=== PATIENT | male | born 1960 | race Caucasian/White ===

== ENCOUNTER 2023-09-19 15:34 | Outpatient (CLI) | payer MEDICARE, SELFPAY ==
--- NOTE | ~2023-09-19 | XR_ITS ---
EXAMINATION: XR abdomen/kub 1V DATE: 09/19/2023 15:56 INDICATION: Right kidney stone. Hematuria. TECHNIQUE: A supine view of the abdomen on 2 radiographs was obtained. COMPARISON: None. FINDINGS: There are no dilated loops of bowel. The kidneys are obscured by bowel. There are 17 mm and 7 mm stones in right kidney. IMPRESSION: 1. Right kidney stones. Reviewed, dictated and finalized at location E. DETAILER IMPRESSION: 1. Right kidney stones.
== END 2023-09-19 15:35 | disposition home or self-care (01) ==
PROVIDERS: PCP Emergency Medicine; Visit Provider Physician Assistant
DX: N20.0 Calculus of kidney (principal)
CPT/HCPCS: 74018

== ENCOUNTER 2023-10-08 13:21 | Outpatient (CLI) | payer MEDICARE, SELFPAY ==
--- NOTE | 2023-10-08 13:54 | ECG_ITS ---
Measurements Intervals [place] Rate: 72 P: 78 KS: 152 QRS: 54 QRSD: 97 T: 39 QT: 378 QTc: 416 Interpretive Statements SINUS RHYTHM NO PREVIOUS ECG AVAILABLE FOR COMPARISON Electronically Signed On 10-08-2023 14:41:52 [place] MILLER by Casey Christie M.D.
[2023-10-08 15:47] LABS: Partial Thromboplastin Time 29.1 SECONDS (22.3-36.8)
== END 2023-10-08 13:22 | disposition home or self-care (01) ==
PROVIDERS: PCP Emergency Medicine; Visit Provider Urology
DX: N20.0 Calculus of kidney (principal); I10 Essential (primary) hypertension; Z01.818 Encounter for other preprocedural examination
CPT/HCPCS: 36415; 85610; 85730; 87086; 93005

== ENCOUNTER 2023-10-17 02:52 | Day surgery (SDC) | payer MEDICARE, SELFPAY ==
[2023-10-07 14:40] VITALS: BMI 25.8
--- NOTE | 2023-10-07 14:46 | PC.NURSE ---
Report to the Outpatient Waiting Room, entrance under the green pavilion located off [facility], at time 11:00 on date 10/17/23. Planned Procedure Time: 1:00. Time changes happen often and if your time is changed the preop area will call you the afternoon before. - You and your visitor will be asked to self-screen and do not enter if you have any COVID symptoms. - A mask is optional within the hospital at this time. Patients may have clear liquids (water, carbonated beverages, clear teas, apple juice) until 3 hours prior to surgery (10:00) with a maximum of 20 ounces. - No food from midnight until time of surgery Take the following medications with a SIP of water the morning of surgery: AMLODIPINE, CARVEDILOL DO NOT STOP ANY OF YOUR OTHER PRESCRIPTION MEDICATIONS PRIOR TO SURGERY ?EXCEPT THE FOLLOWING Medications to discontinue per physician: VITAMINS/SUPPLEMENTS Date to take last dose: 10/13/23 LAST DOSE OF ASPIRIN AND PLAVIX (CLOPIDOGREL): 10/09/[address] PHAN (PER PT) Please no make-up, nail spanish, hairspray, perfume, deodorant, or body powder the day of surgery. No jewelry (including any body piercings) or valuables the day of surgery, leave them at home. Please take a shower or bath the night before, or the morning of, surgery with an antibacterial soap. Wear comfortable, loose fitting clothing. - Jewelry must be removed prior to entering the operating room. Rings and piercings that are not removed may be cut off. - The hospital will not accept responsibility for valuables. - Please leave all valuables, including medications, at home the day of surgery. If you are going home after surgery, a licensed reach lift truck driver must drive you home. - NO public transportation without another adult if you receive anesthesia. - We recommend that an adult stay with you for 24 hours following discharge. - We also recommend that you do not drive, make important decision, drink alcoholic beverages, or take any drugs that were not prescribed by your health care provider for at least 24 hours after your discharge time. Follow any additional instructions given to you from your surgeon. If you or anyone in your household have experienced Covid symptoms in the past week, please notify your surgeon or the nurse liaison at the phone number below for possible testing. Telephone instructions given to PT - DNE ANDERSON and asked if any additional questions and then verbalized understanding. Patient advised to call surgeon office or pre surgery nurse liaison [phone] if any additional questions.
[2023-10-17] VITALS (8 sets, daily range): BP systolic 97–153; BP diastolic 62–96; PULSE 70–92; RESP 12–20; TEMP 36.1–36.2; O2SAT 92–98
--- NOTE | ~2023-10-17 | XR_ITS ---
EXAMINATION: XR abdomen/kub 1V INDICATION: Right nephrolithiasis TECHNIQUE: Supine views of the abdomen were obtained on 2 radiographs. COMPARISON: 09/19/2023 FINDINGS: A 1.7 cm stone projects in the right mid kidney. There is a 6 mm stone of the right kidney lower pole. No additional urolithiasis is identified. There are phleboliths of the pelvis. 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 Mild to moderate lower lumbar spondylosis is noted. The visualize d lung bases are clear. IMPRESSION: 1. Right nephrolithiasis. Reviewed, dictated and finalized at location B. L SASH ERECTOR IMPRESSION: 1. Right nephrolithiasis.
--- NOTE | 2023-10-17 06:11 | WPDHPUPDATE1 ---
History and Physical Update Update Date/Time: 10/17/23 06:11 History and Physical has been reviewed, including an updated exam of the patient. There are NO changes in the patient's condition. Risks, benefits, and alternatives have been discussed and questions answered. Patient agrees to proceed with procedure.
[2023-10-17] MEDS: LACTATED RINGERS 1,000 ML 30 ML IV CONT (12:05)
--- NOTE | 2023-10-17 12:13 | P.PNAN_ITS ---
Anes - Initial Pre Proc Eval Procedure: Operation Date: 10/17/23 13:00 Proposed Procedures p Right Extracorporeal Shock Wave Lithotripsy - Sunny Baig MD s Cystoscopy with Right Stent Placement - Sunny Baig MD Date/Time: 10/17/23 12:13 Surgeon: Sunny Baig MD Pre Op Diagnosis: Rt Renal Stone Patient Data Age: 63 Gender: M Height: 1.78 m Weight: 81.25 kg Last Vital Signs Temp 36.1 C L 10/17/23 11:33 Pulse 70 10/17/23 11:33 Resp 20 10/17/23 11:33 BP 97/62 L 10/17/23 11:33 Pulse Ox 98 10/17/23 11:33 O2 Del Method Room Air 10/17/23 11:33 Allergies Allergy/AdvReac Type Severity Reaction Status Date / Time codeine AdvReac Unknown Gastrointestinal Verified 10/17/23 11:36 Upset Home Medications Medication Instructions Recorded Confirmed Type amlodipine 10 mg tablet 10 mg PO DAILY 05/21/23 10/17/23 History carvedilol 25 mg tablet 25 mg PO DAILY 05/21/23 10/17/23 History clonazepam 0.5 mg tablet 0.5 mg PO HS 05/21/23 10/17/23 History aspirin 81 mg chewable tablet 81 mg PO DAILY@0800 30 days #30 06/02/23 10/17/23 Rx (Children's Aspirin) tabs atorvastatin 80 mg tablet 80 mg PO HS 30 days #30 tabs 06/02/23 10/17/23 Rx clopidogrel 75 mg tablet 75 mg PO QHS 30 days #30 tabs 06/02/23 10/17/23 Rx sennosides 8.6 mg-docusate sodium 1 tab PO HS #30 caplets 06/02/23 10/17/23 Rx 50 mg tablet (Senokot-S) multivitamin 1 tablet PO DAILY 10/07/23 10/17/23 History oxycodone-acetaminophen 5 mg-325 1 tablet PO Q6H PRN Pain 10/07/23 10/17/23 History mg tablet tamsulosin 0.4 mg capsule 0.4 mg PO DAILY 10/07/23 10/17/23 History Patient hx anesthesia problems: none Family hx anesthesia problems: none Results Review: All pre-operative results and documents have been reviewed as part of the pre- operative evaluation. [facility] Social History Social History Smoking packs per day: 1 Smoking cigarettes per day: 20.0 Years smoked: 45 Smoking pack-years: 45.00 Smoking status: Current every day smoker Tobacco type: cigarettes Additional smoking assessment comments: requesting nicotine patch Alcohol intake: current Alcohol use details: RARE Substance use: never Substance use type: does not use Living arrangements: with family Additional living arrangements comments: SON Spiritual care concerns: No Anes - Eval Final PreProcedure Day of Procedure 10/17/23 12:13 Patient weight: overweight Heart: regular rate and rhythm Lungs: decreased breath sounds Airway: Mallampati scale class II Neurological: alert and oriented Last oral intake: >/= 8 hours ASA classification: IV Emergent: no Anesthetic plan: proceed Anesthesia type and monitoring: general LMA and standard monitoring Results Review: All pre-operative results and documents have been reviewed as part of the pre- operative evaluation. Informed Consent: The patient's anesthetic plan and its attendant risks and benefits were discussed with the patient/family/POA. Questions were solicited and answers provided to the satisfaction of the patient/family/POA.
[2023-10-17] MEDS: ceFAZolin 2 GM/D5W 50 ML 2 GM/50 ML BAG IVPB (13:03)
--- NOTE | 2023-10-17 13:33 | W.PM.PROC2 ---
Procedure Note - Detailed Date of Procedure 10/17/23 Pre-op Diagnosis Rt Renal Stones Post-op Diagnosis Same Procedure Performed Cystoscopy, right ureteral stent placement, right ESWL Surgeon Sunny Baig MD Anesthesia General Description of Procedure The patient was brought to the operative suite where he was placed in the supine position on the Dornier lithotripter table. Flexible cystoscopy was undertaken with a 16F flexible cystoscopy. There were no urethral strictures. The prostatic urethra estimated length was []cm. There was mild obstruction of the prostatic urethra with no median lobe enlargement. The bladder mucosa was normal and there was a single, orthotopic ureteral orifice bilaterally. A 0.035 glidewire was advanced into the right renal pelvis under fluoroscopy. A 4.8F J-J ureteral stent was positioned with the proximal coil in the renal pelvis and the distal coil in the bladder. The patient was then repositioned in the supine position with the focal point of the lithotriptor on a 14mm right renal pelvic calculus. A total of 2500 shocks were delivered at a power setting of 4. There appeared to be good fragmentation of the stone. The patient tolerated the procedure well and was taken to the recovery room in good condition. Drains No Packing No Pathology None sent Complications No immediate complications Condition Stable
[2023-10-17] MEDS: fentaNYL CITRATE INJ (*CRX) 100 MCG/2 ML VIAL 25 MCG IV PUSH ×8 (13:57→14:21)
[2023-10-17] MEDS: oxyCODONE HCL (*CRX) 5 MG TAB IR PO ×2 (14:38→15:36)
[2023-10-17] MEDS: HYDROmorphone HCL INJ (*CRX) 1 MG/ML SYR IV PUSH (15:35)
== END 2023-10-17 16:19 | disposition home or self-care (01) ==
PROVIDERS: PCP Emergency Medicine; Visit Provider Urology
PROC: (CPT 50590; principal; 2023-10-17 13:00)
PROC: (CPT 52352; 2023-10-17 13:00)
DX: N20.0 Calculus of kidney (principal); I10 Essential (primary) hypertension; Z79.82 Long term (current) use of aspirin; Z79.02 Long term (current) use of antithrombotics/antiplatelets; F17.210 Nicotine dependence, cigarettes, uncomplicated
CPT/HCPCS: 52332; 50590; 36415; 74018; 85610; 85730; 87086; 93005; A9270; C1769; C2617; J0461; J0690; J1100; J1170; J1596; J2371; J2405; J2704; J3010; J7120

== ENCOUNTER 2023-10-30 16:50 | Outpatient (CLI) | payer MEDICARE, SELFPAY ==
--- NOTE | ~2023-10-30 | XR_ITS ---
EXAMINATION: XR abdomen/kub 1V DATE: 10/30/2023 17:19 INDICATION: Right kidney stone. TECHNIQUE: A supine view of the abdomen on 2 radiographs was obtained. COMPARISON: Abdomen radiographs 10/17/2023 FINDINGS: There are no dilated loops of bowel. There is a large volume of stool in the colon. There i s a right internal ureteral stent in expected position. There are multiple stones in right ureter prem suring up to 13 x 7 mm. There is a 10 mm stone in right kidney. IMPRESSION: 1. Stones in the right ureter with right internal ureteral stent in expected position. 2. Right kidney stone. Reviewed, dictated and finalized at location E. WAREHOUSE WORKER IMPRESSION: 1. Stones in the right ureter with right internal ureteral stent in expected po sition. 2. Right kidney stone.
== END 2023-10-30 16:51 | disposition home or self-care (01) ==
PROVIDERS: PCP Emergency Medicine; Visit Provider Physician Assistant
DX: N20.0 Calculus of kidney (principal); N20.1 Calculus of ureter
CPT/HCPCS: 74018

== ENCOUNTER 2023-11-20 01:31 | Day surgery (SDC) | payer MEDICARE, SELFPAY ==
[2023-11-12 09:18] VITALS: BMI 25.7
--- NOTE | 2023-11-12 09:25 | PC.NURSE ---
Report to the Outpatient Waiting Room, entrance under the green pavilion located off [facility], at time 10:00 on date 11/20/23. Planned Procedure Time: 12:00. Time changes happen often and if your time is changed the preop area will call you the afternoon before. - You and your visitor will be asked to self-screen and do not enter if you have any COVID symptoms. - A mask is optional within the hospital at this time. Patients may have clear liquids (water, carbonated beverages, clear teas, apple juice) until 3 hours prior to surgery (9:00) with a maximum of 20 ounces. - No food from midnight until time of surgery Take the following medications with a SIP of water the morning of surgery: AMLODIPINE, CARVEDILOL, HYDROMORPHONE DO NOT STOP ANY OF YOUR OTHER PRESCRIPTION MEDICATIONS PRIOR TO SURGERY ?EXCEPT THE FOLLOWING Medications to discontinue per physician: ASPIRIN, CLOPIDOGREL Date to take last dose: 11/12/23 Please no make-up, nail bahraini, hairspray, perfume, deodorant, or body powder the day of surgery. No jewelry (including any body piercings) or valuables the day of surgery, leave them at home. Please take a shower or bath the night before, or the morning of, surgery with an antibacterial soap. Wear comfortable, loose fitting clothing. - Jewelry must be removed prior to entering the operating room. Rings and piercings that are not removed may be cut off. - The hospital will not accept responsibility for valuables. - Please leave all valuables, including medications, at home the day of surgery. If you are going home after surgery, a licensed assembly line driver must drive you home. - NO public transportation without another adult if you receive anesthesia. - We recommend that an adult stay with you for 24 hours following discharge. - We also recommend that you do not drive, make important decision, drink alcoholic beverages, or take any drugs that were not prescribed by your health care provider for at least 24 hours after your discharge time. Follow any additional instructions given to you from your surgeon. If you or anyone in your household have experienced Covid symptoms in the past week, please notify your surgeon or the nurse liaison at the phone number below for possible testing. Telephone instructions given to PT - DON and asked if any additional questions and then verbalized understanding. Patient advised to call surgeon office or pre surgery nurse liaison [phone] if any additional questions.
--- NOTE | ~2023-11-20 | XR_ITS ---
EXAMINATION: XR abdomen/kub 1V INDICATION: Urolithiasis TECHNIQUE: Supine views of the abdomen were obtained on 2 radiographs. COMPARISON: 10/30/2023 FINDINGS: A right internal ureteral stent is in expected position. A 9 mm stone previously seen adjac ent to the proximal stent now projects in the right kidney. There are stones measuring 7 mm and 5 mm in the right kidney lower pole. Multiple stones are seen in the right mid ureter adjacent to the sten t which are unchanged. The bowel gas pattern is normal. The visualized lung bases are clear. There is moderate osteoarthritis of the hips. IMPRESSION: 1. Right internal ureteral stent in expected position with unchanged stones adjacent to the proximal stent. 2. Right nephrolithiasis. Reviewed, dictated and finalized at location F. IMPRESSION: 1. Right internal ureteral stent in expected position with unchanged stones adj acent to the proximal stent. 2. Right nephrolithiasis.
--- NOTE | 2023-11-20 06:01 | WPDHPUPDATE1 ---
History and Physical Update Update Date/Time: 11/20/23 06:01 History and Physical has been reviewed, including an updated exam of the patient. There are NO changes in the patient's condition. Risks, benefits, and alternatives have been discussed and questions answered. Patient agrees to proceed with procedure.
[2023-11-20 10:25] LABS: Bacteria Urine None Seen /hpf; Calcium Oxalate Crystals Urine Present /hpf; RBC Urine >100 /hpf (0-2); Squamous Epithelial Cell Urine Few /hpf (Few); WBC Urine 51-100 /hpf (0-3)
[2023-11-20 10:31] LABS: Appearance Urine Cloudy (Clear); Color Urine Amber (Yellow)
[2023-11-20 10:32] LABS: Bilirubin Urine 1+ (Negative); Blood Urine 3+ (Negative); Glucose Urine UA Negative (Negative); Ketones Urine Trace mg/dL (Negative); Leukocyte Esterase Ur 2+ LEU/UL (Negative); Nitrate Urine Negative (Negative); Protein Urine 3+ mg/dL (Negative); Specific Grav Ur >= 1.030 (1.001-1.035); Urobilinogen Urine 0.2 mg/dL (<2.0); pH Urine 6.5 (5.0-9.0)
[2023-11-20 10:33] LABS: Add Urine Microscopic? YES
[2023-11-20 10:36] VITALS: BP 127/92; PULSE 80; RESP 18; TEMP 36.2; O2SAT 100
[2023-11-20 10:56] LABS: INR 0.9; Prothrombin Time 12.9 Seconds (11.1-14.7)
[2023-11-20 10:57] LABS: Partial Thromboplastin Time 28.1 Seconds (22.3-36.8)
--- NOTE | 2023-11-20 11:36 | SUR.PREOP ---
1115 MD IN TO SEE PATIENT, SURGERY CANCELLED FOR TODAY 1130 ANTIBIOTICS GIVEN TO PT BY .
--- NOTE | 2023-11-20 11:45 | SUR.PREOP ---
[address] PHAN INSTRUCTIONS, PT INFORMED TO REMAIN OFF OF HIS BLOOD THINNERS
== END 2023-11-20 11:30 | disposition home or self-care (01) ==
PROVIDERS: PCP Emergency Medicine; Visit Provider Urology
PROC: (CPT 50590; principal; 2023-11-20 12:00)
PROC: (CPT 52352; 2023-11-20 12:00)
DX: N20.0 Calculus of kidney (principal); Z79.01 Long term (current) use of anticoagulants; Z53.09 Procedure and treatment not carried out because of other contraindication
CPT/HCPCS: 36415; 74018; 81001; 85610; 85730; 87086; 99212; G0463

== ENCOUNTER 2023-11-28 01:11 | Day surgery (SDC) | payer MEDICARE, SELFPAY ==
[2023-11-24 14:17] VITALS: BMI 25.2
--- NOTE | 2023-11-24 14:22 | PC.NURSE ---
Report to the Outpatient Waiting Room, entrance under the green pavilion located off [facility], at time 1030 on date 11/28/23 _. Planned Procedure Time: _1230_. Time changes happen often and if your time is changed the preop area will call you the afternoon before. - You and your visitor will be asked to self-screen and do not enter if you have any COVID symptoms. - A mask is optional within the hospital at this time. Patients may have clear liquids (water, carbonated beverages, clear teas, apple juice) until 3 hours prior to surgery with a maximum of 20 ounces. - No food from midnight until time of surgery - Infants may have breast milk until 4 hours before surgery, formula 6 hours prior to surgery. - Children will be allowed to drink immediately following surgery. If applicable, please bring a bottle or sippy cup to assist with drinking. Juice, water, soda, and popsicles are readily available. For infants on formula, please bring formula the day of surgery. Pacifiers are allowed. Take the following medications with a SIP of water the morning of surgery: AMLODIPINE, LABETELOL, PAIN PILL IF NEEDED DO NOT STOP ANY OF YOUR OTHER PRESCRIPTION MEDICATIONS PRIOR TO SURGERY ?EXCEPT THE FOLLOWING Medications to discontinue per physician ASA, CLOPEDIGRIL Date to take last dose__PT HAS STOPPED FOR 2 WEEKS____ Please no make-up, nail yemeni, hairspray, perfume, deodorant, or body powder the day of surgery. No jewelry (including any body piercings) or valuables the day of surgery, leave them at home. Please take a shower or bath the night before, or the morning of, surgery with an antibacterial soap. Wear comfortable, loose fitting clothing. Children are encouraged to wear pajamas. - Jewelry must be removed prior to entering the operating room. Rings and piercings that are not removed may be cut off. - The hospital will not accept responsibility for valuables. - Please leave all valuables, including medications, at home the day of surgery. If you are going home after surgery, a licensed cat driver must drive you home. - NO public transportation without another adult if you receive anesthesia. - We recommend that an adult stay with you for 24 hours following discharge. - We also recommend that you do not drive, make important decision, drink alcoholic beverages, or take any drugs that were not prescribed by your health care provider for at least 24 hours after your discharge time. For Pediatric surgeries, we recommend two adults accompany the child home. Follow any additional instructions given to you from your surgeon. If you or anyone in your household have experienced Covid symptoms in the past week, please notify your surgeon or the nurse liaison at the phone number below for possible testing. Telephone instructions given to PATIENT_and asked if any additional questions and then verbalized understanding. Patient advised to call surgeon office or pre surgery nurse liaison [phone] if any additional questions.
[2023-11-28] VITALS (7 sets, daily range): BP systolic 104–135; BP diastolic 56–91; PULSE 54–73; RESP 13–18; TEMP 36.2–36.3; O2SAT 95–100
--- NOTE | ~2023-11-28 | XR_ITS ---
EXAMINATION: XR abdomen/kub 1V DATE: 11/28/2023 10:42 INDICATION: Nephrolithiasis for prelithotripsy evaluation TECHNIQUE: A supine view of the abdomen on 2 radiographs was obtained. COMPARISON: 11/20/2023 FINDINGS: Right internal ureteral stent remains in expected position with loops formed over the bladder and mid right kidney. There are 2 clusters of stones at the lower pole of the right kidney. There also appea rs to be an additional cluster of stones position along side the midportion of the ureteral stent at the level of the L5 transverse process. Tiny phlebolith in the left hemipelvis. Small amount of gas s cattered throughout nondilated large and small bowel. Couple sclerotic bone islands at the right femo ral neck. IMPRESSION: 1. Right nephrolithiasis including a cluster of stones along side the midportion of a right internal ureteral stent. Reviewed, dictated and finalized at location A. IMPRESSION: 1. Right nephrolithiasis including a cluster of stones along side the midportio n of a right internal ureteral stent.
--- NOTE | 2023-11-28 06:10 | WPDHPUPDATE1 ---
History and Physical Update Update Date/Time: 11/28/23 06:10 History and Physical has been reviewed, including an updated exam of the patient. There are NO changes in the patient's condition. Risks, benefits, and alternatives have been discussed and questions answered. Patient agrees to proceed with procedure.
[2023-11-28] MEDS: LACTATED RINGERS 1,000 ML 30 ML IV CONT ×2 (11:10→13:11)
--- NOTE | 2023-11-28 11:12 | WPDANESEPPF ---
Anes - Initial Pre Proc Eval Procedure: Operation Date: 11/28/23 12:30 Proposed Procedures p Right Renal Extracorporeal Shock Wave Lithotripsy - Sunny Baig MD s Cystoscopy, Right Stent Removal - Sunny Baig MD Date/Time: 11/28/23 11:12 Surgeon: Sunny Baig MD Pre Op Diagnosis: right renal stones Patient Data Age: 63 Gender: M Height: 1.78 m Weight: 80.1 kg Allergies Allergy/AdvReac Type Severity Reaction Status Date / Time codeine AdvReac Unknown Gastrointestinal Verified 11/28/23 11:06 Upset Home Medications Medication Instructions Recorded Confirmed Type amlodipine 10 mg tablet 10 mg PO DAILY 05/21/23 11/28/23 History carvedilol 25 mg tablet 25 mg PO DAILY 05/21/23 11/28/23 History clonazepam 0.5 mg tablet 0.5 mg PO HS 05/21/23 11/28/23 History aspirin 81 mg chewable tablet 81 mg PO DAILY@0800 30 days #30 06/02/23 11/28/23 Rx (Children's Aspirin) tabs atorvastatin 80 mg tablet 80 mg PO HS 30 days #30 tabs 06/02/23 11/28/23 Rx clopidogrel 75 mg tablet 75 mg PO QHS 30 days #30 tabs 06/02/23 11/28/23 Rx sennosides 8.6 mg-docusate sodium 1 tab PO HS #30 caplets 06/02/23 11/28/23 Rx 50 mg tablet (Senokot-S) tamsulosin 0.4 mg capsule 0.4 mg PO DAILY 10/07/23 11/28/23 History hydromorphone 4 mg tablet 4 mg PO BID 11/12/23 11/28/23 History Patient hx anesthesia problems: none Family hx anesthesia problems: none Results Review: All pre-operative results and documents have been reviewed as part of the pre-operative evaluation. [facility] Social History Social History Smoking packs per day: 1 Smoking cigarettes per day: 20.0 Years smoked: 40 Smoking pack-years: 40.00 Smoking status: Current every day smoker Tobacco type: cigarettes Additional smoking assessment comments: requesting nicotine patch Alcohol intake: current Drinks per week: 1 Alcohol use details: RARE Substance use: never Substance use type: does not use Living arrangements: with family Additional living arrangements comments: SON Spiritual care concerns: No Anes - Eval Final PreProcedure Day of Procedure 11/28/23 11:12 Patient weight: normal and thin Heart: regular rate and rhythm Lungs: clear to auscultation and decreased breath sounds Airway: Mallampati scale class II Neurological: alert and oriented Last oral intake: >/= 8 hours ASA classification: IV Emergent: no Anesthetic plan: proceed Anesthesia type and monitoring: general and standard monitoring Results Review: All pre-operative results and documents have been reviewed as part of the pre-operative evaluation. Informed Consent: The patient's anesthetic plan and its attendant risks and benefits were discussed with the patient/family/POA. Questions were solicited and answers provided to the satisfaction of the patient/family/POA.
[2023-11-28] MEDS: ceFAZolin 2 GM/D5W 50 ML 2 GM/50 ML BAG IVPB (11:57)
[2023-11-28] MEDS: LIDOCAINE HCL 2% GEL UROJET 10 ML PKG MUCOUS MEM (12:14)
--- NOTE | 2023-11-28 12:17 | W.PM.PROC2 ---
Procedure Note - Detailed Date of Procedure 11/28/23 Pre-op Diagnosis Right renal and ureteral stones Post-op Diagnosis Same Procedure Performed Cystoscopy, right ureteral stent, right ESWL Surgeon Sunny Baig MD Anesthesia General Description of Procedure The patient was brought to the operative suite where he was placed in the supine position on the Dornier lithotripter table. Flexible cystoscopy was undertaken with a 16F flexible cystoscopy. There were no urethral strictures. The prostatic urethra estimated length was 1.5cm. There was mild obstruction of the prostatic urethra with no median lobe enlargement. The bladder mucosa was normal and there was a single, orthotopic ureteral orifice bilaterally. The tip of the indwelling stent was grasped and the stent was removed with ease The patient was then repositioned in the supine position with the focal point of the lithotriptor on a mid ureteral Steinstrasse. A total of 2500 shocks were delivered at a power setting of 4. given the patient's insistence that we remove his stent I did during an additional treatment stone fragments in his right kidney. There appeared to be good fragmentation of the stone. The patient tolerated the procedure well and was taken to the recovery room in good condition. Drains No Packing No Pathology None sent Complications No immediate complications
[2023-11-28] MEDS: KETOROLAC 30 MG/ML VIAL (*BKC) IV PUSH (12:55)
[2023-11-28] MEDS: fentaNYL CITRATE INJ (*CRX) 100 MCG/2 ML VIAL 25 MCG IV PUSH ×2 (13:15→13:18)
[2023-11-28] MEDS: oxyCODONE HCL (*CRX) 5 MG TAB IR PO (13:41)
== END 2023-11-28 14:22 | disposition home or self-care (01) ==
PROVIDERS: PCP Emergency Medicine; Visit Provider Urology
PROC: (CPT 50590; principal; 2023-11-28 12:30)
PROC: (CPT 52310; 2023-11-28 12:30)
DX: N20.2 Calculus of kidney with calculus of ureter (principal); Z79.02 Long term (current) use of antithrombotics/antiplatelets; Z79.82 Long term (current) use of aspirin; F17.210 Nicotine dependence, cigarettes, uncomplicated
CPT/HCPCS: 50590; 52310; 74018; A9270; J0690; J1885; J2405; J2598; J2704; J3010; J7120

== ENCOUNTER 2024-12-30 12:24 | Observation (INO) | payer MEDICARE, SELFPAY ==
--- NOTE | ~2024-12-30 | XR_ITS ---
EXAMINATION: XR retrograde pyelo w/stent RT DATE: 12/31/2024 14:11 INDICATION: Right internal ureteral stent placement TECHNIQUE: Fluoroscopic images from a right internal ureteral stent placement are submitted for lokesh espinal. 15 seconds of fluoroscopy time. FINDINGS: There is a right double-J internal ureteral stent projecting in expected position, with proximal Barry loop at the level of the renal pelvis and distal loop in the pelvis within the bladder lumen. IMPRESSION: 1. Right internal ureteral stent placement. Please refer to real-time procedural findings for detai ls. Reviewed, dictated and finalized at location A. IMPRESSION: 1. Right internal ureteral stent placement. Please refer to real-time procedu ral findings for details.
--- NOTE | ~2024-12-30 | XR_ITS ---
Supine and upright views of the abdomen Clinical history: Right ureteral stone COMPARISON: 11/28/2023 Findings: Bowel gas pattern is nonspecific. No evidence for obstruction or free air. Right renal ston es are present, measuring up to 1 cm in diameter. No definite left-sided stones seen.. Osseous struct ures are intact. Impression: Right nephrolithiasis, as above. Reviewed, dictated and finalized at location . Impression: Right nephrolithiasis, as above.
--- OUTSIDE RECORDS SUMMARY | 2024-12-30 12:26 | XMS_ITS | Encounter Summary ---
Author Organization [facility] Address [address] [place] [id number] Care Team Providers Care Getter Filler Name Role Phone Ciro Rondon MD Primary Care Provider [phone] Encounter Details Date Type Department Care Team (Latest Contact Info) Description 12/29/2024 Travel Social History Tobacco Use Types Packs/Day Years Used Date Smoking Tobacco: Every Day Cigarettes 1 40 Smokeless Tobacco: Never Alcohol Use Standard Drinks/Week Comments Yes 10 (1 standard drink = 0.6 oz pu re alcohol) some weeks more than others Humiliation, Afraid, Rape, and Kick questionnair e Answer Date Recorded Within the last year, have y ou been afraid of your partner or ex-partner? Patient declined 12/29/2020 Within the last year, have y ou been humiliated or emotionally abused in other ways by your partner or ex-partner? Patient declined 12/29/2020 Within the last year, have y ou been kicked, hit, slapped, or otherwise physically hurt by your partner or ex-partner? Patient declined 12/29/2020 Within the last year, have y ou been raped or forced to have any kind of sexual activity by your partner or ex-partner? Patient declined 12/29/2020 Social Connection and Isolation Panel [NHANES] A nswer Date Recorded In a typical week, how many times do you talk on the phone with family, friends, or neighbors? Patient declined 12/29/2020 How often do you get togethe r with friends or relatives? Patient declined 12/29/2020 How often do you attend denominational or jewish serv ices? Patient declined 12/29/2020 Do you belong to any clubs o r organizations such as denominational groups, unions, fraternal or athletic groups, or school groups? Patient declined 12/29/2020 How often do you attend meet ings of the clubs or organizations you belong to? Patient declined 12/29/2020 Are you , , di vorced, , never , or living with a partner? Patient declined 12/29/2020 Overall Financial Resource Strain (CARDIA) Answe r Date Recorded How hard is it for you to pa y for the very basics like food, housing, medical care, and heating? Not hard at all 12/29/2020 PHQ-2 Answer Date Recorded Patient Health Questionnaire-2 Score 0 07/14/2023 [facility] - Occupational Stress Questionnaire Answer Date Recorded Do you feel stress - tense, restless, nervous, or anxious, or unable to sleep at night because your mind is troubled all the time - these days? Not at all 12/29/2020 Exercise Vital Sign Answer Date Recorde d On average, how many days pe r week do you engage in moderate to strenuous exercise (like a brisk walk)? 1 day 12/29/2020 On average, how many minutes do you engage in exercise at this level? 30 min 12/29/2020 Hunger Vital Sign Answer Date Recorded Within the past 12 months, y ou worried that your food would run out before you got the money to buy more. Never true 12/30/19 21 Within the past 12 months, t he food you bought just didn't last and you didn't have money to get more. Never true 12/29/2020 PRAPARE - Transportation Answer Date Re corded In the past 12 months, has l ack of transportation kept you from medical appointments or from getting medications? No 02/2021 In the past 12 months, has l ack of transportation kept you from meetings, work, or from getting things needed for daily living? No 12/29/2020 Sex and Gender Information Value Date Recorded Sex Assigned at Male 10/20/2024 10:19 AM [employer] Legal Sex Male 8:10 PM CDT Gender Identity Not on file Sexual Orientation Not on file documented as of this encounter Functional Status * Are you deaf or do you have serious difficulty hearing Answer Date of Assessment Author Status No 05/18/2023 2:54 AM Geraldine Cho RN Active * Are you blind or do you have serious difficulty seeing, even when wearing glasses? Answer Date of Assessment Author Status No 05/18/2023 2:54 AM Geraldine Cho RN Active * Do you have serious difficulty walking or climbing stairs? Answer Date of Assessment Author Status No 05/18/2023 2:54 AM Geraldine Cho RN Active * Do you have difficulty dressing or bathing? Answer Date of Assessment Author Status No 05/18/2023 2:54 AM Geraldine Cho RN Active * Because of a physical, mental, or emotional condition, do you have difficulty doing errands alone such as visiting a doctor's office or shopping? Answer Date of Assessment Author Status No 05/18/2023 2:54 AM Geraldine Cho RN Active * Calculated C-SSRS Risk Score (Lifetime/Recent) Answer Date of Assessment Author Status No Risk Indicated 12/29/2024 9:31 AM Carson Ch RN Active * [place] Suicide Severity Rating Scale (Screener/Recent Self-Report) Question Answer Date of Assessment Author Status 1. Wish to be (Past 1 Month) No 12/29/2024 9:31 AM Nadia Ch RN A ctive 2. Non-Specific Active Suicidal Thoughts (Past 1 Month) No 12/29/2024 9:31 AM Nadia Ch RN A ctive 6. Suicidal Behavior (Lifetime) No 12/29/2024 9:31 AM Nadia Ch RN A ctive documented as of this encounter Mental Status * Because of a physical, mental, or emotional condition, do you have serious difficulty concentrating, remembering, or making decisions? Answer Entry Date Author Status No 05/18/2023 2:54 AM Geraldine Cho RN Active documented in this encounter Plan of Treatment Not on file documented as of this encounter Visit Diagnoses Not on filedocumented in this encounter Care Teams Getter Filler Relationship Specialty Start Date End Date Ciro Rondon MD [address] [place] [address], [place] [address] PCP - General FAMILY PRACTICE 12/27/20 documented as of this encounter
--- OUTSIDE RECORDS SUMMARY | 2024-12-30 12:26 | XMS_ITS | Encounter Summary ---
Author Organization [facility] Address [facility] [place] [address] Care Team Providers Care Plug Sorter Name Role Phone Ciro Rondon MD Primary Care Provider Reason for Referral * Consultation (Routine) - New Request Specialty Diagnoses / Procedures Referred By Contac t Referred To Contact UROLOGY Diagnoses Kidney stones Hydronephrosis with ureteropelvic junction (UPJ) obstruction Procedures OFFICE/OUTPATIENT NEW LOW MDM 30-44 MINUTES OFFICE/OUTPT VISIT,NEW,LEVL IV OFFICE/OUTPT VISIT,NEW,LEVL V OFFICE/OUTPT VISIT,EST,LEVL III OFFICE/OUTPT VISIT,EST,LEVL IV OFFICE/OUTPT VISIT,EST,LEVL V Cory Mares MD [address] [place] [phone] Phone: tel: fax: Referral ID Status Reason Start Date Expiration Date Visits Requested Visits Authorized [id number] New Request Specialty Services 12/29/2024 12/29/2025 1 1 * Imaging (Emergency) - New Request Specialty Diagnoses / Procedures Referred By Contac t Referred To Contact RADIOLOGY Procedures CT ABD+PEL W IV CON ONLY Cory Mares MD [address] [place] [id number] Phone: tel: fax: Referral ID Status Reason Start Date Expiration Date V isits Requested Visits Authorized [id number] New Request 12/29/2024 12/29/2025 1 1 Reason for Visit * Reason Comments Abdominal Pain Encounter Details Date Type Department Care Team (Late st Contact Info) Description 12/29/2024 9:30 AM CDT - 12/29/2024 12:55 PM CDT Emergency [facility] Emergency Services [facility] [place] [address] Cory Mares MD [address] [place] [address] [phone] Abdominal Pain Discharge Disposition: Home or Self Care (Routine Discharge) Social History Tobacco Use Types Packs/Day Years [...] declined 12/29/2020 How often do you attend anglican or christianity serv ices? 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 Legal Sex Male 8:10 PM CDT Gender Identity Not on file Sexual Orientation Not on file documented as of this encounter Last Filed Vital Signs Vital Sign Reading Time Taken Comments Blood Pressure 124/74 12/29/2024 12:00 PM CDT Pulse 78 12/29/2024 9:44 AM CDT Temperature 36.3 C (97.3 F) 12/29/2024 9:44 AM CDT Respiratory Rate 20 12/29/2024 9:44 AM CDT Oxygen Saturation 98% 12/29/2024 12:00 PM CDT Inhaled Oxygen Concentration - - Weight 83.9 kg (185 lb) 12/29/2024 9:44 AM CDT Height 177.8 cm (5' 10 ) 12/29/2024 9:44 AM CDT Body Mass Index 26.54 12/29/2024 9:44 AM CDT documented in this encounter Functional Status * Are you deaf or do you have serious difficulty hearing Answer Date of Assessment Author Status No 05/18/2023 2:54 AM CDT Geraldine Lan RN Active * Are you blind or do you have serious difficulty seeing, even when wearing glasses? Answer Date of Assessment Author Status No 05/18/2023 2:54 AM KAIT Geraldine Lan RN Active * Do you have serious difficulty walking or climbing stairs? Answer Date of Assessment Author Status No 05/18/2023 2:54 AM KAIT Gearldine Lan RN Active * Do you have difficulty dressing or bathing? Answer Date of Assessment Author Status No 05/18/2023 2:54 AM KAIT Geraldine Lan RN Active * Because of a physical, mental, or emotional condition, do you have difficulty doing errands alone such as visiting a doctor's office or shopping? Answer Date of Assessment Author Status No 05/18/2023 2:54 AM KAIT Geraldine Lan RN Active * Calculated C-SSRS Risk Score (Lifetime/Recent) Answer Date of Assessment Author Status No Risk Indicated 12/29/2024 9:31 AM Carson Ch RN Active * [place] Suicide Severity Rating Scale (Screener/Recent Self-Report) Question Answer Date of Assessment Author Status 1. Wish to be (Past 1 Month) No 12/29/2024 9:31 AM Nadia Ch RN A ctive 2. Non-Specific Active Suicidal Thoughts (Past 1 Month) No 12/29/2024 9:31 AM Nadia Ch RN A ctive 6. Suicidal Behavior (Lifetime) No 12/29/2024 9:31 AM CDT [place], Nadia A, RN A ctive documented as of this encounter Mental Status * Because of a physical, mental, or emotional condition, do you have serious difficulty concentrating, remembering, or making decisions? Answer Entry Date Author Status No 05/18/2023 2:54 AM CDT Geraldine Lan RN Active documented in this encounter Discharge Instructions * Discharge Instructions* Cory Mares MD - 12/29/2024 11:27 AM CDT Start taking antibiotics as prescribed for your infection and start taking probiotics to prevent complications of antibiotic use such as diarrhea or fungal infections. Stay well-hydrated and get plenty of rest. Follow-up with your primary care doctor and return for new or worsening symptoms or concerns. Take Tylenol and naproxen as prescribed for pain. Take Zofran as needed for nausea and vomiting. Take Flomax to help flush out the kidney stone. Stay well- hydrated also to help flush out the kidney stone. Follow-up with your primary care doctor. Follow-up with urology if the kidney stone does not pass on its own or you have any other concerns of a urologic nature. Please return for any new or worsening symptoms or concerns promptly. * Attachments The following attachments cannot be sent through Care Everywhere. * Flank Pain (Tongan) * Kidney stones in adults (Tongan) documented in this encounter Medications at Time of Discharge acetaminophen (TYLENOL) 500 MG tablet Take 1-2 tablets (500-1,000 mg total) by mouth every 8 (eight) hours as needed for Pain. 30 tablet 12/29/2024 5 cephALEXin (KEFLEX) 500 MG capsule Take 1 capsule (500 mg total) by mouth 3 (three) times daily for 10 days. 30 capsule 12/29/2024 5 lactobacillus (CULTURELLE) Cap capsule Take 1 capsule by mouth 2 (two) times daily for 30 days. OK to change to any OTC probiotic if not covered by insurance or not available 60 capsule 12/29/2024 5 naproxen (NAPROSYN) 500 MG tablet Take 1 tablet (500 mg total) by mouth 2 (two) times daily with meals. 60 tablet 12/29/2024 ondansetron (ZOFRAN-ODT) 4 MG disintegrating tablet Take 1 tablet (4 mg total) by mouth every 8 (eight) hours as needed. 20 tablet 12/29/2024 tamsulosin (FLOMAX) 0.4 MG Cap Take 1 capsule (0.4 mg total) by mouth daily. 30 capsule 12/29/2024 albuterol sulfate HFA 108 (90 Base) MCG/ACT inhalerIndications: Viral upper respiratory illness,Wheezing,Cu rrent every day smoker Inhale 2 puffs into the lungs every 4 (four) hours as needed for Wheezing or Shortness of breath. 8 g 07/14/2023 amLODIPine (NORVASC) 10 MG tablet Take 1 tablet (10 mg total) by mouth daily. 30 tablet 05/22/2023 aspirin EC (ECOTRIN) 81 MG tablet Take 1 tablet (81 mg total) by mouth daily. 30 tablet 05/22/2023 atorvastatin (LIPITOR) 80 MG tablet Take 1 tablet (80 mg total) by mouth nightly at bedtime. 30 tablet 05/21/2023 azithromycin (ZITHROMAX) 250 MG tabletIndications:V iral upper respiratory illness,Wheezing,Cu rrent every day smoker 500 mg on day 1 then 250 mg daily 6 tablet 07/14/2023 carvedilol 25 MG tablet Take 1 tablet (25 mg total) by mouth 2 (two) times daily. Bottle says take twice daily, I just take once every morning 08/02/2020 clonazePAM (KLONOPIN) 0.5 MG tablet Take 1 tablet (0.5 mg total) by mouth nightly. clopidogrel (PLAVIX) 75 MG tablet Take 1 tablet (75 mg total) by mouth nightly at bedtime. 30 tablet 05/21/2023 HYDROmorphone 2 MG tablet Take 1 tablet (2 mg total) by mouth every 6 (six) hours as needed for Pain. Neuropathy in legs and low back 12/12/2020 OLANZapine (ZYPREXA) 10 MG tablet Take 1 tablet (10 mg total) by mouth nightly at bedtime. promethazine (PHENERGAN) 25 MG tablet Take 1 tablet (25 mg total) by mouth every 6 (six) hours as needed for Nausea. 24 tablet 09/13/2023 traZODone (DESYREL) 50 MG tablet Take 1 tablet (50 mg total) by mouth nightly at bedtime. documented as of this encounter ED Notes * Cory Mares MD - 12/29/2024 12:55 PM CDT Images from the original note were not included. [facility] EMERGENCY SERVICES EMERGENCY DEPARTMENT ENCOUNTER CHIEF COMPLAINT Chief Complaint Patient presents with Abdominal Pain HISTORY OF PRESENT ILLNESS This is a pleasant 64-year-old presenting with right-sided abdominal pain and nausea. He has also had trouble urinating. He also states that he has been urinating very frequently despite the trouble urinating and that it started 2 days ago and got worse throughout the night. He has had a history ofkidney stones and thinks it may be a kidney stone again. He also reports a history of stroke. He also states he is out of pain medication. According to the triage nurse the patient was ambulatory with a steady gait from the waiting room to the [facility]. PAST MEDICAL HISTORY Past Medical History[1] SURGICAL HISTORY Past Surgical History[2] CURRENT MEDICATIONS Discharge Medication List as of 12/29/2024 12:34 PM CONTINUE these medications which have NOT CHANGED Details albuterol sulfate HFA 108 (90 Base) MCG/ACT inhaler Inhale 2 puffs into the lungs every 4 (four) hours as needed for Wheezing or Shortness of breath., Starting 07/14/2023, Eprescribe amLODIPine (NORVASC) 10 MG tablet Take 1 tablet (10 mg total) by mouth daily., Starting Fri05/22/2023, Eprescribe aspirin EC (ECOTRIN) 81 MG tablet Take 1 tablet (81 mg total) by mouth daily., Starting Fri05/22/2023, Eprescribe atorvastatin (LIPITOR) 80 MG tablet Take 1 tablet (80 mg total) by mouth nightly at bedtime., Starting Fri05/21/2023, No Print azithromycin (ZITHROMAX) 250 MG tablet 500 mg on day 1 then 250 mg daily, Eprescribe carvedilol 25 MG tablet Take 1 tablet (25 mg total) by mouth 2 (two) times daily. Bottle says take twice daily, I just take once every morning, Starting Fri08/02/2020, Historical Med clonazePAM (KLONOPIN) 0.5 MG tablet Take 1 tablet (0.5 mg total) by mouth nightly., Historical Med clopidogrel (PLAVIX) 75 MG tablet Take 1 tablet (75 mg total) by mouth nightly at bedtime., Starting Fri05/21/2023, Eprescribe HYDROmorphone 2 MG tablet Take 1 tablet (2 mg total) by mouth every 6 (six) hours as needed for Pain. Neuropathy in legs and low back, Starting Fri12/12/2020, Historical Med OLANZapine (ZYPREXA) 10 MG tablet Take 1 tablet (10 mg total) by mouth nightly at bedtime., Historical Med promethazine (PHENERGAN) 25 MG tablet Take 1 tablet (25 mg total) by mouth every 6 (six) hours as needed for Nausea., Starting Fri09/13/2023, Eprescribe traZODone (DESYREL) 50 MG tablet Take 1 tablet (50 mg total) by mouth nightly at bedtime., Historical Med ALLERGIES Review of patient's allergies indicates: Codeine FAMILY HISTORY Family History[3] SOCIAL HISTORY Social History Socioeconomic History Marital status: Spouse name: Kyra Xiong Number of children: Not on file Years of education: Not on file Highest education level: Not on file Occupational History Not on file Tobacco Use Smoking status: Every Day Current packs/day: 1.00 Average packs/day: 1 pack/day for 40.0 years (40.0 ttl pk-yrs) Types: Cigarettes Smokeless tobacco: Never Substance and Sexual Activity Alcohol use: Yes Alcohol/week: 10.0 standard drinks of alcohol Types: 6 Cans of beer per week Comment: some weeks more than others Drug use: Not Currently Sexual activity: Yes Partners: Female Other Topics Concern Not on file Social History Narrative Not on file Social Drivers of Health Financial Resource Strain: Low Risk (06/27/2024) Received from [facility] No Chains Overall Financial Resource Strain (CARDIA) Difficulty of Paying Living Expenses: Not very hard Food Insecurity: No Food Insecurity (06/27/2024) Received from [facility] No Chains Hunger Vital Sign Worried About Running Out of Food in the Last Year: Never true Ran Out of Food in the Last Year: Never true Transportation Needs: Unmet Transportation Needs (06/27/2024) Received from [facility] - Transportation Lack of Transportation (Medical): Yes Lack of Transportation (Non-Medical): Yes Physical Activity: Insufficiently Active (12/29/2020) Exercise Vital Sign Days of Exercise per Week: 1 day Minutes of Exercise per Session: 30 min Stress: Stress Concern Present (06/27/2024) Received from [facility] - Occupational Stress Questionnaire Feeling of Stress : To some extent Social Connections: Unknown (12/29/2020) Social Connection and Isolation Panel [NHANES] Frequency of Communication with Friends and Family: Patient declined Frequency of Social Gatherings with Friends and Family: Patient declined Attends Congregation Services: Patient declined Active Member of Clubs or Organizations: Patient declined Attends Club or Organization Meetings: Patient declined Marital Status: Patient declined Intimate Partner Violence: Unknown (12/29/2020) Humiliation, Afraid, Rape, and Kick questionnaire Fear of Current or Ex-Partner: Patient declined Emotionally Abused: Patient declined Physically Abused: Patient declined Sexually Abused: Patient declined Housing Stability: Low Risk (06/27/2024) Received from [facility] Housing Stability Vital Sign Unable to Pay for Housing in the Last Year: No Number of Times Moved in the Last Year: 0 Homeless in the Last Year: No Filed Vitals: 12/29/24 1030 12/29/24 1100 12/29/24 1130 12/29/24 1200 BP: 127/87 115/69 132/83 124/74 Pulse: Resp: Temp: TempSrc: SpO2: 98% 99% 99% 98% Weight: Height: Pulse Oximetry 98% interpretation normal in my independent interpretation Supplemental Oxygen: Room Air PHYSICAL EXAM Physical Exam Vitals and nursing note reviewed. Constitutional: General: He is in acute distress. Appearance: He is not ill-appearing, toxic-appearing or diaphoretic. HENT: Head: Normocephalic and atraumatic. Right Ear: External ear normal. Left Ear: External ear normal. Nose: Nose normal. No rhinorrhea. Mouth/Throat: Mouth: Mucous membranes are moist. Eyes: General: No scleral icterus. Right eye: No discharge. Left eye: No discharge. Extraocular Movements: Extraocular movements intact. Conjunctiva/sclera: Conjunctivae normal. Cardiovascular: Rate and Rhythm: Normal rate and regular rhythm. Comments: Well-perfused Pulmonary: Effort: Pulmonary effort is normal. No respiratory distress. Breath sounds: No stridor. No wheezing, rhonchi or rales. Abdominal: General: Abdomen is flat. There is no distension. Tenderness: There is abdominal tenderness (Right lower quadrant and right mid abdomen). Musculoskeletal: General: No swelling, deformity or signs of injury. Normal range of motion. Cervical back: Normal range of motion and neck supple. No rigidity. Skin: General: Skin is dry. Capillary Refill: Capillary refill takes less than 2 seconds. Coloration: Skin is not jaundiced or pale. Findings: No bruising, erythema or rash. Neurological: General: No focal deficit present. Mental Status: He is alert and oriented to person, place, and time. Mental status is at baseline. Cranial Nerves: No cranial nerve deficit. Coordination: Coordination normal. Gait: Gait normal. Psychiatric: Mood and Affect: Mood normal. Behavior: Behavior normal. Thought Content: Thought content normal. Judgment: Judgment normal. DIAGNOSTIC RESULTS Based on the patient's history and physical exam the following labs and radiology studies were ordered in order to evaluate, work-up and determine best course of treatment for the patient. The studies are independently interpreted by me as follow here or in the MDM section or ED course section: Results for orders placed or performed during the hospital encounter of 12/29/24 CBC W/DIFF AUTOMATED Result Value Ref Range WBC 12.08 (H) 4.50 - 11.00 x10'3/uL RBC 4.91 4.50 - 5.90 x10'6/uL HGB 15.2 14.0 - 18.0 G/DL HCT 45.0 43.0 - 54.0 % MCV 91.6 80.0 - 100.0 FL MCH 31.0 26.0 - 34.0 PG MCHC 33.8 31.0 - 37.0 G/DL RDW 13.2 11.6 - 14.8 % PLT 212 130 - 400 x10'3/uL MPV 11.1 7.0 - 12.0 FL CBC COMMENT AUTOMATED RBC MORPHOLOGY AND PLATELET EVALUATION NORMAL NEUTROPHILS % 76.5 (H) 40.0 - 74.0 % LYMPHOCYTES % 15.2 14.0 - 46.0 % MONOCYTES % 7.2 4.0 - 13.0 % EOSINOPHILS 0.5 0.0 - 7.0 % BASOPHILS 0.4 0.0 - 3.0 % IMMATURE GRANS % 0.2 0.0 - 0.43 % NRBC % 0.0 % ABS. NEUTROPHILS TOTAL 9.23 (H) 1.69 - 7.81 x10'3/uL ABS. LYMPHOCYTES 1.84 0.21 - 5.42 x10'3/uL ABS. MONOCYTES 0.87 0.04 - 1.37 x10'3/uL ABS. EOSINOPHILS 0.06 0.00 - 0.68 x10'3/uL ABS. BASOPHILS 0.05 0.00 - 0.08 x10'3/uL ABS. IMMATURE GRANULOCYTES 0.03 0.00 - 0.06 x10'3/uL ABS. NUCLEATED RBC'S 0.00 0.00 - 0.01 x10'3/uL COMPREHENSIVE METABOLIC PANEL Result Value Ref Range GLUCOSE 106 (H) 70 - 99 MG/DL BUN 16 7 - 18 MG/DL CREATININE S/P/B 1.12 0.50 - 1.20 MG/DL SODIUM S/P/B 142 136 - 145 MMOL/L POTASSIUM S/P/B 4.0 3.5 - 5.1 MMOL/L CHLORIDE S/P/B 103 100 - 108 MMOL/L CO2 29.0 21.0 - 32.0 MMOL/L CALCIUM S/P/B 9.1 8.5 - 10.1 MG/DL BILIRUBIN TOTAL S/P/B 0.8 0.2 - 1.2 MG/DL TOTAL PROTEIN S/P/B 7.2 6.4 - 8.2 G/DL ALBUMIN S/P/B 3.5 3.4 - 5.0 G/DL AST 28 15 - 37 U/L ALT 29 16 - 60 U/L ALKALINE PHOSPHATASE S/P/B 85 50 - 136 U/L ANION GAP 10.0 5.0 - 15.0 MMOL/L BUN CREATININE RATIO 14.3 6 - 26 A/G RATIO 0.9 (L) 1.0 - 2.5 RATIO GFR ESTIMATE 74 (L) >90 ML/MIN/1.73 M2 LIPASE Result Value Ref Range LIPASE 249 (H) 16 - 77 UNITS/L URINALYSIS AUTO DIP Result Value Ref Range COLOR (U) YELLOW YELLOW TRANSPARENCY CLEAR CLEAR SPECIFIC GRAVITY (U) 1.010 1.010 - 1.025 U PH 6.5 5.0 - 8.5 LEUKOCYTES (U) NEGATIVE NEGATIVE NITRITES NEGATIVE NEGATIVE PROTEIN RANDOM (U) 1+ (A) NEGATIVE GLUCOSE (U) NEGATIVE NEGATIVE KETONES MG/DL (U) NEGATIVE NEGATIVE UROBILINOGEN 0.2 0.2 - 1.0 EU/DL BILIRUBIN (U) NEGATIVE NEGATIVE BLOOD (U) 3+ (A) NEGATIVE DRUG SCREEN RAPID Result Value Ref Range AMPHETAMINE SCREEN (U) NEGATIVE NEGATIVE BARBITURATES SCREEN (U) NEGATIVE NEGATIVE BENZODIAZEPINES SCREEN (U) NEGATIVE NEGATIVE BUPRENORPHINE SCREEN (U) POSITIVE (A) NEGATIVE COCAINE METABOLITES (U) NEGATIVE NEGATIVE METHAMPHETAMINE (U) NEGATIVE NEGATIVE METHADONE (U) NEGATIVE NEGATIVE OPIATE SCREEN (U) NEGATIVE NEGATIVE OXYCODONE SCREEN (U) NEGATIVE NEGATIVE PHENCYCLIDINE PCP (U) NEGATIVE NEGATIVE CANNABINOIDS SCREEN (U) NEGATIVE NEGATIVE TRICYCLIC ANTIDEPRESSANT SCREEN (U) NEGATIVE NEGATIVE U PH 6.5 SPECIFIC GRAVITY (U) 1.010 CT ABD+PEL W IV CON ONLY Final Result by User, [id number] (12/29 105) [address] [place] [address] CT ABDOMEN AND PELVIS WITH CONTRAST Exam date:12/29/2024 10:17 AM Clinical history: Abdomen pain. Technique: Dynamic helical images of the abdomen and pelvis were obtained. The patient received approximately 100 mL of Isovue 370 nonionic intravenous contrast through an IV in the right antecubital fossa. A dose lowering technique was used for this procedure, which may include, but is not limited to, dose reduction technique, automated exposure control, the use of iterative reconstruction, and ALARA (As Low As Reasonably Achievable) / Image Gently techniques. Comparison: September 13, 2023. FINDINGS: Images of the lower thorax demonstrate the visualized portion of the heart to appear normal. The lung bases are clear. Images of the abdomen demonstrate the overall size and morphology of the liver to be within normal limits. No hepatic lesions are observed. No ascites is seen. The gallbladder is present and normally distended. No stones are observed within its lumen and there is no evidence of cholecystitis or biliary obstruction. The pancreas, spleen, and adrenal glands appear grossly normal. The kidneys demonstrate severe right-sided hydronephrosis which is due to a 8 x 14 mm stone obstructing the proximal right ureter. In addition, a second 8 mm stone is noted within the lower pole of the right kidney. No left-sided stones are present. Images of the pelvis demonstrate the urinary bladder to exhibit circumferential wall thickening. This is nonspecific but can be indicative of chronic cystitis. The prostate is normal in size. The stomach and small bowel have a normal overall appearance. The appendix appears normal. Diverticulosis is seen throughout the distal descending and sigmoid portions of the colon. IMPRESSION: 1. Severe right-sided hydronephrosis due to a large stone obstructing the right UPJ. A second large stone is noted within the lower pole of the right kidney 2. Circumferential thickening of the urinary bladder suggests chronic cystitis Ordered By: CORY MARES Interpreted By: Noé Iraheta MD, 12/29/2024 10:54 AM I personally reviewed the patient's images and agree with radiologist interpretation No results found for this visit on 12/29/24. If an EKG was performed and is documented above I independently interpreted/read the EKG as noted above at the time of service EMERGENCY DEPARTMENT COURSE and DIFFERENTIAL DIAGNOSIS/MDM: ED Course as of 12/29/24 1454 FriDecember 29, 2024 1039 CBC W/DIFF AUTOMATED(!) Leukocytosis noted, left shift present, normal H&H and platelets [MN] 1110 LIPASE(!): 249 Moderate elevation [MN] 1110 COMPREHENSIVE METABOLIC PANEL(!) Normal electrolytes, kidney functions and liver functions [MN] 1125 URINALYSIS AUTO DIP(!) Blood present, no evidence of infection [MN] 1138 DRUG SCREEN RAPID(!) Positive for buprenorphine [MN] ED Course User Index [MN] Cory Mares MD Medical Decision Making Flank pain differential I considered kidney stone, pyelonephritis, congenital ureteral obstructions, renal cell carcinoma, other urinary tract pathology and potentially malignancy, musculoskeletal back pain, herpes zoster, constipation, and simple urinary tract infection among other causes. Abdominal pain differential I considered the possibility of GERD, gastritis, pancreatitis, hepatitis, cholecystitis, peptic ulcer disease, hiatal hernia, esophagitis, esophageal spasm, bowel obstruction, colitis, proctitis, diverticulitis, appendicitis, mesenteric adenitis, terminal ileitis, mesenteric ischemia, intra-abdominal infarctions, choledocholithiasis, ascending cholangitis, primary biliary sclerosis, retained stone and other common bile duct obstructions, Aryan-Jr Sae, UTI, kidney stone, pyelonephritis, bowel obstruction, intra-abdominal abscess, aortic aneurysm, aortic dissection, mesenteric ischemia, fatty liver, liver abscess, splenic infarct, renal infarct, as well as potential pelvic pathologies, abdominal wall injuries, perforated viscus, malignancies, diverticulitis, constipation, obstipation, early gastroenteritis, infectious diarrhea, C diff colitis, urinary tract infection, kidney stone, pyelonephritis, electrolyte abnormalities, dehydration, COVID, other viral illnesses, less likely pleurisy, pericarditis, myocarditis, mesenteric ischemia, acute NC, acute coronary syndrome, CHF, pneumonia, empyema and other causes Problems Addressed: Abdominal pain: complicated acute illness or injury with systemic symptoms Hydronephrosis with ureteropelvic junction (UPJ) obstruction: complicated acute illness or injury Kidney stones: complicated acute illness or injury Amount and/or Complexity of Data Reviewed External Data Reviewed: notes. Labs: ordered. Decision-making details documented in ED Course. Radiology: ordered and independent interpretation performed. Risk OTC drugs. Prescription drug management. Decision regarding hospitalization. Emergency major surgery. Risk Details: I considered the need for emergent urologic intervention including possible nephrostomy tube placement for infected completely obstructed stone or medical admission for severe pyelonephritis with sepsis Prior medical records reviewed including: Prior visits for suicidal ideation, leg pain, ankle pain, flank pain, abdominal pain, cough, URI, trouble walking and others History providers: patient Risk factors to consider in determining the patient's fitness for procedures and or prognosis related to current illness include: none Patient Presents With a New Acute Problem with: Uncertain prognosis, systemic symptoms, and threat to life or bodily/organ function Patient presents with a chronic problem with: N/A Care discussed with: Nursing staff here Social determinants of health that significantly limited prognosis, diagnosis and/or treatment: Tobacco use Based on the above history and exam as well as the results as listed the following medications and/or treatments were ordered in order to treat and stabilize the patient's condition: Medications sodium chloride 0.9% bolus infusion 1,000 mL (0 mLs Intravenous Infusion Stop Time 12/29/24 1131) ketorolac (TORADOL) injection 15 mg (15 mg Intravenous Given 12/29/24 1002) acetaminophen (TYLENOL) tablet 1,000 mg (1,000 mg Oral Given 12/29/24 1003) sodium chloride 0.9% bolus infusion 1,000 mL (0 mLs Intravenous Infusion Stop Time 12/29/24 1234) iopamidol (ISOVUE-370) 76 % injection 100 mL (100 mLs Intravenous Given 12/29/24 1038) cefTRIAXone (ROCEPHIN) 2 g in sterile water 20 mL IV (2 g Intravenous Given 12/29/24 1134) tamsulosin (FLOMAX) capsule 0.4 mg (0.4 mg Oral Given 12/29/24 1132) REASSESSMENT Stable/improved CONSULTS: None The patient ultiumately did not warrant hospitalization nor any acute surgical interventions beyondany procedures performed here and documented above. That said, I considered the need for both admission and additional surgical procedures. Also considered the need to obtain additional imaging and/or labs beyond what may have been ordered but no additional testing was indicated based on the patient's condition and results of any other testing that may have been performed. Any medications given here and/or prescribed for discharge are documented within the other portionsof the note. After any medications or treatments that may have been provided here the patient was improved and symptoms had resolved or become tolerable or no medications or treatments were indicated based on thepatient's condition. The patient was deemed stable safe and appropriate for discharge to home and is instructed to follow-up with his primary care doctor and return for any new or worsening symptoms. DISPOSITION/PLAN Discharge 12/29/2024 11:26:29 AM The following medications were prescribed in order to continue the patient's treatment as an outpatient: Medication List START taking these medications Morning Around Noon Evening Bedtime As Needed acetaminophen 500 MG tablet Commonly known as: TYLENOL Take 1-2 tablets (500-1,000 mg total) by mouth every 8 (eight) hours as needed for Pain. Last time this was given: 1,000 mg on December 29, 2024 10:03 AM Signed by: Dr. Cory Mares Last time this was given: December 29, 2024 10:03 AM 1-2 tablets cephALEXin 500 MG capsule Commonly known as: KEFLEX Take 1 capsule (500 mg total) by mouth 3 (three) times daily for 10 days. Signed by: Dr. Cory Mares 1 capsule 1 capsule 1 capsule lactobacillus Caps capsule Take 1 capsule by mouth 2 (two) times daily for 30 days. OK to change to any OTC probiotic if not covered by insurance or not available Signed by: Dr. Cory Mares 1 capsule 1 capsule naproxen 500 MG tablet Commonly known as: NAPROSYN Take 1 tablet (500 mg total) by mouth 2 (two) times daily with meals. Signed by: Dr. Cory Mares 1 tablet 1 tablet ondansetron 4 MG disintegrating tablet Commonly known as: ZOFRAN-ODT Take 1 tablet (4 mg total) by mouth every 8 (eight) hours as needed. Signed by: Dr. Cory Mares 1 tablet tamsulosin 0.4 MG Caps Commonly known as: FLOMAX Take 1 capsule (0.4 mg total) by mouth daily. Last time this was given: 0.4 mg on December 29, 2024 11:32 AM Signed by: Dr. Cory Mares Last time this was given: December 29, 2024 11:32 AM 1 capsule ASK your doctor about these medications Morning Around Noon Evening Bedtime As Needed albuterol sulfate HFA 108 (90 Base) MCG/ACT inhaler Inhale 2 puffs into the lungs every 4 (four) hours as needed for Wheezing or Shortness of breath. Signed by: Noemi Wilder 2 puffs amLODIPine 10 MG tablet Commonly known as: NORVASC Take 1 tablet (10 mg total) by mouth daily. Signed by: Dr. Jones Finnegan 1 tablet aspirin EC 81 MG tablet Commonly known as: ECOTRIN Take 1 tablet (81 mg total) by mouth daily. Signed by: Dr. Jones Finnegan 1 tablet atorvastatin 80 MG tablet Commonly known as: LIPITOR Take 1 tablet (80 mg total) by mouth nightly at bedtime. Signed by: Dr. Jones Finnegan 1 tablet azithromycin 250 MG tablet Commonly known as: Zithromax 500 mg on day 1 then 250 mg daily Signed by: Noemi Ruizt 500 mg on day 1 then 250 mg daily carvedilol 25 MG tablet Commonly known as: COREG Take 1 tablet (25 mg total) by mouth 2 (two) times daily. Bottle says take twice daily, I just takeonce every morning 1 tablet 1 tablet clonazePAM 0.5 MG tablet Commonly known as: klonoPIN Take 1 tablet (0.5 mg total) by mouth nightly. 1 tablet clopidogrel 75 MG tablet Commonly known as: PLAVIX Take 1 tablet (75 mg total) by mouth nightly at bedtime. Signed by: Dr. Jones Finnegan 1 tablet HYDROmorphone 2 MG tablet Commonly known as: DILAUDID Take 1 tablet (2 mg total) by mouth every 6 (six) hours as needed for Pain. Neuropathy in legs and low back 1 tablet OLANZapine 10 MG tablet Commonly known as: ZyPREXA Take 1 tablet (10 mg total) by mouth nightly at bedtime. 1 tablet promethazine 25 MG tablet Commonly known as: PHENERGAN Take 1 tablet (25 mg total) by mouth every 6 (six) hours as needed for Nausea. Signed by: Dr. Leonidas Velez 1 tablet traZODone 50 MG tablet Commonly known as: DESYREL Take 1 tablet (50 mg total) by mouth nightly at bedtime. 1 tablet FINAL IMPRESSION DIAGNOSES: SNOMED CT(R) 1. Abdominal pain ABDOMINAL PAIN 2. Kidney stones KIDNEY STONE 3. Hydronephrosis with ureteropelvic junction (UPJ) obstruction OBSTRUCTIVE HYDRONEPHROSIS The patient was discharged, all questions were answered and we engaged in shared decision-making with the plan, I stressed the importance of prompt follow-up was stressed to the patient and they wereadvised to follow-up and/or referrals placed as below: Ciro Rondon MD [address] [place], [place] [id number] (Please note that portions of this note were completed with a voice recognition program. Quite often unanticipated grammatical, syntax, homophones, and other interpretive errors are inadvertently transcribed by the computer software. Please disregard these errors and excuse any errors that have escaped final proofreading.) Note to patient: It was a pleasure taking care of you today. The Century Cures Act makes medical notes like this one available to patients in the interest of transparency. However, be advised that this is a medical document. It is intended as physician to physician communication. It is writtenin medical language and may contain abbreviations or verbiage that are unfamiliar. It may appear blunt or direct or even insulting if taken out of the clinical communication context. Medical documents are nor meant to communicate to patients, they are intended to carry relevant information, facts as evident, and the clinical opinion of the practitioner. CORY MARES MD (electronically signed) 2:57 PM [1] Past Medical History: Diagnosis Date Hypertension Neuropathy Stroke (cerebrum) ([facility]/HCC HHS/HCC) 05/17/2023 [2] Past Surgical History: Procedure Laterality Date COLONOSCOPY N/A 12/29/2020 COLONOSCOPY with biopsy performed by Ok Rosario MD at [facility] OR EGD FOREARM/WRIST SURGERY UNLISTED Right SPINAL FUSION C4-7 [3] Family History Problem Relation Name Age of Onset No Known Problems Mother No Known Problems Father Cory Mares MD 12/29/24 3317 * Bhavna Dale RN - 12/29/2024 12:49 PM CDT Pt states is feeling better, just wants to go home. Ivf complete * Nadia Bowen RN - 12/29/2024 12:20 PM CDT Resting in room offers no c/o. IV infusing without difficulty. * Nadia Bowen RN - 12/29/2024 10:45 AM CDT Returned from x-ray tolerated well. * Nadia Bowen RN - 12/29/2024 10:35 AM CDT To x-ray per wheelchair. * Nadia Bowen RN - 12/29/2024 9:30 AM CDT C/O right lower abdominal pain for two days worse during the night. Concerned it may be a kidney stone. H/O kidney stone in the past. H/O stroke in April of 2024. Ambulatory to room without difficulty. Color pink respirations even and unlabored. Has not taken pain medication for pain. States Nghia out of pain medication that I usually take and can't get it refilled until Friday or Friday. States unable to void at this time. States I go all the time . documented in this encounter Plan of Treatment Pending Results Name Type Priority Associated Diagnoses Date /Time CULTURE URINE Microbiology STAT 11:09 AM CDT Scheduled Referrals Name Type Priority Associated Diagnoses Orde r Schedule Ambulatory referral to Urology Referral Routine Kidney stones Hydronephrosis with ureteropelvic junction (UPJ) obstruction Ordered: 12/29/2024 documented as of this encounter Procedures Procedure Name Priority Date/Time Associated Diagnosis Comments DRUG SCREEN RAPID STAT 12/29/2024 11: 09 AM CDT URINE BACTERIA CULTURE STAT 11:09 AM CDT URINALYSIS AUTO DIP STAT 12/29/2024 1 1:[address] ABD+PEL W CON STAT 12/29/2024 10:3 9 AM CDT COMPREHENSIVE METABOLIC PANEL STAT 12/29/2024 9:50 AM CDT CBC W/DIFF AUTOMATED STAT 12/29/2024 9:50 AM CDT LIPASE STAT 12/29/2024 9:50 AM CDT documented in this encounter Results * (ABNORMAL) DRUG SCREEN RAPID (12/29/2024 11:09 AM CDT) [facility] AMPHETAMINE SCREEN (U) NEGATIVE NEGATIVE 12/29/2024 11:31 AM CDT [facility] BARBITURATES SCREEN (U) NEGATIVE NEGATIVE 12/29/2024 11:31 AM CDT [facility] BENZODIAZEPINES SCREEN (U) NEGATIVE NEGATIVE 12/29/2024 11:31 AM CDT [facility] BUPRENORPHINE SCREEN (U) POSITIVE(A) NEGATIVE 12/29/2024 11:31 AM CDT [facility] COCAINE METABOLITES (U) NEGATIVE NEGATIVE 12/29/2024 11:31 AM CDT [facility] METHAMPHETAMINE (U) NEGATIVE NEGATIVE 12/29/2024 11:31 AM CDT [facility] METHADONE (U) NEGATIVE NEGATIVE 12/29/2024 11:31 AM CDT [facility] OPIATE SCREEN (U) NEGATIVE NEGATIVE 025 11:31 AM CDT [facility] OXYCODONE SCREEN (U) NEGATIVE NEGATIVE 12/29/2024 11:31 AM CDT [facility] PHENCYCLIDINE PCP (U) NEGATIVE NEGATIVE 12/29/2024 11:31 AM CDT [facility] CANNABINOIDS SCREEN (U) NEGATIVE NEGATIVE 12/29/2024 11:31 AM T [facility] TRICYCLIC ANTIDEPRESSANT SCREEN (U) NEGATIVE NEGATIVE 12/29/2024 11:31 AM T [facility] Comment: NOTE: RESULTS OF THIS DRUG SCREEN SHOULD BE USED FOR MEDICAL PURPOSES ONLY AND NOT FOR LEGAL AND EMPLOYMENT PURPOSES. CALL THE LAB IF POSITIVE RESULTS NEED CONFIRMATORY TESTING. EPHEDRINE MAY CAUSE FALSE POSITIVE AMPHETAMINE Cut-off Concentration for a positive result AMPHETAMINE- 500 NG/ML BARBITURATE- 200 NG/ML BENZODIAZEPINE- 150 NG/ML BUPRENORPHINE- 10 NG/ML COCAINE- 150 NG/ML METHAMPHETAMINES- 500 NG/ML METHADONE- 200 NG/ML OPIATE- 100 NG/ML OXYCODONE- 100 NG/ML PCP- 25 NG/ML THC- 50 NG/ML TCA- 300 NG/ML U PH 6.5 12/29/2024 11:31 AM CDT [facility] SPECIFIC GRAVITY (U) 1.010 12/29/2024 11:31 AM T [facility] URINE SPECIMEN / Unknown 12/29/2024 11:09 AM CDT us Cory Mares MD URINE ORDERABLES Final Result [facility] [address] [place] [address], [place] * (ABNORMAL) URINALYSIS AUTO DIP (12/29/2024 11:09 AM CDT) COLOR (U) YELLOW YELLOW 12/29/2024 11:24 AM CDT [facility] TRANSPARENCY CLEAR CLEAR 12/29/2024 11:24 AM CDT [facility] SPECIFIC GRAVITY (U) 1.010 1.010 - 1.025 12/29/2024 11:24 AM CDT [facility] U PH 6.5 5.0 - 8.5 12/29/2024 11:24 AM CDT [facility] LEUKOCYTES (U) NEGATIVE NEGATIVE 12/29/2024 11:24 AM CDT [facility] NITRITES NEGATIVE NEGATIVE 12/29/2024 11:24 AM CDT [facility] PROTEIN RANDOM (U) 1+(A) NEGATIVE 12/29/2024 11:24 AM CDT [facility] GLUCOSE (U) NEGATIVE NEGATIVE 12/29/2024 11:24 AM CDT [facility] KETONES MG/DL (U) NEGATIVE NEGATIVE 12/29/2024 11:24 AM CDT [facility] UROBILINOGEN 0.2 0.2 - 1.0 EU/DL 12/29/2024 11:24 AM CDT [facility] BILIRUBIN (U) NEGATIVE NEGATIVE 12/29/2024 11:24 AM CDT [facility] BLOOD (U) 3+(A) NEGATIVE 12/29/2024 11:24 AM CDT [facility] URINE SPECIMEN OBTAINED BY CLEAN CATCH PROCEDURE / Unknown 12/29/2024 11:09 AM CDT us Cory Mares MD URINE ORDERABLES Final Result [facility] [address] [place] [address], [place] * CT ABD+PEL W IV CON ONLY (12/29/2024 10:39 AM CDT) Anatomical Region Laterality Modality Abdomen Computed Tomogra phy 12/29/2024 10:5 4 AM CDT Impressions 12/29/2024 10:56 AM CDT IMPRESSION: 1. Severe right-sided hydronephrosis due to a large stone obstructing the right UPJ. A second large stone is noted within the lower pole of the right kidney 2. Circumferential thickening of the urinary bladder suggests chronic cystitis Ordered By: CORY MARES Interpreted By: Noé Iraheta MD, 12/29/2024 10:54 AM Narrative 12/29/2024 10:56 AM CDT [address] [place] [address] CT ABDOMEN AND PELVIS WITH CONTRAST Exam date:12/29/2024 10:17 AM Clinical history: Abdomen pain. Technique: Dynamic helical images of the abdomen and pelvis were obtained. The patient received approximately 100 mL of Isovue 370 nonionic intravenous contrast through an IV in the right antecubital fossa. A dose lowering technique was used for this procedure, which may include, but is not limited to, dose reduction technique, automated exposure control, the use of iterative reconstruction, and ALARA (As Low As Reasonably Achievable) / Image Gently techniques. Comparison: September 13, 2023. FINDINGS: Images of the lower thorax demonstrate the visualized portion of the heart to appear normal. The lung bases are clear. Images of the abdomen demonstrate the overall size and morphology of the liver to be within normal limits. No hepatic lesions are observed. No ascites is seen. The gallbladder is present and normally distended. No stones are observed within its lumen and there is no evidence of cholecystitis or biliary obstruction. The pancreas, spleen, and adrenal glands appear grossly normal. The kidneys demonstrate severe right-sided hydronephrosis which is due to a 8 x 14 mm stone obstructing the proximal right ureter. In addition, a second 8 mm stone is noted within the lower pole of the right kidney. No left-sided stones are present. Images of the pelvis demonstrate the urinary bladder to exhibit circumferential wall thickening. This is nonspecific but can be indicative of chronic cystitis. The prostate is normal in size. The stomach and small bowel have a normal overall appearance. The appendix appears normal. Diverticulosis is seen throughout the distal descending and sigmoid portions of the colon. Procedure Note Noé Iraheta MD - 12/29/[address] [place] [address] CT ABDOMEN AND PELVIS WITH CONTRAST Exam date:12/29/2024 10:17 AM Clinical history: Abdomen pain. Technique: Dynamic helical images of the abdomen and pelvis were obtained.The patient received approximately 100 mL of Isovue 370 nonionicintravenous contrast through an IV in the right antecubital fossa. A doselowering technique was used for this procedure, which may include, but isnot limited to, dose reduction technique, automated exposure control, theuse of iterative reconstruction, and ALARA (As Low As ReasonablyAchievable) / Image Gently techniques. Comparison: September 13, 2023. FINDINGS: Images of the lower thorax demonstrate the visualized portion of the heartto appear normal. The lung bases are clear. Images of the abdomen demonstrate the overall size and morphology of theliver to be within normal limits. No hepatic lesions are observed. Noascites is seen. The gallbladder is present and normally distended. Nostones are observed within its lumen and there is no evidence ofcholecystitis or biliary obstruction. The pancreas, spleen, and adrenalglands appear grossly normal. The kidneys demonstrate severe right-sidedhydronephrosis which is due to a 8 x 14 mm stone obstructing the proximalright ureter. In addition, a second 8 mm stone is noted within the lowerpole of the right kidney. No left-sided stones are present. Images of the pelvis demonstrate the urinary bladder to exhibitcircumferential wall thickening. This is nonspecific but can be indicativeof chronic cystitis. The prostate is normal in size. The stomach and small bowel have a normal overall appearance. The appendixappears normal. Diverticulosis is seen throughout the distal descendingand sigmoid portions of the colon. IMPRESSION: 1. Severe right-sided hydronephrosis due to a large stone obstructing theright UPJ. A second large stone is noted within the lower pole of theright kidney 2. Circumferential thickening of the urinary bladder suggests chroniccystitis Ordered By: CORY MARES Interpreted By: Noé Iraheta MD, 12/29/2024 10:54 AM us Cory Mares MD CT Final Result * (ABNORMAL) LIPASE (12/29/2024 9:50 AM CDT) LIPASE 249(H) 16 - 77 UNITS/L 12/29/2024 11:00 AM CDT [facility] 12/29/2024 9:50 AM CDT us Cory Mares MD LABORATORY Final Result [address] [place] [address], [place] * (ABNORMAL) COMPREHENSIVE METABOLIC PANEL (12/29/2024 9:50 AM CDT) Pathologist [facility] GLUCOSE 106(H) 70 - 99 MG/DL 12/29/2024 11:00 AM CDT [facility] BUN 16 7 - 18 MG/DL 12/29/2024 11:00 AM CDT [facility] CREATININE S/P/B 1.12 0.50 - 1.20 MG/DL 12/29/2024 11:00 AM CDT [facility] SODIUM S/P/B 142 136 - 145 MMOL/L 12/29/2024 11:00 AM CDT [facility] POTASSIUM S/P/B 4.0 3.5 - 5.1 MMOL/L 12/29/2024 11:00 AM CDT [facility] CHLORIDE S/P/B 103 100 - 108 MMOL/L 12/29/2024 11:00 AM CDT [facility] CO2 29.0 21.0 - 32.0 MMOL/L 12/29/2024 11:00 AM CDT [facility] CALCIUM S/P/B 9.1 8.5 - 10.1 MG/DL 12/29/2024 11:00 AM T [facility] BILIRUBIN TOTAL S/P/B 0.8 0.2 - 1.2 MG/DL 12/29/2024 11:00 AM T [facility] Comment: THIS ASSAY IS NOT RECOMMENDED FOR PATIENTS UNDERGOING TREATMENT WITH ELTROMBOPAG DUE TO THE POTENTIAL FOR FALSELY ELEVATED RESULTS. TOTAL PROTEIN S/P/B 7.2 6.4 - 8.2 G/DL 12/29/2024 11:00 AM T [facility] ALBUMIN S/P/B 3.5 3.4 - 5.0 G/DL 12/29/2024 11:00 AM T [facility] AST 28 15 - 37 U/L 12/29/2024 11:00 AM T [facility] ALT 29 16 - 60 U/L 12/29/2024 11:00 AM T [facility] ALKALINE PHOSPHATASE S/P/B 85 50 - 136 U/L 12/29/2024 11:00 AM T [facility] ANION GAP 10.0 5.0 - 15.0 MMOL/L 12/29/2024 11:00 AM T [facility] BUN CREATININE RATIO 14.3 6 - 26 12/29/2024 11:00 AM [facility] A/G RATIO 0.9(L) 1.0 - 2.5 RATIO 12/29/2024 11:00 AM T [facility] GFR ESTIMATE 74(L) >90 ML/MIN/1.7 3 M2 12/29/2024 11:00 AM T [facility] Comment: NOTE: eGFR is not calculated for patients <18 years of age. This is an estimated GFR calculation using the new CKD EPI creatinine equation without race and so does not require a correction factor for race. This estimated GFR should not be used for calculating drug doses. 12/29/2024 9:50 AM CDT us Cory Mares MD LABORATORY Final Result [facility] [address] [place] [address], * (ABNORMAL) CBC W/DIFF AUTOMATED (12/29/2024 9:50 AM CDT) WBC 12.08(H) 4.50 - 11.00 x10'3/uL 12/29/2024 10:28 AM CDT [facility] RBC 4.91 4.50 - 5.90 x10'6/uL 12/29/2024 10:28 AM CDT [facility] HGB 15.2 14.0 - 18.0 G/DL 12/29/2024 10:28 AM CDT [facility] HCT 45.0 43.0 - 54.0 % 12/29/2024 10:28 AM CDT [facility] MCV 91.6 80.0 - 100.0 FL 12/29/2024 10:28 AM CDT [facility] MCH 31.0 26.0 - 34.0 PG 12/29/2024 10:28 AM CDT [facility] MCHC 33.8 31.0 - 37.0 G/DL 12/29/2024 10:28 AM CDT [facility] RDW 13.2 11.6 - 14.8 % 12/29/2024 10:28 AM CDT [facility] PLT 212 130 - 400 x10'3/uL 12/29/2024 10:28 AM CDT [facility] MPV 11.1 7.0 - 12.0 FL 12/29/2024 10:28 AM CDT [facility] CBC COMMENT AUTOMATED RBC MORPHOLOGY AND PLATELET EVALUATION NORMAL 12/29/2024 10:28 AM CDT [facility] NEUTROPHILS % 76.5(H) 40.0 - 74.0 % 12/29/2024 10:28 AM CDT [facility] LYMPHOCYTES % 15.2 14.0 - 46.0 % 12/29/2024 10:28 AM CDT [facility] MONOCYTES % 7.2 4.0 - 13.0 % 12/29/2024 10:28 AM CDT [facility] EOSINOPHILS 0.5 0.0 - 7.0 % 12/29/2024 10:28 AM CDT [facility] BASOPHILS 0.4 0.0 - 3.0 % 12/29/2024 10:28 AM CDT [facility] IMMATURE GRANS % 0.2 0.0 - 0.43 % 12/29/2024 10:28 AM CDT [facility] NRBC % 0.0 % 12/29/2024 10:28 AM CDT [facility] ABS. NEUTROPHILS TOTAL 9.23(H) 1.69 - 7.81 x10'3/uL 12/29/2024 10:[address] [facility] ABS. LYMPHOCYTES 1.84 0.21 - 5.42 x10'3/uL 12/29/2024 10:[address] [facility] ABS. MONOCYTES 0.87 0.04 - 1.37 x10'3/uL 12/29/2024 10:28 AM CDT [facility] ABS. EOSINOPHILS 0.06 0.00 - 0.68 x10'3/uL 12/29/2024 10:28 AM CDT [facility] ABS. BASOPHILS 0.05 0.00 - 0.08 x10'3/uL 12/29/2024 10:[address] [facility] ABS. IMMATURE GRANULOCYTES 0.03 0.00 - 0.06 x10'3/uL 12/29/2024 10:28 AM T [facility] ABS. NUCLEATED RBC'S 0.00 0.00 - 0.01 x10'3/uL 12/29/2024 10:[address] [facility] 12/29/2024 9:50 AM CDT us Cory Mares MD LABORATORY Final Result [facility] [place] [facility] [address] [place] [address], [place] documented in this encounter Visit Diagnoses Diagnosis Abdominal pain- Primary Abdominal pain, unspecified site Kidney stones Calculus of kidney Hydronephrosis with ureteropelvic junction (UPJ) obstruction documented in this encounter Administered Medications Inactive Administered Medications - up to 3 most recent administrations Medication Order MAR Action Action Date Dose Rate Site acetaminophen (TYLENOL) tablet 1,000 mg 1,000 mg, Oral, Once, 1 dose, On Fri12/29/24 at 0945, Maximum dose of acetaminophen is 4000 mg from all sources in 24 hours. Given 12/29/2024 10:03 AM CDT 1,000 mg cefTRIAXone (ROCEPHIN) 2 g in sterile water 20 mL IV 2 g, Intravenous, at 240 mL/hr, Once, 1 dose, On Fri12/29/24 at 1145, Administer over at least 5 minutes. Given 12/29/2024 11:34 AM CDT 2 g 240 mL/hr iopamidol (ISOVUE-370) 76 % injection 100 mL 100 mL, Intravenous, IMG once as needed, Contrast, 1 dose, Starting on Fri12/29/24 at 1036, Until Fri12/29/24 at 1038 Given 12/29/2024 10:38 AM CDT 100 mLs ketorolac (TORADOL) injection 15 mg 15 mg, Intravenous, Once, 1 dose, On Fri12/29/24 at 0945, For IV administration, give over 15 seconds. Given 12/29/2024 10:02 AM CDT 15 mg sodium chloride 0.9% bolus infusion 1,000 mL 1,000 mL, Intravenous, Administer over 60 Minutes, Once, 1 dose, On Fri12/29/24 at 0945 New Bag 12/29/2024 10:02 AM CDT 1,000 mLs 1000 mL/hr sodium chloride 0.9% bolus infusion 1,000 mL 1,000 mL, Intravenous, Administer over 60 Minutes, Once, 1 dose, On Fri12/29/24 at 1030 New Bag 12/29/2024 11:32 AM CDT 1,000 mLs 1000 mL/hr tamsulosin (FLOMAX) capsule 0.4 mg 0.4 mg, Oral, Once, 1 dose, On Fri12/29/24 at 1130 Given 12/29/2024 11:32 AM CDT 0.4 mg documented in this encounter Active and Recently Administered Medications Times are shown in CDT. Scheduled Medication Order 12/27/2024 12/28/2024 12/29/2024 acetaminophen (TYLENOL) tablet 1,000 mg (COMPLETED) 1,000 mg, Oral, Once, 1 dose, On Fri12/29/24 at 0945, Maximum dose of acetaminophen is 4000 mg from all sources in 24 hours. 1003 (Given - Provid er: Nadia Bowen RN) cefTRIAXone (ROCEPHIN) 2 g in sterile water 20 mL IV (COMPLETED) 2 g, Intravenous, at 240 mL/hr, Once, 1 dose, On Fri12/29/24 at 1145, Administer over at least 5 minutes. 1134 (Given - Provid er: Nadia Bowen RN) ketorolac (TORADOL) injection 15 mg (COMPLETED) 15 mg, Intravenous, Once, 1 dose, On Fri12/29/24 at 0945, For IV administration, give over 15 seconds. 1002 (Given - Provid er: Nadia Bowen RN) sodium chloride 0.9% bolus infusion 1,000 mL (COMPLETED) 1,000 mL, Intravenous, Administer over 60 Minutes, Once, 1 dose, On Fri12/29/24 at 0945 1002 (New Bag - Prov ider: Nadia Bowen RN)1131 (Infusion Stop Time - Provider: Nadia Bowen RN) sodium chloride 0.9% bolus infusion 1,000 mL (COMPLETED) 1,000 mL, Intravenous, Administer over 60 Minutes, Once, 1 dose, On Fri12/29/24 at 1030 1132 (New Bag - Prov ider: Nadia Bowen RN)1234 (Infusion Stop Time - Provider: Bhavna Dale RN) tamsulosin (FLOMAX) capsule 0.4 mg (COMPLETED) 0.4 mg, Oral, Once, 1 dose, On Fri12/29/24 at 1130 1132 (Given - Provid er: Nadia Bowen RN) PRN Medication Order 12/27/2024 12/28/2024 12/29/2024 iopamidol (ISOVUE-370) 76 % injection 100 mL (COMPLETED) 100 mL, Intravenous, IMG once as needed, Contrast, 1 dose, Starting on Fri12/29/24 at 1036, Until Fri12/29/24 at 1038 1038 (Given - Provid er: Cherie De - Comment: 20G RAC) documented in this encounter Care Teams Plug Sorter Relationship Specialty Start Date End Date Ciro Rondon MD [address] [place] [id number] PCP - General FAMILY PRACTICE 12/27/20 documented as of this encounter
--- OUTSIDE RECORDS SUMMARY | 2024-12-30 12:26 | XMS_ITS | Clinical Summary ---
Author Organization [facility] Address [address] [place] [address] Care Team Providers Care Beater And Pulper Feeder Name Role Phone Unavailable Primary Care Provider Unavailabl e Source Comments [facility],non-owned Affiliates and Associated Physician Practices is amultiple site organization consisting of ambulatory clinics and hospital sitesin [place] and [place]. This disclosure is being madepursuant to the Care Everywhere program and may not contain all information available regarding this patient. Last updated 18.[facility] Allergies No known active allergies Medications * This document contains information received from the source organization and may not represent a complete record from that organization. * Be aware that medications may not be up to date on this document. Alwaysverify current medications with the patient. amLODIPine (Norvasc) 10 MG tabletIndicatio ns:Hypertension Take 1 (one) tablet by mouth once daily Reasons: High Blood Pressure Active clopidogrel (plaVIX) 75 MG tabletIndicatio ns:Cerebrovascu lar Accident Take 1 (one) tablet by mouth once daily Reasons: Cerebrovascular Accident or Stroke Active HYDROmorphone (Dilaudid) 4 MG tabletIndicatio ns:Pain,chronic back pain Take 0.5 (one-half) tablet by mouth every 6 hours as needed for Pain Reasons: Pain, chronic back pain Active tamsulosin (Flomax) 0.4 MG capsuleIndicati ons:Benign Prostatic Hypertrophy Take 1 (one) capsule by mouth once daily At the same time every day after a meal. Reasons: Benign Enlargement of Prostate Active carvedilol (Coreg) 25 MG tabletIndicatio ns:Hypertension Take 1 (one) tablet by mouth 2 times daily with morning and evening meal Reasons: High Blood Pressure Active mirtazapine (Remeron) 15 MG tabletIndicatio ns:Major Depressive Disorder Take 1 (one) tablet by mouth at bedtime Reasons: Major Depressive Disorder 30 tablet 07/02/20 24 Active nicotine (Nicoderm CQ) 14 MG/24HR patchIndication s:Nicotine Dependence Apply 1 (one) patch to skin once daily Reasons: Nicotine Addiction 7 patch 07/02/20 24 Active Active Problems Problem Noted Date Diagnosed Date Hammer toe of left foot 06/27/2024 Ischemic stroke 05/18/2023 Weakness of left side of body 05/18/2023 Severe episode of recurrent major depressive disorder, without psychotic features 06/14/2016 Lumbosacral radiculopathy at L5 12/26/2015 Paresthesia of both feet 12/26/2015 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/2015 KATIE (obstructive sleep apnea) 09/28/2015 Nasal obstruction 09/28/2015 SNHL (sensorineural hearing loss) 09/28/2015 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 Tinnitus, bilateral 08/10/2015 Hereditary and idiopathic peripheral neuropathy 01/13/2015 Tobacco use disorder 01/05/2015 Resolved Problems Problem Noted Date Diagnosed Date Resolved Date Right kidney stone 01/31/2022 Social History Tobacco Use Types Packs/Day Years Used Date Smoking Tobacco: Every Day Cigarettes 0.5 15 Smokeless Tobacco: Never Tobacco Cessation:Ready to Q uit: No; Counseling Given: Not Answered Alcohol Use Standard Drinks/Week Comments Not Currently 0 (1 standard drink = 0.6 oz pur e alcohol) no alcohol x 2 months AUDIT-C Answer Date Recorded Q1: How often do you have a drink containing alc ohol? Monthly or less 06/27/2024 Q2: How many drinks containi ng alcohol do you have on a typical day when you are drinking? 3 or 4 06/27/2024 Q3: How often do you have si x or more drinks on one occasion? Less than monthly 06/27/2024 Overall Financial Resource Strain (CARDIA) Answe r Date Recorded How hard is it for you to pa y for the very basics like food, housing, medical care, and heating? Not very hard 06/27/2024 [facility] [place] [facility] - Occupational Stress Questionnaire Answer Date Recorded Do you feel stress - tense, restless, nervous, or anxious, or unable to sleep at night because your mind is troubled all the time - these days? To some extent 06/27/2024 Hunger Vital Sign Answer Date Recorded Within the past 12 months, y ou worried that your food would run out before you got the money to buy more. Never true 06/27/20 24 Within the past 12 months, t he food you bought just didn't last and you didn't have money to get more. Never true 06/27/2024 PRAPARE - Transportation Answer Date Re corded In the past 12 months, has l ack of transportation kept you from medical appointments or from getting medications? Yes 10/2023 In the past 12 months, has l ack of transportation kept you from meetings, work, or from getting things needed for daily living? Yes 06/27/2024 Housing Stability Vital Sign Answer Juan Francisco e Recorded In the last 12 months, was t here a time when you were not able to pay the mortgage or rent on time? No 06/27/2024 In the past 12 months, how m any times have you moved where you were living? 0 06/27/2024 At any time in the past 12 m [facility], were you homeless or living in a residential (including now)? 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 Inhaled Oxygen Concentration - - Weight 90.7 kg (200 lb) 06/17/2024 11:00 AM CDT from 2019 Height 177.8 cm (5' 10 ) 06/17/2024 11:00 AM CDT Body Mass Index 28.7 06/17/2024 11:00 AM CDT Plan of Treatment Health Maintenance Due Date Last Done Comments COLOGUARD (AGES 45-75) - COL ON CA SCREENING [address] COLONOGRAPHY - COLON CA SCREENING 1962 FIT - COLON CA SCREENING 1962 FLEX SIG - COLON CA SCREENING 1962 HIV SCREENING 1977 DTAP/TDAP/TD VACCINES (1 - Tdap) 1981 PNEUMOCOCCAL VACCINE 50+ (1 of 2 - PCV) 1981 ZOSTER VACCINE (1 of 2) 2012 Respiratory Syncytial Virus (RSV) Vaccine Pt: or over 60 yrs (1 - Risk 60-74 years 1-dose series) 2022 COVID-19 VACCINE (1 - 2023-2 5 season) 2024 DEPRESSION SCREENING 08/25/2024 INFLUENZA VACCINE (Season Ended) 2025 05/24/2020 LIPID TESTING 06/19/2029 06/19/2024, 03/16/2024, 05/18/2023 COLONOSCOPY - COLON CA SCREENING 12/29/2030 12/29/2020 Colorectal Cancer Screening 12/29/2030 HEPATITIS C SCREENING Completed 01/05/2015 HEPATITIS B VACCINE Aged Out No longe r eligible based on patient's age to complete this topic HIB VACCINE Aged Out No longer eligi ble based on patient's age to complete this topic HPV VACCINE Aged Out No longer eligi ble based on patient's age to complete this topic MENINGOCOCCAL (Group B) VACCINE SHARED DECISION-MAKING Aged Out No longer eligible based on patient's age to complete this topic MENINGOCOCCAL GROUPS A/C/Y/W VACCINE Aged Out No longer eligible b ased on patient's age to complete this topic Procedures Procedure Name Priority Date/Time Associated Diagnosis Comments LIPID PROFILE Routine 06/19/2024 6:12 AM CDT HEPATITIS C ANTIBODY Routine 01/05/2015 1:55 PM CDT from Last 3 Months or Most Recently Relevant to Health Maintenance Results * (ABNORMAL) LIPID PROFILE (06/19/2024 6:12 AM CDT) [facility] Cholesterol 111 <200 mg/dL 06/19/2024 6:59 AM CDT [facility] Triglycerides 45 <150 mg/dL 06/19/2024 6:59 AM CDT [facility] HDL Cholesterol 40(L) >40 mg/dL 6:59 AM CDT [facility] Chol HDL Ratio 2.8 1.0 - 6.0 06/19/2024 6:59 AM CDT [facility] LDL Calculated 62(L) 65 - 130 mg/dL 06/19/2024 6:59 AM T [facility] VLDL Calculated 9 <=30 mg/dL 6:59 AM T [facility] Blood BLOOD SPECIMEN / Unknown Lab Venipuncture / Unknown 06/19/2024 6:12 AM CDT 06/19/2024 6:28 AM CDT Narrative [facility] - 06/19/2024 6:59 AM CDT Lipid Profile Comment: CHOLESTEROL LEVEL..................CLINICAL INTERPRETATION LESS THAN 200 MG/DL..............................DESIRABLE 200-239 MG/DL..............................BORDERLINE HIGH GREATER THAN 240 MG/DL................................HIGH LDL-CHOLESTEROL LEVEL..............CLINICAL INTERPRETATION LESS THAN 100 MG/DL................................OPTIMAL 100-129 MG/DL.................................NEAR OPTIMAL GREATER THAN 160 MG/DL...........................HIGH RISK HDL RISK LEVEL GREATER THEN 60 MG/DL............................DECREASED 40-60 MG/DL........................................AVERAGE LESS THAN 40 MG/DL...............................INCREASED TRIGLYCERIDE LEVEL..................CLINICAL INTERPRETATION LESS THAN 150 MG/DL...............................DESIRABLE 150-199 MG/DL...............................BORDERLINE HIGH 200-499 MG/DL..........................................HIGH GREATER THAN 500..................................VERY HIGH THE NATIONAL CHOLESTEROL EDUCATION PROGRAM HAS SET THE ABOVE GUIDELINES (REFERANCE VALUES) FOR CHOLESTEROL AND HDL. RISK ASSOCIATED WITH CHOLESTEROL/HDL RATIOS RISK....................MALE RATIO.............FEMALE RATIO 1/2 AVERAGE.................<3.4.......................<3.3 LOW RISK.................... 4.0 ...................... 3.8 AVERAGE..................... 5.0 ...................... 4.5 2X AVERAGE.................. 9.5 ...................... 7.0 3X AVERAGE...................>23........................>11 Niurka Dorsey MD LAB - CHEMISTRY ORDERABLES Luz l Result [facility] [address] * HEPATITIS C ANTIBODY (01/05/2015 1:55 PM CDT) [facility] Hepatitis C Antibody Non-react [facility] Comment: Hepatitis C Antibody screen indicates no serologic evidence of past or current infection with Hepatitis C Virus. Patients with unexplained liver disease who are immunocompromised or suspected of having acute Hepatitis C infection may benefit from Nucleic Acid Test (SHAKA) for Hepatitis C Viral RNA to confirm Hepatitis C status. Blood specimen (specimen) BLOOD SPECIMEN / Unknown 01/05/2015 1:55 PM CDT 01/05/2015 3:17 PM CDT Patrick Provider LAB - CHEMISTRY ORDERABLE S Final Result [address] [phone] from Last 3 Months or Most Recently Relevant to Health Maintenance Insurance AETNA AETNA MEDICARE ADV Advance Directives * Full Code (Latest Code Status on File) Date Activated Date Inactivated Comments 06/27/2024 5:58 PM 07/02/2024 12:49 PM * Full Code Date Activated Date Inactivated Comments 06/16/2024 11:14 AM 06/20/2024 7:50 PM
--- OUTSIDE RECORDS SUMMARY | 2024-12-30 12:26 | XMS_ITS | Patient Health Record ---
Author Organization [facility] Address [address] [place] [address] Care Team Providers Care Data Processing Consultant Name Role Phone Isiah Rondon MD Primary Care Provider Unavailab Bhavna Singh Unavailable [phone] ALLERGIES Allergen (clinical drug ingredient) Drug/Non Drug Allergy documented on EMR Reaction Allergy Type Onset Date Status codeine Codeine Unknown Drug Allergy Active REASON FOR REFERRAL No Information MEDICATIONS Medication SIG (Take, Route, Frequency, Duration) Notes Start Date End Date Status Carvedilol 25 MG Oral for 90 Days Active HYDROcodone-Acetaminophen 5-325 MG Oral for 3 Days Active Venlafaxine HCl ER 37.5 MG Oral for 30 Days Active QUEtiapine Fumarate 25 MG Oral for 30 Days Active Atorvastatin Calcium 80 MG Oral for 90 Days Active Tamsulosin HCl 0.4 MG TAKE 1 CAPSULE BY MOUTH EVERY DAY Oral for 90 Days Active HYDROmorphone HCl 4 MG Oral for 30 Days Active clonazePAM 0.5 MG TAKE 1 TABLET BY RENEA TH EVERYDAY AT BEDTIME Oral for 30 Days Active amLODIPine Besylate 10 MG Oral for 90 Days Active Clopidogrel Bisulfate 75 MG TAKE 1 TABLE T BY MOUTH EVERY DAY Oral for 90 Days Active SOCIAL HISTORY Tobacco Use: Social History Observation Description Date Details (start date - stop date) Current Smoker NA - NA Sex Assigned At : Social History Observation Description Sex Assigned At Unknown Tobacco Use/Smoking Question Answer Notes Tobacco use: current smoker PROBLEMS Problem Type ICD Code Onset Dates Problem Status W/U Status Risk SNOMED Code Notes Problem Hammer toe of left foot (M20.42) Active confirmed [id number] VITAL SIGNS Weight-kg 78.02 kg 01/05/2024 Height 70 in 01/05/2024 Weight 172 lbs 01/05/2024 BMI 24.68 kg/m2 01/05/2024 Encounters Encounter Location Date Provider Diagnosis Jesús Cabrales [facility] [address] [id number] 01/05/2024 Bhavna Santa Left foot drop M21.372 and Hammer toe of left foot M20.42 ASSESSMENTS Encounter Date Diagnosis Assessment Notes Treatment Notes Treatment Clinical Notes Section Notes 01/05/2024 Hammer toe of left foot (ICD-10 - M20.42) 01/05/2024 Left foot drop (ICD-10 - M21.372) 01/05/2024 Other Advised AFO. Order given. He will make appointment at [facility] to get fitted. Advised continue home exercises per PT. Discussed hammer toe correction. Advised he start using the AFO and see how he feels after getting used to it. He may no longer be bothered by the hammer toes at that time. Re-evaluated after using the brace for a month or so. PLAN OF TREATMENT No Information Insurance Providers Payer Name Payer Address Payer Phone Subscriber Number Group Number Insured Name Patient Relationship to Insured Coverage Start Date Coverage End Date [employer] [address] [place], [place] [id number] Chung Xiong Self - patient is the insured MEDICAL (GENERAL) HISTORY Medical History History ICD Code low back pain depression anxiety disorder COPD hyperlipidemia hypertension actinic keratosis calculus of kidney ADHD opioid dependence Surgical History Surgery Date(Month/Year) spinal fusion
--- OUTSIDE RECORDS SUMMARY | 2024-12-30 12:26 | XMS_ITS | Clinical Summary ---
Author Organization [facility] Address [facility] [place] [address] Care Team Providers Care Histologist Name Role Phone Noemí Hoff MD Primary Care Provider [phone] Allergies Active Allergy Reactions Criticality Noted Date Comments Codeine GI Upset 12/25/2020 Medications carvedilol 25 MG tablet Take 1 tablet (25 mg total) by mouth 2 (two) times daily. Bottle says take twice daily, I just take once every morning 0 Active HYDROmorphone 2 MG tablet Take 1 tablet (2 mg total) by mouth every 6 (six) hours as needed for Pain. 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 Active amLODIPine (NORVASC) 10 MG tablet Take 1 tablet (10 mg total) by mouth daily. 30 tablet 3 Active aspirin EC (ECOTRIN) 81 MG tablet Take 1 tablet (81 mg total) by mouth daily. 30 tablet 3 Active clopidogrel (PLAVIX) 75 MG tablet Take 1 tablet (75 mg total) by mouth nightly at bedtime. 30 tablet 3 Active atorvastatin (LIPITOR) 80 MG tablet Take 1 tablet (80 mg total) by mouth nightly at bedtime. 30 tablet 3 Active albuterol sulfate HFA 108 (90 Base) MCG/ACT inhalerIndications :Viral upper respiratory illness,Wheezing,C urrent every day smoker Inhale 2 puffs into the lungs every 4 (four) hours as needed for Wheezing or Shortness of breath. 8 g 3 Active azithromycin (ZITHROMAX) 250 MG tabletIndications: Viral upper respiratory illness,Wheezing,C urrent every day smoker 500 mg on day 1 then 250 mg daily 6 tablet 3 Active promethazine (PHENERGAN) 25 MG tablet Take 1 tablet (25 mg total) by mouth every 6 (six) hours as needed for Nausea. 24 tablet 4 Active traZODone (DESYREL) 50 MG tablet Take 1 tablet (50 mg total) by mouth nightly at bedtime. Active OLANZapine (ZYPREXA) 10 MG tablet Take 1 tablet (10 mg total) by mouth nightly at bedtime. Active ondansetron (ZOFRAN-ODT) 4 MG disintegrating tablet Take 1 tablet (4 mg total) by mouth every 8 (eight) hours as needed. 20 tablet 5 Active acetaminophen (TYLENOL) 500 MG tablet Take 1-2 tablets (500-1,000 mg total) by mouth every 8 (eight) hours as needed for Pain. 30 tablet 5 025 Active naproxen (NAPROSYN) 500 MG tablet Take 1 tablet (500 mg total) by mouth 2 (two) times daily with meals. 60 tablet 5 Active tamsulosin (FLOMAX) 0.4 MG Cap Take 1 capsule (0.4 mg total) by mouth daily. 30 capsule 5 Active cephALEXin (KEFLEX) 500 MG capsule Take 1 capsule (500 mg total) by mouth 3 (three) times daily for 10 days. 30 capsule 5 025 Active lactobacillus (CULTURELLE) Cap capsule Take 1 capsule by mouth 2 (two) times daily for 30 days. OK to change to any OTC probiotic if not covered by insurance or not available 60 capsule 5 025 Active Active Problems Problem Noted Date Diagnosed Date Left-sided weakness 05/18/2023 Ischemic stroke ([facility]) 05/18/2023 Right kidney stone 01/31/2022 Encounters Date Type Department Care Team Description 12/29/2024 9:30 AM CDT - 12/29/2024 12:55 PM CDT Emergency [facility] [address] [address] Cory Mares MD Abdominal Pain Discharge Disposition: Home or Self Care (Routine Discharge) 12/29/2024 Travel 10/26/2024 11:53 AM MILK TESTER - 10/26/2024 11:59 PM MILK TESTER Hospital Encounter [facility] Ultrasound [address] [place] [address] David Mae NP Discharge Disposition: Home or Self Care (Routine Discharge) 10/26/2024 Travel from Last 3 Months Immunizations Immunization Administration Dates Next Due Influenza (Generic) 05/24/2020 Pneumococcal (Prevnar 13) 11/12/2019 Tdap (Boostrix) 05/17/2023(Deferred: Patient/family declined - PT STATES I DON'T NEED NO MORE NEEDLES ) Family History Medical History Relation Comments No Known Problems Father No Known Problems Mother Relation Status Comments Father Mother Alive Social History Tobacco Use Types Packs/Day Years Used Date Smoking Tobacco: Every Day Cigarettes 1 40 Smokeless Tobacco: Never Tobacco Cessation:Ready to Q uit: Not Asked; Counseling Given: Not Answered Alcohol Use Standard Drinks/Week Comments Yes 10 [...] declined 12/29/2020 How often do you attend sabianism or spiritism serv ices? Patient declined 12/29/2020 Do you belong to any clubs o r organizations such as sabianism groups, unions, fraternal or athletic groups, or [...] Recorded Patient Health Questionnaire-2 Score 0 07/14/2023 [facility] - Occupational Stress Questionnaire Answer Date Recorded [...] Sex Assigned at Male 10/20/2024 10:19 AM MILK TESTER Legal Sex Male 8:10 PM CDT Gender [...] Mass Index 26.54 12/29/2024 9:44 AM CDT Plan of Treatment Health Maintenance Due Date Last Done Comments Annual Physical 1965 DTaP, Tdap and Td Vaccines ( 1 - Tdap) 1981 Zoster Vaccines (1 of 2) 2012 Pneumococcal Vaccine: 50+ Years (2 of 2 - PPSV23) 01/07/2020 11/12/2019 RSV Immunization or 60+ Years (1 - Risk 60-74 years 1-dose series) 2022 Lung Cancer Screening 07/09/2023 07/09/2022 COVID-19 Vaccine (2 - 2023-2 5 season) 2024 01/27/2021 PHQ-2 (Physician [place]) 08/25/2024 07/14/2023 Colorectal Cancer Screening Colonoscopy (10 Years) 12/29/2030 12/29/2020, 12/29/2020 Hepatitis C Completed 01/05/2015 Meningococcal B Vaccine Aged Out No l onger eligible based on patient's age to complete this topic Meningococcal Vaccine Aged Out No neftaly prema eligible based on patient's age to complete this topic RSV Immunizations Under 20 Months Aged Out No longer eligible b ased on patient's age to complete this topic Medical Devices Implanted Type Area Mathematics Professor Device Identifier Shelf Expiration Date Model / Serial / Lot Pin Pin Spine Cervical Stent Ureteral Sykeston Sci Contour 6fr X 26cm - [id number] Implanted:Qty : 1 on 11/29/2021 by Catrachito Navarro MD at [facility] Stent Right: Ureter [employer] [id number] 09/07/2024 [id number] 30 / / [id number] Description:NO STRING Stent Uret 6fr 26cm Pigtl Crv Taper Tip Bldr Mrk - [id number] Implanted:Qty : 1 on 01/31/2022 by Catrachito Navarro MD at [facility] Stent Right: Ureter [employer] [id number] 01/24/2023 [id number] 30 / / [id number] Procedures Procedure Name Priority Date/Time Associated Diagnosis Comments URINE BACTERIA CULTURE STAT 11:09 AM CDT DRUG SCREEN RAPID STAT 12/29/2024 11: 09 AM CDT URINALYSIS AUTO DIP STAT 12/29/2024 1 1:[address] ABD+PEL W CON STAT 12/29/2024 10:3 9 AM CDT LIPASE STAT 12/29/2024 9:50 AM CDT COMPREHENSIVE METABOLIC PANEL STAT 12/29/2024 9:50 AM CDT CBC W/DIFF AUTOMATED STAT 12/29/2024 9:50 AM CDT USV CAROTID DUPLEX MARCELINA Routine 12:52 PM MILK TESTER Cerebral infarction, unspecified (CMS/HCC HHS/HCC) CT LUNG SCREENING Routine 07/09/2022 10: 30 AM MILK TESTER Encounter for special screening examination for neoplasm of respiratory organ Nicotine dependence, cigarettes, with unspecified nicotine-induced disorders COLONOSCOPY Routine 12/29/2020 1:35 PM CDT from Last 3 Months or Most Recently Relevant to Health Maintenance Results * (ABNORMAL) DRUG SCREEN RAPID (12/29/2024 11:09 AM CDT) AMPHETAMINE SCREEN (U) NEGATIVE NEGATIVE 12/29/2024 11:31 AM CDT [facility] BARBITURATES SCREEN (U) NEGATIVE NEGATIVE 12/29/2024 11:31 AM CDT [facility] BENZODIAZEPINES SCREEN (U) NEGATIVE NEGATIVE 12/29/2024 11:31 AM CDT [facility] BUPRENORPHINE SCREEN (U) POSITIVE(A) NEGATIVE 12/29/2024 11:31 AM CDT [facility] COCAINE METABOLITES (U) NEGATIVE NEGATIVE 12/29/2024 11:31 AM CDT [facility] METHAMPHETAMINE (U) NEGATIVE NEGATIVE 12/29/2024 11:31 AM CDT [facility] METHADONE (U) NEGATIVE NEGATIVE 12/29/2024 11:31 AM T [facility] OPIATE SCREEN (U) NEGATIVE NEGATIVE 025 11:31 AM T [facility] OXYCODONE SCREEN (U) NEGATIVE NEGATIVE 12/29/2024 11:31 AM T [facility] PHENCYCLIDINE PCP (U) NEGATIVE NEGATIVE 12/29/2024 11:31 AM T [facility] CANNABINOIDS SCREEN (U) NEGATIVE NEGATIVE 12/29/2024 11:31 AM T [facility] TRICYCLIC ANTIDEPRESSANT SCREEN (U) NEGATIVE NEGATIVE 12/29/2024 11:31 AM T [facility] Comment: NOTE: RESULTS OF THIS DRUG [...] NG/ML U PH 6.5 12/29/2024 11:31 AM T [facility] SPECIFIC GRAVITY (U) 1.010 12/29/2024 11:31 AM [facility] URINE SPECIMEN / Unknown 12/29/2024 11:09 AM CDT us Cory Mares MD URINE ORDERABLES Final Result [facility] [address] [place] [address], [place] * (ABNORMAL) URINALYSIS AUTO DIP (12/29/2024 11:09 AM CDT) COLOR (U) YELLOW YELLOW 12/29/2024 11:24 AM CDT [facility] TRANSPARENCY CLEAR CLEAR 12/29/2024 11:24 AM CDT [facility] SPECIFIC GRAVITY (U) 1.010 1.010 - 1.025 12/29/2024 11:24 AM CDT [facility] U PH 6.5 5.0 - 8.5 12/29/2024 11:24 AM CDT [facility] LEUKOCYTES (U) NEGATIVE NEGATIVE 12/29/2024 11:24 AM CDT [facility] NITRITES NEGATIVE NEGATIVE 12/29/2024 11:24 AM CDT [facility] PROTEIN RANDOM (U) 1+(A) NEGATIVE 12/29/2024 11:24 AM CDT [facility] GLUCOSE (U) NEGATIVE NEGATIVE 12/29/2024 11:24 AM CDT [facility] KETONES MG/DL (U) NEGATIVE NEGATIVE 12/29/2024 11:24 AM CDT [facility] UROBILINOGEN 0.2 0.2 - 1.0 EU/DL 12/29/2024 11:24 AM CDT [facility] BILIRUBIN (U) NEGATIVE NEGATIVE 12/29/2024 11:24 AM CDT [facility] BLOOD (U) 3+(A) NEGATIVE 12/29/2024 11:24 AM CDT [facility] URINE SPECIMEN OBTAINED BY CLEAN CATCH PROCEDURE / Unknown 12/29/2024 11:09 AM CDT us Cory Mares MD URINE ORDERABLES Final Result [address] [place] [address], [place] * CT ABD+PEL W IV CON [...] 10:54 AM Narrative 12/29/2024 10:56 AM CDT [address] [place] [address] CT ABDOMEN AND PELVIS WITH CONTRAST Exam [...] Procedure Note Noé Iraheta MD - 12/29/[address] [place] [address] CT ABDOMEN AND PELVIS WITH CONTRAST Exam [...] By: Noé Iraheta MD, 12/29/2024 10:54 AM Cory Mares MD CT Final Result * (ABNORMAL) COMPREHENSIVE METABOLIC PANEL (12/29/2024 9:50 AM CDT) GLUCOSE 106(H) 70 - 99 MG/DL 12/29/2024 11:00 AM CDT [facility] BUN 16 7 - 18 MG/DL 12/29/2024 11:00 AM CDT [facility] CREATININE S/P/B 1.12 0.50 - 1.20 MG/DL 12/29/2024 11:00 AM CDT [facility] SODIUM S/P/B 142 136 - 145 MMOL/L 12/29/2024 11:00 AM CDT [facility] POTASSIUM S/P/B 4.0 3.5 - 5.1 MMOL/L 12/29/2024 11:00 AM CDT [facility] CHLORIDE S/P/B 103 100 - 108 MMOL/L 12/29/2024 11:00 AM CDT [facility] CO2 29.0 21.0 - 32.0 MMOL/L 12/29/2024 11:00 AM CDT [facility] CALCIUM S/P/B 9.1 8.5 - 10.1 MG/DL 12/29/2024 11:00 AM CDT [facility] BILIRUBIN TOTAL S/P/B 0.8 0.2 - 1.2 MG/DL 12/29/2024 11:00 AM CDT [facility] Comment: THIS ASSAY IS NOT RECOMMENDED FOR PATIENTS UNDERGOING TREATMENT WITH ELTROMBOPAG DUE TO THE POTENTIAL FOR FALSELY ELEVATED RESULTS. TOTAL PROTEIN S/P/B 7.2 6.4 - 8.2 G/DL 12/29/2024 11:00 AM CDT [facility] ALBUMIN S/P/B 3.5 3.4 - 5.0 G/DL 12/29/2024 11:00 AM CDT [facility] AST 28 15 - 37 U/L 12/29/2024 11:00 AM CDT [facility] ALT 29 16 - 60 U/L 12/29/2024 11:00 AM T [facility] ALKALINE PHOSPHATASE S/P/B 85 50 - 136 U/L 12/29/2024 11:00 AM T [facility] ANION GAP 10.0 5.0 - 15.0 MMOL/L 12/29/2024 11:00 AM T [facility] BUN CREATININE RATIO 14.3 6 - 26 12/29/2024 11:00 AM T [facility] A/G RATIO 0.9(L) 1.0 - 2.5 RATIO 12/29/2024 11:00 AM T [facility] GFR ESTIMATE 74(L) >90 ML/MIN/1.7 3 M2 12/29/2024 11:00 AM T [facility] Comment: NOTE: eGFR is not calculated for patients <18 years of age. This is an estimated GFR calculation using the new CKD EPI creatinine equation without race and so does not require a correction factor for race. This estimated GFR should not be used for calculating drug doses. 12/29/2024 9:50 AM CDT us Cory Mares MD LABORATORY Final Result [facility] [address] [place] [address], [place] * (ABNORMAL) CBC W/DIFF AUTOMATED (12/29/2024 9:50 AM CDT) WBC 12.08(H) 4.50 - 11.00 x10'3/uL 12/29/2024 10:28 AM CDT [facility] RBC 4.91 4.50 - 5.90 x10'6/uL 12/29/2024 10:28 AM CDT [facility] HGB 15.2 14.0 - 18.0 G/DL 12/29/2024 10:28 AM CDT [facility] HCT 45.0 43.0 - 54.0 % 12/29/2024 10:28 AM CDT [facility] MCV 91.6 80.0 - 100.0 FL 12/29/2024 10:28 AM CDT [facility] MCH 31.0 26.0 - 34.0 PG 12/29/2024 10:28 AM CDT [facility] MCHC 33.8 31.0 - 37.0 G/DL 12/29/2024 10:28 AM CDT [facility] RDW 13.2 11.6 - 14.8 % 12/29/2024 10:28 AM CDT [facility] PLT 212 130 - 400 x10'3/uL 12/29/2024 10:28 AM CDT [facility] MPV 11.1 7.0 - 12.0 FL 12/29/2024 10:28 AM CDT [facility] CBC COMMENT AUTOMATED RBC MORPHOLOGY AND PLATELET EVALUATION NORMAL 12/29/2024 10:28 AM CDT [facility] NEUTROPHILS % 76.5(H) 40.0 - 74.0 % 12/29/2024 10:28 AM CDT [facility] LYMPHOCYTES % 15.2 14.0 - 46.0 % 12/29/2024 10:28 AM CDT [facility] MONOCYTES % 7.2 4.0 - 13.0 % 12/29/2024 10:28 AM CDT [facility] EOSINOPHILS 0.5 0.0 - 7.0 % 12/29/2024 10:28 AM CDT [facility] BASOPHILS 0.4 0.0 - 3.0 % 12/29/2024 10:28 AM CDT [facility] IMMATURE GRANS % 0.2 0.0 - 0.43 % 12/29/2024 10:28 AM CDT [facility] NRBC % 0.0 % 12/29/2024 10:28 AM CDT [facility] ABS. NEUTROPHILS TOTAL 9.23(H) 1.69 - 7.81 x10'3/uL 12/29/2024 10:28 AM CDT [facility] ABS. LYMPHOCYTES 1.84 0.21 - 5.42 x10'3/uL 12/29/2024 10:28 AM CDT [facility] ABS. MONOCYTES 0.87 0.04 - 1.37 x10'3/uL 12/29/2024 10:28 AM CDT [facility] ABS. EOSINOPHILS 0.06 0.00 - 0.68 x10'3/uL 12/29/2024 10:28 AM CDT [facility] ABS. BASOPHILS 0.05 0.00 - 0.08 x10'3/uL 12/29/2024 10:28 AM CDT [facility] ABS. IMMATURE GRANULOCYTES 0.03 0.00 - 0.06 x10'3/uL 12/29/2024 10:28 AM CDT [facility] ABS. NUCLEATED RBC'S 0.00 0.00 - 0.01 x10'3/uL 12/29/2024 10:28 AM CDT [facility] 12/29/2024 9:50 AM CDT us Cory Mares MD LABORATORY Final Result [facility] [address] [place] [address], [place] * (ABNORMAL) LIPASE (12/29/2024 9:50 AM CDT) LIPASE 249(H) 16 - 77 UNITS/L 12/29/2024 11:00 AM CDT [facility] 12/29/2024 9:50 AM CDT us Cory Mares MD LABORATORY Final Result [facility] [address] [place] [address], [place] * USV CAROTID DUPLEX MARCELINA (10/26/2024 12:52 PM MILK TESTER) Anatomical Region Laterality Modality Neck Ultrasound 10/30/2024 10:3 0 AM MILK TESTER Impressions 10/30/2024 10:33 AM MILK TESTER IMPRESSION: 1. 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 2. Less than 50% stenosis of the left ICA with no combined grayscale and peak systolic SRU velocity criteria evidence of hemodynamically significant stenosis in the left circulation. Referred By: DAVID MAE Interpreted By: Juvencio Wolf MD, 10/30/2024 10:30 AM Narrative 10/30/2024 10:33 AM MILK TESTER [facility] [address] [place] [address] EXAMINATION: ULTRASOUND CAROTID DOPPLER, BILATERAL INDICATION(S): Cerebrovascular accident. Right ICA occlusion.. COMPARISON(S): 10/13/2023 carotid ultrasound TECHNIQUE: Grayscale and color-flow and Doppler wave form ultrasound examination of the common, internal and external carotid arteries, as well as bilateral vertebral arteries was performed. FINDINGS: Right: Right internal carotid artery is occluded with no identifiable blood flow. Mild peripheral atherosclerotic disease and ECA origin with no severe stenosis. Right ICA proximal peak systolic velocity: 0 CM/S. Right ICA mid peak systolic velocity: 0 CM/S. Right ICA distal peak systolic velocity: 0 CM/S. Right ECA peak systolic velocity: 164.9 CM/S. Right CCA peak systolic velocity: 54.1 CM/S. Right ICA/CCA PSV Ratio: 0. Left: Heterogeneous plaque at the distal CCA extending into the proximal ICA. Less than 50% stenosis by grayscale appearance of the proximal ICA Left ICA proximal peak systolic velocity: 83.6 CM/S. Left ICA mid peak systolic velocity: 102.2 CM/S. Left ICA distal peak systolic velocity: 109.9 CM/S. Left ECA peak systolic velocity: 118.7 CM/S. Left CCA peak systolic velocity: 91.9 CM/S. Left ICA/CCA PSV Ratio: 1.2. Anterograde flow is observed within the right vertebral artery. Anterograde flow is observed within the left vertebral artery. Procedure Note Juvencio Wolf MD - 10/30/2024 [facility] [address] [place] [address] EXAMINATION: ULTRASOUND CAROTID DOPPLER, BILATERAL INDICATION(S): Cerebrovascular accident. Right ICA occlusion.. COMPARISON(S): 10/13/2023 carotid ultrasound TECHNIQUE: Grayscale and color-flow and Doppler wave form ultrasound examination ofthe common, internal and external carotid arteries, as well as bilateralvertebral arteries was performed. FINDINGS: Right: Right internal carotid artery is occluded with no identifiable blood flow.Mild peripheral atherosclerotic disease and ECA origin with no severestenosis. Right ICA proximal peak systolic velocity: 0 CM/S. Right ICA mid peak systolic velocity: 0 CM/S. Right ICA distal peak systolic velocity: 0 CM/S. Right ECA peak systolic velocity: 164.9 CM/S. Right CCA peak systolic velocity: 54.1 CM/S. Right ICA/CCA PSV Ratio: 0. Left: Heterogeneous plaque at the distal CCA extending into the proximal ICA.Less than 50% stenosis by grayscale appearance of the proximal ICA Left ICA proximal peak systolic velocity: 83.6 CM/S. Left ICA mid peak systolic velocity: 102.2 CM/S. Left ICA distal peak systolic velocity: 109.9 CM/S. Left ECA peak systolic velocity: 118.7 CM/S. Left CCA peak systolic velocity: 91.9 CM/S. Left ICA/CCA PSV Ratio: 1.2. Anterograde flow is observed within the right vertebral artery. Anterograde flow is observed within the left vertebral artery. IMPRESSION: 1. 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 2. Less than 50% stenosis of the left ICA with no combined grayscale andpeak systolic SRU velocity criteria evidence of hemodynamicallysignificant stenosis in the left circulation. Referred By: DAVID MAE Interpreted By: Juvencio Wolf MD, 10/30/2024 10:30 AM us David Mae PARTY COORDINATOR [facility] Final Result * CT LUNG SCREENING (07/09/2022 10:30 AM MILK TESTER) Anatomical Region Laterality Modality Chest Computed Tomogra phy 07/15/2022 2:29 PM MILK TESTER Impressions 07/15/2022 2:36 PM MILK TESTER IMPRESSION: 1. LUNG-RADS category 2: Negative. Lung nodule(s) with benign appearance or behavior. 2. LUNG-RADS category S: Negative, no new/unknown potentially significant incidental findings requiring urgent additional evaluation. 3. Other incidental findings as above. RECOMMENDATIONS: Continued routine annual LDCT lung screening. Suggest next exam on or around June 2023. Ordered By: NOEMÍ HOFF Interpreted By: Song Chanel MD, 07/15/2022 2:29 PM Narrative 07/15/2022 2:36 PM MILK TESTER EXAM: LUNG SCREENING LOW-DOSE CT THORAX WITHOUT CONTRAST DATE: 07/09/2022 HISTORY: Asymptomatic patient with history of smoking meeting CMS high-risk criteria for lung screening. * 62 years old * 45 pack years * Current smoker COMPARISON: CT chest on 07/11/2020 TECHNIQUE: Noncontrast, helical, low-dose CT (LDCT) chest per standard departmental protocol. A dose lowering technique was used for this procedure, which may include, but is not limited to, dose reduction technique, automated exposure control, the use of iterative reconstruction, and ALARA (As Low As Reasonably Achievable) / Image Gently techniques. FINDINGS: Lung Screening Specific (LUNG-RADS): Nodule 1: Sub-6 mm lung nodule in the left lower lobe on image 64, series 8. Unchanged. Nodule 2: Sub-6 mm lung nodule in the right upper lobe on image 36, series 8. Unchanged Calcified granulomas. Potentially Significant Incidentals (LUNG-RADS category S): None. Pulmonary Incidentals: None. Other Incidentals: Calcified mediastinal hilar lymph nodes. Probable renal cysts (no further follow-up recommended according consensus guidelines). Cervical spinal fusion. Procedure Note Song Chanel MD - 07/15/2022 EXAM: LUNG SCREENING LOW-DOSE CT THORAX WITHOUT CONTRAST DATE: 07/09/2022 HISTORY: Asymptomatic patient with history of smoking meeting CMShigh-risk criteria for lung screening. * 62 years old * 45 pack years * Current smoker COMPARISON: CT chest on 07/11/2020 TECHNIQUE: Noncontrast, helical, low-dose CT (LDCT) chest per standarddepartmental protocol. A dose lowering technique was used for thisprocedure, which may include, but is not limited to, dose reductiontechnique, automated exposure control, the use of iterativereconstruction, and ALARA (As Low As Reasonably Achievable) / Image Gentlytechniques. FINDINGS: Lung Screening Specific (LUNG-RADS): Nodule 1: Sub-6 mm lung nodule in the left lower lobe on image 64, series8. Unchanged. Nodule 2: Sub-6 mm lung nodule in the right upper lobe on image 36, series8. Unchanged Calcified granulomas. Potentially Significant Incidentals (LUNG-RADS category S): None. Pulmonary Incidentals: None. Other Incidentals: Calcified mediastinal hilar lymph nodes. Probable renalcysts (no further follow-up recommended according consensus guidelines).Cervical spinal fusion. IMPRESSION: 1. LUNG-RADS category 2: Negative. Lung nodule(s) with benign appearanceor behavior. 2. LUNG-RADS category S: Negative, no new/unknown potentially significantincidental findings requiring urgent additional evaluation. 3. Other incidental findings as above. RECOMMENDATIONS: Continued routine annual LDCT lung screening. Suggestnext exam on or around June 2023. 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
--- OUTSIDE RECORDS SUMMARY | 2024-12-30 12:26 | XMS_ITS | Encounter Summary ---
Author Organization [facility] Address [address] [place] [address] Care Team Providers Care Discharge Rn Name Role Phone Ciro Rondon MD Primary Care Provider [phone] Encounter Details Date Type Department Care Team (Late st Contact Info) Description 12/25/2020 Prep for Procedure [facility] [address] [place] [id number] Ok Rosario MD [address] [facility] [address] [place] [id number] Social History Tobacco Use Types Packs/Day Years Used Date Smoking Tobacco: Every Day Cigarettes 1 40 Smokeless Tobacco: Never Alcohol Use Standard Drinks/Week Comments Yes 0 (1 standard drink = 0.6 oz pur e alcohol) Humiliation, Afraid, Rape, and Kick questionnair e [...] declined 12/29/2020 How often do you attend judaism or mandaeism serv ices? Patient declined 12/29/2020 Do you belong to any clubs o r organizations such as judaism groups, unions, fraternal or athletic groups, or [...] and heating? Not hard at all 12/29/2020 [facility] - Occupational [...] Sex Assigned at Male 10/20/2024 10:19 AM FUSION ANALYST Legal Sex Male 8:10 PM CDT Gender Identity Not on file Sexual Orientation Not on file COVID-19 Exposure Response Date Recorded In the last month, have you been in contact with someone who was confirmed or suspected to have Coronavirus / COVID-19? No / Unsure 12/25/2020 3:29 PM CDT documented as of this encounter Plan of Treatment Not on file documented as of this encounter Visit Diagnoses Diagnosis Pre-op testing- Primary Preoperative examination, unspecified documented in this encounter Additional Health Concerns Infection Onset Date Last Indicated Resolved Time COVID-19 Rule Out 12/26/2020 12/26/2020 07/16/2021 6:28 PM FUSION ANALYST COVID-19 Rule Out 05/17/2023 05/17/2023 05/17/2023 6:09 PM CDT COVID-19 Rule Out 06/15/2024 06/15/2024 06/15/2024 8:15 PM CDT COVID-19 Rule Out 06/27/2024 06/27/2024 06/27/2024 5:35 AM FUSION ANALYST documented as of this encounter Care Teams Discharge Rn Relationship Specialty Start Date End Date Ciro Rondon MD [address] [place] [id number] PCP - General FAMILY PRACTICE 12/27/20 documented as of this encounter
--- OUTSIDE RECORDS SUMMARY | 2024-12-30 12:26 | XMS_ITS | Encounter Summary ---
Author Organization [facility] Address [address] [place] [address] Care Team Providers Care Automatic Operator Name Role Phone Ciro Rondon MD Primary Care Provider [phone] Reason for Referral * Imaging (Routine) - Closed Specialty Diagnoses / Procedures Referred By Contac t Referred To Contact RADIOLOGY Diagnoses Ischemic stroke (CMS/HCC HHS/HCC) Procedures USV CAROTID DUPLEX MARCELINA Kartik Sharma MD [address] [address] Phone: tel: fax: Referral ID Status Reason Start Date Expiration Date Visits Re quested Visits Authorized [id number] Closed 06/27/2023 06/27/2024 1 1 Encounter Details Date Type Department Care Team (Late st Contact Info) Description 06/27/2023 Community Orders [facility] EPICCARE LINK Kartik Sharma MD [address] [phone] Social History Tobacco Use Types Packs/Day Years [...] declined 12/29/2020 How often do you attend restorationist or worship serv ices? Patient declined 12/29/2020 Do you belong to any clubs o r organizations such as restorationist groups, unions, fraternal or athletic groups, or [...] and heating? Not hard at all 12/29/2020 [facility] - Occupational Stress Questionnaire Answer Date Recorded [...] Sex Assigned at Male 10/20/2024 10:19 AM PANEL FLOW MACHINE OPERATOR Legal Sex Male 8:10 PM CDT Gender Identity Not on file Sexual Orientation Not on file documented as of this encounter Functional Status * Are you deaf or do you have serious difficulty hearing Answer Date of Assessment Author Status No 05/18/2023 2:54 AM KAIT Geraldine Lan RN Active * Are you [...] 2:54 AM KAIT Geraldine Lan RN Active documented as of this encounter Mental Status * Because of a physical, mental, or emotional condition, do you have serious difficulty concentrating, remembering, or making decisions? Answer Entry Date Author Status No 05/18/2023 2:54 AM Geraldine Cho RN Active documented in this encounter Plan of Treatment Not on file documented as of this encounter Results * USV CAROTID DUPLEX MARCELINA (10/13/2023 2:32 PM PANEL FLOW MACHINE OPERATOR) Anatomical Region Laterality Modality Neck Ultrasound 10/20/2023 8:14 AM PANEL FLOW MACHINE OPERATOR Impressions 10/20/2023 8:26 AM PANEL FLOW MACHINE OPERATOR Impression: 1. 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 2. Left internal carotid artery: Moderate atherosclerotic plaque with less than 50% stenosis by NASCET criteria. 3. Vertebral arteries: Antegrade flow with normal waveforms bilaterally. Referred By: KARTIK SHARMA Interpreted By: Reji Patrick MD, 10/20/2023 8:14 AM Narrative 10/20/2023 8:26 AM PANEL FLOW MACHINE OPERATOR Examination: USV CAROTID DUPLEX MARCELINA Clinical Information: HX OF CVA Comparison: CTA head and neck 05/17/2023. Technique: Grayscale and color Doppler ultrasound examination of the carotid and vertebral artery systems bilaterally. Maximum peak systolic velocity (PSV) / end diastolic velocity (EDV) were measured. Detailed velocity measurements in the proximal, mid, and distal CCAs and ICAs are recorded in the imaging archive and are summarized below. Findings: RIGHT CAROTID SYSTEM Common carotid artery (RCCA): Moderate plaque. Proximal: 70/10 cm/sec. Mid: 42/8 cm/sec. Distal: 43/11 cm/sec. Internal carotid artery (VIRGILIO): Marked plaque within the bulb and throughout the ICA. 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 Proximal: 43/11 cm/sec. Mid: 21/5 cm/sec. Distal: 70/4 cm/sec. External carotid artery (RECA): 202/28 cm/sec. Moderate plaque. Vertebral artery (RVA): 48/15 cm/sec. Antegrade flow with normal waveform. ICA/CCA: 1.62 LEFT CAROTID SYSTEM Common carotid artery (LCCA): Mild plaque. Proximal: 78/17 cm/sec. Mid: 74/17 cm/sec. Internal carotid artery (LICA): Moderate plaque within the bulb. Proximal: 66/30 cm/sec. Mid: 96/22 cm/sec. Distal: 69/23 cm/sec. External carotid artery (LECA): 108/20 cm/sec. Mild plaque. Vertebral artery (LVA): 70/22 cm/sec. Antegrade flow with normal waveform. ICA/CCA: 1.24 Society of Radiologists in Ultrasound (SRU) consensus statement (Radiology 2003; 229:340-346. DOI 10.1148/radiol.9039717038) was used to estimate internal carotid artery stenosis. This conforms NASCET criteria. Procedure Note Reji Patrick MD - 10/20/2023 Examination: USV CAROTID DUPLEX MARCELINA Clinical Information: HX OF CVA Comparison: CTA head and neck 05/17/2023. Technique: Grayscale and color Doppler ultrasound examination of thecarotid and vertebral artery systems bilaterally. Maximum peak systolicvelocity (PSV) / end diastolic velocity (EDV) were measured. Detailedvelocity measurements in the proximal, mid, and distal CCAs and ICAs arerecorded in the imaging archive and are summarized below. Findings: RIGHT CAROTID SYSTEM Common carotid artery (RCCA): Moderate plaque. Proximal: 70/10 cm/sec. Mid: 42/8 cm/sec. Distal: 43/11 cm/sec. Internal carotid artery (VIRGILIO): Marked plaque within the bulb andthroughout the ICA. Near total occlusion of the right internal carotidartery. Proximal: 43/11 cm/sec. Mid: 21/5 cm/sec. Distal: 70/4 cm/sec. External carotid artery (RECA): 202/28 cm/sec. Moderate plaque. Vertebral artery (RVA): 48/15 cm/sec. Antegrade flow with normalwaveform. ICA/CCA: 1.62 LEFT CAROTID SYSTEM Common carotid artery (LCCA): Mild plaque. Proximal: 78/17 cm/sec. Mid: 74/17 cm/sec. Internal carotid artery (LICA): Moderate plaque within the bulb. Proximal: 66/30 cm/sec. Mid: 96/22 cm/sec. Distal: 69/23 cm/sec. External carotid artery (LECA): 108/20 cm/sec. Mild plaque. Vertebral artery (LVA): 70/22 cm/sec. Antegrade flow with normalwaveform. ICA/CCA: 1.24 Society of Radiologists in Ultrasound (SRU) consensus statement (Nxckrfbgc7274; 229:340-346. DOI 10.1148/radiol.9811182135) was used to estimateinternal carotid artery stenosis. This conforms NASCET criteria. Impression: 1. Right internal carotid artery: Near total occlusion of the rightinternal carotid artery. 2. Left internal carotid artery: Moderate atherosclerotic plaque withless than 50% stenosis by NASCET criteria. 3. Vertebral arteries: Antegrade flow with normal waveformsbilaterally. Referred By: KARTIK SHARMA Interpreted By: Reji Patrick MD, 10/20/2023 8:14 AM Kartik Sharma MD [facility] Final Result documented in this encounter Visit Diagnoses Diagnosis Ischemic stroke (CMS/HCC HHS/HCC)- Primary Ischemic stroke (CMS/[facility] HHS/HCC) documented in this encounter Additional Health Concerns Infection Onset Date Last Indicated Resolved Time COVID-19 Rule Out 06/15/2024 06/15/2024 06/15/2024 8:15 PM CDT COVID-19 Rule Out 06/27/2024 06/27/2024 06/27/2024 5:35 AM PANEL FLOW MACHINE OPERATOR documented as of this encounter Care Teams Automatic Operator Relationship Specialty Start Date End Date Ciro Rondon MD [address] [place] [address] PCP - General FAMILY PRACTICE 12/27/20 documented as of this encounter
--- OUTSIDE RECORDS SUMMARY | 2024-12-30 12:27 | XMS_ITS ---
Author Organization [facility] Address [address] [place] [address] Care Team Providers Care Sinter Press Operator Name Role Phone Isiah Rondon MD Primary Care Provider Unavailab Bhavna Singh Unavailable [phone] ALLERGIES Allergen (clinical drug ingredient) Drug/Non Drug Allergy documented on EMR Reaction Allergy Type Onset Date Status codeine Codeine Unknown Drug Allergy Active REASON FOR VISIT foot drop MEDICATIONS Medication SIG (Take, Route, Frequency, Duration) Notes Start Date End Date Status Carvedilol 25 MG Oral for 90 Days Active HYDROcodone-Acetaminophen 5-325 MG Oral for 3 Days Active Venlafaxine HCl ER 37.5 MG Oral for 30 Days Active Tamsulosin HCl 0.4 MG TAKE 1 CAPSULE BY MOUTH EVERY DAY Oral for 90 Days Active clonazePAM 0.5 MG TAKE 1 TABLET BY RENEA TH EVERYDAY AT BEDTIME Oral for 30 Days Active QUEtiapine Fumarate 25 MG Oral for 30 Days Active Atorvastatin Calcium 80 MG Oral for 90 Days Active HYDROmorphone HCl 4 MG Oral for 30 Days Active amLODIPine Besylate [...] toe of left foot (M20.42) Active confirmed [id number] VITAL SIGNS Height 70 in 01/05/2024 Weight 172 lbs 01/05/2024 BMI 24.68 kg/m2 01/05/2024 Weight-kg 78.02 kg 01/05/2024 Encounters Encounter Location Date Provider Diagnosis Jesús Cabrales Marquez [facility] [address] [phone] 01/05/2024 Bhavna Santa Left foot drop M21.372 and Hammer toe of left foot M20.42 ASSESSMENTS Encounter Date Diagnosis Assessment Notes Treatment Notes Treatment Clinical Notes Section Notes 01/05/2024 Left foot drop (ICD-10 - M21.372) 01/05/2024 Hammer toe of left foot (ICD-10 - M20.42) 01/05/2024 Other Advised AFO. Order given. He will make appointment at [facility] to get fitted. Advised continue home exercises per PT. Discussed hammer toe correction. Advised he start using the AFO and see how he feels after getting used to it. He may no longer be bothered by the hammer toes at that time. Re-evaluated after using the brace for a month or so. PLAN OF TREATMENT Treatment Notes Assessment Notes Other Advised AFO. Order given. He will make appointment at [facility] to get fitted. Advised continue home exercises per PT. Discussed hammer toe correction. Advised he start using the AFO and see how he feels after getting used to it. He may no longer be bothered by the hammer toes at that time. Re-evaluated after using the brace for a month or so. Next Appt Details Follow Up: 6 Weeks, Reason: Progress Notes * Chung [birth year]ERS[birth year]OB:[birth year] (63 yo M)Acc No.[id number]:01/05/2024 Progress Notes Patient: Chung ANDERSON Provider: Bhavna Santa DPM, DABPM :1960 Age:63 Y Sex:Male Date:01/05/2024 Address:[address] [place], [place] [id number] Pcp:Isiah Rondon MD Subjective: * Chief Complaints: * 1. Foot drop. * HPI: General Podiatry: Chung presents to office c/o left foot drop. He had a stroke about 6 months ago. He has developed foot drop. He has done extensive therapy. He has not regained full usage of the foot. Wonders what else could be done. * ROS: General / Constitutional: Patient denies change in appetite , chills , fatigue , fever. Patient complains of nausea, excessive thirst, unusual fatigue, back/joint pain, muscle stiffness. * Medical History: Low back pain, Depression, Anxiety disorder, COPD, Hyperlipidemia, Hypertension, Actinic keratosis, Calculus of kidney, ADHD, Opioid dependence. * Surgical History: spinal fusion . * Family History: Non-Contributory. * Social History: Tobacco Use: Tobacco Use/Smoking Tobacco use: current smoker. Drugs/Alcohol: Do you drink alcohol?: No. * Medications: Taking QUEtiapine Fumarate 25 MG Tablet Oral , Taking Atorvastatin Calcium 80 MG Tablet Oral , Taking amLODIPine Besylate 10 MG Tablet Oral , Taking Clopidogrel Bisulfate 75 MG Tablet TAKE 1 TABLET BY MOUTH EVERY DAY Oral , Taking HYDROmorphone HCl 4 MG Tablet Oral , Taking clonazePAM 0.5 MG Tablet TAKE 1 TABLET BY MOUTH EVERYDAY AT BEDTIME Oral , Taking HYDROcodone-Acetaminophen 5-325 MG Tablet Oral , Taking Venlafaxine HCl ER 37.5 MG Capsule Extended Release 24 Hour Oral , Taking Carvedilol 25 MG Tablet Oral , Taking Tamsulosin HCl 0.4 MG Capsule TAKE 1 CAPSULE BY MOUTH EVERY DAY Oral * Allergies: Codeine. Objective: * Vitals: Shoe Size: 9.5, Wt:172lbs, Wt-k.02, Ht: 70 in, BMI:24.68Index, Body Surface Area: 1.96. * Examination: General Examination: General appearance: alert, pleasant, well-nourished and in no acute distress. Vascular: Pedal pulses palpable b/l. Cap refill less than 3 seconds to digits b/l toes. Neurologic: Alert, oriented. Coordination asymmetric with foot drop left. Dermatologic: No open sores. No rashes. Musculoskeletal: Gait unsteady. Toes 2-5 left are contracted. Dorsiflexion is absent to left foot against light pressure and minimal against gravity. Assessment: * Assessment: 1. Left foot drop - M21.372 (Primary) 2. Hammer toe of left foot - M20.42 Plan: * Treatment: * Follow Up: 6 Weeks * Billing Information: * Visit Code: 89460 Office Visit, New Pt., Level 3. * Procedure Codes: * Sign off status: Completed true * Provider: Bhavna Santa DPM, MIKAEL Date: 01/05/2024 History and Physical Notes * HPI (History of Present Illness) Category Sub-Category Detail Notes Category Not es General Podiatry Chung ents to office c/o left foot drop. He had a stroke about 6 months ago. He has developed foot drop. He has done extensive therapy. He has not regained full usage of the foot. Wonders what else could be done. Examination Category Sub-Category Detail Notes Category Not es General Examination General appearance: alert, pleasant, well-nouris hed and in no acute distress Vascular: Pedal pulses palpable b/l. Cap refill less than 3 seconds to digits b/l toes. Neurologic: Alert, oriented. Coordination asymmetric with foot drop left. Dermatologic: No open sores. No rashes. Musculoskeletal: Gait unsteady. Toes 2-5 left are contracted. Dorsiflexion is absent to left foot against light pressure and minimal against gravity.
--- OUTSIDE RECORDS SUMMARY | 2024-12-30 12:27 | XMS_ITS | Patient Health Record ---
Author Organization [facility] Address [address] [facility] [address] [place] [address] Care Team Providers Care Bus Analyst Name Role Phone Alcon MALDONADO, Ciro Primary Care Provider Alex GRIMALDO PA-C, SWATI Unavailable ALLERGIES Allergen (clinical drug ingredient) Drug/Non Drug Allergy documented on EMR Reaction Allergy Type Onset Date Status codeine Codeine Sulfate vomiting Drug Allergy A ctive REASON FOR REFERRAL No Information MEDICATIONS Medication SIG (Take, Route, Frequency, Duration) Notes Start Date End Date Status amLODIPine Besylate 5 MG 1 tablet Orally Once a day Active HYDROmorphone HCl 2 MG 1 tablet as neede d Orally every 6 hrs Active Tamsulosin HCl 0.4 MG 1 capsule Orally Once a day Active Carvedilol 25 MG 1 tablet with food O rally Twice a day Active PARoxetine HCl 30 MG 1 tablet in the mor smita Orally Once a day Active Divalproex Sodium 250 MG 1 tablet Orally Twice a day Active Dicyclomine HCl 20 MG 1 tablet Orally 3 times a day for 30 day(s) 12/08/2020 Active SOCIAL HISTORY Tobacco Use: Social History Observation Description Date Details (start date - stop date) Current Smoker NA - NA Sex Assigned At : Social History Observation Description Sex Assigned At Unknown Tobacco Use/Smoking Question Answer Notes Are you a current smoker How often do you smoke cigarettes? every day How many cigarettes a day do you smoke? 11-20 PLAN OF TREATMENT No Information Insurance Providers Payer Name Payer Address Payer Phone Subscriber Number Group Number Insured Name Patient Relationship to Insured Coverage Start Date Coverage End Date [employer] [address] [place], [place] [id number] Chung Xiong Self - patient is the insured MEDICAL (GENERAL) HISTORY Medical History History ICD Code Arthritis Anxiety Depression Hypertension Neuropathy/RLS Low back/leg pain Past heavy alcohol use chronic tobacco use Surgical History Surgery Date(Month/Year) spine surgery 2012
[2024-12-30 12:59] VITALS: BP 160/96; PULSE 70; RESP 12; TEMP 36.6; O2SAT 100
[2024-12-30 13:00] LABS: Basophils Absolute Auto 0.1 K/mm3 (0.0-0.1); Basophils Percent Auto 0.5 % (0.2-1.2); Eosinophils Absolute Auto 0.1 K/mm3 (0-0.3); Eosinophils Percent Auto 0.8 % (0-4.4); Hematocrit 41.8 % (42.0-52.0); Hemoglobin 13.7 g/dL (14.0-18.0); Immature Granulocyte Absolute 0.04 K/mm3 (0.00-0.031); Immature Granulocyte Percent A 0.4 % (0-0.5); Lymphocytes Absolute Auto 2.13 K/mm3 (0.9-3.2); Mean Corpuscular HGB Conc 32.8 g/dl (32-36); Mean Corpuscular Hemoglobin 30.7 pg (26-34); Mean Corpuscular Volume 93.7 fl (80-100); Mean Platelet Volume 10.4 fl (7.4-10.4); Monocytes Absolute Auto 0.8 K/mm3 (0.1-0.6); Neutrophils Absolute Auto 8.1 K/mm3 (1.3-6.7); Neutrophils Percent Auto 72.3 % (45.5-73.1); Platelet Count Result 179 k/mm3 (150-375); Red Blood Count 4.46 M/mm3 (4.6-6.20); Red Cell Distribution Width 13.4 % (11.5-14.5); White Blood Count 11.2 K/mm3 (4.5-10.0)
[2024-12-30] MEDS: SODIUM CHLORIDE 0.9% IV 1,000 ML 999 ML IV CONT (13:04)
[2024-12-30] MEDS: MORPHINE SULFATE (*CRX) 4 MG/ML INJ IV PUSH (13:04)
[2024-12-30] MEDS: ONDANSETRON INJ 4 MG/2 ML VIAL IV PUSH (13:05)
--- NOTE | 2024-12-30 13:05 | PC.NURSE ---
pt attempted to give urine sample and was unable to
--- NOTE | 2024-12-30 13:05 | PC.NURSE ---
Patient unable to urinate at this time
[2024-12-30 13:10] LABS: Alanine Aminotransferase 29 U/L (6-50); Alkaline Phosphatase 78 U/L (38-126); Anion Gap 4 mmol/L (4-12); Aspartate Amino Transferase 36 U/L (17-59); Bilirubin,Total 0.6 mg/dL (0.2-1.3); Blood Urea Nitrogen 14 mg/dL (9-20); Calcium 8.8 mg/dL (8.4-10.2); Carbon Dioxide 30 mmol/L (22-30); Chloride 105 mmol/L (98-107); Estimated CRCL calculation 92 ml/min; Estimated Glomerular Filt Rate > 60; Glucose 92 mg/dL (65-110); Potassium 3.8 mmol/L (3.4-5.0); Sodium 139 mmol/L (137-145)
--- NOTE | 2024-12-30 13:24 | ED.GENADULT ---
HPI - General Adult General Chief complaint: Urogenital-Male Stated complaint: sent by urologist Time Seen by Provider: 12/30/24 12:35 History of Present Illness HPI narrative: Patient is 62-year-old gentleman presents emergency department with chief complaint of right flank pain. Patient reports that he was diagnosed with a 14 mm stone on the right side was seen by Urology and told to come to the emergency department. Related Data Home Medications ?Medication ?Instructions ?Recorded ?Confirmed ?Last Taken ?Type amlodipine 10 mg tablet 10 mg PO DAILY 05/21/23 11/28/23 10/17/23 08:00 History carvedilol 25 mg tablet 25 mg PO DAILY 05/21/23 11/28/23 10/17/23 08:00 History clonazepam 0.5 mg tablet 0.5 mg PO HS 05/21/23 11/28/23 10/10/23 History tamsulosin 0.4 mg capsule 0.4 mg PO DAILY 10/07/23 11/28/23 10/10/23 History hydromorphone 4 mg tablet 4 mg PO BID 11/12/23 11/28/23 Unknown History Allergies Allergy/AdvReac Type Severity Reaction Status Date / Time codeine AdvReac Unknown Gastrointestinal Verified 11/28/23 11:06 Upset Review of Systems Review of Systems: A 10 system review of systems was completed on the patient and is negative except for what is stated in the HPI. Nursing and ancillary documentation was reviewed. [facility] Social History Social History Smoking packs per day: 1 Smoking cigarettes per day: 20.0 Years smoked: 40 Smoking pack-years: 40.00 Smoking status: Current every day smoker Tobacco type: cigarettes Additional smoking assessment comments: requesting nicotine patch Alcohol intake: current Drinks per week: 1 Alcohol use details: RARE Substance use: never Substance use type: does not use Living arrangements: with family Additional living arrangements comments: SON Spiritual care concerns: No Exam Narrative: GENERAL: Well-appearing, well-nourished, and in no acute distress. HEAD: Normocephalic, atraumatic. EYES: PERRLA and EOMI. ENT: Nares clear, no rhinorrhea or epistaxis. Mucous membranes moist. NECK: Supple. CHEST: Clear to auscultation. No respiratory distress. HEART: Regular rate and rhythm. No murmur heard. Normal peripheral pulses. ABDOMEN: Soft, nontender, nondistended, normal active bowel sounds. EXTREMITIES: Normal range of motion. No edema. SKIN: Warm, dry, no rash. NEURO: No focal deficits. Alert and oriented x3. PSYCH: Normal mood and affect. Course Vital Signs Vital signs: Vital Signs Temperature 36.6 C 12/30/24 12:59 Pulse Rate 70 12/30/24 12:59 Respiratory Rate 12 12/30/24 12:59 Blood Pressure 160/96 H 12/30/24 12:59 Pulse Oximetry 100 12/30/24 12:59 Oxygen Delivery Room Air 12/30/24 12:59 Temperature 36.6 C 12/30/24 12:59 Pulse Rate 70 12/30/24 12:59 Respiratory Rate 12 12/30/24 12:59 Blood Pressure 160/96 H 12/30/24 12:59 Pulse Oximetry 100 12/30/24 12:59 Oxygen Delivery Room Air 12/30/24 12:59 Medical Decision Making [facility] Narrative Medical decision making narrative: The patient was sent from the urology office imaging was not repeated at this time the case was discussed with Urology who will follow the patient and planned for procedure most likely tomorrow and requested the patient be admitted to the hospitalist service Vital Signs Vital Signs: Vital Signs Temperature 36.6 C 12/30/24 12:59 Pulse Rate 70 12/30/24 12:59 Respiratory Rate 12 12/30/24 12:59 Blood Pressure 160/96 H 12/30/24 12:59 Pulse Oximetry 100 12/30/24 12:59 Oxygen Delivery Room Air 12/30/24 12:59 Temperature 36.6 C 12/30/24 12:59 Pulse Rate 70 12/30/24 12:59 Respiratory Rate 12 12/30/24 12:59 Blood Pressure 160/96 H 12/30/24 12:59 Pulse Oximetry 100 12/30/24 12:59 Oxygen Delivery Room Air 12/30/24 12:59 Lab Data 12/30/24 12:54 12/30/24 12:54 Labs: Lab Results 12/30/24 12/30/24 Range/Units 12:54 13:38 WBC 11.2 H (4.5-10.0) K/mm3 RBC 4.46 L (4.6-6.20) M/mm3 Hgb 13.7 L (14.0-18.0) g/dL Hct 41.8 L (42.0-52.0) % MCV 93.7 (80-100) fl MCH 30.7 (26-34) pg MCHC 32.8 (32-36) g/dl RDW 13.4 (11.5-14.5) % Plt Count 179 (150-375) k/mm3 MPV 10.4 (7.4-10.4) fl Immature Gran % (Auto) 0.4 (0-0.5) % Neut % (Auto) 72.3 (45.5-73.1) % Lymph % (Auto) 19.0 (18.3-44.2) % [place] % (Auto) 7.0 (2.6-8.5) % Eos % (Auto) 0.8 (0-4.4) % Baso % (Auto) 0.5 (0.2-1.2) % Lymph # (Auto) 2.13 (0.9-3.2) K/mm3 [place] # (Auto) 0.8 H (0.1-0.6) K/mm3 Eos # (Auto) 0.1 (0-0.3) K/mm3 Baso # (Auto) 0.1 (0.0-0.1) K/mm3 Abs Immat Gran (auto) 0.04 H (0.00-0.031) K/mm3 Absolute Neuts (auto) 8.1 H (1.3-6.7) K/mm3 Absolute Nucleated RBC 0.000 (0.0-0.012) K/mm3 Nucleated RBC % 0.0 (0.0-0.2) % Sodium 139 (137-145) mmol/L Potassium 3.8 (3.4-5.0) mmol/L Chloride 105 (98-107) mmol/L Carbon Dioxide 30 (22-30) mmol/L Anion Gap 4 (4-12) mmol/L BUN 14 D (9-20) mg/dL Creatinine 0.74 (0.7-1.3) mg/dL Estim Creat Clear Calc 92 ml/min Estimated GFR > 60 (59 - ) Glucose 92 (65-110) mg/dL Calcium 8.8 (8.4-10.2) mg/dL Total Bilirubin 0.6 (0.2-1.3) mg/dL AST 36 (17-59) U/L ALT 29 (6-50) U/L Alkaline Phosphatase 78 (38-126) U/L Total Protein 7.0 (6.3-8.2) g/dL Albumin 4.0 (3.5-5.1) g/dL Urine Color Yellow (Yellow) Urine Appearance Clear (Clear) Urine pH 6.5 (5.0-9.0) Ur Specific [place] 1.017 (1.001-1.035) Urine Protein 1+ H (Negative) mg/dL Urine Glucose (UA) Negative (Negative) mg/dL Urine Ketones Negative (Negative) mg/dL Ur Blood (Man) 2+ H (Negative) Urine Nitrate Negative (Negative) Urine Bilirubin Negative (Negative) Urine Urobilinogen 1.0 (<2.0) mg/dL Leukocyte Esterase Rfl 1+ H (Negative) MICK/UL Urine RBC >100 H (0-2) /hpf Urine WBC 11-20 H (0-3) /hpf Ur Squamous Epith Cells None seen (Few) /hpf Urine Bacteria None seen /hpf Urine Casts 0-2 Discharge Plan Discharge Clinical Impression: Ureterolithiasis, Acute flank pain Patient Disposition: Still a Patient Condition: Stable Patient Language: Syriac Prescriptions: No Action hydrocodone-acetaminophen 5-325 mg tablet 1 - 2 tablet PO Q6H PRN (Reason: pain) Qty: 20 0RF tamsulosin 0.4 mg capsule 0.4 mg PO DAILY hydromorphone 4 mg tablet 4 mg PO BID carvedilol 25 mg Tablet 25 mg PO DAILY Rx Instructions: must administer with a meal/food clonazepam 0.5 mg Tablet 0.5 mg PO HS Rx Instructions: administer 30 minutes before bedtime amlodipine 10 mg Tablet 10 mg PO DAILY aspirin [Children's Aspirin] 81 mg Tablet,Chewable 81 mg PO DAILY@0800 30 Days Qty: 30 0RF atorvastatin 80 mg Tablet 80 mg PO HS 30 Days Qty: 30 0RF Patient Comments: PT TAKES IN AM sennosides-docusate sodium [Senokot-S] 8.6-50 mg Tablet 1 tab PO HS Qty: 30 0RF clopidogrel 75 mg Tablet 75 mg PO QHS 30 Days Qty: 30 0RF Patient Comments: TAKES IN AM Follow-up/Referrals: Alcon,Ciro Hopper MD [Primary Care Provider] - Time of Disposition: 14:27
--- OUTSIDE RECORDS SUMMARY | 2024-12-30 13:34 | XMS_ITS | Encounter Summary ---
Author Organization [facility] Address [address] [place] [address] Care Team Providers Care [employer] Developer Name Role Phone Ciro Rondon MD Primary Care Provider [phone] Reason for Referral * Imaging (Routine) - Closed Specialty Diagnoses / Procedures Referred By Contac t Referred To Contact RADIOLOGY Diagnoses Ischemic stroke (CMS/HCC HHS/HCC) Procedures USV CAROTID DUPLEX MARCELINA Kartik Sharma MD [address] [address] Phone: tel: fax: Referral ID Status Reason Start Date Expiration Date Visits Re quested Visits Authorized [id number] Closed 06/27/2023 06/27/2024 1 1 Encounter Details Date Type Department Care Team (Late st Contact Info) Description 06/27/2023 Community Orders [facility] Kartik Sharma MD [address] [phone] Social History Tobacco Use Types Packs/Day Years [...] declined 12/29/2020 How often do you attend catholic or orthodoxy serv ices? Patient declined 12/29/2020 Do you belong to any clubs o r organizations such as catholic groups, unions, fraternal or athletic groups, or [...] and heating? Not hard at all 12/29/2020 [facility] - Occupational Stress Questionnaire Answer Date [...] Sex Assigned at Male 10/20/2024 10:19 AM AEROPHYSICIST Legal Sex Male 8:10 PM CDT Gender [...] USV CAROTID DUPLEX MARCELINA (10/13/2023 2:32 PM AEROPHYSICIST) Anatomical Region Laterality Modality Neck Ultrasound 10/20/2023 8:14 AM AEROPHYSICIST Impressions 10/20/2023 8:26 AM AEROPHYSICIST Impression: 1. 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 2. Left internal carotid artery: Moderate atherosclerotic plaque with less than 50% stenosis by NASCET criteria. 3. Vertebral arteries: Antegrade flow with normal waveforms bilaterally. Referred By: KARTIK SHARMA Interpreted By: Reji Patrick MD, 10/20/2023 8:14 AM Narrative 10/20/2023 8:26 AM AEROPHYSICIST Examination: USV CAROTID DUPLEX MARCELINA Clinical Information: [...] (SRU) consensus statement (Radiology 2003; 229:340-346. DOI 10.1148/radiol.1375198439) was used to estimate internal carotid artery [...] of Radiologists in Ultrasound (SRU) consensus statement ([id number]; 229:340-346. DOI 10.1148/radiol.5780104604) was used to estimateinternal carotid artery stenosis. This conforms NASCET criteria. Impression: 1. Right internal carotid artery: Near total occlusion of the rightinternal carotid artery. 2. Left internal carotid artery: Moderate atherosclerotic plaque withless than 50% stenosis by NASCET criteria. 3. Vertebral arteries: Antegrade flow with normal waveformsbilaterally. Referred By: KARTIK SHARMA Interpreted By: Reji Patrick MD, 10/20/2023 8:14 AM Kartik Sharma MD [facility] Final Result documented in this encounter Visit Diagnoses Diagnosis Ischemic stroke (CMS/HCC HHS/HCC)- Primary Ischemic stroke (CMS/[facility] HHS/HCC) documented in this encounter Additional Health Concerns Infection Onset Date Last Indicated Resolved Time COVID-19 Rule Out 06/15/2024 06/15/2024 06/15/2024 8:15 PM CDT COVID-19 Rule Out 06/27/2024 06/27/2024 06/27/2024 5:35 AM AEROPHYSICIST documented as of this encounter Care Teams [employer] Developer Relationship Specialty Start Date End Date Ciro Rondon MD [address] [place] [address] PCP - General FAMILY PRACTICE 12/27/20 documented as of this encounter
--- OUTSIDE RECORDS SUMMARY | 2024-12-30 13:34 | XMS_ITS | Encounter Summary ---
Author Organization [facility] Address [address] [place] [address] Care Team Providers Care Field Representative Name Role Phone Ciro Rondon MD Primary Care Provider [phone] Encounter Details Date Type Department Care Team (Late st Contact Info) Description 12/25/2020 Prep for Procedure [facility] [address] [place] [id number] Ok Rosario MD [address] [facility] [address] [place] [phone] Social History Tobacco Use Types Packs/Day Years [...] declined 12/29/2020 How often do you attend latter day or anabaptism serv ices? Patient declined 12/29/2020 Do you belong to any clubs o r organizations such as latter day groups, unions, fraternal or athletic groups, or [...] and heating? Not hard at all 12/29/2020 [facility] - Occupational Stress [...] Sex Assigned at Male 10/20/2024 10:19 AM [employer] Legal Sex Male 8:10 PM CDT Gender [...] Rule Out 12/26/2020 12/26/2020 07/16/2021 6:28 PM [employer] COVID-19 Rule Out 05/17/2023 05/17/2023 05/17/2023 6:09 PM CDT COVID-19 Rule Out 06/15/2024 06/15/2024 06/15/2024 8:15 PM CDT COVID-19 Rule Out 06/27/2024 06/27/2024 06/27/2024 5:35 AM [employer] documented as of this encounter Care Teams Field Representative Relationship Specialty Start Date End Date Ciro Rondon MD [address] [place] [id number] PCP - General FAMILY PRACTICE 12/27/20 documented as of this encounter
--- OUTSIDE RECORDS SUMMARY | 2024-12-30 13:34 | XMS_ITS | Encounter Summary ---
Author Organization [facility] Address Formerly [facility], [facility] [place] [address] Care Team Providers Care Casing Builder Name Role Phone Ciro Rondon MD Primary [...] IV OFFICE/OUTPT VISIT,EST,LEVL V Cory Mares MD [address] [place] [id number] Phone: tel: fax: Referral ID Status Reason Start Date Expiration Date Visits Requested Visits Authorized [id number] New Request Specialty Services 12/29/2024 12/29/2025 1 1 * Imaging (Emergency) - New Request Specialty Diagnoses / Procedures Referred By Contac t Referred To Contact RADIOLOGY Procedures CT ABD+PEL W IV CON ONLY Cory Mares MD [address] [place] [id number] Phone: tel: fax: Referral ID Status Reason Start Date Expiration Date V isits Requested Visits Authorized [id number] New Request 12/29/2024 12/29/2025 1 1 Reason for Visit * Reason Comments Abdominal Pain Encounter Details Date Type Department Care Team (Late st Contact Info) Description 12/29/2024 9:30 AM CDT - 12/29/2024 12:55 PM CDT Emergency [facility] Emergency Services [facility] [place] [address] Cory Mares MD [address] [place] [id number] Abdominal Pain Discharge Disposition: Home or Self [...] declined 12/29/2020 How often do you attend roman catholic or caodaism serv ices? Patient declined 12/29/2020 Do you belong to any clubs o r organizations such as roman catholic groups, unions, fraternal or athletic groups, [...] Recorded Patient Health Questionnaire-2 Score 0 07/14/2023 [facility] - Occupational Stress Questionnaire Answer [...] Sex Assigned at Male 10/20/2024 10:19 AM TOOLROOM KEEPER Legal Sex Male 8:10 PM CDT Gender [...] Author Status No 05/18/2023 2:54 AM KAIT Geralidne Lan RN Active * Because of a [...] 9:31 AM Carson Ch RN Active * [place] Suicide Severity Rating Scale (Screener/Recent Self-Report) Question Answer Date of Assessment Author Status 1. Wish to be (Past 1 Month) No 12/29/2024 9:31 AM Nadia Ch RN A ctive 2. Non-Specific Active Suicidal Thoughts (Past 1 Month) No 12/29/2024 9:31 AM Nadia Ch RN A ctive 6. Suicidal Behavior (Lifetime) No 12/29/2024 9:31 AM CDT [place], Nadia A, RN A ctive documented as [...] sent through Care Everywhere. * Flank Pain (Bruneian) * Kidney stones in adults (Bruneian) documented in this encounter Medications at Time [...] from the original note were not included. [facility] EM[facility] EMERGENCY DEPARTMENT ENCOUNTER CHIEF [...] from the waiting room to the [facility]. PAST MEDICAL HISTORY Past Medical History[1] [...] Resource Strain: Low Risk (06/27/2024) Received from [facility] Overall Financial Resource Strain (CARDIA) Difficulty of Paying Living Expenses: Not very hard Food Insecurity: No Food Insecurity (06/27/2024) Received from [facility] Hunger Vital Sign Worried About Running Out of Food in the Last Year: Never true Ran Out of Food in the Last Year: Never true Transportation Needs: Unmet Transportation Needs (06/27/2024) Received from [facility] PRAPARE - Transportation Lack of Transportation (Medical): Yes Lack of Transportation (Non-Medical): Yes Physical Activity: Insufficiently Active (12/29/2020) Exercise Vital Sign Days of Exercise per Week: 1 day Minutes of Exercise per Session: 30 min Stress: Stress Concern Present (06/27/2024) Received from [facility] [place] of Occupational Health - Occupational Stress Questionnaire Feeling of Stress : To some extent Social Connections: Unknown (12/29/2020) Social Connection and Isolation Panel [NHANES] Frequency of Communication with Friends and Family: Patient declined Frequency of Social Gatherings with Friends and Family: Patient declined Attends Yarsanism Services: Patient declined Active Member of Clubs or Organizations: Patient declined Attends Club or Organization Meetings: Patient declined Marital Status: Patient declined Intimate Partner Violence: Unknown (12/29/2020) Humiliation, Afraid, Rape, and Kick questionnaire Fear of Current or Ex-Partner: Patient declined Emotionally Abused: Patient declined Physically Abused: Patient declined Sexually Abused: Patient declined Housing Stability: Low Risk (06/27/2024) Received from [facility] Housing Stability Vital Sign Unable to Pay [...] IV CON ONLY Final Result by User, [email or web address] (12/29 105) [address] [place] [address] CT ABDOMEN AND PELVIS WITH CONTRAST Exam [...] referrals placed as below: Ciro Rondon MD [address] [place], [place] [id number] (Please note that portions of this note [...] History: Diagnosis Date Hypertension Neuropathy Stroke (cerebrum) ([facility]/HCC HHS/HCC) 05/17/2023 [2] Past Surgical History: Procedure Laterality Date COLONOSCOPY N/A 12/29/2020 COLONOSCOPY with biopsy performed by Ok Rosario MD at [facility] OR EGD FOREARM/WRIST SURGERY UNLISTED Right SPINAL FUSION C4-7 [3] Family History Problem Relation Name Age of Onset No Known Problems Mother No Known Problems Father Cory Mares MD 12/29/24 [id number] * Bhavna Dale RN - 12/29/2024 12:49 [...] SCREEN RAPID (12/29/2024 11:09 AM CDT) [facility] AMPHETAMINE SCREEN (U) NEGATIVE NEGATIVE 12/29/2024 11:31 AM CDT [facility] BARBITURATES SCREEN (U) NEGATIVE NEGATIVE 12/29/2024 11:31 AM CDT [facility] BENZODIAZEPINES SCREEN (U) NEGATIVE NEGATIVE 12/29/2024 11:31 AM CDT [facility] BUPRENORPHINE SCREEN (U) POSITIVE(A) NEGATIVE 12/29/2024 11:31 AM CDT [facility] COCAINE METABOLITES (U) NEGATIVE NEGATIVE 12/29/2024 11:31 AM CDT [facility] METHAMPHETAMINE (U) NEGATIVE NEGATIVE 12/29/2024 11:31 AM CDT [facility] METHADONE (U) NEGATIVE NEGATIVE 12/29/2024 11:31 AM CDT [facility] OPIATE SCREEN (U) NEGATIVE NEGATIVE 025 11:31 AM CDT [facility] OXYCODONE SCREEN (U) NEGATIVE NEGATIVE 12/29/2024 11:31 AM CDT [facility] PHENCYCLIDINE PCP (U) NEGATIVE NEGATIVE 12/29/2024 11:31 AM CDT [facility] CANNABINOIDS SCREEN (U) NEGATIVE NEGATIVE 12/29/2024 11:31 AM T [facility] TRICYCLIC ANTIDEPRESSANT SCREEN (U) NEGATIVE NEGATIVE 12/29/2024 11:31 AM T [facility] Comment: NOTE: RESULTS OF THIS DRUG [...] U PH 6.5 12/29/2024 11:31 AM CDT [facility] SPECIFIC GRAVITY (U) 1.010 12/29/2024 11:31 AM T [facility] URINE SPECIMEN / Unknown 12/29/2024 11:09 AM CDT us Cory Mares MD URINE ORDERABLES Final Result [facility] [address] [place] [address], [place] * (ABNORMAL) URINALYSIS AUTO DIP (12/29/2024 11:09 AM CDT) COLOR (U) YELLOW YELLOW 12/29/2024 11:24 AM CDT [facility] TRANSPARENCY CLEAR CLEAR 12/29/2024 11:24 AM CDT [facility] SPECIFIC GRAVITY (U) 1.010 1.010 - 1.025 12/29/2024 11:24 AM CDT [facility] U PH 6.5 5.0 - 8.5 12/29/2024 11:24 AM CDT [facility] LEUKOCYTES (U) NEGATIVE NEGATIVE 12/29/2024 11:24 AM CDT [facility] NITRITES NEGATIVE NEGATIVE 12/29/2024 11:24 AM CDT [facility] PROTEIN RANDOM (U) 1+(A) NEGATIVE 12/29/2024 11:24 AM CDT [facility] GLUCOSE (U) NEGATIVE NEGATIVE 12/29/2024 11:24 AM CDT [facility] KETONES MG/DL (U) NEGATIVE NEGATIVE 12/29/2024 11:24 AM CDT [facility] UROBILINOGEN 0.2 0.2 - 1.0 EU/DL 12/29/2024 11:24 AM CDT [facility] BILIRUBIN (U) NEGATIVE NEGATIVE 12/29/2024 11:24 AM CDT [facility] BLOOD (U) 3+(A) NEGATIVE 12/29/2024 11:24 AM CDT [facility] URINE SPECIMEN OBTAINED BY CLEAN CATCH PROCEDURE / Unknown 12/29/2024 11:09 AM CDT us Cory Mares MD URINE ORDERABLES Final Result [facility] [address] [place] [address], [place] * CT ABD+PEL W IV CON [...] 10:54 AM Narrative 12/29/2024 10:56 AM CDT [address] [place] [address] CT ABDOMEN AND PELVIS WITH CONTRAST Exam [...] Procedure Note Noé Iraheta MD - 12/29/[address] [place] [address] CT ABDOMEN AND PELVIS WITH CONTRAST Exam [...] - 77 UNITS/L 12/29/2024 11:00 AM CDT [facility] 12/29/2024 9:50 AM CDT us Cory Mares MD LABORATORY Final Result [address] [place] [address], [place] * (ABNORMAL) COMPREHENSIVE METABOLIC PANEL (12/29/2024 9:50 AM CDT) Pathologist [facility] GLUCOSE 106(H) 70 - 99 MG/DL 12/29/2024 11:00 AM CDT [facility] BUN 16 7 - 18 MG/DL 12/29/2024 11:00 AM CDT [facility] CREATININE S/P/B 1.12 0.50 - 1.20 MG/DL 12/29/2024 11:00 AM CDT [facility] SODIUM S/P/B 142 136 - 145 MMOL/L 12/29/2024 11:00 AM CDT [facility] POTASSIUM S/P/B 4.0 3.5 - 5.1 MMOL/L 12/29/2024 11:00 AM CDT [facility] CHLORIDE S/P/B 103 100 - 108 MMOL/L 12/29/2024 11:00 AM CDT [facility] CO2 29.0 21.0 - 32.0 MMOL/L 12/29/2024 11:00 AM CDT [facility] CALCIUM S/P/B 9.1 8.5 - 10.1 MG/DL 12/29/2024 11:00 AM T [facility] BILIRUBIN TOTAL S/P/B 0.8 0.2 - 1.2 MG/DL 12/29/2024 11:00 AM T [facility] Comment: THIS ASSAY IS NOT RECOMMENDED FOR PATIENTS UNDERGOING TREATMENT WITH ELTROMBOPAG DUE TO THE POTENTIAL FOR FALSELY ELEVATED RESULTS. TOTAL PROTEIN S/P/B 7.2 6.4 - 8.2 G/DL 12/29/2024 11:00 AM T [facility] ALBUMIN S/P/B 3.5 3.4 - 5.0 G/DL 12/29/2024 11:00 AM T [facility] AST 28 15 - 37 U/L 12/29/2024 11:00 AM T [facility] ALT 29 16 - 60 U/L 12/29/2024 11:00 AM T [facility] ALKALINE PHOSPHATASE S/P/B 85 50 - 136 U/L 12/29/2024 11:00 AM T [facility] ANION GAP 10.0 5.0 - 15.0 MMOL/L 12/29/2024 11:00 AM T [facility] BUN CREATININE RATIO 14.3 6 - 26 12/29/2024 11:00 AM [facility] A/G RATIO 0.9(L) 1.0 - 2.5 RATIO 12/29/2024 11:00 AM T [facility] GFR ESTIMATE 74(L) >90 ML/MIN/1.7 3 M2 12/29/2024 11:00 AM T [facility] Comment: NOTE: eGFR is not calculated for patients <18 years of age. This is an estimated GFR calculation using the new CKD EPI creatinine equation without race and so does not require a correction factor for race. This estimated GFR should not be used for calculating drug doses. 12/29/2024 9:50 AM CDT us Cory Mares MD LABORATORY Final Result [facility] [address] [place] [address], * (ABNORMAL) CBC W/DIFF AUTOMATED (12/29/2024 9:50 AM CDT) WBC 12.08(H) 4.50 - 11.00 x10'3/uL 12/29/2024 10:28 AM CDT [facility] RBC 4.91 4.50 - 5.90 x10'6/uL 12/29/2024 10:28 AM CDT [facility] HGB 15.2 14.0 - 18.0 G/DL 12/29/2024 10:28 AM CDT [facility] HCT 45.0 43.0 - 54.0 % 12/29/2024 10:28 AM CDT [facility] MCV 91.6 80.0 - 100.0 FL 12/29/2024 10:28 AM CDT [facility] MCH 31.0 26.0 - 34.0 PG 12/29/2024 10:28 AM CDT [facility] MCHC 33.8 31.0 - 37.0 G/DL 12/29/2024 10:28 AM CDT [facility] RDW 13.2 11.6 - 14.8 % 12/29/2024 10:28 AM CDT [facility] PLT 212 130 - 400 x10'3/uL 12/29/2024 10:28 AM CDT [facility] MPV 11.1 7.0 - 12.0 FL 12/29/2024 10:28 AM CDT [facility] CBC COMMENT AUTOMATED RBC MORPHOLOGY AND PLATELET EVALUATION NORMAL 12/29/2024 10:28 AM CDT [facility] NEUTROPHILS % 76.5(H) 40.0 - 74.0 % 12/29/2024 10:28 AM CDT [facility] LYMPHOCYTES % 15.2 14.0 - 46.0 % 12/29/2024 10:28 AM CDT [facility] MONOCYTES % 7.2 4.0 - 13.0 % 12/29/2024 10:28 AM CDT [facility] EOSINOPHILS 0.5 0.0 - 7.0 % 12/29/2024 10:28 AM CDT [facility] BASOPHILS 0.4 0.0 - 3.0 % 12/29/2024 10:28 AM CDT [facility] IMMATURE GRANS % 0.2 0.0 - 0.43 % 12/29/2024 10:28 AM CDT [facility] NRBC % 0.0 % 12/29/2024 10:28 AM CDT [facility] ABS. NEUTROPHILS TOTAL 9.23(H) 1.69 - 7.81 x10'3/uL 12/29/2024 10:28 AM CDT [facility] ABS. LYMPHOCYTES 1.84 0.21 - 5.42 x10'3/uL 12/29/2024 10:28 AM CDT [facility] ABS. MONOCYTES 0.87 0.04 - 1.37 x10'3/uL 12/29/2024 10:28 AM CDT [facility] ABS. EOSINOPHILS 0.06 0.00 - 0.68 x10'3/uL 12/29/2024 10:28 AM CDT [facility] ABS. BASOPHILS 0.05 0.00 - 0.08 x10'3/uL 12/29/2024 10:28 AM CDT [facility] ABS. IMMATURE GRANULOCYTES 0.03 0.00 - 0.06 x10'3/uL 12/29/2024 10:28 AM T [facility] ABS. NUCLEATED RBC'S 0.00 0.00 - 0.01 x10'3/uL 12/29/2024 10:28 AM T [facility] 12/29/2024 9:50 AM CDT us Cory Mares MD LABORATORY Final Result [facility] [place] [facility] [address] [place] [address], [place] documented in this encounter Visit Diagnoses [...] RAC) documented in this encounter Care Teams Casing Builder Relationship Specialty Start Date End Date Ciro Rondon MD [address] [place] [id number] PCP - General FAMILY PRACTICE 12/27/20 documented as of this encounter
--- OUTSIDE RECORDS SUMMARY | 2024-12-30 13:34 | XMS_ITS | Clinical Summary ---
Author Organization [email or web address] Address [address] [place] [address] Care Team Providers Care Acute Care Clinical Nurse Specialist Name Role Phone Unavailable Primary Care Provider Unavailabl e Source Comments [email or web address],non-owned Affiliates and Associated Physician Practices is amultiple site organization consisting of ambulatory clinics and hospital sitesin [place], [place], [place] and [place]. This disclosure is being madepursuant to the Care Everywhere program and may not contain all information available regarding this patient. Last updated [email or web address] Allergies No known active allergies Medications * [...] care, and heating? Not very hard 06/27/2024 [facility] [place] of Occupat ional Health - Occupational Stress [...] any time in the past 12 m [facility], were you homeless or living in a longterm (including now)? No 06/27/2024 Sex and Gender Information Value Date Recorded Sex Assigned at Not on file Legal Sex Male 1:20 AM GENERAL MANAGER [employer]AND [employer]PARTMENT Gender Identity Not on file Sexual Orientation Not on file Last Filed Vital Signs Vital Sign Reading Time Taken Comments Blood Pressure 146/89 07/02/2024 8:01 AM GENERAL MANAGER [employer] Pulse 68 07/02/2024 8:01 AM GENERAL MANAGER [employer] Temperature 36.6 C (97.9 F) 07/02/2024 8:01 AM GENERAL MANAGER [employer]MENT Respiratory Rate 18 07/02/2024 8:01 AM GENERAL MANAGER [employer] Oxygen Saturation 100% 07/02/2024 8:01 AM GENERAL MANAGER [employer]PART[employer] Inhaled Oxygen Concentration - - Weight 90.7 [...] (ABNORMAL) LIPID PROFILE (06/19/2024 6:12 AM CDT) [facility] Cholesterol 111 <200 mg/dL 06/19/2024 6:[address] [facility] Triglycerides 45 <150 mg/dL 06/19/2024 6:[address] [facility] HDL Cholesterol 40(L) >40 mg/dL 6:[address] [facility] Chol HDL Ratio 2.8 1.0 - 6.0 06/19/2024 6:[address] [facility] LDL Calculated 62(L) 65 - 130 mg/dL 06/19/2024 6:[address] [facility] VLDL Calculated 9 <=30 mg/dL 6:[address] [facility] Blood BLOOD SPECIMEN / Unknown Lab Venipuncture / Unknown 06/19/2024 6:12 AM CDT 06/19/2024 6:[address] [facility] - 06/19/2024 6:59 AM CDT Lipid [...] LAB - CHEMISTRY ORDERABLES Luz l Result [facility] [address] * HEPATITIS C ANTIBODY (01/05/2015 1:55 PM CDT) [facility] Hepatitis C Antibody Non-react [facility] Comment: Hepatitis C Antibody screen indicates no [...] LAB - CHEMISTRY ORDERABLE S Final Result [address] [phone] from Last 3 Months or Most Recently Relevant to Health Maintenance Insurance AETNA AETNA MEDICARE ADV Advance Directives * Full Code (Latest Code Status on File) Date Activated Date Inactivated Comments 06/27/2024 5:58 PM 07/02/2024 12:49 PM * Full Code Date Activated Date Inactivated Comments 06/16/2024 11:14 AM 06/20/2024 7:50 PM
--- OUTSIDE RECORDS SUMMARY | 2024-12-30 13:34 | XMS_ITS | Clinical Summary ---
Author Organization [facility] Address [facility] [place] [address] Care Team Providers Care Manager Category Name Role Phone Noemí Hoff MD Primary Care Provider [phone] Allergies Active Allergy Reactions Criticality Noted Date [...] Diagnosed Date Left-sided weakness 05/18/2023 Ischemic stroke ([facility]/HCC [facility]) 05/18/2023 Right kidney stone 01/31/2022 Encounters Date Type Department Care Team Description 12/29/2024 9:30 AM CDT - 12/29/2024 12:55 PM CDT Emergency [facility] Emergency Services [address] [place] [address] Cory Mares MD Abdominal Pain Discharge Disposition: Home or Self Care (Routine Discharge) 12/29/2024 Travel 10/26/2024 11:53 AM CEMENT PAVER - 10/26/2024 11:59 PM CEMENT PAVER Hospital Encounter [facility] Ultrasound [address] [place] [address] David Mae NP Discharge Disposition: Home or [...] often do you attend latter day or hoahaoism serv ices? Patient declined 12/29/2020 Do you [...] Recorded Patient Health Questionnaire-2 Score 0 07/14/2023 [facility] - Occupational Stress Questionnaire Answer Date Recorded [...] Sex Assigned at Male 10/20/2024 10:19 AM CEMENT PAVER Legal Sex Male 8:10 PM CDT Gender [...] 2023-2 5 season) 2024 01/27/2021 PHQ-2 (Physician [place]) 08/25/2024 07/14/2023 Colorectal Cancer Screening Colonoscopy (10 [...] this topic Medical Devices Implanted Type Area Hazardous Substances Engineer Device Identifier Shelf Expiration Date Model / Serial / Lot Pin Pin Spine Cervical Stent Ureteral [employer] [employer] Contour 6fr X 26cm - [id number] Implanted:Qty : 1 on 11/29/2021 by Catrachito Navarro MD at [facility] Stent Right: Ureter [employer] [id number] 09/07/2024 [id number] 30 / / [id number] Description:NO STRING Stent Uret 6fr 26cm Pigtl Crv Taper Tip Bldr Mrk - [id number] Implanted:Qty : 1 on 01/31/2022 by Catrachito Navarro MD at [facility] Stent Right: Ureter [employer] [id number] 01/24/2023 [id number] 30 / / [id number] Procedures Procedure Name Priority Date/Time Associated Diagnosis [...] USV CAROTID DUPLEX MARCELINA Routine 12:52 PM CEMENT PAVER Cerebral infarction, unspecified (CMS/HCC HHS/HCC) CT LUNG SCREENING Routine 07/09/2022 10: 30 AM CEMENT PAVER Encounter for special screening examination for neoplasm of respiratory organ Nicotine dependence, cigarettes, with unspecified nicotine-induced disorders COLONOSCOPY Routine 12/29/2020 1:35 PM CDT from Last 3 Months or Most Recently Relevant to Health Maintenance Results * (ABNORMAL) DRUG SCREEN RAPID (12/29/2024 11:09 AM CDT) AMPHETAMINE SCREEN (U) NEGATIVE NEGATIVE 12/29/2024 11:31 AM CDT [facility] BARBITURATES SCREEN (U) NEGATIVE NEGATIVE 12/29/2024 11:31 AM CDT [facility] BENZODIAZEPINES SCREEN (U) NEGATIVE NEGATIVE 12/29/2024 11:31 AM CDT [facility] BUPRENORPHINE SCREEN (U) POSITIVE(A) NEGATIVE 12/29/2024 11:31 AM CDT [facility] COCAINE METABOLITES (U) NEGATIVE NEGATIVE 12/29/2024 11:31 AM CDT [facility] METHAMPHETAMINE (U) NEGATIVE NEGATIVE 12/29/2024 11:31 AM CDT [facility] METHADONE (U) NEGATIVE NEGATIVE 12/29/2024 11:31 AM T [facility] OPIATE SCREEN (U) NEGATIVE NEGATIVE 025 11:31 AM T [facility] OXYCODONE SCREEN (U) NEGATIVE NEGATIVE 12/29/2024 11:31 AM T [facility] PHENCYCLIDINE PCP (U) NEGATIVE NEGATIVE 12/29/2024 11:31 AM T [facility] CANNABINOIDS SCREEN (U) NEGATIVE NEGATIVE 12/29/2024 11:31 AM T [facility] TRICYCLIC ANTIDEPRESSANT SCREEN (U) NEGATIVE NEGATIVE 12/29/2024 11:31 AM T [facility] Comment: NOTE: RESULTS OF THIS DRUG [...] U PH 6.5 12/29/2024 11:31 AM T [facility] SPECIFIC GRAVITY (U) 1.010 12/29/2024 11:31 AM [facility] URINE SPECIMEN / Unknown 12/29/2024 11:09 AM CDT us Cory Mares MD URINE ORDERABLES Final Result [facility] [address] [place] [address], [place] * (ABNORMAL) URINALYSIS AUTO DIP (12/29/2024 11:09 AM CDT) COLOR (U) YELLOW YELLOW 12/29/2024 11:24 AM CDT [facility] TRANSPARENCY CLEAR CLEAR 12/29/2024 11:24 AM CDT [facility] SPECIFIC GRAVITY (U) 1.010 1.010 - 1.025 12/29/2024 11:24 AM CDT [facility] U PH 6.5 5.0 - 8.5 12/29/2024 11:24 AM CDT [facility] LEUKOCYTES (U) NEGATIVE NEGATIVE 12/29/2024 11:24 AM CDT [facility] NITRITES NEGATIVE NEGATIVE 12/29/2024 11:24 AM CDT [facility] PROTEIN RANDOM (U) 1+(A) NEGATIVE 12/29/2024 11:24 AM CDT [facility] GLUCOSE (U) NEGATIVE NEGATIVE 12/29/2024 11:24 AM CDT [facility] KETONES MG/DL (U) NEGATIVE NEGATIVE 12/29/2024 11:24 AM CDT [facility] UROBILINOGEN 0.2 0.2 - 1.0 EU/DL 12/29/2024 11:24 AM CDT [facility] BILIRUBIN (U) NEGATIVE NEGATIVE 12/29/2024 11:24 AM CDT [facility] BLOOD (U) 3+(A) NEGATIVE 12/29/2024 11:24 AM CDT [facility] URINE SPECIMEN OBTAINED BY CLEAN CATCH PROCEDURE / Unknown 12/29/2024 11:09 AM CDT us Cory Mares MD URINE ORDERABLES Final Result [address] [place] [address], [place] * CT ABD+PEL W IV CON [...] 10:54 AM Narrative 12/29/2024 10:56 AM CDT [address] [place] [address] CT ABDOMEN AND PELVIS WITH CONTRAST Exam [...] Procedure Note Noé Iraheta MD - 12/29/[address] [place] [address] CT ABDOMEN AND PELVIS WITH CONTRAST Exam [...] - 99 MG/DL 12/29/2024 11:00 AM CDT [facility] BUN 16 7 - 18 MG/DL 12/29/2024 11:00 AM CDT [facility] CREATININE S/P/B 1.12 0.50 - 1.20 MG/DL 12/29/2024 11:00 AM CDT [facility] SODIUM S/P/B 142 136 - 145 MMOL/L 12/29/2024 11:00 AM CDT [facility] POTASSIUM S/P/B 4.0 3.5 - 5.1 MMOL/L 12/29/2024 11:00 AM CDT [facility] CHLORIDE S/P/B 103 100 - 108 MMOL/L 12/29/2024 11:00 AM CDT [facility] CO2 29.0 21.0 - 32.0 MMOL/L 12/29/2024 11:00 AM CDT [facility] CALCIUM S/P/B 9.1 8.5 - 10.1 MG/DL 12/29/2024 11:00 AM CDT [facility] BILIRUBIN TOTAL S/P/B 0.8 0.2 - 1.2 MG/DL 12/29/2024 11:00 AM CDT [facility] Comment: THIS ASSAY IS NOT RECOMMENDED FOR PATIENTS UNDERGOING TREATMENT WITH ELTROMBOPAG DUE TO THE POTENTIAL FOR FALSELY ELEVATED RESULTS. TOTAL PROTEIN S/P/B 7.2 6.4 - 8.2 G/DL 12/29/2024 11:00 AM CDT [facility] ALBUMIN S/P/B 3.5 3.4 - 5.0 G/DL 12/29/2024 11:00 AM CDT [facility] AST 28 15 - 37 U/L 12/29/2024 11:00 AM CDT [facility] ALT 29 16 - 60 U/L 12/29/2024 11:00 AM T [facility] ALKALINE PHOSPHATASE S/P/B 85 50 - 136 U/L 12/29/2024 11:00 AM T [facility] ANION GAP 10.0 5.0 - 15.0 MMOL/L 12/29/2024 11:00 AM T [facility] BUN CREATININE RATIO 14.3 6 - 26 12/29/2024 11:00 AM T [facility] A/G RATIO 0.9(L) 1.0 - 2.5 RATIO 12/29/2024 11:00 AM T [facility] GFR ESTIMATE 74(L) >90 ML/MIN/1.7 3 M2 12/29/2024 11:00 AM T [facility] Comment: NOTE: eGFR is not calculated for patients <18 years of age. This is an estimated GFR calculation using the new CKD EPI creatinine equation without race and so does not require a correction factor for race. This estimated GFR should not be used for calculating drug doses. 12/29/2024 9:50 AM CDT us Cory Mares MD LABORATORY Final Result [facility] [address] [place] [address], [place] * (ABNORMAL) CBC W/DIFF AUTOMATED (12/29/2024 9:50 AM CDT) WBC 12.08(H) 4.50 - 11.00 x10'3/uL 12/29/2024 10:28 AM CDT [facility] RBC 4.91 4.50 - 5.90 x10'6/uL 12/29/2024 10:28 AM CDT [facility] HGB 15.2 14.0 - 18.0 G/DL 12/29/2024 10:28 AM CDT [facility] HCT 45.0 43.0 - 54.0 % 12/29/2024 10:28 AM CDT [facility] MCV 91.6 80.0 - 100.0 FL 12/29/2024 10:28 AM CDT [facility] MCH 31.0 26.0 - 34.0 PG 12/29/2024 10:28 AM CDT [facility] MCHC 33.8 31.0 - 37.0 G/DL 12/29/2024 10:28 AM CDT [facility] RDW 13.2 11.6 - 14.8 % 12/29/2024 10:28 AM CDT [facility] PLT 212 130 - 400 x10'3/uL 12/29/2024 10:28 AM CDT [facility] MPV 11.1 7.0 - 12.0 FL 12/29/2024 10:28 AM CDT [facility] CBC COMMENT AUTOMATED RBC MORPHOLOGY AND PLATELET EVALUATION NORMAL 12/29/2024 10:28 AM CDT [facility] NEUTROPHILS % 76.5(H) 40.0 - 74.0 % 12/29/2024 10:28 AM CDT [facility] LYMPHOCYTES % 15.2 14.0 - 46.0 % 12/29/2024 10:28 AM CDT [facility] MONOCYTES % 7.2 4.0 - 13.0 % 12/29/2024 10:28 AM CDT [facility] EOSINOPHILS 0.5 0.0 - 7.0 % 12/29/2024 10:28 AM CDT [facility] BASOPHILS 0.4 0.0 - 3.0 % 12/29/2024 10:28 AM CDT [facility] IMMATURE GRANS % 0.2 0.0 - 0.43 % 12/29/2024 10:28 AM CDT [facility] NRBC % 0.0 % 12/29/2024 10:28 AM CDT [facility] ABS. NEUTROPHILS TOTAL 9.23(H) 1.69 - 7.81 x10'3/uL 12/29/2024 10:28 AM CDT [facility] ABS. LYMPHOCYTES 1.84 0.21 - 5.42 x10'3/uL 12/29/2024 10:28 AM CDT [facility] ABS. MONOCYTES 0.87 0.04 - 1.37 x10'3/uL 12/29/2024 10:28 AM CDT [facility] ABS. EOSINOPHILS 0.06 0.00 - 0.68 x10'3/uL 12/29/2024 10:28 AM CDT [facility] ABS. BASOPHILS 0.05 0.00 - 0.08 x10'3/uL 12/29/2024 10:28 AM CDT [facility] ABS. IMMATURE GRANULOCYTES 0.03 0.00 - 0.06 x10'3/uL 12/29/2024 10:28 AM CDT [facility] ABS. NUCLEATED RBC'S 0.00 0.00 - 0.01 x10'3/uL 12/29/2024 10:28 AM CDT [facility] 12/29/2024 9:50 AM CDT us Cory Mares MD LABORATORY Final Result [facility] [address] [place] [address], [place] * (ABNORMAL) LIPASE (12/29/2024 9:50 AM CDT) LIPASE 249(H) 16 - 77 UNITS/L 12/29/2024 11:00 AM CDT [facility] 12/29/2024 9:50 AM CDT us Cory Mares MD LABORATORY Final Result [facility] [address] [place] [address], [place] * USV CAROTID DUPLEX MARCELINA (10/26/2024 12:52 PM CEMENT PAVER) Anatomical Region Laterality Modality Neck Ultrasound 10/30/2024 10:3 0 AM CEMENT PAVER Impressions 10/30/2024 10:33 AM CEMENT PAVER IMPRESSION: 1. 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 2. Less than 50% stenosis of the left ICA with no combined grayscale and peak systolic SRU velocity criteria evidence of hemodynamically significant stenosis in the left circulation. Referred By: DAVID MAE Interpreted By: Juvencio Wolf MD, 10/30/2024 10:30 AM Narrative 10/30/2024 10:33 AM CEMENT PAVER [facility] [address] [facility] [address] [place] [address] EXAMINATION: ULTRASOUND CAROTID DOPPLER, BILATERAL INDICATION(S): Cerebrovascular [...] Procedure Note Juvencio Wolf MD - 10/30/2024 [facility] [address] [place] [address] EXAMINATION: ULTRASOUND CAROTID DOPPLER, BILATERAL INDICATION(S): Cerebrovascular [...] MD, 10/30/2024 10:30 AM us David Mae INSTRUMENT SHOP SUPERVISOR [facility] Final Result * CT LUNG SCREENING (07/09/2022 10:30 AM CEMENT PAVER) Anatomical Region Laterality Modality Chest Computed Tomogra phy 07/15/2022 2:29 PM CEMENT PAVER Impressions 07/15/2022 2:36 PM CEMENT PAVER IMPRESSION: 1. LUNG-RADS category 2: Negative. Lung [...] 07/15/2022 2:29 PM Narrative 07/15/2022 2:36 PM CEMENT PAVER EXAM: LUNG SCREENING LOW-DOSE CT THORAX WITHOUT [...] Most Recently Relevant to Health Maintenance Insurance [facility] Advance Directives Documents on File Type Date Recorded Patient Sizer Hand Expl anation Advance Directives and Living Will 08/21/2019 12:00 AM ADVANCED DIRECTIVES * Full Code (Latest Code Status on File) Date Activated Date Inactivated Comments 05/18/2023 2:23 AM 05/21/2023 5:33 PM Care Teams Manager Category Relationship Specialty Start Date End Date Noemí Hoff MD [address] [place] [address] PCP - General FAMILY PRACTICE 12/27/20
--- OUTSIDE RECORDS SUMMARY | 2024-12-30 13:34 | XMS_ITS | Encounter Summary ---
Author Organization [facility] Address [address] [place] [id number] Care Team Providers Care Manager Gaming Name Role Phone Ciro Rondon MD Primary Care Provider [phone] Encounter Details Date Type Department Care Team [...] declined 12/29/2020 How often do you attend amish or protestant serv ices? Patient declined 12/29/2020 Do you belong to any clubs o r organizations such as amish groups, unions, fraternal or athletic groups, or [...] Recorded Patient Health Questionnaire-2 Score 0 07/14/2023 [facility] - Occupational Stress [...] Sex Assigned at Male 10/20/2024 10:19 AM EMERGENCY ROOM TECHNICIAN Legal Sex Male 8:10 PM CDT Gender [...] 9:31 AM Carson Ch RN Active * [place] Suicide Severity Rating Scale (Screener/Recent Self-Report) Question [...] on filedocumented in this encounter Care Teams Manager Gaming Relationship Specialty Start Date End Date Ciro Rondon MD [address] [place] [address], [place] [address] PCP - General FAMILY PRACTICE 12/27/20 documented as of this encounter
[2024-12-30 13:50] LABS: Add Urine Microscopic? YES; Appearance Urine Clear (Clear); Bacteria Urine None Seen /hpf; Bilirubin Urine Negative (Negative); Blood Urine 2+ (Negative); Color Urine Yellow (Yellow); Glucose Urine UA Negative (Negative); Ketones Urine Negative (Negative); Leukocyte Esterase Ur 1+ LEU/UL (Negative); Nitrate Urine Negative (Negative); Non Pathogenic Casts 0-2; Protein Urine 1+ mg/dL (Negative); RBC Urine >100 /hpf (0-2); Specific Grav Ur 1.017 (1.001-1.035); Squamous Epithelial Cell Urine None Seen /hpf (Few); pH Urine 6.5 (5.0-9.0)
[2024-12-30] MEDS: SODIUM CHLORIDE 0.9% IV 1,000 ML 125 ML IV CONT ×2 (15:35→23:42)
[2024-12-30 15:36] VITALS: BP 143/93; PULSE 78; RESP 13; O2SAT 100
[2024-12-30] MEDS: HYDROmorphone HCL INJ (*CRX) 2 MG/ML VIAL 0.5 MG IV PUSH ×4 (15:36→23:40)
[2024-12-30 16:06] VITALS: BMI 25.6
--- NOTE | 2024-12-30 16:15 | ADMGEN ---
This patient, Chung Xiong, was admitted to [facility] Surg Room 315-01. Patient/family oriented to hospital policies and general routines including ID bracelet, bed and alarms, visiting hours, pain management, procedures, bathroom and other care routines, personal items, smoking policy, room service/diet, and visiting hours. Information on how to activate the Rapid Response Team has been discussed. Patient/Family are encouraged to report perceived risks to care and to ask questions if they do not understand what they are told or what they should do.
[2024-12-30 16:26] VITALS: BP 159/95; PULSE 79; RESP 14; TEMP 36.3; O2SAT 98
--- NOTE | 2024-12-30 16:47 | PM.IMHP ---
H&P: HPI History of Present Illness Date/Time: 12/30/24 16:47 Chief Complaint: right flank pain Narrative: This is a pleasant 64-year-old male presenting with right-sided abdominal pain and flank pain as well as nausea. Patient reports he has had some trouble urinating. Patient states this started a few days ago and has gotten worse. Patient does have a history of kidney stones. He was seen at our office and had imaging ordered. Recent CT abdomen and pelvis with contrast completed on 12/29/2024 showed a severe right-sided hydronephrosis due to a large stone obstructing the right UPJ. The size of the stone is noted to be 8 x 14 mm. There is a 2nd 8 mm stone noted in the lower pole of the right kidney. No left-sided stones are noted. He was then directed to go to the ER. Patient denies any fevers or chills. Review of Systems Review of Systems: All systems reviewed & are unremarkable except as noted in HPI and below PMFSH Social History Social History Smoking packs per day: 1 Smoking cigarettes per day: 20.0 Years smoked: 40 Smoking pack-years: 40.00 Smoking status: Current every day smoker Additional smoking assessment comments: requesting nicotine patch Alcohol intake: current Drinks per week: 1 Alcohol use details: RARE Substance use: never Substance use type: does not use Do You Feel Safe in your Home?: Yes Lack of Transportation: No Lack of Food: Never True Current Housing: I Have Housing Concerned About Future Housing: No Difficulty Paying Gas/Electric Bills: No Difficulty Paying for Meds: No Currently Unemployed: No Education: Decline to Answer Difficulty w/ Childcare or Family Care: No Living arrangements: with family Additional living arrangements comments: SON Spiritual care concerns: No Meds Home Medications and Allergies Home Medications ?Medication ?Instructions ?Recorded ?Confirmed ?Type amlodipine 10 mg tablet 10 mg PO DAILY 05/21/23 12/30/24 History carvedilol 25 mg tablet 25 mg PO DAILY 05/21/23 12/30/24 History clonazepam 0.5 mg tablet 0.5 mg PO HS 05/21/23 12/30/24 History aspirin 81 mg chewable tablet 81 mg PO DAILY@0800 30 days #30 06/02/23 12/30/24 Rx ([facility] Aspirin) tabs sennosides 8.6 mg-docusate sodium 1 tab PO HS #30 caplets 06/02/23 12/30/24 Rx 50 mg tablet (Senokot-S) tamsulosin 0.4 mg capsule 0.4 mg PO DAILY 10/07/23 12/30/24 History atorvastatin 80 mg tablet 80 mg PO DAILY 12/30/24 12/30/24 History clopidogrel 75 mg tablet 75 mg PO DAILY 12/30/24 12/30/24 History hydromorphone 2 mg tablet 2 mg PO Q6H 12/30/24 12/30/24 History Allergies Allergy/AdvReac Type Severity Reaction Status Date / Time codeine AdvReac Unknown Gastrointestinal Verified 11/28/23 11:06 Upset Vital Signs Vital Signs - 24 hr 12/30/24 12:59 12/30/24 15:36 12/30/24 16:26 Temperature 98 F Pulse Rate 70 78 Respiratory Rate 12 13 Blood Pressure 160/96 H 143/93 H Pulse Oximetry 100 100 Oxygen Delivery Room Air Room Air 12/30/24 16:26 Temperature 97.3 F L Pulse Rate 79 Respiratory Rate 14 Blood Pressure 159/95 H Pulse Oximetry 98 Oxygen Delivery Exam Const: General: uncomfortable (7/10 pain right flank) HENMT: Mouth: Yes moist mucous membranes Eyes: General: appearance normal, both eyes and all related structures Resp: Effort & Inspection: normal respiratory effort : Male General Exam: Yes tenderness (right cva) Psych: Mental Status: mental status grossly normal H&P: Results Labs Labs: Short CBC 12/30/24 Range/Units 12:54 WBC 11.2 H (4.5-10.0) K/mm3 Hgb 13.7 L (14.0-18.0) g/dL Hct 41.8 L (42.0-52.0) % Plt Count 179 (150-375) k/mm3 BMP 12/30/24 12:54 Sodium 139 Potassium 3.8 Chloride 105 Carbon Dioxide 30 BUN 14 D Creatinine 0.74 Glucose 92 Calcium 8.8 Liver Function 12/30/24 Range/Units 12:54 Total Bilirubin 0.6 (0.2-1.3) mg/dL AST 36 (17-59) U/L ALT 29 (6-50) U/L Alkaline Phosphatase 78 (38-126) U/L Albumin 4.0 (3.5-5.1) g/dL Urine 12/30/24 Range/Units 13:38 Urine Color Yellow (Yellow) Urine Appearance Clear (Clear) Urine pH 6.5 (5.0-9.0) Ur Specific [place] 1.017 (1.001-1.035) Urine Protein 1+ H (Negative) mg/dL Urine Glucose (UA) Negative (Negative) mg/dL Assessment and Plan Assessment and plan (1) Right renal stone: Code(s): N20.0 - Calculus of kidney Status: Acute (2) Acute flank pain: Code(s): R10.9 - Unspecified abdominal pain Status: Acute Plan Patient being admitted for hydration and analgesics today. Unfortunately, there is no time in the OR for any type of intervention today. Check KUB in the morning and be prepared for stent placement around 1pm. He will need to follow up outpatient to consider eswl due to OR limitations as well as being on plavix. -wbc: 11.2. urine culture pending. -cr 0.74
--- NOTE | 2024-12-30 18:06 | PC.NURSE ---
Patient's pain subsided after IVP Dilaudid administration. Orders put in for one time dose of Toradol IVP. Patient would like to wait on the IVP Toradol until the pain comes back. IVP Toradol pulled from [facility] and will be handed off to night warehouse selector nurse.
[2024-12-30 20:20] VITALS: BP 163/94; PULSE 87; RESP 20; TEMP 36.6; O2SAT 98
[2024-12-30 20:30] VITALS: PULSE 83
[2024-12-30] MEDS: carvediloL 25 MG TABLET PO (20:30)
[2024-12-30] MEDS: SENNA/DOCUSATE SODIUM TABLET 1 TAB PO (20:31)
[2024-12-30] MEDS: clonazePAM (*CRX) 0.5 MG TABLET PO (20:31)
[2024-12-31] VITALS (10 sets, daily range): BP systolic 123–157; BP diastolic 75–96; PULSE 63–79; RESP 13–20; TEMP 36.1–36.3; O2SAT 98–100
[2024-12-31] MEDS: HYDROmorphone HCL INJ (*CRX) 2 MG/ML VIAL 0.5 MG IV PUSH ×5 (02:55→15:47)
[2024-12-31 06:18] LABS: Basophils Absolute Auto 0.1 K/mm3 (0.0-0.1); Basophils Percent Auto 0.5 % (0.2-1.2); Eosinophils Absolute Auto 0.2 K/mm3 (0-0.3); Hematocrit 42.5 % (42.0-52.0); Hemoglobin 13.5 g/dL (14.0-18.0); Immature Granulocyte Absolute 0.03 K/mm3 (0.00-0.031); Immature Granulocyte Percent A 0.3 % (0-0.5); Lymphocytes Percent Auto 35.6 % (18.3-44.2); Mean Corpuscular HGB Conc 31.8 g/dl (32-36); Mean Corpuscular Hemoglobin 30.6 pg (26-34); Mean Corpuscular Volume 96.4 fl (80-100); Mean Platelet Volume 11.2 fl (7.4-10.4); Monocytes Absolute Auto 0.9 K/mm3 (0.1-0.6); Monocytes Percent Auto 9.1 % (2.6-8.5); Neutrophils Absolute Auto 5.2 K/mm3 (1.3-6.7); Neutrophils Percent Auto 52.5 % (45.5-73.1); Platelet Count Result 168 k/mm3 (150-375); Red Blood Count 4.41 M/mm3 (4.6-6.20); Red Cell Distribution Width 13.4 % (11.5-14.5); White Blood Count 9.8 K/mm3 (4.5-10.0)
[2024-12-31 06:25] LABS: Anion Gap 3 mmol/L (4-12); Blood Urea Nitrogen 12 mg/dL (9-20); Calcium 8.7 mg/dL (8.4-10.2); Carbon Dioxide 30 mmol/L (22-30); Chloride 107 mmol/L (98-107); Estimated CRCL calculation 101 ml/min; Estimated Glomerular Filt Rate > 60; Glucose 85 mg/dL (65-110); Sodium 140 mmol/L (137-145)
[2024-12-31] MEDS: SODIUM CHLORIDE 0.9% IV 1,000 ML 125 ML IV CONT ×2 (08:47→15:44)
[2024-12-31] MEDS: amLODIPine BESYLATE 10 MG TABLET PO (08:50)
[2024-12-31] MEDS: carvediloL 25 MG TABLET PO (08:50)
--- NOTE | 2024-12-31 11:40 | WPDHPUPDATE1 ---
History and Physical Update Update Date/Time: 12/31/24 11:40 History and Physical has been reviewed, including an updated exam of the patient. There are NO changes in the patient's condition. Risks, benefits, and alternatives have been discussed and questions answered. Patient agrees to proceed with procedure.
--- NOTE | 2024-12-31 13:31 | P.PNAN_ITS ---
Anes - Initial Pre Proc Eval Procedure: Operation Date: 12/31/24 13:00 Proposed Procedures p Cystoscopy, Left Stent Placement - Sunny Baig MD Date/Time: 12/31/24 13:31 Surgeon: Sunny Baig MD Pre Op Diagnosis: Ureterolithiasis Flank Pain Patient Data Age: 64 Gender: M Height: 1.78 m Weight: 81 kg Last Vital Signs Temp 36.3 C L 12/31/24 05:00 Pulse 71 12/31/24 08:50 Resp 20 12/31/24 05:00 BP 157/95 H 12/31/24 05:00 Pulse Ox 98 12/31/24 08:00 O2 Del Method Room Air 12/31/24 08:00 Allergies Allergy/AdvReac Type Severity Reaction Status Date / Time codeine AdvReac Unknown Gastrointestinal Verified 11/28/23 11:06 Upset Home Medications ?Medication ?Instructions ?Recorded ?Confirmed ?Type amlodipine 10 mg tablet 10 mg PO DAILY 05/21/23 12/30/24 History carvedilol 25 mg tablet 25 mg PO DAILY 05/21/23 12/30/24 History clonazepam 0.5 mg tablet 0.5 mg PO HS 05/21/23 12/30/24 History aspirin 81 mg chewable tablet 81 mg PO DAILY@0800 30 days #30 06/02/23 12/30/24 Rx (Children's Aspirin) tabs sennosides 8.6 mg-docusate sodium 1 tab PO HS #30 caplets 06/02/23 12/30/24 Rx 50 mg tablet (Senokot-S) tamsulosin 0.4 mg capsule 0.4 mg PO DAILY 10/07/23 12/30/24 History atorvastatin 80 mg tablet 80 mg PO DAILY 12/30/24 12/30/24 History clopidogrel 75 mg tablet 75 mg PO DAILY 12/30/24 12/30/24 History hydromorphone 2 mg tablet 2 mg PO Q6H 12/30/24 12/30/24 History Laboratory Tests 12/30/24 12/31/24 13:38 05:26 WBC 9.8 K/mm3 (4.5-10.0) RBC 4.41 L M/mm3 (4.6-6.20) Hgb 13.5 L g/dL (14.0-18.0) Hct 42.5 % (42.0-52.0) MCV 96.4 fl (80-100) MCH 30.6 pg (26-34) MCHC 31.8 L g/dl (32-36) RDW 13.4 % (11.5-14.5) Plt Count 168 k/mm3 (150-375) MPV 11.2 H fl (7.4-10.4) Immature Gran % (Auto) 0.3 % (0-0.5) Neut % (Auto) 52.5 % (45.5-73.1) Lymph % (Auto) 35.6 % (18.3-44.2) [place] % (Auto) 9.1 H % (2.6-8.5) Eos % (Auto) 2.0 % (0-4.4) Baso % (Auto) 0.5 % (0.2-1.2) Lymph # (Auto) 3.50 H K/mm3 (0.9-3.2) [place] # (Auto) 0.9 H K/mm3 (0.1-0.6) Eos # (Auto) 0.2 K/mm3 (0-0.3) Baso # (Auto) 0.1 K/mm3 (0.0-0.1) Abs Immat Gran (auto) 0.03 K/mm3 (0.00-0.031) Absolute Neuts (auto) 5.2 K/mm3 (1.3-6.7) Absolute Nucleated RBC 0.000 K/mm3 (0.0-0.012) Nucleated RBC % 0.0 % (0.0-0.2) Sodium 140 mmol/L (137-145) Potassium 4.0 mmol/L (3.4-5.0) Chloride 107 mmol/L (98-107) Carbon Dioxide 30 mmol/L (22-30) Anion Gap 3 L mmol/L (4-12) BUN 12 mg/dL (9-20) Creatinine 0.67 L mg/dL (0.7-1.3) Estim Creat Clear Calc 101 ml/min Estimated GFR > 60 (59 - ) Glucose 85 mg/dL (65-110) Calcium 8.7 mg/dL (8.4-10.2) Urine Color Yellow (Yellow) Urine Appearance Clear (Clear) Urine pH 6.5 (5.0-9.0) Ur Specific [place] 1.017 (1.001-1.035) Urine Protein 1+ H mg/dL (Negative) Urine Glucose (UA) Negative mg/dL (Negative) Urine Ketones Negative mg/dL (Negative) Ur Blood (Man) 2+ H (Negative) Urine Nitrate Negative (Negative) Urine Bilirubin Negative (Negative) Urine Urobilinogen 1.0 mg/dL (<2.0) Leukocyte Esterase Rfl 1+ H MICK/UL (Negative) Urine RBC >100 H /hpf (0-2) Urine WBC 11-20 H /hpf (0-3) Ur Squamous Epith Cells None seen /hpf (Few) Urine Bacteria None seen /hpf Urine Casts 0-2 Patient hx anesthesia problems: none Family hx anesthesia problems: none Results Review: All pre-operative results and documents have been reviewed as part of the pre- operative evaluation. [facility] Social History Social History Smoking packs per day: 1 Smoking cigarettes per day: 20.0 Years smoked: 40 Smoking pack-years: 40.00 Smoking status: Current every day smoker Additional smoking assessment comments: requesting nicotine patch Alcohol intake: current Drinks per week: 1 Alcohol use details: RARE Substance use: never Substance use type: does not use Do You Feel Safe in your Home?: Yes Lack of Transportation: No Lack of Food: Never True Current Housing: I Have Housing Concerned About Future Housing: No Difficulty Paying Gas/Electric Bills: No Difficulty Paying for Meds: No Currently Unemployed: No Education: Decline to Answer Difficulty w/ Childcare or Family Care: No Living arrangements: with family Additional living arrangements comments: SON Spiritual care concerns: No Anes - Eval Final PreProcedure Day of Procedure 12/31/24 13:31 Patient weight: normal Heart: regular rate and rhythm Lungs: decreased breath sounds Airway: Mallampati scale class II Neurological: alert and oriented and hemiparesis Last oral intake: >/= 8 hours ASA classification: III Emergent: no Anesthetic plan: proceed Anesthesia type and monitoring: general LMA and standard monitoring Results Review: All pre-operative results and documents have been reviewed as part of the pre- operative evaluation. Informed Consent: The patient's anesthetic plan and its attendant risks and benefits were discussed with the patient/family/POA. Questions were solicited and answers provided to the satisfaction of the patient/family/POA.
[2024-12-31] MEDS: LACTATED RINGERS 1,000 ML 30 ML IV CONT (13:36)
[2024-12-31] MEDS: ceFAZolin 2 GM/D5W 50 ML 2 GM/50 ML BAG IVPB (13:55)
[2024-12-31] MEDS: LIDOCAINE 2% GEL UROJET 10 ML PKG MUCOUS MEM (13:56)
--- NOTE | 2024-12-31 16:35 | P.DS_ITS ---
DS: Admitting Diagnosis Discharge Date 12/31/2024 Admitting Diagnosis Right ureteral and renal calculi DS: Discharge Diagnosis Discharge Diagnosis (1) Right renal stone: Code(s): N20.0 - Calculus of kidney Status: Acute (2) Right ureteral stone: Code(s): N20.1 - Calculus of ureter Status: Acute DS: Summary Hospital Course Hospital Course: patient is a known recurrent stone former who was recently in the emergency department at [facility]. CT imaging demonstrated a 1 cm right UPJ stone and a smaller 6-7 mm right renal stone. He was having int ractable pain. He was transferred here Where we were not able to place a right ureteral stent until the following day. Definitive therapy was precluded by the fact that he was on aspirin in Plavix. We will make arrangements for right ESWL after we obtained clearance to stop his anti-platelet therapy. at the [facility] sent scheduling information for this patient Time Spent with Patient Time attestation: Total time spent providing and/or coordinating discharge services: DS: Data Data Completed and Pending Labs on day of discharge: Labs from last 24 hours 12/31/24 05:26 WBC 9.8 RBC 4.41 L Hgb 13.5 L Hct 42.5 MCV 96.4 MCH 30.6 MCHC 31.8 L RDW 13.4 Plt Count 168 MPV 11.2 H Immature Gran % (Auto) 0.3 Neut % (Auto) 52.5 Lymph % (Auto) 35.6 [place] % (Auto) 9.1 H Eos % (Auto) 2.0 Baso % (Auto) 0.5 Lymph # (Auto) 3.50 H [place] # (Auto) 0.9 H Eos # (Auto) 0.2 Baso # (Auto) 0.1 Abs Immat Gran (auto) 0.03 Absolute Neuts (auto) 5.2 Absolute Nucleated RBC 0.000 Nucleated RBC % 0.0 Sodium 140 Potassium 4.0 Chloride 107 Carbon Dioxide 30 Anion Gap 3 L BUN 12 Creatinine 0.67 L Estim Creat Clear Calc 101 Estimated GFR > 60 Glucose 85 Calcium 8.7 Discharge Plan Discharge Attending physician on discharge: Sunny Baig Discharging Clinician: Sunny Baig Patient Disposition: Home Activity: other - see discharge instructions Diet: other - see discharge instructions Wound Care Instructions: other - see discharge instructions Discharge Instructions: 1) Activity: no driving or important decisions x24 hours. 2) Diet: resume your normal, pre-admission diet. 3) Follow-up: my office will contact to arrange right ESWL. Patient Instructions: Antibiotic Form Patient Language: [place] Rican Stand Alone Forms: General Discharge Information Follow-up/Referrals: Sunny Baig MD [Physician] - Discharge Medications: New oxycodone [RoxyBond] 5 mg tablet, oral only 5 mg PO Q4H PRN (Reason: pain) Qty: 20 0RF Continued hydromorphone 2 mg tablet 2 mg PO Q6H atorvastatin 80 mg Tablet 80 mg PO DAILY Patient Comments: PT TAKES IN AM tamsulosin 0.4 mg capsule 0.4 mg PO DAILY carvedilol 25 mg Tablet 25 mg PO DAILY Rx Instructions: must administer with a meal/food clonazepam 0.5 mg Tablet 0.5 mg PO HS Rx Instructions: administer 30 minutes before bedtime amlodipine 10 mg Tablet 10 mg PO DAILY sennosides-docusate sodium [Senokot-S] 8.6-50 mg Tablet 1 tab PO HS Qty: 30 0RF Held clopidogrel 75 mg Tablet 75 mg PO DAILY Hold Instructions: Resume on 01/07/25. Patient Comments: TAKES IN AM aspirin [Children's Aspirin] 81 mg Tablet,Chewable 81 mg PO DAILY@0800 30 Days Qty: 30 0RF Hold Instructions: Resume on 01/07/25. Date of admission: 12/30/24 15:18 Primary Care Provider: Alcon,Ciro Hopper Admitting Provider: Sunny Baig Attending physician on admission: Sunny Baig Condition: Stable
--- NOTE | 2025-01-03 14:04 | W.PM.PROC2 ---
Procedure Note - Detailed Date of Procedure 01/03/25 Pre-op Diagnosis Right ureteral and renal calculus Post-op Diagnosis Same Procedure Performed Cysto. right retrograde pyelogram, right ureteral stent placement Surgeon Sunny Baig MD Anesthesia General Description of Procedure The patient was brought to the operative suite where he was prepped and draped in a routine sterile fashion while in the dorsal lithotomy position. A 19 F rigid cystoscope was placed in her bladder and the bladder was circumferentially inspected. There were no urethral strictures. The prostatic urethral estimated length was 2cm. There was mild obstruction of the prostatic urethra with no. The bladder mucosa was without hyperemia. There was no intravesical foreign body or neoplasm. There was a single orthotopic ureteral orifice bilaterally. A bulb-tip catheter was used to perform a right RPG to insure proper positioning of a ureteral stent. I advanced .035 glidewire into the renal pelvis under fluoroscopy. A 4.8F variable length ureteral stent was positioned with the proximal coil in the renal pelvis and the distal coil in the bladder. Scopes and wires were removed after emptying the patient's bladder. Urine Output 650
== END 2024-12-31 17:02 | disposition home or self-care (01) ==
LOC: ANHED 14:30 → ANH3MEDSUR 15:48
PROVIDERS: Nurse Practitioner Family; Admitting Provider Urology; Emergency Provider Emergency Medicine; PCP Emergency Medicine; Visit Provider Urology
PROC: (CPT 52352; principal; 2024-12-31 13:00)
DX: N20.2 Calculus of kidney with calculus of ureter (principal); F17.210 Nicotine dependence, cigarettes, uncomplicated; Z79.82 Long term (current) use of aspirin; Z79.899 Other long term (current) drug therapy
CPT/HCPCS: 52332; 36415; 74018; 74420; 80048; 80053; 81001; 85025; 87086; 96361; 96374; 96375; 96376; 99285; A9270; C1758; C1769; C2617; G0378; J0690; J1171; J2003; J2250; J2270; J2405; J2704; J3010; J7030; J7120; Q9966

== ENCOUNTER 2025-01-16 14:55 | Inpatient (IN) | payer MEDICARE, SELFPAY ==
--- NOTE | ~2025-01-16 | CT_ITS ---
CT abdomen pelvis w con Ordering provider: Mary Augustine APRN History: 64 years Male with . RLQ abdominal pain . Comparison: February Technique: CT abdomen and pelvis with IV and without oral contrast. Automated exposure control and it erative reconstruction technique were employed. The dose-length product was 338.84 mGy-cm. Findings: VISUALIZED LOWER CHEST: Normal. UPPER ABDOMINAL ORGANS: Liver: Mild fat infiltration. Gallbladder: Slightly contracted. Spleen: Normal. Benign calcifications. Stomach/duodenum: Sliding hiatus hernia. Pancreas: Normal. Adrenals: Normal. Kidneys: 8 mm stone is seen in the right renal pelvis with hydronephrotic changes and double-J stent. Minimal fat stranding around the right ureter which may indicate infection. 3.3 cm cyst is seen in the left kidney lower pole. Tiny other cysts are seen. Cyst in the right kidney upper pole is noted which measures 3 cm. PELVIC ORGANS: The bladder shows slightly thickened wall with fat stranding suggestive of cystitis. BOWEL AND MESENTERY: Colon: Mild sigmoid diverticulosis without diverticulitis. Normal appendix. Small Bowel: Normal. No obstruction. Peritoneum/mesentery: No free air or free fluid. No mesenteric lymphadenopathy. RETROPERITONEUM: Mild atheromatous disease of the abdominal aorta. No retroperitoneal lymphadenopat hy. MUSCULOSKELETAL: Superficial soft tissues: Bilateral fat containing inguinal hernias. Otherwise, The superficial soft tissues are normal. Bones: Age appropriate degenerative changes of the spine. Bilateral sacroiliitis more on the left margo e. 2 small sclerotic areas in the right femoral neck. Follow-up advised. IMPRESSION: 1. Stone in the right renal pelvis with no hydronephrotic changes and double-J stent. Possible infec tion around the right ureter. 2. Bilateral renal cysts. 3. No evidence of appendicitis, diverticulitis or intestinal obstruction. 4. Highly suggestive cystitis. 5. Mild fat infiltration of the liver. 6. Bilateral small fat-containing inguinal hernias. 7. 2 small sclerotic areas in the right femoral neck. Follow-up advised Reviewed, dictated and finalized at location A. IMPRESSION: 1. Stone in the right renal pelvis with no hydronephrotic changes and double-J stent. Possible infection around the right ureter. 2. Bilateral renal cysts. 3. No evidence of appendicitis, diverticulitis or intestinal obstruction. 4. Highly suggestive cystitis. 5. Mild fat infiltration of the liver. 6. Bilateral small fat-containing inguinal hernias. 7. 2 small sclerotic areas in the right femoral neck. Follow-up advised
--- OUTSIDE RECORDS SUMMARY | 2025-01-16 14:58 | XMS_ITS | Patient Health Record ---
Author Organization [facility] Address [address] [place] [address] Care Team Providers Care Routing Clerk Name Role Phone Alcon MALDONADO, Ciro Primary Care Provider Alex GRIMALDO PA-C, SWATI Unavailable Allergies Allergen (clinical drug ingredient) Drug/Non Drug Allergy documented on EMR Reaction Allergy Type Onset Date Status codeine Codeine Sulfate vomiting Drug Allergy A ctive Reason For Referral No Information Medications Medication SIG (Take, Route, Frequency, Duration) Notes [...] a day for 30 day(s) 12/08/2020 Active Social History Tobacco Use: Social History Observation Description Date Details (start date - stop date) Current Smoker NA - NA Tobacco Use/Smoking Question Answer Notes Are you a current smoker How often do you smoke cigarettes? every day How many cigarettes a day do you smoke? - Plan Of Treatment No Information Insurance Providers Payer Name Payer Address Payer Phone Subscriber Number Group Number Insured Name Patient Relationship to Insured Coverage Start Date Coverage End Date Aetna Medicare [address] [place], [place] [id number] Chung Xiong Self - patient is the insured Medical (General) History Medical History History ICD Code Arthritis Anxiety Depression Hypertension Neuropathy/RLS Low back/leg pain Past heavy alcohol use chronic tobacco use Surgical History Surgery Date(Month/Year) spine surgery 2012
--- OUTSIDE RECORDS SUMMARY | 2025-01-16 14:58 | XMS_ITS | Patient Health Record ---
Author Organization [facility] Address [address] [place] [address] Care Team Providers Care Grape Picker Name Role Phone Isiah Rondon MD Primary Care Provider Unavailab Bhavna Singh Unavailable [phone] Allergies Allergen (clinical drug ingredient) Drug/Non Drug Allergy documented on EMR Reaction Allergy Type Onset Date Status codeine Codeine Unknown Drug Allergy Active Reason For Referral No Information Medications Medication [...] EVERY DAY Oral for 90 Days Active Social History Tobacco Use: Social History Observation Description Date Details (start date - stop date) Current Smoker NA - NA Tobacco Use/Smoking Question Answer Notes Tobacco use: current smoker Problems Problem Type SNOMED Code ICD Code Onset Dates Problem Status W/U Status Risk Notes Problem [id number] Hammer toe of left foot (M20.42) Active confirmed Plan Of Treatment No Information Insurance Providers Payer Name Payer Address Payer Phone Subscriber Number Group Number Insured Name Patient Relationship to Insured Coverage Start Date Coverage End Date A[employer] [address] [place], [place] [id number] Chung Xiong Self - patient is the insured Medical (General) History Medical History History ICD Code low back pain depression anxiety disorder COPD hyperlipidemia hypertension actinic keratosis calculus of kidney ADHD opioid dependence Surgical History Surgery Date(Month/Year) spinal fusion
--- OUTSIDE RECORDS SUMMARY | 2025-01-16 14:58 | XMS_ITS | Clinical Summary ---
Author Organization [facility] [employer] Address [address] [place] [address] Care Team Providers Care Inside Trucker Name Role Phone Unavailable Primary Care Provider Unavailabl e Source Comments [facility] [employer],non-owned Affiliates and Associated Physician Practices is amultiple site organization consisting of ambulatory clinics and hospital sitesin [place], [place], [place] and [place]. This disclosure is being madepursuant to the Care Everywhere program and may not contain all information available regarding this patient. Last updated 18.Monitor110 [employer] Allergies No known active allergies Medications * [...] care, and heating? Not very hard 06/27/2024 [facility] - Occupational Stress [...] any time in the past 12 m [facility], were you homeless or living in a jail (including now)? No 06/27/2024 Sex and Gender Information Value Date Recorded Sex Assigned at Not on file Legal Sex Male 1:20 AM [facility] Gender Identity Not on file Sexual Orientation Not on file Last Filed Vital Signs Vital Sign Reading Time Taken Comments Blood Pressure 146/89 07/02/2024 8:01 AM [facility] Pulse 68 07/02/2024 8:01 AM [facility] Temperature 36.6 C (97.9 F) 07/02/2024 8:01 AM [facility]EE Respiratory Rate 18 07/02/2024 8:01 AM [facility]EE Oxygen Saturation 100% 07/02/2024 8:01 AM [facility]OOKEE Inhaled Oxygen Concentration - - Weight 90.7 kg (200 lb) 06/17/2024 11:00 AM CDT from 2019 Height 177.8 cm (5' 10) 06/17/2024 11:00 AM CDT Body Mass Index [...] (ABNORMAL) LIPID PROFILE (06/19/2024 6:12 AM CDT) [facility] Cholesterol 111 <200 mg/dL 06/19/2024 6:59 AM CDT [facility] Triglycerides 45 <150 mg/dL 06/19/2024 6:59 AM CDT [facility] HDL Cholesterol 40(L) >40 mg/dL 6:59 AM CDT [facility] Chol HDL Ratio 2.8 1.0 - 6.0 06/19/2024 6:59 AM CDT [facility] LDL Calculated 62(L) 65 - 130 mg/dL 06/19/2024 6:59 AM T [facility] VLDL Calculated 9 <=30 mg/dL 6:59 AM T [facility] Blood BLOOD SPECIMEN / Unknown Lab Venipuncture / Unknown 06/19/2024 6:12 AM CDT 06/19/2024 6:28 AM CDT Narrative [facility] - 06/19/2024 6:59 AM CDT Lipid [...] LAB - CHEMISTRY ORDERABLES Luz l Result [facility] [address] * HEPATITIS C ANTIBODY (01/05/2015 1:55 PM CDT) [facility] Hepatitis C Antibody Non-react [facility] Comment: Hepatitis C Antibody screen indicates [...] LAB - CHEMISTRY ORDERABLE S Final Result [address] [phone] from Last 3 Months or Most Recently Relevant to Health Maintenance Insurance AETNA AETNA MEDICARE ADV Advance Directives * Full Code (Latest Code Status on File) Date Activated Date Inactivated Comments 06/27/2024 5:58 PM 07/02/2024 12:49 PM * Full Code Date Activated Date Inactivated Comments 06/16/2024 11:14 AM 06/20/2024 7:50 PM
[2025-01-16 15:00] VITALS: BP 165/90; PULSE 82; RESP 16; TEMP 36.6; O2SAT 100
[2025-01-16 15:15] LABS: Basophils Absolute Auto 0.1 K/mm3 (0.0-0.1); Basophils Percent Auto 0.6 % (0.2-1.2); Eosinophils Absolute Auto 0.1 K/mm3 (0-0.3); Eosinophils Percent Auto 0.6 % (0-4.4); Hematocrit 46.1 % (42.0-52.0); Hemoglobin 15.2 g/dL (14.0-18.0); Immature Granulocyte Absolute 0.02 K/mm3 (0.00-0.031); Immature Granulocyte Percent A 0.2 % (0-0.5); Lymphocytes Absolute Auto 2.42 K/mm3 (0.9-3.2); Lymphocytes Percent Auto 22.4 % (18.3-44.2); Mean Corpuscular Hemoglobin 30.5 pg (26-34); Mean Corpuscular Volume 92.6 fl (80-100); Mean Platelet Volume 9.9 fl (7.4-10.4); Monocytes Absolute Auto 0.7 K/mm3 (0.1-0.6); Monocytes Percent Auto 6.4 % (2.6-8.5); Neutrophils Absolute Auto 7.5 K/mm3 (1.3-6.7); Neutrophils Percent Auto 69.8 % (45.5-73.1); Platelet Count Result 229 k/mm3 (150-375); Red Blood Count 4.98 M/mm3 (4.6-6.20); Red Cell Distribution Width 13.1 % (11.5-14.5); White Blood Count 10.8 K/mm3 (4.5-10.0)
[2025-01-16 15:24] LABS: Alanine Aminotransferase 27 U/L (6-50); Albumin Level 4.4 g/dL (3.5-5.1); Alkaline Phosphatase 88 U/L (38-126); Anion Gap 8 mmol/L (4-12); Aspartate Amino Transferase 37 U/L (17-59); Bilirubin,Total 0.8 mg/dL (0.2-1.3); Blood Urea Nitrogen 20 mg/dL (9-20); Calcium 9.4 mg/dL (8.4-10.2); Carbon Dioxide 29 mmol/L (22-30); Chloride 104 mmol/L (98-107); Estimated CRCL calculation 94 ml/min; Estimated Glomerular Filt Rate > 60; Glucose 98 mg/dL (65-110); Lipase 83 U/L (23-300); Potassium 3.8 mmol/L (3.4-5.0); Sodium 141 mmol/L (137-145)
--- NOTE | 2025-01-16 15:32 | ED.ABDPAIN ---
HPI - Abdominal Pain General Chief Complaint: Abdominal Pain <Mary Augustine APRN - Last Filed: 01/16/25 18:04> Stated Complaint: RLQ pain- recent stone stent placement <Mary Augustine APRN - Last Filed: 01/16/25 18:04> Time Seen by Provider: 01/16/25 14:58 <Mary Augustine APRN - Last Filed: 01/16/25 18:04> History of Present Illness HPI narrative: Patient is a 64-year-old male who presents to the ER with right lower quadrant pain. He reports last week he came into the ER due to kidney stones. Patient reports he had a stent placed last week and has had significant right lower quadrant pain since then. He reports he has been so much pain that he has been unable to sleep for the past 2 days. Patient reports his last bowel movement was this morning and it was normal for him. He denies any recent fevers but endorses significant chills this morning. Patient endorses a history of stroke, high blood pressure, and he smokes cigarettes. He reports he called the urologist on-call and they advised him to come into the ER for pain management. Patient denies any back pain, chest pain, shortness of breath, or constipation. <Mary Augustine APRN - Last Filed: 01/16/25 18:04> Related Data Home Medications: Home Medications ?Medication ?Instructions ?Recorded ?Confirmed ?Last Taken ?Type amlodipine 10 mg tablet 10 mg PO DAILY 05/21/23 01/16/25 01/15/25 09:00 History carvedilol 25 mg tablet 25 mg PO DAILY 05/21/23 01/16/25 01/15/25 09:00 History clonazepam 0.5 mg tablet 0.5 mg PO HS 05/21/23 01/16/25 01/15/25 21:00 History tamsulosin 0.4 mg capsule 0.4 mg PO DAILY 10/07/23 01/16/25 01/10/25 History atorvastatin 80 mg tablet 80 mg PO DAILY 12/30/24 01/16/25 01/15/25 09:00 History clopidogrel 75 mg tablet 75 mg PO DAILY 12/30/24 01/16/25 01/10/25 20:07 History hydromorphone 2 mg tablet 2 mg PO Q6H 12/30/24 01/16/25 01/14/25 09:00 History sennosides 8.6 mg-docusate sodium 1 tab PO DAILY 01/16/25 01/16/25 Unknown History 50 mg tablet (Senokot-S) <Mary Augustine, CELL ASSEMBLY PINNER - Last Filed: 01/16/25 18:04> Allergies/Adverse Reactions: Allergies Allergy/AdvReac Type Severity Reaction Status Date / Time codeine AdvReac Unknown Gastrointestinal Verified 12/31/24 14:29 Upset <Mary Augustine CELL ASSEMBLY PINNER - Last Filed: 01/16/25 18:04> [facility] Past Medical History Medical History: Medical History (Updated 01/16/25 @ 22:14 by Meg Johnston PA-C) Ischemic stroke Residual left-sided weakness. Hyperlipidemia Hypertension Ureterolithiasis <Mary Augustine, CELL ASSEMBLY PINNER - Last Filed: 01/16/25 18:04> Surgical History Surgical History: Surgical History (Updated 01/16/25 @ 20:49 by Meg Johnston PA-C) History of fusion of cervical spine History of urethral stent History of cystoscopy <Mary Augustine CELL ASSEMBLY PINNER - Last Filed: 01/16/25 18:04> Family History Family History: Family History Mother Cerebrovascular accident Father Heart disease <Mary Augustine APRN - Last Filed: 01/16/25 18:04> Social History Social History: Social History (Updated 01/16/25 @ 20:51 by Meg Johnston PA-C) Social History: Surrogate medical decision maker: Kyra Tyrese, spouse. Code status: Full code. Smoking packs per day: 1 Smoking cigarettes per day: 20.0 Years smoked: 40 Smoking pack-years: 40.00 Tobacco type: e-cigarettes/vaping Additional smoking assessment comments: no longer smoking cigarettes, uses vape exclusively Alcohol intake: current Drinks per week: 1 Alcohol use details: rare alcohol use in moderation Substance use: never Substance use type: does not use Do You Feel Safe in your Home?: Yes Lack of Transportation: No Lack of Food: Never True Current Housing: I Have Housing Concerned About Future Housing: No Difficulty Paying Gas/Electric Bills: No Difficulty Paying for Meds: No Currently Unemployed: No Education: Grade School Difficulty w/ Childcare or Family Care: No Living arrangements: with family Additional living arrangements comments: Lives with spouse in [place]. 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 Spiritual care concerns: No <Mary Augustine APRN - Last Filed: 01/16/25 18:04> Course [employer]/PA Physician Supervision For this patient encounter, I reviewed the ESTATE [employer]ING [employer] or PA documentation, treatment plan, and medical decision making; and I had [id number] time with this patient. <Tc Pacheco MD - Last Filed: 01/17/25 17:40> Vital Signs Vital signs: Vital Signs Temperature 97.9 F 01/16/25 15:00 Pulse Rate 82 01/16/25 15:00 Respiratory Rate 16 01/16/25 15:00 Blood Pressure 165/90 H 01/16/25 15:00 Pulse Oximetry 100 01/16/25 15:00 Temperature 97.6 F 01/17/25 13:22 Pulse Rate 75 01/17/25 13:22 Respiratory Rate 18 01/17/25 13:22 Blood Pressure 105/76 01/17/25 13:22 Pulse Oximetry 98 01/17/25 13:22 Oxygen Delivery Room Air 01/17/25 08:00 <Mary Augustine APRN - Last Filed: 01/16/25 18:04> Vital Signs Temperature 97.9 F 01/16/25 15:00 Pulse Rate 82 01/16/25 15:00 Respiratory Rate 16 01/16/25 15:00 Blood Pressure 165/90 H 01/16/25 15:00 Pulse Oximetry 100 01/16/25 15:00 Temperature 97.6 F 01/17/25 13:22 Pulse Rate 75 01/17/25 13:22 Respiratory Rate 18 01/17/25 13:22 Blood Pressure 105/76 01/17/25 13:22 Pulse Oximetry 98 01/17/25 13:22 Oxygen Delivery Room Air 01/17/25 08:00 <Tc Pacheco MD - Last Filed: 01/17/25 17:40> MDM - Abdominal Pain MDM Narrative Medical decision making narrative: Patient is a 64-year-old male who presents to the ER with right lower quadrant pain. He reports last week he came into the ER due to kidney stones. Patient reports he had a stent placed last week and has had significant right lower quadrant pain since then. He reports he has been so much pain that he has been unable to sleep for the past 2 days. Patient reports his last bowel movement was this morning and it was normal for him. He denies any recent fevers but endorses significant chills this morning. Patient endorses a history of stroke, high blood pressure, and he smokes cigarettes. He reports he called the urologist on-call and they advised him to come into the ER for pain management. Patient denies any back pain, chest pain, shortness of breath, or constipation. Labs Ordered: CBC, CMP, CRP, lactic acid, UA, lipase, PTT, INR Imaging Ordered: CT abdomen pelvis Medications Ordered: 1 L normal saline IV bolus x 2, ceftriaxone 1 g IV, Dilaudid 0.5 mg IV, Toradol 30 mg IV Results: CT scan indicates 1. Stone in the right renal pelvis with no hydronephrotic changes and double-J stent. Possible infection around the right ureter. 2. Bilateral renal cysts. 3. No evidence of appendicitis, diverticulitis or intestinal obstruction. 4. Highly suggestive cystitis. 5. Mild fat infiltration of the liver. 6. Bilateral small fat-containing inguinal hernias. 7. 2 small sclerotic areas in the right femoral neck. Follow-up advised Diagnosis: Right ureter infection, cystitis, uncontrolled pain Consults: Urology (Dr. Dudley) who advised pt be admitted to the hospital for IV antibiotics and pain control. Patient Education/Shared MDM: Results of lab work and imaging shared with patient. He reports his pain has not improved following Toradol administration. Will give pt a dose of Dilaudid IV. It was suggested pt be admitted to the hospital for IV antibiotics and pain control. Pt verbalized understanding and is in agreement with plan. Spoke with Meg Johnston PA-C, who was in agreement with pt being admitted to the hospital. Pt will be admitted to the med/surg floor. <Mary Augustine, RENAN - Last Filed: 01/16/25 18:04> Differential Diagnosis Differential diagnosis: Likely abdominal pain, calculus of kidney, diverticulitis and gastroenteritis <Mary Augustine APRN - Last Filed: 01/16/25 18:04> Lab Data Attestation: I reviewed the patient's lab results. <Mary Augustine APRN - Last Filed: 01/16/25 18:04> Result diagrams: 01/17/25 04:49 01/17/25 04:49 <Mary Augustine APRN - Last Filed: 01/16/25 18:04> Labs: Lab Results 01/16/25 01/16/25 01/16/25 Range/Units 15:09 16:10 18:32 WBC 10.8 H (4.5-10.0) K/mm3 RBC 4.98 (4.6-6.20) M/mm3 Hgb 15.2 (14.0-18.0) g/dL Hct 46.1 (42.0-52.0) % MCV 92.6 (80-100) fl MCH 30.5 (26-34) pg MCHC 33.0 (32-36) g/dl RDW 13.1 (11.5-14.5) % Plt Count 229 (150-375) k/mm3 MPV 9.9 (7.4-10.4) fl Immature Gran % (Auto) 0.2 (0-0.5) % Neut % (Auto) 69.8 (45.5-73.1) % Lymph % (Auto) 22.4 (18.3-44.2) % [place] % (Auto) 6.4 (2.6-8.5) % Eos % (Auto) 0.6 (0-4.4) % Baso % (Auto) 0.6 (0.2-1.2) % Lymph # (Auto) 2.42 (0.9-3.2) K/mm3 [place] # (Auto) 0.7 H (0.1-0.6) K/mm3 Eos # (Auto) 0.1 (0-0.3) K/mm3 Baso # (Auto) 0.1 (0.0-0.1) K/mm3 Abs Immat Gran (auto) 0.02 (0.00-0.031) K/mm3 Absolute Neuts (auto) 7.5 H (1.3-6.7) K/mm3 Absolute Nucleated RBC 0.000 (0.0-0.012) K/mm3 Nucleated RBC % 0.0 (0.0-0.2) % PT 12.5 (11.1-14.7) Seconds INR 0.9 APTT 25.7 (22.3-36.8) Seconds Sodium 141 (137-145) mmol/L Potassium 3.8 (3.4-5.0) mmol/L Chloride 104 (98-107) mmol/L Carbon Dioxide 29 (22-30) mmol/L Anion Gap 8 (4-12) mmol/L BUN 20 (9-20) mg/dL Creatinine 0.73 (0.7-1.3) mg/dL Estim Creat Clear Calc 94 ml/min Estimated GFR > 60 (59 - ) Glucose 98 (65-110) mg/dL Lactic Acid 0.7 (0.7-2.0) mmol/L Calcium 9.4 (8.4-10.2) mg/dL Magnesium (1.6-2.3) mg/dL Total Bilirubin 0.8 (0.2-1.3) mg/dL AST 37 (17-59) U/L ALT 27 (6-50) U/L Alkaline Phosphatase 88 (38-126) U/L C-Reactive Protein < 0.5 (<1.0) mg/dL Total Protein 8.0 (6.3-8.2) g/dL Albumin 4.4 (3.5-5.1) g/dL Lipase 83 (23-300) U/L Urine Color Dark yellow (Yellow) Urine Appearance Cloudy H (Clear) Urine pH 6.0 (5.0-9.0) Ur Specific [place] 1.036 H (1.001-1.035) Urine Protein 3+ H (Negative) mg/dL Urine Glucose (UA) Negative (Negative) mg/dL Urine Ketones 1+ H (Negative) mg/dL Ur Blood (Man) 3+ H (Negative) Urine Nitrate Negative (Negative) Urine Bilirubin Negative (Negative) Urine Urobilinogen 1.0 (<2.0) mg/dL Leukocyte Esterase Rfl 2+ H (Negative) MICK/UL Urine RBC >100 H (0-2) /hpf Urine WBC 21-50 H (0-3) /hpf Ur Squamous Epith Cells None seen (Few) /hpf Urine Bacteria None seen /hpf Urine Casts 0-2 / Range/Units 04:49 WBC 9.4 (4.5-10.0) K/mm3 RBC 4.47 L (4.6-6.20) M/mm3 Hgb 13.7 L (14.0-18.0) g/dL Hct 41.9 L (42.0-52.0) % MCV 93.7 (80-100) fl MCH 30.6 (26-34) pg MCHC 32.7 (32-36) g/dl RDW 13.1 (11.5-14.5) % Plt Count 205 (150-375) k/mm3 MPV 10.1 (7.4-10.4) fl Immature Gran % (Auto) (0-0.5) % Neut % (Auto) (45.5-73.1) % Lymph % (Auto) (18.3-44.2) % [place] % (Auto) (2.6-8.5) % Eos % (Auto) (0-4.4) % Baso % (Auto) (0.2-1.2) % Lymph # (Auto) (0.9-3.2) K/mm3 [place] # (Auto) (0.1-0.6) K/mm3 Eos # (Auto) (0-0.3) K/mm3 Baso # (Auto) (0.0-0.1) K/mm3 Abs Immat Gran (auto) (0.00-0.031) K/mm3 Absolute Neuts (auto) (1.3-6.7) K/mm3 Absolute Nucleated RBC (0.0-0.012) K/mm3 Nucleated RBC % (0.0-0.2) % PT (11.1-14.7) Seconds INR APTT (22.3-36.8) Seconds Sodium 140 (137-145) mmol/L Potassium 3.7 (3.4-5.0) mmol/L Chloride 107 (98-107) mmol/L Carbon Dioxide 29 (22-30) mmol/L Anion Gap 4 (4-12) mmol/L BUN 18 (9-20) mg/dL Creatinine 0.64 L (0.7-1.3) mg/dL Estim Creat Clear Calc 106 ml/min Estimated GFR > 60 (59 - ) Glucose 89 (65-110) mg/dL Lactic Acid (0.7-2.0) mmol/L Calcium 8.7 (8.4-10.2) mg/dL Magnesium 1.8 (1.6-2.3) mg/dL Total Bilirubin (0.2-1.3) mg/dL AST (17-59) U/L ALT (6-50) U/L Alkaline Phosphatase (38-126) U/L C-Reactive Protein (<1.0) mg/dL Total Protein (6.3-8.2) g/dL Albumin (3.5-5.1) g/dL Lipase (23-300) U/L Urine Color (Yellow) Urine Appearance (Clear) Urine pH (5.0-9.0) Ur Specific [place] (1.001-1.035) Urine Protein (Negative) mg/dL Urine Glucose (UA) (Negative) mg/dL Urine Ketones (Negative) mg/dL Ur Blood (Man) (Negative) Urine Nitrate (Negative) Urine Bilirubin (Negative) Urine Urobilinogen (<2.0) mg/dL Leukocyte Esterase Rfl (Negative) MICK/UL Urine RBC (0-2) /hpf Urine WBC (0-3) /hpf Ur Squamous Epith Cells (Few) /hpf Urine Bacteria /hpf Urine Casts <Mary Augustine, CELL ASSEMBLY PINNER - Last Filed: 01/16/25 18:04> Lab Results 01/16/25 01/16/25 01/16/25 Range/Units 15:09 16:10 18:32 WBC 10.8 H (4.5-10.0) K/mm3 RBC 4.98 (4.6-6.20) M/mm3 Hgb 15.2 (14.0-18.0) g/dL Hct 46.1 (42.0-52.0) % MCV 92.6 (80-100) fl MCH 30.5 (26-34) pg MCHC 33.0 (32-36) g/dl RDW 13.1 (11.5-14.5) % Plt Count 229 (150-375) k/mm3 MPV 9.9 (7.4-10.4) fl Immature Gran % (Auto) 0.2 (0-0.5) % Neut % (Auto) 69.8 (45.5-73.1) % Lymph % (Auto) 22.4 (18.3-44.2) % [place] % (Auto) 6.4 (2.6-8.5) % Eos % (Auto) 0.6 (0-4.4) % Baso % (Auto) 0.6 (0.2-1.2) % Lymph # (Auto) 2.42 (0.9-3.2) K/mm3 [place] # (Auto) 0.7 H (0.1-0.6) K/mm3 Eos # (Auto) 0.1 (0-0.3) K/mm3 Baso # (Auto) 0.1 (0.0-0.1) K/mm3 Abs Immat Gran (auto) 0.02 (0.00-0.031) K/mm3 Absolute Neuts (auto) 7.5 H (1.3-6.7) K/mm3 Absolute Nucleated RBC 0.000 (0.0-0.012) K/mm3 Nucleated RBC % 0.0 (0.0-0.2) % PT 12.5 (11.1-14.7) Seconds INR 0.9 APTT 25.7 (22.3-36.8) Seconds Sodium 141 (137-145) mmol/L Potassium 3.8 (3.4-5.0) mmol/L Chloride 104 (98-107) mmol/L Carbon Dioxide 29 (22-30) mmol/L Anion Gap 8 (4-12) mmol/L BUN 20 (9-20) mg/dL Creatinine 0.73 (0.7-1.3) mg/dL Estim Creat Clear Calc 94 ml/min Estimated GFR > 60 (59 - ) Glucose 98 (65-110) mg/dL Lactic Acid 0.7 (0.7-2.0) mmol/L Calcium 9.4 (8.4-10.2) mg/dL Magnesium (1.6-2.3) mg/dL Total Bilirubin 0.8 (0.2-1.3) mg/dL AST 37 (17-59) U/L ALT 27 (6-50) U/L Alkaline Phosphatase 88 (38-126) U/L C-Reactive Protein < 0.5 (<1.0) mg/dL Total Protein 8.0 (6.3-8.2) g/dL Albumin 4.4 (3.5-5.1) g/dL Lipase 83 (23-300) U/L Urine Color Dark yellow (Yellow) Urine Appearance Cloudy H (Clear) Urine pH 6.0 (5.0-9.0) Ur Specific [place] 1.036 H (1.001-1.035) Urine Protein 3+ H (Negative) mg/dL Urine Glucose (UA) Negative (Negative) mg/dL Urine Ketones 1+ H (Negative) mg/dL Ur Blood (Man) 3+ H (Negative) Urine Nitrate Negative (Negative) Urine Bilirubin Negative (Negative) Urine Urobilinogen 1.0 (<2.0) mg/dL Leukocyte Esterase Rfl 2+ H (Negative) MICK/UL Urine RBC >100 H (0-2) /hpf Urine WBC 21-50 H (0-3) /hpf Ur Squamous Epith Cells None seen (Few) /hpf Urine Bacteria None seen /hpf Urine Casts 0-2 05/26/25 Range/Units 04:49 WBC 9.4 (4.5-10.0) K/mm3 RBC 4.47 L (4.6-6.20) M/mm3 Hgb 13.7 L (14.0-18.0) g/dL Hct 41.9 L (42.0-52.0) % MCV 93.7 (80-100) fl MCH 30.6 (26-34) pg MCHC 32.7 (32-36) g/dl RDW 13.1 (11.5-14.5) % Plt Count 205 (150-375) k/mm3 MPV 10.1 (7.4-10.4) fl Immature Gran % (Auto) (0-0.5) % Neut % (Auto) (45.5-73.1) % Lymph % (Auto) (18.3-44.2) % [place] % (Auto) (2.6-8.5) % Eos % (Auto) (0-4.4) % Baso % (Auto) (0.2-1.2) % Lymph # (Auto) (0.9-3.2) K/mm3 [place] # (Auto) (0.1-0.6) K/mm3 Eos # (Auto) (0-0.3) K/mm3 Baso # (Auto) (0.0-0.1) K/mm3 Abs Immat Gran (auto) (0.00-0.031) K/mm3 Absolute Neuts (auto) (1.3-6.7) K/mm3 Absolute Nucleated RBC (0.0-0.012) K/mm3 Nucleated RBC % (0.0-0.2) % PT (11.1-14.7) Seconds INR APTT (22.3-36.8) Seconds Sodium 140 (137-145) mmol/L Potassium 3.7 (3.4-5.0) mmol/L Chloride 107 (98-107) mmol/L Carbon Dioxide 29 (22-30) mmol/L Anion Gap 4 (4-12) mmol/L BUN 18 (9-20) mg/dL Creatinine 0.64 L (0.7-1.3) mg/dL Estim Creat Clear Calc 106 ml/min Estimated GFR > 60 (59 - ) Glucose 89 (65-110) mg/dL Lactic Acid (0.7-2.0) mmol/L Calcium 8.7 (8.4-10.2) mg/dL Magnesium 1.8 (1.6-2.3) mg/dL Total Bilirubin (0.2-1.3) mg/dL AST (17-59) U/L ALT (6-50) U/L Alkaline Phosphatase (38-126) U/L C-Reactive Protein (<1.0) mg/dL Total Protein (6.3-8.2) g/dL Albumin (3.5-5.1) g/dL Lipase (23-300) U/L Urine Color (Yellow) Urine Appearance (Clear) Urine pH (5.0-9.0) Ur Specific [place] (1.001-1.035) Urine Protein (Negative) mg/dL Urine Glucose (UA) (Negative) mg/dL Urine Ketones (Negative) mg/dL Ur Blood (Man) (Negative) Urine Nitrate (Negative) Urine Bilirubin (Negative) Urine Urobilinogen (<2.0) mg/dL Leukocyte Esterase Rfl (Negative) MICK/UL Urine RBC (0-2) /hpf Urine WBC (0-3) /hpf Ur Squamous Epith Cells (Few) /hpf Urine Bacteria /hpf Urine Casts <Tc Pacheco MD - Last Filed: 01/17/25 17:40> Imaging Data Attestation: I personally reviewed and interpreted this imaging study as follows: <Mary Augustine APRN - Last Filed: 01/16/25 18:04> Radiologist's impression: ITS Impressions Abdomen/Pelvis CT 01/16/25 16:04 IMPRESSION: 1. Stone in the right renal pelvis with no hydronephrotic changes and double-J stent. Possible infection around the right ureter. 2. Bilateral renal cysts. 3. No evidence of appendicitis, diverticulitis or intestinal obstruction. 4. Highly suggestive cystitis. 5. Mild fat infiltration of the liver. 6. Bilateral small fat-containing inguinal hernias. 7. 2 small sclerotic areas in the right femoral neck. Follow-up advised <Mary Augustine APRN - Last Filed: 01/16/25 18:04> ITS Impressions Abdomen/Pelvis CT 01/16/25 16:04 IMPRESSION: 1. Stone in the right renal pelvis with no hydronephrotic changes and double-J stent. Possible infection around the right ureter. 2. Bilateral renal cysts. 3. No evidence of appendicitis, diverticulitis or intestinal obstruction. 4. Highly suggestive cystitis. 5. Mild fat infiltration of the liver. 6. Bilateral small fat-containing inguinal hernias. 7. 2 small sclerotic areas in the right femoral neck. Follow-up advised <Tc Pacheco MD - Last Filed: 01/17/25 17:40> Discharge Plan Discharge Clinical Impression: Infection and inflammatory reaction due to indwelling ureteral stent, initial encounter, Cystitis, Uncontrolled pain <Mary Augustine APRN - Last Filed: 01/16/25 18:04> Patient Disposition: Still a Patient <Mary Augustine APRN - Last Filed: 01/16/25 18:04> Condition: Stable <Mary Augustine APRN - Last Filed: 01/16/25 18:04>
[2025-01-16] MEDS: SODIUM CHLORIDE 0.9% IV 1,000 ML 999 ML IV CONT ×2 (16:07→17:14)
[2025-01-16] MEDS: KETOROLAC 30 MG/ML VIAL (*BKC) IV PUSH (16:07)
[2025-01-16 16:08] VITALS: BP 177/98; PULSE 72; RESP 14; TEMP 36.6; O2SAT 100
[2025-01-16 16:16] VITALS: BP 154/102; PULSE 70; RESP 12; O2SAT 100
[2025-01-16 16:21] LABS: Add Urine Microscopic? YES; Appearance Urine Cloudy (Clear); Bacteria Urine None Seen /hpf; Bilirubin Urine Negative (Negative); Blood Urine 3+ (Negative); Color Urine Dark Yellow (Yellow); Glucose Urine UA Negative (Negative); Ketones Urine 1+ mg/dL (Negative); Leukocyte Esterase Ur 2+ LEU/UL (Negative); Nitrate Urine Negative (Negative); Non Pathogenic Casts 0-2; Protein Urine 3+ mg/dL (Negative); RBC Urine >100 /hpf (0-2); Specific Grav Ur 1.036 (1.001-1.035); Squamous Epithelial Cell Urine None Seen /hpf (Few); WBC Urine 21-50 /hpf (0-3)
[2025-01-16 16:47] LABS: INR 0.9; Prothrombin Time 12.5 Seconds (11.1-14.7)
[2025-01-16 16:48] LABS: Partial Thromboplastin Time 25.7 Seconds (22.3-36.8)
[2025-01-16 17:30] VITALS: BP 170/98; PULSE 70; RESP 16; TEMP 36.6; O2SAT 100
[2025-01-16] MEDS: HYDROmorphone HCL INJ (*CRX) 2 MG/ML VIAL 0.5 MG IV PUSH (18:14)
[2025-01-16 18:17] VITALS: BP 172/90; PULSE 101; RESP 16; TEMP 36.6; O2SAT 98
--- NOTE | 2025-01-16 18:17 | PC.NURSE ---
pt does not want to wear hospital gown wants to stay in tshirt and sweatpants
[2025-01-16 18:47] LABS: Lactic Acid Reflex 0.7 mmol/L (0.7-2.0)
[2025-01-16 18:50] LABS: CRP < 0.5 mg/dL (<1.0)
--- NOTE | 2025-01-16 18:57 | ADMGEN ---
This patient, Chung Xiong, was admitted to Medical Room 249-01. Patient/family oriented to hospital policies and general routines including ID bracelet, bed and alarms, visiting hours, pain management, procedures, bathroom and other care routines, personal items, smoking policy, room service/diet, and visiting hours. Information on how to activate the Rapid Response Team has been discussed. Patient/Family are encouraged to report perceived risks to care and to ask questions if they do not understand what they are told or what they should do.
[2025-01-16] MEDS: MORPHINE SULFATE (*CRX) 4 MG/ML INJ IV PUSH (19:06)
[2025-01-16] MEDS: SODIUM CHLORIDE 0.9% IV 1,000 ML 125 ML IV CONT (19:08)
--- NOTE | 2025-01-16 19:20 | PM.IMHP ---
H&P: HPI History of Present Illness Date/Time: 01/16/25 20:00 Chief Complaint: Abdominal pain. Narrative: This is a 64-year-old male smoker with history of stroke, hypertension, recurrent urolithiasis with status post cystoscopy with right ureteral stent on 01/03/2025 who presented to the emergency department with complaints of right lower abdominal pain. He was supposed to have lithotripsy last week however was not instructed to hold aspirin and clopidogrel and that has been rescheduled. He endorses ongoing pain since symptom onset but it seems to be getting worse over the last 2 days with sharp shooting pain in the right flank radiating to the groin. It is nearly constant and he gives no significant alleviating factors however Percocet (in addition to his usual dose Dilaudid for chronic pain) has alleviated the pain somewhat. He is having difficulties sleep and had chills this morning. He denies overt dysuria but says he has mild discomfort with urinating. No fever, nausea, vomiting, or diarrhea. In the ED: He was afebrile on arrival with a blood pressure of 165/90. Labs were pretty unremarkable with a WBC count of 10.8. Urinalysis was positive for 3+ protein, 1+ ketones, 3+ blood, 2+ leukocyte esterase, > 100 RBC, and 21-50 WBC. No bacteria were seen on microscopy. CT scan showed a stone in the right renal pelvis with no hydronephrotic changes and double-J stent with possible infection around the right ureter and findings highly suggestive of cystitis. 2 small sclerotic areas noted in the right femoral neck (weight stable, negative colonoscopy in the past, never had an elevated PSA, no pain). Review of Systems Review of Systems: 12 systems were reviewed and are negative except for as per HPI. [facility] Past Medical History Medical History (Updated 01/16/25 @ 22:14 by Meg Johnston PA-C) Ischemic stroke Residual left-sided weakness. Hyperlipidemia Hypertension Ureterolithiasis Surgical History Surgical History (Updated 01/16/25 @ 20:49 by Meg Johnston PA-C) History of fusion of cervical spine History of urethral stent History of cystoscopy Family History Family History Mother Cerebrovascular accident Father Heart disease Social History Social History (Updated 01/16/25 @ 20:51 by Meg Johnston PA-C) Social History: Surrogate medical decision maker: Kyra Nicholsonther, spouse. Code status: Full code. Smoking packs per day: 1 Smoking cigarettes per day: 20.0 Years smoked: 40 Smoking pack-years: 40.00 Tobacco type: e-cigarettes/vaping Additional smoking assessment comments: no longer smoking cigarettes, uses vape exclusively Alcohol intake: current Drinks per week: 1 Alcohol use details: rare alcohol use in moderation Substance use: never Substance use type: does not use Do You Feel Safe in your Home?: Yes Lack of Transportation: No Lack of Food: Never True Current Housing: I Have Housing Concerned About Future Housing: No Difficulty Paying Gas/Electric Bills: No Difficulty Paying for Meds: No Currently Unemployed: No Education: Grade School Difficulty w/ Childcare or Family Care: No Living arrangements: with family Additional living arrangements comments: Lives with spouse in [place]. 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 Spiritual care concerns: No Meds Home Medications and Allergies Home Medications ?Medication ?Instructions ?Recorded ?Confirmed ?Type amlodipine 10 mg tablet 10 mg PO DAILY 05/21/23 01/16/25 History carvedilol 25 mg tablet 25 mg PO DAILY 05/21/23 01/16/25 History clonazepam 0.5 mg tablet 0.5 mg PO HS 05/21/23 01/16/25 History aspirin 81 mg chewable tablet 81 mg PO DAILY@0800 30 days #30 06/02/23 01/16/25 Rx ([facility]) tabs tamsulosin 0.4 mg capsule 0.4 mg PO DAILY 10/07/23 01/16/25 History atorvastatin 80 mg tablet 80 mg PO DAILY 12/30/24 01/16/25 History clopidogrel 75 mg tablet 75 mg PO DAILY 12/30/24 01/16/25 History hydromorphone 2 mg tablet 2 mg PO Q6H 12/30/24 01/16/25 History sennosides 8.6 mg-docusate sodium 1 tab PO DAILY 01/16/25 01/16/25 History 50 mg tablet (Senokot-S) Allergies Allergy/AdvReac Type Severity Reaction Status Date / Time codeine AdvReac Unknown Gastrointestinal Verified 12/31/24 14:29 Upset Vital Signs Vital Signs - 24 hr 01/16/25 15:00 01/16/25 16:08 01/16/25 16:16 Temperature 97.9 F 97.8 F Pulse Rate 82 72 70 Respiratory Rate 16 14 12 Blood Pressure 165/90 H 177/98 H 154/102 H Pulse Oximetry 100 100 100 01/16/25 17:30 01/16/25 18:17 Temperature 97.8 F 97.8 F Pulse Rate 70 101 H Respiratory Rate 16 16 Blood Pressure 170/98 H 172/90 H Pulse Oximetry 100 98 Exam Narrative: General: Well-developed, nontoxic-appearing male in the semi-Heath position in bed. Weight: 82 kg. BMI: 25.9. HEENT: PERRL, EOMI. Sclera anicteric. Oral mucosa moist. Oropharynx clear. Neck: Supple. Respiratory: Lungs are clear to auscultation bilaterally. Cardiovascular: Regular rate and rhythm with S1-S2. Gastrointestinal: Abdomen is soft and nondistended with positive bowel sounds. He is tender to palpation in the right mid to lower quadrant. No guarding or rebound tenderness. Skin: Warm and dry. Extremities: No cyanosis, clubbing, or edema. Radial and pedal pulses intact. Neurological: Alert. Cranial nerves 2-12 are grossly intact. No gross focal deficits to casual conversation. Psychiatric: Pleasant and cooperative with normal mood and affect. Judgment and insight intact. H&P: Results Labs Labs: Short CBC 01/16/25 Range/Units 15:09 WBC 10.8 H (4.5-10.0) K/mm3 Hgb 15.2 (14.0-18.0) g/dL Hct 46.1 (42.0-52.0) % Plt Count 229 (150-375) k/mm3 BMP 01/16/25 15:09 Sodium 141 Potassium 3.8 Chloride 104 Carbon Dioxide 29 BUN 20 Creatinine 0.73 Glucose 98 Calcium 9.4 Liver Function 01/16/25 Range/Units 15:09 Total Bilirubin 0.8 (0.2-1.3) mg/dL AST 37 (17-59) U/L ALT 27 (6-50) U/L Alkaline Phosphatase 88 (38-126) U/L Albumin 4.4 (3.5-5.1) g/dL Urine 01/16/25 Range/Units 16:10 Urine Color Dark yellow (Yellow) Urine Appearance Cloudy H (Clear) Urine pH 6.0 (5.0-9.0) Ur Specific [place] 1.036 H (1.001-1.035) Urine Protein 3+ H (Negative) mg/dL Urine Glucose (UA) Negative (Negative) mg/dL Imaging Abdomen/Pelvis CT 01/16/25 16:04 IMPRESSION: 1. Stone in the right renal pelvis with no hydronephrotic changes and double-J stent. Possible infection around the right ureter. 2. Bilateral renal cysts. 3. No evidence of appendicitis, diverticulitis or intestinal obstruction. 4. Highly suggestive cystitis. 5. Mild fat infiltration of the liver. 6. Bilateral small fat-containing inguinal hernias. 7. 2 small sclerotic areas in the right femoral neck. Follow-up advised. Assessment and Plan Assessment and plan (1) Urinary tract infection: Code(s): N39.0 - Urinary tract infection, site not specified Status: Acute (2) Right renal stone: Code(s): N20.0 - Calculus of kidney Status: Acute (3) Lytic bone lesion of right femur: Code(s): M89.8X5 - Other specified disorders of bone, thigh Status: Acute (4) Hypertension: Code(s): I10 - Essential (primary) hypertension Status: Acute (5) Hyperlipidemia: Code(s): E78.5 - Hyperlipidemia, unspecified Status: Acute Plan The patient presented to the emergency department with complaints of right lower quadrant pain status post cystoscopy with ureteral stent and ESWL in the last couple weeks as detailed in the HPI. Labs, imaging, EKG, and all reports were personally reviewed. He has been afebrile since arrival in WBC count is mildly elevated at 10.8. Urinalysis is abnormal and positive for blood, leukocyte esterase, and 21 to 50 WBC though no bacteria were seen on microscopy. He has been started on ceftriaxone however pending urine culture given findings of possible infection around the right ureter and cystitis seen on CT scan. Analgesics are available as needed. Two small sclerotic areas were noted on the right femoral neck and is will need to be followed up as an outpatient. Blood pressures have been running high, likely due to pain, and should improve with better pain control. His home medications will be reviewed and resumed as appropriate. Findings and treatment plan were discussed with the patient. Questions were solicited and answered to satisfaction. The patient's medical management will be taken over by the hospitalist team in a.m. Quality VTE Prophylaxis VTE prophylaxis: pharmacologic ordered The patient has been admitted under observation status. Hospitalist MIPS Advance Care Plan I have confirmed that the patient's Advanced Care Plan is present, code status is documented, or surrogate decision maker is listed in patient medical record.: Yes Medication Reconciliation I have utilized all available resources to obtain, update and review the patients current medications (includes all prescriptions, OTC, herbals, cannabis, and nutritional supplements).: Yes
--- NOTE | 2025-01-16 19:49 | ADMGEN ---
This patient, Chung Xiong, was admitted to Medical Room 248-. Patient/family oriented to hospital policies and general routines including ID bracelet, bed and alarms, visiting hours, pain management, procedures, bathroom and other care routines, personal items, smoking policy, room service/diet, and visiting hours. Information on how to activate the Rapid Response Team has been discussed. Patient/Family are encouraged to report perceived risks to care and to ask questions if they do not understand what they are told or what they should do.
[2025-01-16 20:00] VITALS: BP 159/90; PULSE 88; RESP 18; TEMP 36.3; O2SAT 98; BMI 25.9
[2025-01-16] MEDS: HYDROmorphone HCL INJ (*CRX) 2 MG/ML VIAL 1 MG IV PUSH (20:54)
[2025-01-16] MEDS: HYDROmorphone HCL (*CRX) 2 MG TABLET PO (22:34)
[2025-01-16] MEDS: clonazePAM (*CRX) 0.5 MG TABLET PO (22:34)
[2025-01-17] MEDS: HYDROmorphone HCL INJ (*CRX) 2 MG/ML VIAL 0.5 MG IV PUSH ×6 (02:06→22:55)
[2025-01-17] MEDS: SODIUM CHLORIDE 0.9% IV 1,000 ML 125 ML IV CONT (02:11)
[2025-01-17 05:08] LABS: Hematocrit 41.9 % (42.0-52.0); Hemoglobin 13.7 g/dL (14.0-18.0); Mean Corpuscular HGB Conc 32.7 g/dl (32-36); Mean Corpuscular Hemoglobin 30.6 pg (26-34); Mean Corpuscular Volume 93.7 fl (80-100); Mean Platelet Volume 10.1 fl (7.4-10.4); Platelet Count Result 205 k/mm3 (150-375); Red Blood Count 4.47 M/mm3 (4.6-6.20); Red Cell Distribution Width 13.1 % (11.5-14.5); White Blood Count 9.4 K/mm3 (4.5-10.0)
[2025-01-17 05:19] LABS: Anion Gap 4 mmol/L (4-12); Blood Urea Nitrogen 18 mg/dL (9-20); Calcium 8.7 mg/dL (8.4-10.2); Carbon Dioxide 29 mmol/L (22-30); Chloride 107 mmol/L (98-107); Estimated CRCL calculation 106 ml/min; Estimated Glomerular Filt Rate > 60; Glucose 89 mg/dL (65-110); Magnesium 1.8 mg/dL (1.6-2.3); Potassium 3.7 mmol/L (3.4-5.0); Sodium 140 mmol/L (137-145)
[2025-01-17] MEDS: HYDROmorphone HCL (*CRX) 2 MG TABLET PO ×4 (05:37→23:45)
[2025-01-17] MEDS: ACETAMINOPHEN 325 MG TABLET 650 MG PO (05:37)
[2025-01-17 05:41] VITALS: BP 150/87; PULSE 76; RESP 16; TEMP 36.6; O2SAT 99
--- NOTE | 2025-01-17 06:58 | PM.IMPN ---
Progress Note: A&P Assessment and Plan (1) Urinary tract infection: Code(s): N39.0 - Urinary tract infection, site not specified Status: Acute Assessment and Plan: UA: 3+ protein, 1+ ketones, 3+ blood, 2+ leukocyte esterase, > 100 RBC, and 21-50 WBC. No bacteria were seen on microscopy. UC obtained on 01/16/2025 previous micro reviewed started on Rocephin Urine culture pending Urology consulted, appreciate recommendations (2) Right renal stone: Code(s): N20.0 - Calculus of kidney Status: Acute Assessment and Plan: Abdomen/Pelvis CT: Stone in the right renal pelvis with no hydronephrotic changes and double-J stent. Possible infection around the right ureter. PRN pain control Urology consult, appreciate recommendations (3) Lytic bone lesion of right femur: Code(s): M89.8X5 - Other specified disorders of bone, thigh Status: Acute Assessment and Plan: Abdomen/Pelvis CT: 2 small sclerotic areas in the right femoral neck. Follow-up advised Outpatient follow-up (4) Hypertension: Code(s): I10 - Essential (primary) hypertension Status: Acute Assessment and Plan: Patient's blood pressure was reviewed on 01/15 Blood pressure remains well controlled. Will continue current medications: Amlodipine, Carvedilol 150/87 (5) Hyperlipidemia: Code(s): E78.5 - Hyperlipidemia, unspecified Status: Acute Assessment and Plan: Continue Atorvastatin 80mg Time Spent With Patient Time: - Subjective Date/time seen: 01/17/25 06:58 Interval history: 64-year-old male smoker with history of stroke, hypertension, recurrent urolithiasis with status post cystoscopy with right ureteral stent on 01/03/2025 who presented to the emergency department with complaints of right lower abdominal pain. 01/17/2025 Patient sitting comfortably in bed at time exam. Denies any chest pain, shortness a breath, nausea/vomiting. Still has some right lower abdominal pain, however it is manageable now with p.r.n. pain meds. Urology consulted. CT scan shows stent in place, with no hydronephrosis. Still waiting on urine culture results for directed antibiotic treatment. Review of Systems Review of Systems: 12 systems were reviewed and are negative except for as per HPI. Exam Narrative: General: Well-developed, nontoxic-appearing male in the semi-Heath position in bed. Weight: 82 kg. BMI: 25.9. HEENT: PERRL, EOMI. Sclera anicteric. Oral mucosa moist. Oropharynx clear. Neck: Supple. Respiratory: Lungs are clear to auscultation bilaterally. Cardiovascular: Regular rate and rhythm with S1-S2. Gastrointestinal: Abdomen is soft and nondistended with positive bowel sounds. He is tender to palpation in the right mid to lower quadrant. No guarding or rebound tenderness. Skin: Warm and dry. Extremities: No cyanosis, clubbing, or edema. Radial and pedal pulses intact. Neurological: Alert. Cranial nerves 2-12 are grossly intact. No gross focal deficits to casual conversation. Psychiatric: Pleasant and cooperative with normal mood and affect. Judgment and insight intact. Objective Data Vital Signs Vital Signs: Vital Signs - 24 hr 01/16/25 15:00 01/16/25 16:08 01/16/25 16:16 Temperature 97.9 F 97.8 F Pulse Rate 82 72 70 Respiratory Rate 16 14 12 Blood Pressure 165/90 H 177/98 H 154/102 H Pulse Oximetry 100 100 100 Oxygen Delivery 01/16/25 17:30 01/16/25 18:17 01/16/25 20:00 Temperature 97.8 F 97.8 F 97.4 F L Pulse Rate 70 101 H 88 Respiratory Rate 16 16 18 Blood Pressure 170/98 H 172/90 H 159/90 H Pulse Oximetry 100 98 98 Oxygen Delivery 01/16/25 20:54 01/17/25 05:41 Temperature 97.9 F Pulse Rate 76 Respiratory Rate 16 Blood Pressure 150/87 H Pulse Oximetry 99 Oxygen Delivery Room Air Intake/Output Intake/Output: Intake & Output 01/14/25 01/15/25 01/16/25 01/17/25 23:59 23:59 23:59 23:59 Intake Total 2049 300 Output Total 1400 Balance 2049 -1099 Meds/Results Medications: Active Medications Generic Name Dose Route Start Last Admin Trade Name Freq PRN Reason Stop Dose Admin Acetaminophen 650 mg 01/16/25 19:47 01/17/25 05:37 Acetaminophen 325 Mg Tablet PO 650 mg Q6H PRN Administration Mild Pain (1-3) or Fever Amlodipine Besylate 10 mg 01/17/25 09:00 Amlodipine Besylate 10 Mg Tablet PO DAILY [facility] Atorvastatin Calcium 80 mg 01/17/25 09:00 Atorvastatin 40 Mg Tablet PO DAILY [facility] Carvedilol 25 mg 01/17/25 09:00 Carvedilol 25 Mg Tablet PO DAILY [facility] Clonazepam 0.5 mg 01/16/25 22:10 01/16/25 22:34 Clonazepam (*Crx) 0.5 Mg Tablet PO 0.5 mg HS [facility] Administration Hydromorphone HCl 2 mg 01/17/25 00:00 01/17/25 05:37 Hydromorphone Hcl (*Crx) 2 Mg Tablet PO 2 mg Q6HR [facility] Administration Hydromorphone HCl 0.5 mg 01/16/25 22:11 01/17/25 02:06 Hydromorphone Hcl Inj (*Crx) 2 Mg/Ml Vial IV PUSH 0.5 mg Q3H PRN Administration Pain Rated 7-10 Ceftriaxone Sodium 1 gm in 50 mls @ 100 mls/hr 01/17/25 17:00 Rocephin 1 Gm/Ns 50 Ml IVPB Q24H [facility] Ondansetron HCl 4 mg 01/16/25 18:04 Ondansetron Inj 4 Mg/2 Ml Vial IV PUSH Q4H PRN Nausea Senna/Docusate Sodium 1 tab 01/17/25 09:00 Senna/Docusate Sodium Tablet PO DAILY [facility] Tamsulosin HCl 0.4 mg 01/17/25 09:00 Tamsulosin Hcl 0.4 Mg Capsule PO DAILY [facility] Radiology Results: ITS Impressions Abdomen/Pelvis CT 01/16/25 16:04 IMPRESSION: 1. Stone in the right renal pelvis with no hydronephrotic changes and double-J stent. Possible infection around the right ureter. 2. Bilateral renal cysts. 3. No evidence of appendicitis, diverticulitis or intestinal obstruction. 4. Highly suggestive cystitis. 5. Mild fat infiltration of the liver. 6. Bilateral small fat-containing inguinal hernias. 7. 2 small sclerotic areas in the right femoral neck. Follow-up advised Labs Labs: Laboratory Results - last 24 hr 01/16/25 01/16/25 01/16/25 15:09 16:10 18:32 WBC 10.8 H RBC 4.98 Hgb 15.2 Hct 46.1 MCV 92.6 MCH 30.5 MCHC 33.0 RDW 13.1 Plt Count 229 MPV 9.9 Immature Gran % (Auto) 0.2 Neut % (Auto) 69.8 Lymph % (Auto) 22.4 [place] % (Auto) 6.4 Eos % (Auto) 0.6 Baso % (Auto) 0.6 Lymph # (Auto) 2.42 [place] # (Auto) 0.7 H Eos # (Auto) 0.1 Baso # (Auto) 0.1 Abs Immat Gran (auto) 0.02 Absolute Neuts (auto) 7.5 H Absolute Nucleated RBC 0.000 Nucleated RBC % 0.0 PT 12.5 INR 0.9 APTT 25.7 Sodium 141 Potassium 3.8 Chloride 104 Carbon Dioxide 29 Anion Gap 8 BUN 20 Creatinine 0.73 Estim Creat Clear Calc 94 Estimated GFR > 60 Glucose 98 Lactic Acid 0.7 Calcium 9.4 Magnesium Total Bilirubin 0.8 AST 37 ALT 27 Alkaline Phosphatase 88 C-Reactive Protein < 0.5 Total Protein 8.0 Albumin 4.4 Lipase 83 Urine Color Dark yellow Urine Appearance Cloudy H Urine pH 6.0 Ur Specific [place] 1.036 H Urine Protein 3+ H Urine Glucose (UA) Negative Urine Ketones 1+ H Ur Blood (Man) 3+ H Urine Nitrate Negative Urine Bilirubin Negative Urine Urobilinogen 1.0 Leukocyte Esterase Rfl 2+ H Urine RBC >100 H Urine WBC 21-50 H Ur Squamous Epith Cells None seen Urine Bacteria None seen Urine Casts 0-2 01/17/25 04:49 WBC 9.4 RBC 4.47 L Hgb 13.7 L Hct 41.9 L MCV 93.7 MCH 30.6 MCHC 32.7 RDW 13.1 Plt Count 205 MPV 10.1 Immature Gran % (Auto) Neut % (Auto) Lymph % (Auto) [place] % (Auto) Eos % (Auto) Baso % (Auto) Lymph # (Auto) [place] # (Auto) Eos # (Auto) Baso # (Auto) Abs Immat Gran (auto) Absolute Neuts (auto) Absolute Nucleated RBC Nucleated RBC % PT INR APTT Sodium 140 Potassium 3.7 Chloride 107 Carbon Dioxide 29 Anion Gap 4 BUN 18 Creatinine 0.64 L Estim Creat Clear Calc 106 Estimated GFR > 60 Glucose 89 Lactic Acid Calcium 8.7 Magnesium 1.8 Total Bilirubin AST ALT Alkaline Phosphatase C-Reactive Protein Total Protein Albumin Lipase Urine Color Urine Appearance Urine pH Ur Specific [place] Urine Protein Urine Glucose (UA) Urine Ketones Ur Blood (Man) Urine Nitrate Urine Bilirubin Urine Urobilinogen Leukocyte Esterase Rfl Urine RBC Urine WBC Ur Squamous Epith Cells Urine Bacteria Urine Casts Quality VTE Prophylaxis VTE prophylaxis: mechanical ordered
[2025-01-17 08:23] VITALS: PULSE 76
[2025-01-17] MEDS: TAMSULOSIN HCL 0.4 MG CAPSULE PO (08:23)
[2025-01-17] MEDS: SENNA/DOCUSATE SODIUM TABLET 1 TAB PO (08:23)
[2025-01-17] MEDS: ATORVASTATIN 40 MG TABLET 80 MG PO (08:23)
[2025-01-17] MEDS: amLODIPine BESYLATE 10 MG TABLET PO (08:23)
[2025-01-17] MEDS: carvediloL 25 MG TABLET PO (08:23)
[2025-01-17 08:24] VITALS: BP 140/96; PULSE 74; O2SAT 100
--- NOTE | 2025-01-17 09:17 | WPDURCON ---
Assessment and Plan Assessment and plan (1) Urinary tract infection: Code(s): N39.0 - Urinary tract infection, site not specified Status: Acute Assessment and Plan: awaiting culture results continue antibiotics (2) Uncontrolled pain: Code(s): R52 - Pain, unspecified Status: Acute Assessment and Plan: patient states he is doing better. Continue to monitor and provide pain control Will need to transition to oral pain medications Per patient, plans are being made for definitive stone surgery per Dr. Baig. (3) Cystitis: Code(s): N30.90 - Cystitis, unspecified without hematuria Status: Acute Assessment and Plan: await urine culture results Urology Consult Note HPI Date Seen: 01/17/25 Requesting Physician: Arash Vasquez MD Primary Care Provider: Ciro Rondon, Consult Narrative Narrative: Chung Xiong is a 64 year old male who had a cystoscopy with right ureter stent placement by Dr. Baig. He has had pain since the stent placement that worsened yesterday. He presented back to the ER with right lower quadrant pain. On CT scan, the stent is in place. There is no hydronephrosis on my review of the scan. Mr. Xiong also states he had similar pain with prior stent placement. He has been admitted due to concern for possible UTI due to brenda-ureter edema. Review of Systems Review of Systems: All systems reviewed & are unremarkable except as noted in HPI and below PMFSH Past Medical History Medical History (Updated 01/16/25 @ 22:14 by Meg Johnston PA-C) Ischemic stroke Residual left-sided weakness. Hyperlipidemia Hypertension Ureterolithiasis Surgical History Surgical History (Updated 01/16/25 @ 20:49 by Meg Johnston PA-C) History of fusion of cervical spine History of urethral stent History of cystoscopy Family History Family History Mother Cerebrovascular accident Father Heart disease Social History Social History (Updated 01/16/25 @ 20:51 by Meg Johnston PA-C) Social History: Surrogate medical decision maker: Kyra Xiong, spouse. Code status: Full code. Smoking packs per day: 1 Smoking cigarettes per day: 20.0 Years smoked: 40 Smoking pack-years: 40.00 Tobacco type: e-cigarettes/vaping Additional smoking assessment comments: no longer smoking cigarettes, uses vape exclusively Alcohol intake: current Drinks per week: 1 Alcohol use details: rare alcohol use in moderation Substance use: never Substance use type: does not use Do You Feel Safe in your Home?: Yes Lack of Transportation: No Lack of Food: Never True Current Housing: I Have Housing Concerned About Future Housing: No Difficulty Paying Gas/Electric Bills: No Difficulty Paying for Meds: No Currently Unemployed: No Education: Grade School Difficulty w/ Childcare or Family Care: No Living arrangements: with family Additional living arrangements comments: Lives with spouse in [place]. 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 Spiritual care concerns: No Meds Home Medications and Allergies Home Medications ?Medication ?Instructions ?Recorded ?Confirmed ?Type amlodipine 10 mg tablet 10 mg PO DAILY 05/21/23 01/16/25 History carvedilol 25 mg tablet 25 mg PO DAILY 05/21/23 01/16/25 History clonazepam 0.5 mg tablet 0.5 mg PO HS 05/21/23 01/16/25 History aspirin 81 mg chewable tablet 81 mg PO DAILY@0800 30 days #30 06/02/23 01/16/25 Rx ([facility]) tabs tamsulosin 0.4 mg capsule 0.4 mg PO DAILY 10/07/23 01/16/25 History atorvastatin 80 mg tablet 80 mg PO DAILY 12/30/24 01/16/25 History clopidogrel 75 mg tablet 75 mg PO DAILY 12/30/24 01/16/25 History hydromorphone 2 mg tablet 2 mg PO Q6H 12/30/24 01/16/25 History sennosides 8.6 mg-docusate sodium 1 tab PO DAILY 01/16/25 01/16/25 History 50 mg tablet (Senokot-S) Allergies Allergy/AdvReac Type Severity Reaction Status Date / Time codeine AdvReac Unknown Gastrointestinal Verified 12/31/24 14:29 Upset Vital Signs Vital Signs - 24 hr 01/16/25 15:00 01/16/25 16:08 01/16/25 16:16 Temperature 36.6 C 36.6 C Pulse Rate 82 72 70 Respiratory Rate 16 14 12 Blood Pressure 165/90 H 177/98 H 154/102 H Pulse Oximetry 100 100 100 Oxygen Delivery 01/16/25 17:30 01/16/25 18:17 01/16/25 20:00 Temperature 36.6 C 36.6 C 36.3 C L Pulse Rate 70 101 H 88 Respiratory Rate 16 16 18 Blood Pressure 170/98 H 172/90 H 159/90 H Pulse Oximetry 100 98 98 Oxygen Delivery 01/16/25 20:54 01/17/25 05:41 01/17/25 08:23 Temperature 36.6 C Pulse Rate 76 76 Respiratory Rate 16 Blood Pressure 150/87 H Pulse Oximetry 99 Oxygen Delivery Room Air 01/17/25 08:24 Temperature Pulse Rate 74 Respiratory Rate Blood Pressure 140/96 H Pulse Oximetry 100 Oxygen Delivery Exam Const: General: cooperative and healthy appearing HENMT: Ears: hearing grossly normal bilaterally Eyes: General: appearance normal, both eyes and all related structures Resp: Effort & Inspection: normal respiratory effort Skin: General skin exam: normal color and no rashes or lesions noted Neuro: General: oriented to person, oriented to place and oriented to time Speech: normal speech Results Labs 01/17/25 04:49 01/17/25 04:49 Labs: Short CBC 01/16/25 01/17/25 Range/Units 15:09 04:49 WBC 10.8 H 9.4 (4.5-10.0) K/mm3 Hgb 15.2 13.7 L (14.0-18.0) g/dL Hct 46.1 41.9 L (42.0-52.0) % Plt Count 229 205 (150-375) k/mm3 BMP 01/16/25 01/17/25 15:09 04:49 Sodium 141 140 Potassium 3.8 3.7 Chloride 104 107 Carbon Dioxide 29 29 BUN 20 18 Creatinine 0.73 0.64 L Glucose 98 89 Calcium 9.4 8.7 Liver Function 01/16/25 Range/Units 15:09 Total Bilirubin 0.8 (0.2-1.3) mg/dL AST 37 (17-59) U/L ALT 27 (6-50) U/L Alkaline Phosphatase 88 (38-126) U/L Albumin 4.4 (3.5-5.1) g/dL Urine 01/16/25 Range/Units 16:10 Urine Color Dark yellow (Yellow) Urine Appearance Cloudy H (Clear) Urine pH 6.0 (5.0-9.0) Ur Specific [place] 1.036 H (1.001-1.035) Urine Protein 3+ H (Negative) mg/dL Urine Glucose (UA) Negative (Negative) mg/dL
[2025-01-17] MEDS: NICOTINE (*PBKC) 7 MG PATCH 1 PATCH TRANSDERM (13:21)
[2025-01-17 13:22] VITALS: BP 105/76; PULSE 75; RESP 18; TEMP 36.4; O2SAT 98
[2025-01-17 19:47] VITALS: BP 143/84; PULSE 72; RESP 20; TEMP 36.8; O2SAT 100
[2025-01-17] MEDS: clonazePAM (*CRX) 0.5 MG TABLET PO (20:06)
[2025-01-18] MEDS: HYDROmorphone HCL INJ (*CRX) 2 MG/ML VIAL 0.5 MG IV PUSH ×3 (03:53→14:27)
[2025-01-18 05:02] VITALS: BP 150/97; PULSE 71; RESP 20; TEMP 36.8; O2SAT 97
[2025-01-18] MEDS: HYDROmorphone HCL (*CRX) 2 MG TABLET PO ×2 (05:36→11:38)
[2025-01-18 08:06] LABS: Basophils Absolute Auto 0.1 K/mm3 (0.0-0.1); Basophils Percent Auto 0.6 % (0.2-1.2); Eosinophils Absolute Auto 0.3 K/mm3 (0-0.3); Eosinophils Percent Auto 2.7 % (0-4.4); Hematocrit 40.4 % (42.0-52.0); Hemoglobin 13.4 g/dL (14.0-18.0); Immature Granulocyte Absolute 0.03 K/mm3 (0.00-0.031); Immature Granulocyte Percent A 0.2 % (0-0.5); Lymphocytes Absolute Auto 3.31 K/mm3 (0.9-3.2); Lymphocytes Percent Auto 26.7 % (18.3-44.2); Mean Corpuscular HGB Conc 33.2 g/dl (32-36); Mean Corpuscular Hemoglobin 30.9 pg (26-34); Mean Corpuscular Volume 93.3 fl (80-100); Mean Platelet Volume 10.2 fl (7.4-10.4); Monocytes Absolute Auto 0.9 K/mm3 (0.1-0.6); Monocytes Percent Auto 7.3 % (2.6-8.5); Neutrophils Absolute Auto 7.7 K/mm3 (1.3-6.7); Neutrophils Percent Auto 62.5 % (45.5-73.1); Platelet Count Result 201 k/mm3 (150-375); Red Blood Count 4.33 M/mm3 (4.6-6.20); Red Cell Distribution Width 12.9 % (11.5-14.5); White Blood Count 12.4 K/mm3 (4.5-10.0)
[2025-01-18 08:15] LABS: Alanine Aminotransferase 28 U/L (6-50); Albumin Level 3.8 g/dL (3.5-5.1); Alkaline Phosphatase 59 U/L (38-126); Anion Gap 5 mmol/L (4-12); Aspartate Amino Transferase 33 U/L (17-59); Bilirubin,Total 0.5 mg/dL (0.2-1.3); Blood Urea Nitrogen 17 mg/dL (9-20); Calcium 8.7 mg/dL (8.4-10.2); Carbon Dioxide 29 mmol/L (22-30); Chloride 105 mmol/L (98-107); Estimated CRCL calculation 110 ml/min; Estimated Glomerular Filt Rate > 60; Glucose 93 mg/dL (65-110); Potassium 3.7 mmol/L (3.4-5.0); Sodium 139 mmol/L (137-145)
[2025-01-18 08:16] VITALS: PULSE 71
[2025-01-18] MEDS: SENNA/DOCUSATE SODIUM TABLET 1 TAB PO (08:16)
[2025-01-18] MEDS: NICOTINE (*PBKC) 7 MG PATCH 1 PATCH TRANSDERM (08:16)
[2025-01-18] MEDS: ATORVASTATIN 40 MG TABLET 80 MG PO (08:16)
[2025-01-18] MEDS: amLODIPine BESYLATE 10 MG TABLET PO (08:16)
[2025-01-18] MEDS: carvediloL 25 MG TABLET PO (08:16)
[2025-01-18] MEDS: TAMSULOSIN HCL 0.4 MG CAPSULE PO (08:16)
--- NOTE | 2025-01-18 09:07 | P.PNUR_ITS ---
Progress Note: A&P Assessment and Plan (1) Right renal stone: Code(s): N20.0 - Calculus of kidney Status: Acute (2) Right ureteral stone: Code(s): N20.1 - Calculus of ureter Status: Acute (3) Renal colic on right side: Code(s): N23 - Unspecified renal colic Status: Acute Plan 64yoM admitted 01/16/2025 with right RLQ pain, likely stent colic. -s/p right ureteral stent placement for right renal/ureteral stone 01/03/2025 -Urine culture negative, blood cultures NGTD on IV ceftriaxone -Cr 0.6, Renal function stable -Continue supportive care, PRN oral analgesics, daily tamsulosin -Add daily solifenacin for suspected bladder spasm -Encourage oral fluid hydration to minimize bladder spasms -Recommend scheduled bowel regimen (senna/MiraLax) No plan for inpatient surgical intervention. He is scheduled for right ESWL with Dr. Baig 02/04/25 Inpatient urology team to follow peripherally. Please call with questions. Subjective Subjective Date/Time Seen: 01/18/25 09:07 Interval history: NAEO; Afebrile Patient reports intermittent RLQ abdominal pain Had large BM today Urine culture negative, renal function stable Patient comfortable on exam, no distress Exam Const: General: comfortable and no acute distress GI: Other: RLQ tender : Male General Exam: Yes tenderness (R CVA) Skin: General skin exam: normal color Neuro: Speech: normal speech Extrem: General: normal to inspection Psych: Mental Status: mental status grossly normal Objective Data Vital Signs Vital Signs: Vital Signs - 24 hr 01/17/25 13:22 01/17/25 19:47 01/17/25 20:00 Temperature 97.6 F 98.2 F Pulse Rate 75 72 Respiratory Rate 18 20 Blood Pressure 105/76 143/84 H Pulse Oximetry 98 100 Oxygen Delivery Room Air 01/18/25 05:02 01/18/25 08:16 Temperature 98.3 F Pulse Rate 71 71 Respiratory Rate 20 Blood Pressure 150/97 H Pulse Oximetry 97 Oxygen Delivery Intake/Output Intake/Output: Intake & Output 01/15/25 01/16/25 01/17/25 01/18/25 23:59 23:59 23:59 23:59 Intake Total 2049 1260 950 Output Total 2400 1300 Balance 2 -5589 -561 Meds/Results Medications: Active Medications Generic Name Dose Route Start Last Admin Trade Name Freq PRN Reason Stop Dose Admin Acetaminophen 650 mg 01/16/25 19:47 01/17/25 05:37 Acetaminophen 325 Mg Tablet PO 650 mg Q6H PRN Administration Mild Pain (1-3) or Fever Amlodipine Besylate 10 mg 01/17/25 09:00 01/18/25 08:16 Amlodipine Besylate 10 Mg Tablet PO 10 mg DAILY ALEXANDRU Administration Atorvastatin Calcium 80 mg 01/17/25 09:00 01/18/25 08:16 Atorvastatin 40 Mg Tablet PO 80 mg DAILY ALEXANDRU Administration Carvedilol 25 mg 01/17/25 09:00 01/18/25 08:16 Carvedilol 25 Mg Tablet PO 25 mg DAILY ALEXANDRU Administration Clonazepam 0.5 mg 01/16/25 22:10 01/17/25 20:06 Clonazepam (*Crx) 0.5 Mg Tablet PO 0.5 mg HS ALEXANDRU Administration Hydromorphone HCl 2 mg 01/17/25 00:00 01/18/25 05:36 Hydromorphone Hcl (*Crx) 2 Mg Tablet PO 2 mg Q6HR ALEXANDRU Administration Hydromorphone HCl 0.5 mg 01/16/25 22:11 01/18/25 08:18 Hydromorphone Hcl Inj (*Crx) 2 Mg/Ml Vial IV PUSH 0.5 mg Q3H PRN Administration Pain Rated 7-10 Ceftriaxone Sodium 1 gm in 50 mls @ 100 mls/hr 01/17/25 17:00 01/17/25 17:17 Rocephin 1 Gm/Ns 50 Ml IVPB 100 mls/hr Q24H ALEXANDRU Administration Nicotine 1 patch 01/17/25 13:15 01/18/25 08:16 Nicotine (*Pbkc) 7 Mg Patch TRANSDERM 1 patch DAILY ALEXANDRU Administration Ondansetron HCl 4 mg 01/16/25 18:04 Ondansetron Inj 4 Mg/2 Ml Vial IV PUSH Q4H PRN Nausea Senna/Docusate Sodium 1 tab 01/17/25 09:00 01/18/25 08:16 Senna/Docusate Sodium Tablet PO 1 tab DAILY ALEXANDRU Administration Tamsulosin HCl 0.4 mg 01/17/25 09:00 01/18/25 08:16 Tamsulosin Hcl 0.4 Mg Capsule PO 0.4 mg DAILY ALEXANDRU Administration Radiology Results: ITS Impressions Abdomen/Pelvis CT 01/16/25 16:04 IMPRESSION: 1. Stone in the right renal pelvis with no hydronephrotic changes and double-J stent. Possible infection around the right ureter. 2. Bilateral renal cysts. 3. No evidence of appendicitis, diverticulitis or intestinal obstruction. 4. Highly suggestive cystitis. 5. Mild fat infiltration of the liver. 6. Bilateral small fat-containing inguinal hernias. 7. 2 small sclerotic areas in the right femoral neck. Follow-up advised Labs Labs: Laboratory Results - last 24 hr 01/18/25 07:41 WBC 12.4 H RBC 4.33 L Hgb 13.4 L Hct 40.4 L MCV 93.3 MCH 30.9 MCHC 33.2 RDW 12.9 Plt Count 201 MPV 10.2 Immature Gran % (Auto) 0.2 Neut % (Auto) 62.5 Lymph % (Auto) 26.7 [place] % (Auto) 7.3 Eos % (Auto) 2.7 Baso % (Auto) 0.6 Lymph # (Auto) 3.31 H [place] # (Auto) 0.9 H Eos # (Auto) 0.3 Baso # (Auto) 0.1 Abs Immat Gran (auto) 0.03 Absolute Neuts (auto) 7.7 H Absolute Nucleated RBC 0.000 Nucleated RBC % 0.0 Sodium 139 Potassium 3.7 Chloride 105 Carbon Dioxide 29 Anion Gap 5 BUN 17 Creatinine 0.61 L Estim Creat Clear Calc 110 Estimated GFR > 60 Glucose 93 Calcium 8.7 Total Bilirubin 0.5 AST 33 ALT 28 Alkaline Phosphatase 59 Total Protein 7.0 Albumin 3.8
[2025-01-18 14:00] VITALS: BP 130/73; PULSE 76; RESP 16; TEMP 36.6; O2SAT 98
[2025-01-18] MEDS: SOLIFENACIN 5 MG TABLET PO (14:29)
--- NOTE | 2025-01-18 15:07 | P.PNIM_ITS ---
Progress Note: A&P Assessment and Plan (1) Urinary tract infection: Code(s): N39.0 - Urinary tract infection, site not specified Status: Acute Assessment and Plan: * UA: 3+ protein, 1+ ketones, 3+ blood, 2+ leukocyte esterase, > 100 RBC, and 21-50 WBC. No bacteria were seen on microscopy. * UC obtained on 01/16/2025 * previous micro reviewed * started on Rocephin * Urine culture pending * Urology consulted, appreciate recommendations (2) Right renal stone: Code(s): N20.0 - Calculus of kidney Status: Acute Assessment and Plan: * Abdomen/Pelvis CT: Stone in the right renal pelvis with no hydronephrotic changes and double-J stent. Possible infection around the right ureter. * PRN pain control * Urology consult, appreciate recommendations (3) Lytic bone lesion of right femur: Code(s): M89.8X5 - Other specified disorders of bone, thigh Status: Acute Assessment and Plan: * Abdomen/Pelvis CT: 2 small sclerotic areas in the right femoral neck. Follow- up advised * Outpatient follow-up (4) Hypertension: Code(s): I10 - Essential (primary) hypertension Status: Acute Assessment and Plan: * Patient's blood pressure was reviewed on 01/15 * Blood pressure remains well controlled. * Will continue current medications: Amlodipine, Carvedilol * 150/87 (5) Hyperlipidemia: Code(s): E78.5 - Hyperlipidemia, unspecified Status: Acute Assessment and Plan: * Continue Atorvastatin 80mg Subjective Date/time seen: 01/18/25 15:07 Interval history: 64-year-old male smoker with history of stroke, hypertension, recurrent urolithiasis with status post cystoscopy with right ureteral stent on 01/03/2025 who presented to the emergency department with complaints of right lower abdominal pain. 01/18/2025 Patient sitting uncomfortably in side chair at time of exam. Denies any chest pain, shortness of breath, nausea/vomiting at this time. Still endorses some right lower quadrant abdominal pain, slightly worse today than yesterday. Urology is still following at this time, urine cultures negative for growth. Will add solifenacin for bladder spasm and MiraLax for scheduled bowel regimen. CT abd/pelvis pending to rule out worsening pathology as RLQ abd pain worse today, but pain likely secondary to stent colic pain. Review of Systems Review of Systems: 12 systems were reviewed and are negativ e except for as per HPI. Exam Narrative: General: Well-developed, nontoxic-appearing male in the semi-Heath position in bed. Weight: 82 kg. BMI: 25.9. HEENT: PERRL, EOMI. Sclera anicteric. Oral mucosa moist. Oropharynx clear. Neck: Supple. Respiratory: Lungs are clear to auscultation bilaterally. Cardiovascular: Regular rate and rhythm with S1-S2. Gastrointestinal: Abdomen is soft and nondistended with positive bowel sounds. He is tender to palpation in the right mid to lower quadrant, worse today than yesterday. Some rebound tenderness. No guarding. Skin: Warm and dry. Extremities: No cyanosis, clubbing, or edema. Radial and pedal pulses intact. Neurological: Alert. Cranial nerves 2-12 are grossly intact. No gross focal deficits to casual conversation. Psychiatric: Pleasant and cooperative with normal mood and affect. Judgment and insight intact. Objective Data Vital Signs Vital Signs: Vital Signs - 24 hr 01/17/25 19:47 01/17/25 20:00 01/18/25 05:02 Temperature 98.2 F 98.3 F Pulse Rate 72 71 Respiratory Rate 20 20 Blood Pressure 143/84 H 150/97 H Pulse Oximetry 100 97 Oxygen Delivery Room Air 01/18/25 08:00 01/18/25 08:16 01/18/25 14:00 Temperature 97.9 F Pulse Rate 71 76 Respiratory Rate 16 Blood Pressure 130/73 Pulse Oximetry 98 Oxygen Delivery Room Air Intake/Output Intake/Output: Intake & Output 01/15/25 01/16/25 01/17/25 01/18/25 23:59 23:59 23:59 23:59 Intake Total 2049 1310 1430 Output Total 2400 1300 Balance 2050 -1090 130 Meds/Results Medications: Active Medications Generic Name Dose Route Start Last Admin Trade Name Freq PRN Reason Stop Dose Admin Acetaminophen 650 mg 01/16/25 19:47 01/17/25 05:37 Acetaminophen 325 Mg Tablet PO 650 mg Q6H PRN Administration Mild Pain (1-3) or Fever Amlodipine Besylate 10 mg 01/17/25 09:00 01/18/25 08:16 Amlodipine Besylate 10 Mg Tablet PO 10 mg DAILY ALEXANDRU Administration Atorvastatin Calcium 80 mg 01/17/25 09:00 01/18/25 08:16 Atorvastatin 40 Mg Tablet PO 80 mg DAILY ALEXANDRU Administration Carvedilol 25 mg 01/17/25 09:00 01/18/25 08:16 Carvedilol 25 Mg Tablet PO 25 mg DAILY ALEXANDRU Administration Clonazepam 0.5 mg 01/16/25 22:10 01/17/25 20:06 Clonazepam (*Crx) 0.5 Mg Tablet PO 0.5 mg HS ALEXANDRU Administration Hydromorphone HCl 2 mg 01/17/25 00:00 01/18/25 11:38 Hydromorphone Hcl (*Crx) 2 Mg Tablet PO 2 mg Q6HR ALEXANDRU Administration Hydromorphone HCl 0.5 mg 01/16/25 22:11 01/18/25 14:27 Hydromorphone Hcl Inj (*Crx) 2 Mg/Ml Vial IV PUSH 0.5 mg Q3H PRN Administration Pain Rated 7-10 Ceftriaxone Sodium 1 gm in 50 mls @ 100 mls/hr 01/17/25 17:00 01/17/25 17:37 Rocephin 1 Gm/Ns 50 Ml IVPB Infused Q24H ALEXANDRU Infusion Nicotine 1 patch 01/17/25 13:15 01/18/25 08:16 Nicotine (*Pbkc) 7 Mg Patch TRANSDERM 1 patch DAILY ALEXANDRU Administration Ondansetron HCl 4 mg 01/16/25 18:04 Ondansetron Inj 4 Mg/2 Ml Vial IV PUSH Q4H PRN Nausea Senna/Docusate Sodium 1 tab 01/17/25 09:00 01/18/25 08:16 Senna/Docusate Sodium Tablet PO 1 tab DAILY ALEXANDRU Administration Solifenacin 5 mg 01/18/25 14:20 01/18/25 14:29 Solifenacin 5 Mg Tablet PO 01/25/25 22:00 5 mg QAM ALEXANDRU Administration Tamsulosin HCl 0.4 mg 01/17/25 09:00 01/18/25 08:16 Tamsulosin Hcl 0.4 Mg Capsule PO 0.4 mg DAILY ALEXANDRU Administration Radiology Results: ITS Impressions Abdomen/Pelvis CT 01/16/25 16:04 IMPRESSION: 1. Stone in the right renal pelvis with no hydronephrotic changes and double-J stent. Possible infection around the right ureter. 2. Bilateral renal cysts. 3. No evidence of appendicitis, diverticulitis or intestinal obstruction. 4. Highly suggestive cystitis. 5. Mild fat infiltration of the liver. 6. Bilateral small fat-containing inguinal hernias. 7. 2 small sclerotic areas in the right femoral neck. Follow-up advised Labs Labs: Laboratory Results - last 24 hr 01/18/25 07:41 WBC 12.4 H RBC 4.33 L Hgb 13.4 L Hct 40.4 L MCV 93.3 MCH 30.9 MCHC 33.2 RDW 12.9 Plt Count 201 MPV 10.2 Immature Gran % (Auto) 0.2 Neut % (Auto) 62.5 Lymph % (Auto) 26.7 [place] % (Auto) 7.3 Eos % (Auto) 2.7 Baso % (Auto) 0.6 Lymph # (Auto) 3.31 H [place] # (Auto) 0.9 H Eos # (Auto) 0.3 Baso # (Auto) 0.1 Abs Immat Gran (auto) 0.03 Absolute Neuts (auto) 7.7 H Absolute Nucleated RBC 0.000 Nucleated RBC % 0.0 Sodium 139 Potassium 3.7 Chloride 105 Carbon Dioxide 29 Anion Gap 5 BUN 17 Creatinine 0.61 L Estim Creat Clear Calc 110 Estimated GFR > 60 Glucose 93 Calcium 8.7 Total Bilirubin 0.5 AST 33 ALT 28 Alkaline Phosphatase 59 Total Protein 7.0 Albumin 3.8 Quality VTE Prophylaxis VTE prophylaxis: mechanical ordered
--- NOTE | 2025-01-18 15:19 | P.DS_ITS ---
DS: Admitting Diagnosis Discharge Date 01/18/2025 Admitting Diagnosis Right renal stone Renal colic on right side DS: Discharge Diagnosis Discharge Diagnosis (1) Urinary tract infection: Code(s): N39.0 - Urinary tract infection, site not specified Status: Acute (2) Right renal stone: Code(s): N20.0 - Calculus of kidney Status: Acute (3) Lytic bone lesion of right femur: Code(s): M89.8X5 - Other specified disorders of bone, thigh Status: Acute (4) Hypertension: Code(s): I10 - Essential (primary) hypertension Status: Acute (5) Hyperlipidemia: Code(s): E78.5 - Hyperlipidemia, unspecified Status: Acute DS: Summary Hospital Course Reason for hospitalization: Abdominal pain. Hospital Course: This is a 64-year-old male smoker with history of stroke, hypertension, recurrent urolithiasis with status post cystoscopy with right ureteral stent on 01/03/2025 who presented to the emergency department with complaints of right lower abdominal pain. He was supposed to have lithotripsy last week however was not instructed to hold aspirin and clopidogrel and that has been rescheduled. He endorses ongoing pain since symptom onset but it seems to be getting worse over the last 2 days with sharp shooting pain in the right flank radiating to the groin. It is nearly constant and he gives no significant alleviating factors however Percocet (in addition to his usual dose Dilaudid for chronic pain) has alleviated the pain somewhat. He is having difficulties sleep and had chills this morning. He denies overt dysuria but says he has mild discomfort with urinating. No fever, nausea, vomiting, or diarrhea. In the ED: He was afebrile on arrival with a blood pressure of 165/90. Labs were pretty unremarkable with a WBC count of 10.8. Urinalysis was positive for 3+ protein, 1+ ketones, 3+ blood, 2+ leukocyte esterase, > 100 RBC, and 21-50 WBC. No bacteria were seen on microscopy. CT scan showed a stone in the right renal pelvis with no hydronephrotic changes and double-J stent with possible infection around the right ureter and findings highly suggestive of cystitis. 2 small sclerotic areas noted in the right femoral neck (weight stable, negative colonoscopy in the past, never had an elevated PSA, no pain). Urology was consulted regarding possible UTI and right ureteral stone. Urine cultures were obtained and were negative for any growth. Will be discontinued off IV antibiotics. Renal function remained stable throughout visit. Urology recommended continuing tamsulosin along with adding solifenacin for bladder spasms and MiraLax for scheduled bowel regimen. Otherwise patient's pain has improved over his hospitalization and he is hemodynamically stable at this time and requires no further hospitalization. Patient has an appointment with Dr. Baig of Urology for ESWL. Patient has no other complaints or concerns at this time. Plan for discharge home. Status at Discharge Functional status at discharge: independent ambulation Overall status at discharge: patient is back to baseline Time Spent with Patient Time attestation: Total time spent providing and/or coordinating discharge services: 35 Exam Narrative: General: Well-developed, nontoxic-appearing male in the semi-Heath position in bed. Weight: 82 kg. BMI: 25.9. HEENT: PERRL, EOMI. Sclera anicteric. Oral mucosa moist. Oropharynx clear. Neck: Supple. Respiratory: Lungs are clear to auscultation bilaterally. Cardiovascular: Regular rate and rhythm with S1-S2. Gastrointestinal: Abdomen is soft and nondistended with positive bowel sounds. He is tender to palpation in the right mid to lower quadrant. No guarding. Skin: Warm and dry. Extremities: No cyanosis, clubbing, or edema. Radial and pedal pulses intact. Neurological: Alert. Cranial nerves 2-12 are grossly intact. No gross focal deficits to casual conversation. Psychiatric: Pleasant and cooperative with normal mood and affect. Judgment and insight intact. DS: Data Data Completed and Pending Labs on day of discharge: Labs from last 24 hours 01/18/25 07:41 WBC 12.4 H RBC 4.33 L Hgb 13.4 L Hct 40.4 L MCV 93.3 MCH 30.9 MCHC 33.2 RDW 12.9 Plt Count 201 MPV 10.2 Immature Gran % (Auto) 0.2 Neut % (Auto) 62.5 Lymph % (Auto) 26.7 [place] % (Auto) 7.3 Eos % (Auto) 2.7 Baso % (Auto) 0.6 Lymph # (Auto) 3.31 H [place] # (Auto) 0.9 H Eos # (Auto) 0.3 Baso # (Auto) 0.1 Abs Immat Gran (auto) 0.03 Absolute Neuts (auto) 7.7 H Absolute Nucleated RBC 0.000 Nucleated RBC % 0.0 Sodium 139 Potassium 3.7 Chloride 105 Carbon Dioxide 29 Anion Gap 5 BUN 17 Creatinine 0.61 L Estim Creat Clear Calc 110 Estimated GFR > 60 Glucose 93 Calcium 8.7 Total Bilirubin 0.5 AST 33 ALT 28 Alkaline Phosphatase 59 Total Protein 7.0 Albumin 3.8 Preliminary micro results at discharge 01/16/25 18:32 Blood Culture - Preliminary Blood 01/16/25 18:32 Blood Culture - Preliminary Blood Discharge Plan Discharge Attending physician on discharge: Isai Gilmore Consulting providers: Michael Dudley; Patircio Doherty Discharging Clinician: Patricio Doherty Anticipated Discharge Date/Time: 01/18/25 15:16 Patient Disposition: Home Activity: as tolerated Diet: as tolerated Discharge Instructions: Take all medications as prescribed even if feeling better Eat well balanced meals and stay hydrated Keep active to remain strong If you should experience any chest pain, shortness of breath, temps >100.4 or any other worrisome symptoms please follow up with your PCP come back to the hospital Follow up with your primary in 2-3 weeks You are scheduled for a right ESWL with Dr. Baig on 02/04/2025, call their office regarding confirmation of this appointment and any medication changes which may be needed before the procedure. It has been a pleasure taking care of you thank you for using our services Patient Instructions: Antibiotic Form Patient Language: Lithuanian Stand Alone Forms: General Discharge Information Follow-up/Referrals: Sunny Baig MD [Physician] - 02/04/25 7:30 am (Right ESWL) Discharge Medications: New acetaminophen [Tylenol Extra Strength] 500 mg tablet 1,000 mg PO Q6H PRN (Reason: pain) 2 Days Qty: 16 0RF Continued hydromorphone 2 mg tablet 2 mg PO Q6H atorvastatin 80 mg Tablet 80 mg PO DAILY Patient Comments: PT TAKES IN AM clopidogrel 75 mg Tablet 75 mg PO DAILY Patient Comments: TAKES IN AM tamsulosin 0.4 mg capsule 0.4 mg PO DAILY sennosides-docusate sodium [Senokot-S] 8.6-50 mg Tablet 1 tab PO DAILY carvedilol 25 mg Tablet 25 mg PO DAILY Rx Instructions: must administer with a meal/food clonazepam 0.5 mg Tablet 0.5 mg PO HS Rx Instructions: administer 30 minutes before bedtime amlodipine 10 mg Tablet 10 mg PO DAILY aspirin [Children's Aspirin] 81 mg Tablet,Chewable 81 mg PO DAILY@0800 30 Days Qty: 30 0RF Date of admission: 01/17/25 09:48 Primary Care Provider: Alcon,Ciro Hopper Admitting Provider: Arash Vaqsuez Attending physician on admission: Arash Vasquez Condition: Stable Quality VTE Prophylaxis VTE prophylaxis: mechanical ordered
== END 2025-01-18 16:50 | disposition home or self-care (01) | DRG 699 ==
LOC: ANHED 18:04 → ANH2MED 18:56
PROVIDERS: Physician Assistant; Admitting Provider General Practice; Emergency Provider Registered Nurse; PCP Emergency Medicine; Visit Provider Physician Assistant
DX: T83.84XA Pain due to genitourinary prosthetic devices, implants and grafts, initial encounter (principal); I69.354 Hemiplegia and hemiparesis following cerebral infarction affecting left non-dominant side; N20.1 Calculus of ureter; E78.5 Hyperlipidemia, unspecified; I10 Essential (primary) hypertension; M89.551 Osteolysis, right thigh; R10.31 Right lower quadrant pain; F17.290 Nicotine dependence, other tobacco product, uncomplicated; Z79.02 Long term (current) use of antithrombotics/antiplatelets; Z98.1 Arthrodesis status; Z79.82 Long term (current) use of aspirin
CPT/HCPCS: 36415; 74177; 80048; 80053; 81001; 83605; 83690; 83735; 85025; 85027; 85610; 85730; 86140; 87040; 87086; 96361; 96365; 96375; 96376; 99285; A9270; G0378; J0696; J1171; J1885; J2270; J7030; Q9967

== ENCOUNTER 2025-01-27 11:47 | Emergency (ER) | payer MEDICARE, SELFPAY ==
--- NOTE | ~2025-01-27 | CT_ITS ---
EXAMINATION: CT abdomen pelvis w con DATE: 01/27/2025 12:46 INDICATION: Right flank pain TECHNIQUE: Computed tomography (CT) of the abdomen and pelvis was performed with 100 cc Omnipaque 350 intravenous contrast. The dose-length product was 345.11 mGy-cm. Automated exposure control and iter ative reconstruction technique were employed. COMPARISON: CT dated 01/16/2025. FINDINGS: Lung bases unremarkable. Heart size normal. No significant pleural or pericardial effusion. There is a right internal ureteral stent in expected position. There is right hydronephrosis with pe riureteral stranding. Cannot exclude ascending urinary tract infection. Fatty infiltration of the liver. Gallbladder is contracted. There are calcified granulomas of the spl een. The pancreas, adrenal glands are unremarkable. There are bilateral renal cysts. Nonobstructive b owel gas pattern. There are mildly dilated small bowel loops in the left upper abdomen with air-fluid levels which may reflect ileus or partial obstruction. There is a fat-containing left inguinal herni a. Colonic diverticulosis without evidence For acute diverticulitis. IMPRESSION: 1. Moderate right hydronephrosis with periureteral stranding. Right internal ureteral stent in expect ed position. Cannot exclude ascending urinary tract infection. 2: Mildly dilated small bowel left upper abdomen with air-fluid levels. Considerations include ileus and partial obstruction. Reviewed, dictated and finalized at location A. IMPRESSION: 1. Moderate right hydronephrosis with periureteral stranding. Right internal ur eteral stent in expected position. Cannot exclude ascending urinary tract infec tion. 2: Mildly dilated small bowel left upper abdomen with air-fluid levels. Conside rations include ileus and partial obstruction.
[2025-01-27 11:52] VITALS: BP 128/81; PULSE 80; RESP 16; TEMP 36.4; O2SAT 100
[2025-01-27 12:15] LABS: Basophils Absolute Auto 0.1 K/mm3 (0.0-0.1); Basophils Percent Auto 0.6 % (0.2-1.2); Eosinophils Absolute Auto 0.2 K/mm3 (0-0.3); Eosinophils Percent Auto 1.5 % (0-4.4); Hemoglobin 14.6 g/dL (14.0-18.0); Immature Granulocyte Absolute 0.03 K/mm3 (0.00-0.031); Immature Granulocyte Percent A 0.3 % (0-0.5); Lymphocytes Absolute Auto 2.66 K/mm3 (0.9-3.2); Lymphocytes Percent Auto 22.8 % (18.3-44.2); Mean Corpuscular HGB Conc 33.2 g/dl (32-36); Mean Corpuscular Hemoglobin 30.7 pg (26-34); Mean Corpuscular Volume 92.4 fl (80-100); Mean Platelet Volume 10.3 fl (7.4-10.4); Monocytes Percent Auto 8.1 % (2.6-8.5); Neutrophils Absolute Auto 7.8 K/mm3 (1.3-6.7); Neutrophils Percent Auto 66.7 % (45.5-73.1); Platelet Count Result 209 k/mm3 (150-375); Red Blood Count 4.76 M/mm3 (4.6-6.20); White Blood Count 11.7 K/mm3 (4.5-10.0)
[2025-01-27 12:28] LABS: Alanine Aminotransferase 33 U/L (6-50); Albumin Level 4.6 g/dL (3.5-5.1); Alkaline Phosphatase 62 U/L (38-126); Anion Gap 10 mmol/L (4-12); Aspartate Amino Transferase 31 U/L (17-59); Bilirubin,Total 0.5 mg/dL (0.2-1.3); Blood Urea Nitrogen 20 mg/dL (9-20); Carbon Dioxide 26 mmol/L (22-30); Chloride 107 mmol/L (98-107); Estimated CRCL calculation 89 ml/min; Estimated Glomerular Filt Rate > 60; Glucose 101 mg/dL (65-110); Lipase 109 U/L (23-300); Potassium 3.8 mmol/L (3.4-5.0); Sodium 143 mmol/L (137-145); Total Protein 7.8 g/dL (6.3-8.2)
--- NOTE | 2025-01-27 12:34 | ED.GENADULT ---
HPI - General Adult General Chief complaint: Abdominal Pain Stated complaint: abd/flank pain Time Seen by Provider: 01/27/25 11:59 History of Present Illness HPI narrative: 64-year-old male present to the emergency department for evaluation for right flank and right lower quadrant abdominal pain. Patient does have a known ureteral stent in place that is been placed by our Urology approximately December 29. Patient is scheduled to have lithotripsy on February 04. Patient was evaluated emergency department approximately a week ago and admitted for concern for possible underlying infection. Patient is not currently taking any antibiotics. Patient states after his discharge he did have improvement his symptoms but states since he has had worsening right lower quadrant pain. Patient does have some hematuria with this. Patient had previously been taking clopidogrel but has since stopped the since having the stent Related Data Home Medications ?Medication ?Instructions ?Recorded ?Confirmed ?Last Taken ?Type amlodipine 10 mg tablet 10 mg PO DAILY 05/21/23 01/16/25 01/15/25 09:00 History carvedilol 25 mg tablet 25 mg PO DAILY 05/21/23 01/16/25 01/15/25 09:00 History clonazepam 0.5 mg tablet 0.5 mg PO HS 05/21/23 01/16/25 01/15/25 21:00 History tamsulosin 0.4 mg capsule 0.4 mg PO DAILY 10/07/23 01/16/25 01/10/25 History atorvastatin 80 mg tablet 80 mg PO DAILY 12/30/24 01/16/25 01/15/25 09:00 History clopidogrel 75 mg tablet 75 mg PO DAILY 12/30/24 01/16/25 01/10/25 20:07 History hydromorphone 2 mg tablet 2 mg PO Q6H 12/30/24 01/16/25 01/14/25 09:00 History sennosides 8.6 mg-docusate sodium 1 tab PO DAILY 01/16/25 01/16/25 Unknown History 50 mg tablet (Senokot-S) Allergies Allergy/AdvReac Type Severity Reaction Status Date / Time codeine AdvReac Unknown Gastrointestinal Verified 12/31/24 14:29 Upset Review of Systems Review of Systems: All systems reviewed & are unremarkable except as noted in HPI and below PMFSH Past Medical History Medical History (Updated 01/27/25 @ 14:41 by Tc Pacheco MD) Ischemic stroke Residual left-sided weakness. Hyperlipidemia Hypertension Ureterolithiasis Surgical History Surgical History (Updated 01/16/25 @ 20:49 by Meg Johnston PA-C) History of fusion of cervical spine History of urethral stent History of cystoscopy Family History Family History Mother Cerebrovascular accident Father Heart disease Social History Social History (Updated 01/16/25 @ 20:51 by Meg Johnston PA-C) Social History: Surrogate medical decision maker: Kyra Xiong, spouse. Code status: Full code. Smoking packs per day: 1 Smoking cigarettes per day: 20.0 Years smoked: 40 Smoking pack-years: 40.00 Tobacco type: e-cigarettes/vaping Additional smoking assessment comments: no longer smoking cigarettes, uses vape exclusively Alcohol intake: current Drinks per week: 1 Alcohol use details: rare alcohol use in moderation Substance use: never Substance use type: does not use Do You Feel Safe in your Home?: Yes Lack of Transportation: No Lack of Food: Never True Current Housing: I Have Housing Concerned About Future Housing: No Difficulty Paying Gas/Electric Bills: No Difficulty Paying for Meds: No Currently Unemployed: No Education: Grade School Difficulty w/ Childcare or Family Care: No Living arrangements: with family Additional living arrangements comments: Lives with spouse in [place]. 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 Spiritual care concerns: No Exam Narrative: APPEARANCE: Uncomfortable appearing HEAD: normocephalic, atraumatic. EYES: PERRLA/EOMI, conjunctivae clear. NOSE: Normal no drainage EARS:TMS clear with good light reflex. THROAT: Pharynx clear, no exudate. NECK: Supple. No adenopathy, no masses. RESPIRATORY: Airway patent, respirations nonlabored. Clear to auscultation bilaterally, no rales, rhonchi, wheezing. CARDIOVASCULAR: Regular rate and rhythm without murmurs rubs or gallops. ABDOMINAL: Right lower quadrant and right flank pain with tenderness to palpation MUSCULOSKELETAL: Moves all extremities. Strength/ROM intact, No edema, No calf tenderness. NEURO: Alert. Cranial nerves II through XII intact. Good gait. Good coordination SKIN: Warm, dry. Normal Color Course Vital Signs Vital signs: Vital Signs Temperature 97.6 F 06/05/25 11:52 Pulse Rate 80 01/27/25 11:52 Respiratory Rate 16 01/27/25 11:52 Blood Pressure 128/81 01/27/25 11:52 Pulse Oximetry 100 01/27/25 11:52 Oxygen Delivery Room Air 01/27/25 11:52 Temperature 97.6 F 01/27/25 15:06 Pulse Rate 75 01/27/25 15:06 Respiratory Rate 16 01/27/25 15:06 Blood Pressure 118/75 01/27/25 15:06 Pulse Oximetry 100 01/27/25 15:06 Oxygen Delivery Room Air 01/27/25 11:52 Medical Decision Making MDM Narrative Medical decision making narrative: 62-year-old male present to the emergency department for evaluation for right lower quadrant pain and persistent hematuria. Patient does have a current ureteral stent on that right side. Patient is currently afebrile does have a leukocytosis of 11.7 which is similar to his white blood cell count on his last visit patient's hemoglobin is 14.6. Patient has normal kidney function with a creatinine of 0.77 with no other acute abnormalities on his CMP urine also looks similar to his previous UA. Was positive for blood and leukocyte esterase positive negative for squamous negative for bacteria and nitrate negative. Urine culture was ordered. CT scan showed moderate right hydronephrosis appear ureteral stranding. Right internal ureteral stent suspected position. Cannot exclude a send ureteral tract infection. Urine does not appear to be infected but urine culture was ordered and patient will be started on antibiotics. I discussed the case with Urology and they were comfortable the patient being discharged home with the addition of oxybutynin. Patient will be treated with a dose of IV Rocephin the emergency department discharged home on Keflex. Differential Diagnosis Differential Diagnosis: Urinary tract infection, ureteral stent pain, cystitis, appendicitis, colitis, diverticulitis Vital Signs Vital Signs: Vital Signs Temperature 97.6 F 01/27/25 11:52 Pulse Rate 80 01/27/25 11:52 Respiratory Rate 16 01/27/25 11:52 Blood Pressure 128/81 01/27/25 11:52 Pulse Oximetry 100 01/27/25 11:52 Oxygen Delivery Room Air 01/27/25 11:52 Temperature 97.6 F 01/27/25 15:06 Pulse Rate 75 01/27/25 15:06 Respiratory Rate 16 01/27/25 15:06 Blood Pressure 118/75 01/27/25 15:06 Pulse Oximetry 100 01/27/25 15:06 Oxygen Delivery Room Air 01/27/25 11:52 Lab Data Lab results reviewed: Yes I reviewed the patient's lab results. 01/27/25 12:07 01/27/25 12:07 Labs: Lab Results 01/27/25 01/27/25 Range/Units 12:07 13:24 WBC 11.7 H (4.5-10.0) K/mm3 RBC 4.76 (4.6-6.20) M/mm3 Hgb 14.6 (14.0-18.0) g/dL Hct 44.0 (42.0-52.0) % MCV 92.4 (80-100) fl MCH 30.7 (26-34) pg MCHC 33.2 (32-36) g/dl RDW 13.0 (11.5-14.5) % Plt Count 209 (150-375) k/mm3 MPV 10.3 (7.4-10.4) fl Immature Gran % (Auto) 0.3 (0-0.5) % Neut % (Auto) 66.7 (45.5-73.1) % Lymph % (Auto) 22.8 (18.3-44.2) % [place] % (Auto) 8.1 (2.6-8.5) % Eos % (Auto) 1.5 (0-4.4) % Baso % (Auto) 0.6 (0.2-1.2) % Lymph # (Auto) 2.66 (0.9-3.2) K/mm3 [place] # (Auto) 1.0 H (0.1-0.6) K/mm3 Eos # (Auto) 0.2 (0-0.3) K/mm3 Baso # (Auto) 0.1 (0.0-0.1) K/mm3 Abs Immat Gran (auto) 0.03 (0.00-0.031) K/mm3 Absolute Neuts (auto) 7.8 H (1.3-6.7) K/mm3 Absolute Nucleated RBC 0.000 (0.0-0.012) K/mm3 Nucleated RBC % 0.0 (0.0-0.2) % Sodium 143 (137-145) mmol/L Potassium 3.8 (3.4-5.0) mmol/L Chloride 107 (98-107) mmol/L Carbon Dioxide 26 (22-30) mmol/L Anion Gap 10 (4-12) mmol/L BUN 20 (9-20) mg/dL Creatinine 0.77 (0.7-1.3) mg/dL Estim Creat Clear Calc 89 ml/min Estimated GFR > 60 (59 - ) Glucose 101 (65-110) mg/dL Calcium 10.0 (8.4-10.2) mg/dL Total Bilirubin 0.5 (0.2-1.3) mg/dL AST 31 (17-59) U/L ALT 33 (6-50) U/L Alkaline Phosphatase 62 (38-126) U/L Total Protein 7.8 (6.3-8.2) g/dL Albumin 4.6 (3.5-5.1) g/dL Lipase 109 (23-300) U/L Urine Color Yellow (Yellow) Urine Appearance Cloudy H (Clear) Urine pH 6.5 (5.0-9.0) Ur Specific [place] > 1.045 H (1.001-1.035) Urine Protein 3+ H (Negative) mg/dL Urine Glucose (UA) Negative (Negative) mg/dL Urine Ketones Negative (Negative) mg/dL Ur Blood (Man) 3+ H (Negative) Urine Nitrate Negative (Negative) Urine Bilirubin Negative (Negative) Urine Urobilinogen 1.0 (<2.0) mg/dL Add Ur Microanalysis Reviewed Leukocyte Esterase Rfl 2+ H (Negative) MICK/UL Urine RBC >100 H (0-2) /hpf Urine WBC 21-50 H (0-3) /hpf Ur Squamous Epith Cells None seen (Few) /hpf Calcium Oxalate Crystal Present (None) /hpf Urine Bacteria None seen /hpf Urine Casts 3-5 Imaging Data Radiologist's impression: Impressions Abdomen/Pelvis CT 01/27/25 12:50 IMPRESSION: 1. Moderate right hydronephrosis with periureteral stranding. Right internal ureteral stent in expected position. Cannot exclude ascending urinary tract infection. 2: Mildly dilated small bowel left upper abdomen with air-fluid levels. Considerations include ileus and partial obstruction. Discharge Plan Discharge Clinical Impression: Acute right flank pain, Abnormal urinalysis Patient Disposition: Home Condition: Stable Instructions: Antibiotic Form Additional Instructions: Antibiotic as directed until completed. Oxybutynin for spasm. [place] as needed for pain control. Continue to have close follow-up with Urology. Patient Language: Moldovan Prescriptions: New hydrocodone-acetaminophen 5-325 mg tablet 1 tablet PO Q12H PRN (Reason: pain) Qty: 14 0RF oxybutynin chloride 2.5 mg tablet 2.5 mg PO BID Qty: 14 0RF cephalexin 500 mg capsule 500 mg PO Q8H 7 Days Qty: 21 0RF No Action hydromorphone 2 mg tablet 2 mg PO Q6H atorvastatin 80 mg Tablet 80 mg PO DAILY Patient Comments: PT TAKES IN AM clopidogrel 75 mg Tablet 75 mg PO DAILY Patient Comments: TAKES IN AM tamsulosin 0.4 mg capsule 0.4 mg PO DAILY sennosides-docusate sodium [Senokot-S] 8.6-50 mg Tablet 1 tab PO DAILY acetaminophen [Tylenol Extra Strength] 500 mg tablet 1,000 mg PO Q6H PRN (Reason: pain) 2 Days Qty: 16 0RF carvedilol 25 mg Tablet 25 mg PO DAILY Rx Instructions: must administer with a meal/food clonazepam 0.5 mg Tablet 0.5 mg PO HS Rx Instructions: administer 30 minutes before bedtime amlodipine 10 mg Tablet 10 mg PO DAILY aspirin [Children's Aspirin] 81 mg Tablet,Chewable 81 mg PO DAILY@0800 30 Days Qty: 30 0RF Follow-up/Referrals: Alcon,Ciro Hopper MD [Primary Care Provider] -
[2025-01-27] MEDS: HYDROmorphone HCL INJ (*CRX) 2 MG/ML VIAL 0.5 MG IV PUSH (12:36)
--- OUTSIDE RECORDS SUMMARY | 2025-01-27 12:41 | XMS_ITS | Patient Health Record ---
Author Organization [facility] Address [address] [place] [address] Care Team Providers Care General Adjuster Name Role Phone Alcon MALDONADO, Ciro Primary [...] Coverage End Date A[employer] Medicare [address] [place], [place] [id number] Chung Xiong Self - patient is the insured Medical (General) History Medical History History ICD Code Arthritis Anxiety Depression Hypertension Neuropathy/RLS Low back/leg pain Past heavy alcohol use chronic tobacco use Surgical History Surgery Date(Month/Year) spine surgery 2012
--- OUTSIDE RECORDS SUMMARY | 2025-01-27 12:41 | XMS_ITS | Clinical Summary ---
Author Organization [facility] Address [address] [place] [address] Care Team Providers Care [employer] Professional Name Role Phone Unavailable Primary Care Provider Unavailabl e Source Comments [facility],non-owned Affiliates and Associated Physician Practices is amultiple site organization consisting of ambulatory clinics and hospital sitesin [place], [place], [place] and [place]. This disclosure is being madepursuant to the Care Everywhere program and may not contain all information available regarding this patient. Last updated 18.[facility] Allergies No known active allergies Medications * [...] care, and heating? Not very hard 06/27/2024 [facility] [place] [facility] - Occupational Stress [...] time in the past 12 m [facility], were you homeless or living in a custodial (including now)? 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 Gender Identity Not on file Sexual Orientation Not on file Last Filed Vital Signs Vital Sign Reading Time Taken Comments Blood Pressure 146/89 07/02/2024 8:01 AM GEOPHYSICS SCIENTIST Pulse 68 07/02/2024 8:01 AM GEOPHYSICS SCIENTIST Temperature 36.6 C (97.9 F) 07/02/2024 8:01 AM GEOPHYSICS SCIENTIST Respiratory Rate 18 07/02/2024 8:01 AM GEOPHYSICS SCIENTIST Oxygen Saturation 100% 07/02/2024 8:01 AM GEOPHYSICS SCIENTIST Inhaled Oxygen Concentration - - Weight 90.7 kg (200 lb) 06/17/2024 11:00 AM CDT from 2019 Height 177.8 cm (5' 10) 06/17/2024 11:00 AM CDT Body Mass Index 28.7 06/17/2024 11:00 AM CDT Plan of Treatment Health Maintenance Due Date Last Done Comments COLOGUARD (AGES 45-75) - COL ON CA SCREENING [address] CT COLONOGRAPHY - COLON CA SCREENING [...] 2023-2 5 season) 2024 DEPRESSION SCREENING 08/25/2024 MEDICARE AWV CALENDAR YEAR 2024 INFLUENZA VACCINE (Season Ended) 2025 05/24/2020 LIPID TESTING 06/19/2029 06/19/2024, 03/16/2024, 05/18/2023 COLON MONITORING 12/29/2030 12/29/2020 COLONOSCOPY - COLON CA SCREENING 12/29/2030 12/29/2020 [...] (ABNORMAL) LIPID PROFILE (06/19/2024 6:12 AM CDT) Cholesterol 111 <200 mg/dL 06/19/2024 6:59 AM CDT [facility] Triglycerides 45 <150 mg/dL 06/19/2024 6:59 AM CDT [facility] HDL Cholesterol 40(L) >40 mg/dL 6:59 AM CDT [facility] Chol HDL Ratio 2.8 1.0 - 6.0 06/19/2024 6:59 AM T [facility] LDL Calculated 62(L) 65 - 130 mg/dL 06/19/2024 6:59 AM T [facility] VLDL Calculated 9 <=30 mg/dL 6:59 AM T [facility] Blood BLOOD SPECIMEN / Unknown Lab Venipuncture / Unknown 06/19/2024 6:12 AM CDT 06/19/2024 6:28 AM CDT Narrative [facility] - 06/19/2024 6:59 AM CDT [...] LAB - CHEMISTRY ORDERABLES Luz l Result [facility] [address], [place] [address] * HEPATITIS C ANTIBODY (01/05/2015 1:55 PM CDT) [facility] Hepatitis C Antibody Non-react [facility] Comment: Hepatitis C Antibody screen indicates [...] PM CDT 01/05/2015 3:17 PM CDT Patrick Duckworth MD LAB - CHEMISTRY ORDERABLE S Final Result Performing Organization Address City/[facility]/ZIP Co de Phone Number [address] [phone] from Last 3 Months or Most Recently Relevant to Health Maintenance Insurance AETNA AETNA MEDICARE ADV Advance Directives * Full Code (Latest Code Status on File) Date Activated Date Inactivated Comments 06/27/2024 5:58 PM 07/02/2024 12:49 PM * Full Code Date Activated Date Inactivated Comments 06/16/2024 11:14 AM 06/20/2024 7:50 PM
--- OUTSIDE RECORDS SUMMARY | 2025-01-27 12:42 | XMS_ITS | Patient Health Record ---
Author Organization [facility] Address [address] [place] [address] Care Team Providers Care Wiping Rag Washer Name Role Phone Isiah Rondon MD Primary Care Provider Unavailab Bhavna Singh Unavailable [phone] Allergies Allergen (clinical drug ingredient) Drug/Non Drug [...] Problem Status W/U Status Risk Notes Problem [id number] Hammer toe of left foot (M20.42) Active confirmed Plan Of Treatment No Information Insurance Providers Payer Name Payer Address Payer Phone Subscriber Number Group Number Insured Name Patient Relationship to Insured Coverage Start Date Coverage End Date Aet[employer] [address] [place], [place] [id number] Chung Xiong Self - patient is the insured Medical (General) History Medical History History ICD Code low back pain depression anxiety disorder COPD hyperlipidemia hypertension actinic keratosis calculus of kidney ADHD opioid dependence Surgical History Surgery Date(Month/Year) spinal fusion
[2025-01-27 13:49] LABS: Add Urine Microscopic? YES; Appearance Urine Cloudy (Clear); Bacteria Urine None Seen /hpf; Bilirubin Urine Negative (Negative); Blood Urine 3+ (Negative); Calcium Oxalate Crystals Urine Present /hpf; Color Urine Yellow (Yellow); Glucose Urine UA Negative (Negative); Ketones Urine Negative (Negative); Leukocyte Esterase Ur 2+ LEU/UL (Negative); Need Manual Microscopic Reviewed; Nitrate Urine Negative (Negative); Protein Urine 3+ mg/dL (Negative); RBC Urine >100 /hpf (0-2); Specific Grav Ur > 1.045 (1.001-1.035); Squamous Epithelial Cell Urine None Seen /hpf (Few); WBC Urine 21-50 /hpf (0-3); pH Urine 6.5 (5.0-9.0)
[2025-01-27] MEDS: HYDROcodone/acetaminophen (*CRX) 5-325 MG TABLET 1 TAB PO (14:55)
[2025-01-27] MEDS: oxyBUTYnin CHLORIDE 2.5 MG TAB PO (14:55)
[2025-01-27 15:06] VITALS: BP 118/75; PULSE 75; RESP 16; TEMP 36.4; O2SAT 100
== END 2025-01-27 15:08 | disposition home or self-care (01) ==
PROVIDERS: Emergency Medicine; Emergency Provider Emergency Medicine; PCP Emergency Medicine
DX: R10.31 Right lower quadrant pain (principal); R82.90 Unspecified abnormal findings in urine; I10 Essential (primary) hypertension; E78.5 Hyperlipidemia, unspecified; Z86.73 Personal history of transient ischemic attack (TIA), and cerebral infarction without residual deficits; F17.210 Nicotine dependence, cigarettes, uncomplicated
CPT/HCPCS: 36415; 74177; 80053; 81001; 83690; 85025; 87086; 96365; 96375; 99284; A9270; J0696; J1171; Q9967

== ENCOUNTER 2025-02-04 02:10 | Day surgery (SDC) | payer MEDICARE, SELFPAY ==
--- NOTE | 2025-01-11 06:43 | PM.HPGS ---
History of Present Illness History of Present Illness Consent: Risks, benefits, and alternatives have been discussed and questions answered. Patient agrees to proceed with procedure. Chief complaint: Rt Ureteral Stone Narrative: Chung Xiong is a 64 year old male with hx. recurrent urolithiasis. On 01/03/25 developed right flank pain and imaging demonstrated 14mm right proximal ureteral stone. RIght ureteral stent placed that day nad now presents for right ESWL. Review of Systems Cardiovascular: Cardiovascular: Denies chest pain, Denies lightheadedness, Denies palpitations and Denies dyspnea Respiratory: Respiratory: Denies dyspnea Gastrointestinal: Gastrointestinal: Denies diarrhea, Denies nausea and Denies vomiting Genitourinary: Genitourinary: Denies hematuria and Denies dysuria Endocrine: Endocrine: Denies palpitations [facility] Social History Social History Smoking packs per day: 1 Smoking cigarettes per day: 20.0 Years smoked: 40 Smoking pack-years: 40.00 Smoking status: Current every day smoker Additional smoking assessment comments: requesting nicotine patch Alcohol intake: current Drinks per week: 1 Alcohol use details: RARE Substance use: never Substance use type: does not use Do You Feel Safe in your Home?: Yes Lack of Transportation: No Lack of Food: Never True Current Housing: I Have Housing Concerned About Future Housing: No Difficulty Paying Gas/Electric Bills: No Difficulty Paying for Meds: No Currently Unemployed: No Education: Decline to Answer Difficulty w/ Childcare or Family Care: No Living arrangements: with family Additional living arrangements comments: SON Spiritual care concerns: No Meds Home Medications and Allergies Home Medications ?Medication ?Instructions ?Recorded ?Confirmed ?Type amlodipine 10 mg tablet 10 mg PO DAILY 05/21/23 12/30/24 History carvedilol 25 mg tablet 25 mg PO DAILY 05/21/23 12/30/24 History clonazepam 0.5 mg tablet 0.5 mg PO HS 05/21/23 12/30/24 History aspirin 81 mg chewable tablet 81 mg PO DAILY@0800 30 days #30 06/02/23 12/30/24 Rx (Children's Aspirin) tabs sennosides 8.6 mg-docusate sodium 1 tab PO HS #30 caplets 06/02/23 12/30/24 Rx 50 mg tablet (Senokot-S) tamsulosin 0.4 mg capsule 0.4 mg PO DAILY 10/07/23 12/30/24 History atorvastatin 80 mg tablet 80 mg PO DAILY 12/30/24 12/30/24 History clopidogrel 75 mg tablet 75 mg PO DAILY 12/30/24 12/30/24 History hydromorphone 2 mg tablet 2 mg PO Q6H 12/30/24 12/30/24 History oxycodone 5 mg tablet,oral ONLY 5 mg PO Q4H PRN pain #20 ea 12/31/24 Rx (not feeding tubes) (RoxyBond) Allergies Allergy/AdvReac Type Severity Reaction Status Date / Time codeine AdvReac Unknown Gastrointestinal Verified 12/31/24 14:29 Upset Exam Const: General: no acute distress Resp: Effort & Inspection: normal respiratory effort GI: Inspection: non-distended GI Palp: No abdominal tenderness and No Guarding due to palpation present (GI) Auscultation: normal bowel sounds Assessment and Plan Assessment and plan (1) Right ureteral stone: Code(s): N20.1 - Calculus of ureter Status: Acute Assessment and Plan: Right ESWL
[2025-01-28 13:09] VITALS: BMI 25.9
--- NOTE | 2025-01-28 13:15 | PC.NURSE ---
Report to the Outpatient Waiting Room, entrance under the green pavilion located off [facility], at time _0600_ on date _[id number]_. Planned Procedure Time: _0730_.? Time changes happen often and if your time is changed the preop area will call you the afternoon before. - You and your visitor will be asked to self-screen and do not enter if you have any COVID symptoms. Please call surgeon if you need to reschedule. - A mask is optional within the hospital at this time. Patients may have clear liquids (water, carbonated beverages, clear teas, apple juice) until 3 hours prior to surgery with a maximum of 20 ounces. - No food from midnight until time of surgery and no smoking, or chewing tobacco (or any form of nicotine). No chewing gum, candy or mints. Take only the following medications with a SIP of water on the morning of surgery: __Amlodipine, Carvidilol and Cephalexin. DO NOT STOP ANY OF YOUR OTHER PRESCRIPTION MEDICATIONS PRIOR TO SURGERY EXCEPT THE FOLLOWING Hold all vitamins and supplements for 3 days per anesthesiologist. Medications to discontinue per physician __Has been holding Aspirin and Plavix since stent placed on [id number] Date to take last dose Please no make-up, nail korean, hairspray, perfume, deodorant, or body powder the day of surgery.? No jewelry (including any body piercings) or valuables the day of surgery, leave them at home.? Please take a shower or bath the night before, or the morning of, surgery with an antibacterial soap.? Wear comfortable, loose fitting clothing.? - Jewelry must be removed prior to entering the operating room.? Rings and piercings that are not removed may be cut off. - The hospital will not accept responsibility for valuables.? - Please leave all valuables, including medications, at home the day of surgery. If you are going home after surgery, a licensed delivery truck driver must drive you home.? - NO public transportation without another adult if you receive anesthesia. - We recommend that an adult stay with you for 24 hours following discharge. - We also recommend that you do not drive, make important decision, drink alcoholic beverages, or take any drugs that were not prescribed by your health care provider for at least 24 hours after your discharge time. Follow any additional instructions given to you from your surgeon. Telephone instructions given to __Don__and asked if any additional questions and then verbalized understanding. Patient advised to call surgeon office or pre surgery nurse liaison [phone] if any additional questions.
--- NOTE | 2025-02-02 06:43 | PM.HPGS ---
History of Present Illness History of Present Illness Consent: Risks, benefits, and alternatives have been discussed and questions answered. Patient agrees to proceed with procedure. Chief complaint: Rt Ureteral Stone Narrative: Chung Xiong is a 64 year old male with hx. recurrent urolithiasis. 12/30/2024 - Acute add-on per Kevin PEREZ for evaluation of 14mm obstructing right proximal ureteral stone with severe hydronephrosis identified on 12/29/24 CT imaging at [facility] ([place], [place]). Patient has been in severe pain x24hrs. Right stent placed 12/30. Review of Systems Review of Systems: All systems reviewed & are unremarkable except as noted in HPI and below Cardiovascular: Cardiovascular: Denies chest pain, Denies lightheadedness, Denies palpitations and Denies dyspnea Respiratory: Respiratory: Denies dyspnea Gastrointestinal: Gastrointestinal: Denies diarrhea, Denies nausea and Denies vomiting Genitourinary: Genitourinary: Denies hematuria and Denies dysuria Endocrine: Endocrine: Denies palpitations [facility] Past Medical History Medical History (Updated 01/28/25 @ 00:00 by Chencho Swenson) Ischemic stroke Residual left-sided weakness. Hyperlipidemia Hypertension Ureterolithiasis Surgical History Surgical History (Updated 01/16/25 @ 20:49 by Meg Johnston PA-C) History of fusion of cervical spine History of urethral stent History of cystoscopy Family History Family History Mother Cerebrovascular accident Father Heart disease Social History Social History (Updated 01/16/25 @ 20:51 by Meg Johnston PA-C) Social History: Surrogate medical decision maker: Kyra Xiong, spouse. Code status: Full code. Smoking packs per day: 1 Smoking cigarettes per day: 20.0 Years smoked: 40 Smoking pack-years: 40.00 Tobacco type: cigarettes and e-cigarettes/vaping Smoking end date: 11/28/24 Additional smoking assessment comments: no longer smoking cigarettes, uses vape exclusively Alcohol intake: current Drinks per week: 1 Alcohol use details: rare alcohol use in moderation Substance use: never Substance use type: does not use Do You Feel Safe in your Home?: Yes Lack of Transportation: No Lack of Food: Never True Current Housing: I Have Housing Concerned About Future Housing: No Difficulty Paying Gas/Electric Bills: No Difficulty Paying for Meds: No Currently Unemployed: No Education: Grade School Difficulty w/ Childcare or Family Care: No Living arrangements: with family Additional living arrangements comments: Lives with spouse in [place]. 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 Spiritual care concerns: No Meds Home Medications and Allergies Home Medications ?Medication ?Instructions ?Recorded ?Confirmed ?Type amlodipine 10 mg tablet 10 mg PO DAILY 05/21/23 01/28/25 History carvedilol 25 mg tablet 25 mg PO DAILY 05/21/23 01/28/25 History clonazepam 0.5 mg tablet 0.5 mg PO HS 05/21/23 01/28/25 History aspirin 81 mg chewable tablet 81 mg PO DAILY@0800 30 days #30 06/02/23 01/28/25 Rx (Children's Aspirin) tabs tamsulosin 0.4 mg capsule 0.4 mg PO DAILY 10/07/23 01/28/25 History atorvastatin 80 mg tablet 80 mg PO DAILY 12/30/24 01/28/25 History clopidogrel 75 mg tablet 75 mg PO DAILY 12/30/24 01/28/25 History hydromorphone 2 mg tablet 2 mg PO Q6H 12/30/24 01/28/25 History sennosides 8.6 mg-docusate sodium 1 tab PO DAILY 01/16/25 01/28/25 History 50 mg tablet (Senokot-S) acetaminophen 500 mg tablet 1,000 mg (2 x 500 mg) PO Q6H PRN 01/18/25 01/28/25 Rx (Tylenol Extra Strength) pain 2 days #16 tabs cephalexin 500 mg capsule 500 mg PO Q8H 7 days #21 caps 01/27/25 01/28/25 Rx hydrocodone 5 mg-acetaminophen 325 1 tablet PO Q12H PRN pain #14 tabs 01/27/25 01/28/25 Rx mg tablet oxybutynin chloride 2.5 mg tablet 2.5 mg PO BID #14 tabs 01/27/25 01/28/25 Rx Allergies Allergy/AdvReac Type Severity Reaction Status Date / Time codeine AdvReac Unknown Gastrointestinal Verified 01/28/25 13:05 Upset Exam Const: General: no acute distress Resp: Effort & Inspection: normal respiratory effort GI: Inspection: non-distended GI Palp: No abdominal tenderness and No Guarding due to palpation present (GI) Auscultation: normal bowel sounds Assessment and Plan Assessment and plan (1) Right ureteral stone: Code(s): N20.1 - Calculus of ureter Status: Acute Assessment and Plan: Right ESWL
--- NOTE | ~2025-02-04 | XR_ITS ---
XR abdomen/kub 1V 02/04/2025 06:08 Indication: Preop lithotripsy right renal stones Procedure: KUB Comparison: Comparison to multiple prior studies sequentially, with oldest reviewed study dated 02/2024. Findings: There are multiple right renal stones. There is a right internal ureteral stent in expected position. Bowel gas pattern nonobstructive. Moderate colonic fecal loading. No left renal stones pam ntified. Lung bases unremarkable. Mild-moderate lumbar spondylosis. Impression: 1: Right nephrolithiasis. Right internal ureteral stent in expected position. Reviewed, dictated and finalized at location B. Impression: 1: Right nephrolithiasis. Right internal ureteral stent in expected position.
--- OUTSIDE RECORDS SUMMARY | 2025-02-04 02:16 | XMS_ITS | Patient Health Record ---
Author Organization [facility] Address [address] [place] [address] Care Team Providers Care Dukey Rider Name Role Phone Alcon MALDONADO, Ciro Primary [...] Coverage End Date Aet[employer] Medicare [address] [place], [place] [phone] [id number] Chung Xiong Self - patient is the insured Medical (General) History Medical History History ICD Code Arthritis Anxiety Depression Hypertension Neuropathy/RLS Low back/leg pain Past heavy alcohol use chronic tobacco use Surgical History Surgery Date(Month/Year) spine surgery 2012
--- OUTSIDE RECORDS SUMMARY | 2025-02-04 02:16 | XMS_ITS | Patient Health Record ---
Author Organization [facility] Address [address] [place] [address] Care Team Providers Care Healthcare Administration Internship Name Role Phone Isiah Rondon MD Primary Care Provider Unavailab Bhavna Singh Unavailable [phone] Allergies Allergen (clinical drug ingredient) Drug/Non Drug [...] Problem Status W/U Status Risk Notes Problem [id number] Hammer toe of left foot (M20.42) Active confirmed Plan Of Treatment No Information Insurance Providers Payer Name Payer Address Payer Phone Subscriber Number Group Number Insured Name Patient Relationship to Insured Coverage Start Date Coverage End Date Aet[employer] [address] [place], [place] [phone] [id number] Chung Xiong Self - patient is the insured Medical (General) History Medical History History ICD Code low back pain depression anxiety disorder COPD hyperlipidemia hypertension actinic keratosis calculus of kidney ADHD opioid dependence Surgical History Surgery Date(Month/Year) spinal fusion
--- OUTSIDE RECORDS SUMMARY | 2025-02-04 02:16 | XMS_ITS | Clinical Summary ---
Author Organization [facility] Address [address] [place] [address] Care Team Providers Care Cryogenic Transport Driver Name Role Phone Unavailable Primary Care Provider Unavailabl e Source Comments [facility],non-owned Affiliates and Associated Physician Practices is amultiple site organization consisting of ambulatory clinics and hospital sitesin [place], [place], [place] and [place]. This disclosure is being madepursuant to the Care Everywhere program and may not contain all information available regarding this patient. Last updated 18.[employer] [facility] Allergies No known active allergies Medications * [...] care, and heating? Not very hard 06/27/2024 [facility] - Occupational Stress [...] any time in the past 12 m [facility], were you homeless or living in a long term (including now)? No 06/27/2024 Sex and Gender Information Value Date Recorded Sex Assigned at Not on file Legal Sex Male 1:20 AM STONE [facility]VER Gender Identity Not on file Sexual Orientation Not on file Last Filed Vital Signs Vital Sign Reading Time Taken Comments Blood Pressure 146/89 07/02/2024 8:01 AM ST[facility] Pulse 68 07/02/2024 8:01 AM STONE [facility] Temperature 36.6 C (97.9 F) 07/02/2024 8:01 AM STONE CARVER Respiratory Rate 18 07/02/2024 8:01 AM STONE CARVER Oxygen Saturation 100% 07/02/2024 8:01 AM STONE CARVER Inhaled Oxygen Concentration - - Weight 90.7 [...] (ABNORMAL) LIPID PROFILE (06/19/2024 6:12 AM CDT) [facility] Cholesterol 111 <200 mg/dL 06/19/2024 6:59 AM CDT [facility] Triglycerides 45 <150 mg/dL 06/19/2024 6:59 AM CDT [facility] HDL Cholesterol 40(L) >40 mg/dL 6:59 AM CDT [facility] Chol HDL Ratio 2.8 1.0 - 6.0 06/19/2024 6:59 AM CDT [facility] LDL Calculated 62(L) 65 - 130 mg/dL 06/19/2024 6:59 AM T [facility] VLDL Calculated 9 <=30 mg/dL 6:59 AM T [facility] Blood BLOOD SPECIMEN / Unknown Lab Venipuncture / Unknown 06/19/2024 6:12 AM CDT 06/19/2024 6:28 AM CDT Narrative [facility] - 06/19/2024 6:59 AM CDT [...] LAB - CHEMISTRY ORDERABLES Luz l Result [facility] [address] * HEPATITIS C ANTIBODY (01/05/2015 1:55 PM CDT) [facility] Hepatitis C Antibody Non-react [facility] Comment: Hepatitis C Antibody screen indicates no [...] ORDERABLE S Final Result Performing Organization Address City/State/[facility] Co de Phone Number [address] [phone] from Last 3 Months or Most Recently Relevant to Health Maintenance Insurance AETNA AETNA MEDICARE ADV Advance Directives * Full Code (Latest Code Status on File) Date Activated Date Inactivated Comments 06/27/2024 5:58 PM 07/02/2024 12:49 PM * Full Code Date Activated Date Inactivated Comments 06/16/2024 11:14 AM 06/20/2024 7:50 PM
--- NOTE | 2025-02-04 05:57 | ECG_ITS ---
Test Date: 2025-02-04 06:41:45 Measurements Intervals Slater Rate: 65 P: 42 RI: 162 QRS: 51 QRSD: 94 T: 27 QT: 400 QTc: 416 Interpretive Statements SINUS RHYTHM EARLY PRECORDIAL R/S TRANSITION ST ELEVATION, PROBABLY EARLY REPOLARIZATION BORDERLINE ECG No previous ECG available for comparison Electronically Signed On 02-04-2025 08:10:27 CDT by Fredi Mcgowan D.O.
[2025-02-04 06:05] VITALS: BP 121/89; PULSE 65; RESP 16; TEMP 36.4; O2SAT 98
--- NOTE | 2025-02-04 06:15 | WPDHPUPDATE1 ---
History and Physical Update Update Date/Time: 02/04/25 06:15 History and Physical has been reviewed, including an updated exam of the patient. There are NO changes in the patient's condition. Risks, benefits, and alternatives have been discussed and questions answered. Patient agrees to proceed with procedure.
[2025-02-04 06:27] VITALS: BMI 26.7
[2025-02-04] MEDS: LACTATED RINGERS 1,000 ML 30 ML IV CONT (06:45)
--- NOTE | 2025-02-04 06:48 | P.PNAN_ITS ---
Anes - Initial Pre Proc Eval Procedure: Operation Date: 02/04/25 07:30 Proposed Procedures p Right Extracorporeal Shock Wave Lithotripsy - Sunny Baig MD Date/Time: 02/04/25 06:48 Surgeon: Sunny Baig MD Pre Op Diagnosis: Rt Ureteral Stone Patient Data Age: 64 Gender: M Height: 1.78 m Weight: 84.5 kg Allergies Allergy/AdvReac Type Severity Reaction Status Date / Time codeine AdvReac Unknown Gastrointestinal Verified 01/28/25 13:05 Upset Home Medications ?Medication ?Instructions ?Recorded ?Confirmed ?Type amlodipine 10 mg tablet 10 mg PO DAILY 05/21/23 01/28/25 History carvedilol 25 mg tablet 25 mg PO DAILY 05/21/23 01/28/25 History clonazepam 0.5 mg tablet 0.5 mg PO HS 05/21/23 01/28/25 History aspirin 81 mg chewable tablet 81 mg PO DAILY@0800 30 days #30 06/02/23 01/28/25 Rx (Children's Aspirin) tabs tamsulosin 0.4 mg capsule 0.4 mg PO DAILY 10/07/23 01/28/25 History atorvastatin 80 mg tablet 80 mg PO DAILY 12/30/24 01/28/25 History clopidogrel 75 mg tablet 75 mg PO DAILY 12/30/24 01/28/25 History hydromorphone 2 mg tablet 2 mg PO Q6H 12/30/24 01/28/25 History sennosides 8.6 mg-docusate sodium 1 tab PO DAILY 01/16/25 01/28/25 History 50 mg tablet (Senokot-S) acetaminophen 500 mg tablet 1,000 mg (2 x 500 mg) PO Q6H PRN 01/18/25 01/28/25 Rx (Tylenol Extra Strength) pain 2 days #16 tabs cephalexin 500 mg capsule 500 mg PO Q8H 7 days #21 caps 01/27/25 01/28/25 Rx hydrocodone 5 mg-acetaminophen 325 1 tablet PO Q12H PRN pain #14 tabs 01/27/25 01/28/25 Rx mg tablet oxybutynin chloride 2.5 mg tablet 2.5 mg PO BID #14 tabs 01/27/25 01/28/25 Rx Patient hx anesthesia problems: none Family hx anesthesia problems: none Results Review: All pre-operative results and documents have been reviewed as part of the pre- operative evaluation. [facility] Past Medical History Medical History Ischemic stroke Residual left-sided weakness. Hyperlipidemia Hypertension Ureterolithiasis Surgical History Surgical History History of fusion of cervical spine History of urethral stent History of cystoscopy Family History Family History Mother Cerebrovascular accident Father Heart disease Social History Social History Social History: Surrogate medical decision maker: Kyra Nicholsonther, spouse. Code status: Full code. Smoking packs per day: 1 Smoking cigarettes per day: 20.0 Years smoked: 40 Smoking pack-years: 40.00 Tobacco type: e-cigarettes/vaping Additional smoking assessment comments: no longer smoking cigarettes, uses vape exclusively Alcohol intake: current Drinks per week: 1 Alcohol use details: rare alcohol use in moderation Substance use: never Substance use type: does not use Do You Feel Safe in your Home?: Yes Lack of Transportation: No Lack of Food: Never True Current Housing: I Have Housing Concerned About Future Housing: No Difficulty Paying Gas/Electric Bills: No Difficulty Paying for Meds: No Currently Unemployed: No Education: Grade School Difficulty w/ Childcare or Family Care: No Living arrangements: with family Additional living arrangements comments: Lives with spouse in [place]. 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 Spiritual care concerns: No Anes - Eval Final PreProcedure Day of Procedure 02/04/25 06:48 Patient weight: overweight Heart: regular rate and rhythm Lungs: decreased breath sounds Airway: Mallampati scale class II Neurological: alert and oriented Last oral intake: >/= 8 hours ASA classification: III Emergent: no Anesthetic plan: proceed Anesthesia type and monitoring: general LMA and standard monitoring Results Review: All pre-operative results and documents have been reviewed as part of the pre- operative evaluation. Informed Consent: The patient's anesthetic plan and its attendant risks and benefits were discussed with the patient/family/POA. Questions were solicited and answers provided to the satisfaction of the patient/family/POA.
[2025-02-04] MEDS: fentaNYL CITRATE INJ (*CRX) 100 MCG/2 ML VIAL 50 MCG IV PUSH (07:00)
[2025-02-04 07:17] LABS: INR 0.9; Prothrombin Time 12.1 Seconds (11.1-14.7)
[2025-02-04 07:18] LABS: Partial Thromboplastin Time 25.6 Seconds (22.3-36.8)
[2025-02-04] MEDS: ceFAZolin 2 GM/D5W 50 ML 2 GM/50 ML BAG IVPB (07:22)
--- NOTE | 2025-02-04 07:39 | W.PM.PROC2 ---
Procedure Note - Detailed Date of Procedure 02/04/25 Pre-op Diagnosis Right Renal Stones Post-op Diagnosis Same Procedure Performed Right ESWL Surgeon Sunny Baig MD Anesthesia General Description of Procedure The patient was brought to the operative suite where he was placed in the supine position on the Dornier lithotripsy table. The focal point of the lithotripter was placed at a 14mm right renal calculus. A total of 2500 shocks were delivered at a power setting of 4. There appeared to be good fragmentation of the stone. The patient tolerated the procedure well and was taken to the recovery room in good condition. Drains No Pathology None sent Condition Stable Disposition PACU
[2025-02-04 08:05] VITALS: BP 159/89; PULSE 83; RESP 17; TEMP 36.3; O2SAT 98
[2025-02-04] MEDS: fentaNYL CITRATE INJ (*CRX) 100 MCG/2 ML VIAL 25 MCG IV PUSH ×4 (08:17→08:26)
[2025-02-04 08:20] VITALS: BP 134/89; PULSE 76; RESP 16; O2SAT 96
[2025-02-04 08:35] VITALS: BP 131/68; PULSE 75; RESP 16; O2SAT 95
[2025-02-04 08:37] VITALS: BP 121/89; PULSE 65; TEMP 36.4; O2SAT 98
[2025-02-04] MEDS: oxyCODONE HCL (*CRX) 5 MG TAB IR PO (08:45)
[2025-02-04 09:07] VITALS: BP 137/85; PULSE 75
== END 2025-02-04 09:20 | disposition home or self-care (01) ==
PROVIDERS: PCP Emergency Medicine; Visit Provider Urology
PROC: (CPT 50590; principal; 2025-02-04 07:30)
DX: N20.1 Calculus of ureter (principal); E78.5 Hyperlipidemia, unspecified; I10 Essential (primary) hypertension; F17.290 Nicotine dependence, other tobacco product, uncomplicated; Z79.82 Long term (current) use of aspirin; Z79.02 Long term (current) use of antithrombotics/antiplatelets; Z79.891 Long term (current) use of opiate analgesic; Z96.0 Presence of urogenital implants; Z98.1 Arthrodesis status; Z86.73 Personal history of transient ischemic attack (TIA), and cerebral infarction without residual deficits; Z82.49 Family history of ischemic heart disease and other diseases of the circulatory system
CPT/HCPCS: 50590; 36415; 74018; 85610; 85730; 93005; A9270; J0690; J2405; J2704; J3010; J7120

== ENCOUNTER 2025-02-18 00:26 | Day surgery (SDC) | payer MEDICARE, SELFPAY ==
[2025-02-18] VITALS (7 sets, daily range): BP systolic 105–120; BP diastolic 60–80; PULSE 66–77; RESP 12–20; TEMP 36.4; O2SAT 94–100; BMI 26.7
--- NOTE | ~2025-02-18 | XR_ITS ---
XR abdomen/kub 1V Ordering provider: Sunny Baig MD History: . ESWL . Comparison: February 08, 2025 FINDINGS: BOWEL: Nonobstructive bowel gas pattern. ORGANOMEGALY: Possible enlarged size of the right kidney. SIGNIFICANT PATHOLOGIC CALCIFICATIONS: Stones in the right kidney with the right double-J stent. Poss ible stone in the right lower ureter. OTHER: No free air is seen under the diaphragm. IMPRESSION: NO ACUTE ABDOMINAL FINDINGS. Right kidney stones with right double-J stent. Possible enlargement of the size of the right kidney. Further evaluation advised. Reviewed, dictated and finalized at location A.
--- NOTE | 2025-02-18 06:23 | WPDHPUPDATE1 ---
History and Physical Update Update Date/Time: 02/18/25 06:23 History and Physical has been reviewed, including an updated exam of the patient. There are NO changes in the patient's condition. Risks, benefits, and alternatives have been discussed and questions answered. Patient agrees to proceed with procedure.
--- NOTE | 2025-02-18 10:09 | PC.NURSE ---
Report to the Outpatient Waiting Room, entrance under the green pavilion located off [facility], at time _1200_ on date _[id number]_. Planned Procedure Time: _1400_.? Time changes happen often and if your time is changed the preop area will call you the afternoon before. - You and your visitor will be asked to self-screen and do not enter if you have any COVID symptoms. Please call surgeon if you need to reschedule. - A mask is optional within the hospital at this time. Patients may have clear liquids (water, carbonated beverages, clear teas, apple juice) until 3 hours prior to surgery with a maximum of 20 ounces. - No food from midnight until time of surgery and no smoking, or chewing tobacco (or any form of nicotine). No chewing gum, candy or mints. Take only the following medications with a SIP of water on the morning of surgery: __Amlodipine, Carvidilol.____ DO NOT STOP ANY OF YOUR OTHER PRESCRIPTION MEDICATIONS PRIOR TO SURGERY EXCEPT THE FOLLOWING Hold all vitamins and supplements for 3 days per anesthesiologist. Medications to discontinue per physician ____Has been holding Aspirin and Plavix since [id number]____ Date to take last dose____ Please no make-up, nail botswanan, hairspray, perfume, deodorant, or body powder the day of surgery.? No jewelry (including any body piercings) or valuables the day of surgery, leave them at home.? Please take a shower or bath the night before, or the morning of, surgery with an antibacterial soap.? Wear comfortable, loose fitting clothing.? - Jewelry must be removed prior to entering the operating room.? Rings and piercings that are not removed may be cut off. - The hospital will not accept responsibility for valuables.? - Please leave all valuables, including medications, at home the day of surgery. If you are going home after surgery, a licensed four horse hitch driver must drive you home.? - NO public transportation without another adult if you receive anesthesia. - We recommend that an adult stay with you for 24 hours following discharge. - We also recommend that you do not drive, make important decision, drink alcoholic beverages, or take any drugs that were not prescribed by your health care provider for at least 24 hours after your discharge time. Follow any additional instructions given to you from your surgeon. Telephone instructions given to __Cathy__and asked if any additional questions and then verbalized understanding. Patient advised to call surgeon office or pre surgery nurse liaison [phone] if any additional questions.
[2025-02-18 12:36] LABS: Add Urine Microscopic? YES; Appearance Urine Cloudy (Clear); Bacteria Urine Rare /hpf; Bilirubin Urine Negative (Negative); Blood Urine 3+ (Negative); Color Urine Dark Yellow (Yellow); Glucose Urine UA Negative (Negative); Ketones Urine Trace mg/dL (Negative); Leukocyte Esterase Ur 2+ LEU/UL (Negative); Nitrate Urine Negative (Negative); Protein Urine 3+ mg/dL (Negative); RBC Urine >100 /hpf (0-2); Squamous Epithelial Cell Urine Occasional /hpf (Few); WBC Urine 51-100 /hpf (0-3)
--- NOTE | 2025-02-18 13:29 | P.PNAN_ITS ---
Anes - Initial Pre Proc Eval Procedure: Operation Date: 02/18/25 14:00 Proposed Procedures p Right Extracorporeal Shock Wave Lithotripsy, - Sunny Baig MD s Cystoscopy, Left Stent Removal - Sunny Baig MD Date/Time: 02/18/25 13:29 Surgeon: Sunny Baig MD Pre Op Diagnosis: right renal stone Patient Data Age: 64 Gender: M Height: 1.78 m Weight: 84.5 kg Allergies Allergy/AdvReac Type Severity Reaction Status Date / Time codeine AdvReac Unknown Gastrointestinal Verified 02/18/25 12:46 Upset Home Medications ?Medication ?Instructions ?Recorded ?Confirmed ?Type amlodipine 10 mg tablet 10 mg PO DAILY 05/21/23 02/18/25 History carvedilol 25 mg tablet 25 mg PO DAILY 05/21/23 02/18/25 History clonazepam 0.5 mg tablet 0.5 mg PO HS 05/21/23 02/18/25 History aspirin 81 mg chewable tablet 81 mg PO DAILY@0800 30 days #30 06/02/23 02/18/25 Rx (Children's Aspirin) tabs tamsulosin 0.4 mg capsule 0.4 mg PO DAILY 10/07/23 02/18/25 History atorvastatin 80 mg tablet 80 mg PO DAILY 12/30/24 02/18/25 History clopidogrel 75 mg tablet 75 mg PO DAILY 12/30/24 02/18/25 History hydromorphone 2 mg tablet 2 mg PO Q6H 12/30/24 02/18/25 History sennosides 8.6 mg-docusate sodium 1 tab PO DAILY 01/16/25 02/18/25 History 50 mg tablet (Senokot-S) acetaminophen 500 mg tablet 1,000 mg (2 x 500 mg) PO Q6H PRN 01/18/25 02/18/25 Rx (Tylenol Extra Strength) pain 2 days #16 tabs oxybutynin chloride 2.5 mg tablet 2.5 mg PO BID #14 tabs 01/27/25 02/18/25 Rx oxycodone-acetaminophen 5 mg-325 1 tablet PO Q6H PRN pain 02/18/25 02/18/25 History mg tablet Laboratory Tests 02/18/25 12:06 Urine Color Dark yellow (Yellow) Urine Appearance Cloudy H (Clear) Urine pH 5.0 (5.0-9.0) Ur Specific Aragon 1.030 (1.001-1.035) Urine Protein 3+ H mg/dL (Negative) Urine Glucose (UA) Negative mg/dL (Negative) Urine Ketones Trace H mg/dL (Negative) Ur Blood (Man) 3+ H (Negative) Urine Nitrate Negative (Negative) Urine Bilirubin Negative (Negative) Urine Urobilinogen 1.0 mg/dL (<2.0) Leukocyte Esterase Rfl 2+ H MICK/UL (Negative) Urine RBC >100 H /hpf (0-2) Urine WBC 51-100 H /hpf (0-3) Ur Squamous Epith Cells Occasional /hpf (Few) Urine Bacteria Rare /hpf Urine Casts 11-20 Patient hx anesthesia problems: none Family hx anesthesia problems: none Results Review: All pre-operative results and documents have been reviewed as part of the pre- operative evaluation. [facility] Past Medical History Medical History Ischemic stroke Residual left-sided weakness. Hyperlipidemia Hypertension Ureterolithiasis Surgical History Surgical History History of fusion of cervical spine History of urethral stent History of cystoscopy Family History Family History Mother Cerebrovascular accident Father Heart disease Social History Social History Social History: Surrogate medical decision maker: Kyra Nicholsonther, spouse. Code status: Full code. Smoking packs per day: 1 Smoking cigarettes per day: 20.0 Years smoked: 40 Smoking pack-years: 40.00 Tobacco type: cigarettes and e-cigarettes/vaping Smoking end date: 11/28/24 Additional smoking assessment comments: no longer smoking cigarettes, uses vape exclusively Alcohol intake: current Drinks per week: 1 Alcohol use details: rare alcohol use in moderation Substance use: never Substance use type: does not use Do You Feel Safe in your Home?: Yes Lack of Transportation: No Lack of Food: Never True Current Housing: I Have Housing Concerned About Future Housing: No Difficulty Paying Gas/Electric Bills: No Difficulty Paying for Meds: No Currently Unemployed: No Education: Grade School Difficulty w/ Childcare or Family Care: No Living arrangements: with family Additional living arrangements comments: Lives with spouse in [place]. 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 Spiritual care concerns: No Anes - Eval Final PreProcedure Day of Procedure 02/18/25 13:29 Patient weight: overweight Heart: regular rate and rhythm Lungs: decreased breath sounds Airway: Mallampati scale class II Last oral intake: >/= 8 hours ASA classification: III Emergent: no Anesthetic plan: proceed Anesthesia type and monitoring: general LMA and standard monitoring Results Review: All pre-operative results and documents have been reviewed as part of the pre- operative evaluation. Informed Consent: The patient's anesthetic plan and its attendant risks and benefits were discussed with the patient/family/POA. Questions were solicited and answers provided to the satisfaction of the patient/family/POA.
[2025-02-18] MEDS: ceFAZolin 2 GM/D5W 50 ML 2 GM/50 ML BAG IVPB (13:32)
--- NOTE | 2025-02-18 13:49 | P.OP_ITS ---
Procedure Note - Detailed Date of Procedure 02/18/25 Pre-op Diagnosis Right renal stone Post-op Diagnosis Same Procedure Performed Cystoscopy, right ureteral stent, right ESWL Surgeon Sunny Baig MD Anesthesia General Description of Procedure The patient was brought to the operative suite where he was placed in the supine position on the Dornier lithotripter table. Flexible cystoscopy was undertaken with a 16F flexible cystoscopy. There were no urethral strictures. The prostatic urethra estimated length was 1.5cm. There was mildobstruction of the prostatic urethra. The bladder mucosa was normal and there was a single, orthotopic ureteral orifice bilaterally. tip of the indwelling stent is gr asped and the stent is removed with ease. The patient was then repositioned in the supine position with the focal point of the lithotriptor at to residual stone fragments in his right mid pole / renal pelvis. A total of 2500 shocks were delivered at a power setting of 4. There appeared to be good fragmentation of the stones. The patient tolerated the procedure well and was taken to the recovery room in good condition. Drains No Packing No Pathology None sent Complications No immediate complications Condition Stable
[2025-02-18] MEDS: LIDOCAINE 2% GEL UROJET 10 ML PKG MUCOUS MEM (14:28)
[2025-02-18] MEDS: LACTATED RINGERS 1,000 ML 30 ML IV CONT (14:33)
[2025-02-18] MEDS: fentaNYL CITRATE INJ (*CRX) 100 MCG/2 ML VIAL 25 MCG IV PUSH ×2 (14:48→15:07)
[2025-02-18] MEDS: oxyCODONE HCL (*CRX) 5 MG TAB IR PO (15:51)
== END 2025-02-18 16:15 | disposition home or self-care (01) ==
PROVIDERS: PCP Emergency Medicine; Visit Provider Urology
PROC: (CPT 50590; principal; 2025-02-18 14:00)
PROC: (CPT 52352; 2025-02-18 14:00)
DX: N20.0 Calculus of kidney (principal); E78.5 Hyperlipidemia, unspecified; I10 Essential (primary) hypertension; F17.290 Nicotine dependence, other tobacco product, uncomplicated; Z79.82 Long term (current) use of aspirin; Z79.02 Long term (current) use of antithrombotics/antiplatelets; Z79.891 Long term (current) use of opiate analgesic; Z98.1 Arthrodesis status; Z96.0 Presence of urogenital implants; Z86.73 Personal history of transient ischemic attack (TIA), and cerebral infarction without residual deficits; Z82.49 Family history of ischemic heart disease and other diseases of the circulatory system
CPT/HCPCS: 52310; 50590; 74018; 81001; 87086; A9270; J0690; J2003; J2405; J2704; J3010; J7120

== ENCOUNTER 2025-03-11 12:02 | Outpatient (CLI) | payer MEDICARE, SELFPAY ==
--- NOTE | ~2025-03-11 | XR_ITS ---
Supine and upright views of the abdomen Clinical history: Right ureteral stone COMPARISON: 02/18/2025 Findings: Bowel gas pattern is nonspecific. No evidence for obstruction or free air. No abnormal mass lesion or calcification is seen. Osseous structures are intact. Impression: No significant abnormality is seen. Interval removal of right ureteral stent. Reviewed, dictated and finalized at [facility]. Impression: No significant abnormality is seen. Interval removal of right ureteral stent.
--- OUTSIDE RECORDS SUMMARY | 2025-03-11 12:07 | XMS_ITS | Encounter Summary ---
Author Organization [facility] Address [address] [place] [id number] Care Team Providers Care Investment Accountant Name Role Phone Ciro Rondon MD Primary Care Provider [phone] Reason for Referral * Imaging (Routine) - Closed Specialty Diagnoses / Procedures Referred By Contac t Referred To Contact RADIOLOGY Diagnoses Ischemic stroke (CMS/HCC HHS/HCC) Procedures USV CAROTID DUPLEX MARCELINA Kartik Sharma MD [address] [address] Phone: tel: fax: Referral ID Status Reason Start Date Expiration Date Visits Re quested Visits Authorized [id number] Closed 06/27/2023 06/27/2024 1 1 Encounter Details Date Type Department Care Team (Late st Contact Info) Description 06/27/2023 Community Orders [facility] EPICCARE LINK Kartik Sharma MD [address] [id number] Social History Tobacco Use Types Packs/Day Years [...] declined 12/29/2020 How often do you attend orthodoxy or episcopalian serv ices? Patient declined 12/29/2020 Do you belong to any clubs o r organizations such as orthodoxy groups, unions, fraternal or athletic groups, or [...] and heating? Not hard at all 12/29/2020 [facility] - Occupational Stress Questionnaire Answer Date Recorded [...] Sex Assigned at Male 10/20/2024 10:19 AM CUSTOMER RESOLUTION SPECIALIST Legal Sex Male 8:10 PM CDT Gender [...] USV CAROTID DUPLEX MARCELINA (10/13/2023 2:32 PM CUSTOMER RESOLUTION SPECIALIST) Anatomical Region Laterality Modality Neck Ultrasound 10/20/2023 8:14 AM CUSTOMER RESOLUTION SPECIALIST Impressions 10/20/2023 8:26 AM CUSTOMER RESOLUTION SPECIALIST Impression: 1. 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 2. Left internal carotid artery: Moderate atherosclerotic plaque with less than 50% stenosis by NASCET criteria. 3. Vertebral arteries: Antegrade flow with normal waveforms bilaterally. Referred By: KARTIK SHARMA Interpreted By: Reji Patrick MD, 10/20/2023 8:14 AM Narrative 10/20/2023 8:26 AM CUSTOMER RESOLUTION SPECIALIST Examination: USV CAROTID DUPLEX MARCELINA Clinical Information: [...] (SRU) consensus statement (Radiology 2003; 229:340-346. DOI 10.1148/radiol.9420141762) was used to estimate internal carotid artery [...] of Radiologists in Ultrasound (SRU) consensus statement (Eyucnlkip0412; 229:340-346. DOI 10.1148/radiol.1209814204) was used to estimateinternal carotid artery stenosis. This conforms NASCET criteria. Impression: 1. Right internal carotid artery: Near total occlusion of the rightinternal carotid artery. 2. Left internal carotid artery: Moderate atherosclerotic plaque withless than 50% stenosis by NASCET criteria. 3. Vertebral arteries: Antegrade flow with normal waveformsbilaterally. Referred By: KARTIK SHARMA Interpreted By: Reji Patrikc MD, 10/20/2023 8:14 AM Kartik Sharma MD [facility] Final Result documented in this encounter Visit Diagnoses Diagnosis Ischemic stroke (CMS/HCC HHS/HCC)- Primary Ischemic stroke (CMS/[facility] HHS/HCC) documented in this encounter Additional Health Concerns Infection Onset Date Last Indicated Resolved Time COVID-19 Rule Out 06/15/2024 06/15/2024 06/15/2024 8:15 PM CDT COVID-19 Rule Out 06/27/2024 06/27/2024 06/27/2024 5:35 AM CUSTOMER RESOLUTION SPECIALIST documented as of this encounter Care Teams Investment Accountant Relationship Specialty Start Date End Date Ciro Rondon MD [address] [place] [address] PCP - General FAMILY PRACTICE 12/27/20 documented as of this encounter
--- OUTSIDE RECORDS SUMMARY | 2025-03-11 12:07 | XMS_ITS | Encounter Summary ---
Author Organization [facility] Address [address] [place] [id number] Care Team Providers Care Gym Instructor Name Role Phone Ciro Rondon MD Primary Care Provider [phone] Encounter Details Date Type Department Care Team (Late st Contact Info) Description 12/25/2020 Prep for Procedure [facility] [address] [place] [address] Ok Rosario MD [address] [facility] [address] [place] [phone] Social History Tobacco Use Types Packs/Day Years [...] declined 12/29/2020 How often do you attend worship or voodoo serv ices? Patient declined 12/29/2020 Do you belong to any clubs o r organizations such as worship groups, unions, fraternal or athletic groups, or [...] and heating? Not hard at all 12/29/2020 [facility] - [...] Sex Assigned at Male 10/20/2024 10:19 AM FIELD SERVICE ENGINEER Legal Sex Male 8:10 PM CDT Gender [...] Rule Out 12/26/2020 12/26/2020 07/16/2021 6:28 PM FIELD SERVICE ENGINEER COVID-19 Rule Out 05/17/2023 05/17/2023 05/17/2023 6:09 PM CDT COVID-19 Rule Out 06/15/2024 06/15/2024 06/15/2024 8:15 PM CDT COVID-19 Rule Out 06/27/2024 06/27/2024 06/27/2024 5:35 AM FIELD SERVICE ENGINEER documented as of this encounter Care Teams Gym Instructor Relationship Specialty Start Date End Date Ciro Rondon MD [address] [place] [id number] PCP - General FAMILY PRACTICE 12/27/20 documented as of this encounter
--- OUTSIDE RECORDS SUMMARY | 2025-03-11 12:07 | XMS_ITS | Clinical Summary ---
Author Organization [facility] Address [facility] [place] [address] Care Team Providers Care Law Office Manager Name Role Phone Noemí Hoff MD Primary Care Provider [phone] Allergies Active Allergy Reactions Criticality Noted Date [...] hours as needed. 20 tablet 5 Active naproxen (NAPROSYN) 500 MG tablet Take 1 tablet (500 mg total) by mouth 2 (two) times daily with meals. 60 tablet 5 Active tamsulosin (FLOMAX) 0.4 MG Cap Take 1 capsule (0.4 mg total) by mouth daily. 30 capsule 5 Active Active Problems Problem Noted Date Diagnosed Date Left-sided weakness 05/18/2023 Ischemic stroke ([facility]) 05/18/2023 Right kidney stone 01/31/2022 Encounters Date Type Department Care Team Description 02/13/2025 10:50 AM CDT - 02/13/2025 11:59 PM CDT Hospital Encounter [facility] Diagnostic Imaging [address] [place] [address] Sunny Baig MD Discharge Disposition: Home or Self Care (Routine Discharge) 12/29/2024 9:30 AM CDT - 12/29/2024 12:55 PM CDT Emergency [facility] Emergency Services [address] [place] [address] Cory Mares MD Abdominal Pain Discharge Disposition: Home or Self Care (Routine Discharge) 12/29/2024 Travel from Last 3 Months Immunizations Immunization Administration Dates Next Due Influenza (Generic) 05/24/2020 Pneumococcal (Prevnar 13) 11/12/2019 Tdap (Boostrix) 05/17/2023(Deferred: Patient/family declined - PT STATES I DON'T NEED NO MORE NEEDLES) Family History Medical History Relation Comments No [...] declined 12/29/2020 How often do you attend zoroastrian or christian serv ices? Patient declined 12/29/2020 Do you belong to any clubs o r organizations such as zoroastrian groups, unions, fraternal or athletic groups, or [...] Recorded Patient Health Questionnaire-2 Score 0 07/14/2023 [facility] [place] of Occupat ional Health - Occupational Stress [...] Sex Assigned at Male 10/20/2024 10:19 AM CONSUMER EXPERIENCE CONSULTANT Legal Sex Male 8:10 PM CDT Gender [...] 9:44 AM CDT Height 177.8 cm (5' 10) 12/29/2024 9:44 AM CDT Body Mass Index [...] Screening 07/09/2023 07/09/2022 COVID-19 Vaccine (2 - 2023- 5 season) 2024 01/27/2021 PHQ-2 (Physician [place]) 08/25/2024 07/14/2023 Colorectal Cancer Screening Colonoscopy (10 [...] this topic Medical Devices Implanted Type Area Water Aerobics Instructor Device Identifier Shelf Expiration Date Model / Serial / Lot Pin Pin Spine Cervical Stent Ureteral [place] [employer] Contour 6fr X 26cm - [id number] Implanted:Qty : 1 on 11/29/2021 by Catrachito Navarro MD at [facility] Stent Right: Ureter [employer] [id number] 09/07/2024 [id number] / / [id number] Description:NO STRING Stent Uret 6fr 26cm Pigtl Crv Taper Tip Bldr Mrk - [id number] Implanted:Qty : 1 on 01/31/2022 by Catrachito Navarro MD at [facility] Stent Right: Ureter [employer] [id number] 01/24/2023 [id number] / / [id number] Procedures Procedure Name Priority Date/Time Associated Diagnosis Comments XR ABD KUB Routine 02/13/2025 11:08 AM CDT Calculus of kidney URINE BACTERIA CULTURE STAT 11:09 AM CDT DRUG SCREEN RAPID STAT 12/29/2024 11: 09 AM CDT URINALYSIS AUTO DIP STAT 12/29/2024 1 1:[address] ABD+PEL W CON STAT 12/29/2024 10:3 9 AM CDT LIPASE STAT 12/29/2024 9:50 AM CDT COMPREHENSIVE METABOLIC PANEL STAT 12/29/2024 9:50 AM CDT CBC W/DIFF AUTOMATED STAT 12/29/2024 9:[address] LUNG SCREENING Routine 07/09/2022 10: 30 AM CONSUMER EXPERIENCE CONSULTANT Encounter for special screening examination for neoplasm of respiratory organ Nicotine dependence, cigarettes, with unspecified nicotine-induced disorders COLONOSCOPY Routine 12/29/2020 1:35 PM CDT from Last 3 Months or Most Recently Relevant to Health Maintenance Results * XR ABD KUB (02/13/2025 11:08 AM CDT) Anatomical Region Laterality Modality Abdomen Computed Tomogra phy 02/13/2025 3:23 PM CDT Impressions 02/13/2025 3:25 PM CDT IMPRESSION: Suspected RIGHT interpolar to lower pole renal calcifications. Right-sided double-J stent in place. Referred By: Interpreted By: Sebastián Jacobson MD, 02/13/2025 3:23 PM Narrative 02/13/2025 3:25 PM CDT [address] [place] [address] Procedure(s): XR ABD KUB Date of service: 02/13/2025 10:55 AM Provided clinical information: 64 years, Male, kidney stone Procedure and materials: Supine view the abdomen. Comparison studies: CT examination of December 29, 2024. Findings: Right-sided double-J stent is present. There are calcifications that are present about the expected location of the interpolar to lower pole of the RIGHT kidney. Bowel gas pattern is within normal limits. Procedure Note Sebastián Jacobson MD - 02/13/[address] [place] [address] Procedure(s): XR ABD KUB Date of service: 02/13/2025 10:55 AM Provided clinical information: 64 years, Male, kidney stone Procedure and materials: Supine view the abdomen. Comparison studies: CT examination of December 29, 2024. Findings: Right-sided double-J stent is present. There are calcifications that arepresent about the expected location of the interpolar to lower pole of theRIGHT kidney. Bowel gas pattern is within normal limits. IMPRESSION: Suspected RIGHT interpolar to lower pole renal calcifications. Right-sided double-J stent in place. Referred By: Interpreted By: Sebastián Jacobson MD, 02/13/2025 3:23 PM Sunny Baig MD GENERAL IMAGING Final Result * (ABNORMAL) DRUG SCREEN RAPID (12/29/2024 11:09 AM CDT) [facility] AMPHETAMINE SCREEN (U) NEGATIVE NEGATIVE 12/29/2024 11:31 AM CDT [facility] BARBITURATES SCREEN (U) NEGATIVE NEGATIVE 12/29/2024 11:31 AM CDT [facility] BENZODIAZEPINES SCREEN (U) NEGATIVE NEGATIVE 12/29/2024 11:31 AM CDT [facility] BUPRENORPHINE SCREEN (U) POSITIVE(A) NEGATIVE 12/29/2024 11:31 AM CDT [facility] COCAINE METABOLITES (U) NEGATIVE NEGATIVE 12/29/2024 11:31 AM CDT [facility] METHAMPHETAMINE (U) NEGATIVE NEGATIVE 12/29/2024 11:31 AM CDT [facility] METHADONE (U) NEGATIVE NEGATIVE 12/29/2024 11:31 AM CDT [facility] OPIATE SCREEN (U) NEGATIVE NEGATIVE 025 11:31 AM CDT [facility] OXYCODONE SCREEN (U) NEGATIVE NEGATIVE 12/29/2024 11:31 AM CDT [facility] PHENCYCLIDINE PCP (U) NEGATIVE NEGATIVE 12/29/2024 11:31 AM CDT [facility] CANNABINOIDS SCREEN (U) NEGATIVE NEGATIVE 12/29/2024 11:31 AM CDT [facility] TRICYCLIC ANTIDEPRESSANT SCREEN (U) NEGATIVE NEGATIVE 12/29/2024 11:31 AM CDT [facility] Comment: NOTE: RESULTS OF THIS [...] U PH 6.5 12/29/2024 11:31 AM T [facility] SPECIFIC GRAVITY (U) 1.010 12/29/2024 11:31 AM T [facility] URINE SPECIMEN / Unknown 12/29/2024 11:09 AM CDT us Cory Mares MD URINE ORDERABLES Final Result [facility] [address] [address], * CULTURE URINE (12/29/2024 11:09 AM CDT) SPEC DESCRIPTION URINE CLEAN CATCH 12/29/2024 12:51 PM CDT [facility] SPECIAL REQUESTS NO SPECIAL REQUEST 12/29/2024 12:51 PM CDT [facility] CULTURE RESULT NO GROWTH 2 DAYS 12/31/2024 7:23 AM CDT [facility] URINE SPECIMEN OBTAINED BY CLEAN CATCH PROCEDURE / Unknown 12/29/2024 11:09 AM CDT 12/29/2024 12:51 PM CDT us Cory Mares MD MICROBIOLOGY - GENERAL ORDERABL ES Final Result [facility] [address] [place] [address], [place] [phone] [facility] [address] [place] [address] [place] [address], [place] * (ABNORMAL) URINALYSIS AUTO DIP (12/29/2024 11:09 AM CDT) COLOR (U) YELLOW YELLOW 12/29/2024 11:24 AM CDT [facility] TRANSPARENCY CLEAR CLEAR 12/29/2024 11:24 AM CDT [facility] SPECIFIC GRAVITY (U) 1.010 1.010 - 1.025 12/29/2024 11:24 AM CDT [facility] U PH 6.5 5.0 - 8.5 12/29/2024 11:24 AM CDT [facility] LEUKOCYTES (U) NEGATIVE NEGATIVE 12/29/2024 11:24 AM CDT [facility] NITRITES NEGATIVE NEGATIVE 12/29/2024 11:24 AM CDT [facility] PROTEIN RANDOM (U) 1+(A) NEGATIVE 12/29/2024 11:24 AM CDT [facility] GLUCOSE (U) NEGATIVE NEGATIVE 12/29/2024 11:24 AM CDT [facility] KETONES MG/DL (U) NEGATIVE NEGATIVE 12/29/2024 11:24 AM CDT [facility] UROBILINOGEN 0.2 0.2 - 1.0 EU/DL 12/29/2024 11:24 AM CDT [facility] BILIRUBIN (U) NEGATIVE NEGATIVE 12/29/2024 11:24 AM CDT [facility] BLOOD (U) 3+(A) NEGATIVE 12/29/2024 11:24 AM CDT [facility] URINE SPECIMEN OBTAINED BY CLEAN CATCH PROCEDURE / Unknown 12/29/2024 11:09 AM CDT us Cory Mares MD URINE ORDERABLES Final Result [address] [place] [address], [place] * CT ABD+PEL W IV CON [...] 10:54 AM Narrative 12/29/2024 10:56 AM CDT [address] [place] [address] CT ABDOMEN AND PELVIS WITH CONTRAST Exam [...] Procedure Note Noé Iraheta MD - 12/29/[address] [place] [address] CT ABDOMEN AND PELVIS WITH CONTRAST Exam [...] - 99 MG/DL 12/29/2024 11:00 AM CDT [facility] BUN 16 7 - 18 MG/DL 12/29/2024 11:00 AM CDT [facility] CREATININE S/P/B 1.12 0.50 - 1.20 MG/DL 12/29/2024 11:00 AM CDT [facility] SODIUM S/P/B 142 136 - 145 MMOL/L 12/29/2024 11:00 AM CDT [facility] POTASSIUM S/P/B 4.0 3.5 - 5.1 MMOL/L 12/29/2024 11:00 AM CDT [facility] CHLORIDE S/P/B 103 100 - 108 MMOL/L 12/29/2024 11:00 AM CDT [facility] CO2 29.0 21.0 - 32.0 MMOL/L 12/29/2024 11:00 AM T [facility] CALCIUM S/P/B 9.1 8.5 - 10.1 MG/DL 12/29/2024 11:00 AM [facility] BILIRUBIN TOTAL S/P/B 0.8 0.2 - 1.2 MG/DL 12/29/2024 11:00 AM T [facility] Comment: THIS ASSAY IS NOT RECOMMENDED FOR PATIENTS UNDERGOING TREATMENT WITH ELTROMBOPAG DUE TO THE POTENTIAL FOR FALSELY ELEVATED RESULTS. TOTAL PROTEIN S/P/B 7.2 6.4 - 8.2 G/DL 12/29/2024 11:00 AM T [facility] ALBUMIN S/P/B 3.5 3.4 - 5.0 G/DL 12/29/2024 11:00 AM [facility] AST 28 15 - 37 U/L 12/29/2024 11:00 AM T [facility] ALT 29 16 - 60 U/L 12/29/2024 11:00 AM T [facility] ALKALINE PHOSPHATASE S/P/B 85 50 - 136 U/L 12/29/2024 11:00 AM [facility] ANION GAP 10.0 5.0 - 15.0 MMOL/L 12/29/2024 11:00 AM [facility] BUN CREATININE RATIO 14.3 6 - 26 12/29/2024 11:00 AM [facility] A/G RATIO 0.9(L) 1.0 - 2.5 RATIO 12/29/2024 11:00 AM [facility] GFR ESTIMATE 74(L) >90 ML/MIN/1.7 3 M2 12/29/2024 11:00 AM T [facility] Comment: NOTE: eGFR is not calculated for patients <18 years of age. This is an estimated GFR calculation using the new CKD EPI creatinine equation without race and so does not require a correction factor for race. This estimated GFR should not be used for calculating drug doses. 12/29/2024 9:50 AM CDT Cory Mares MD LABORATORY Final Result [facility] [address] [address], [place] * (ABNORMAL) CBC W/DIFF AUTOMATED (12/29/2024 9:50 AM CDT) WBC 12.08(H) 4.50 - 11.00 x10'3/uL 12/29/2024 10:28 AM CDT [facility] RBC 4.91 4.50 - 5.90 x10'6/uL 12/29/2024 10:28 AM CDT [facility] HGB 15.2 14.0 - 18.0 G/DL 12/29/2024 10:28 AM CDT [facility] HCT 45.0 43.0 - 54.0 % 12/29/2024 10:28 AM CDT [facility] MCV 91.6 80.0 - 100.0 FL 12/29/2024 10:28 AM CDT [facility] MCH 31.0 26.0 - 34.0 PG 12/29/2024 10:28 AM CDT [facility] MCHC 33.8 31.0 - 37.0 G/DL 12/29/2024 10:28 AM CDT [facility] RDW 13.2 11.6 - 14.8 % 12/29/2024 10:28 AM CDT [facility] PLT 212 130 - 400 x10'3/uL 12/29/2024 10:28 AM CDT [facility] MPV 11.1 7.0 - 12.0 FL 12/29/2024 10:28 AM CDT [facility] CBC COMMENT AUTOMATED RBC MORPHOLOGY AND PLATELET EVALUATION NORMAL 12/29/2024 10:28 AM CDT [facility] NEUTROPHILS % 76.5(H) 40.0 - 74.0 % 12/29/2024 10:28 AM CDT [facility] LYMPHOCYTES % 15.2 14.0 - 46.0 % 12/29/2024 10:28 AM CDT [facility] MONOCYTES % 7.2 4.0 - 13.0 % 12/29/2024 10:28 AM CDT [facility] EOSINOPHILS 0.5 0.0 - 7.0 % 12/29/2024 10:28 AM CDT [facility] BASOPHILS 0.4 0.0 - 3.0 % 12/29/2024 10:28 AM CDT [facility] IMMATURE GRANS % 0.2 0.0 - 0.43 % 12/29/2024 10:28 AM CDT [facility] NRBC % 0.0 % 12/29/2024 10:28 AM CDT [facility] ABS. NEUTROPHILS TOTAL 9.23(H) 1.69 - 7.81 x10'3/uL 12/29/2024 10:28 AM CDT [facility] ABS. LYMPHOCYTES 1.84 0.21 - 5.42 x10'3/uL 12/29/2024 10:28 AM CDT [facility] ABS. MONOCYTES 0.87 0.04 - 1.37 x10'3/uL 12/29/2024 10:28 AM CDT [facility] ABS. EOSINOPHILS 0.06 0.00 - 0.68 x10'3/uL 12/29/2024 10:28 AM CDT [facility] ABS. BASOPHILS 0.05 0.00 - 0.08 x10'3/uL 12/29/2024 10:28 AM CDT [facility] ABS. IMMATURE GRANULOCYTES 0.03 0.00 - 0.06 x10'3/uL 12/29/2024 10:28 AM CDT [facility] ABS. NUCLEATED RBC'S 0.00 0.00 - 0.01 x10'3/uL 12/29/2024 10:28 AM CDT [facility] 12/29/2024 9:50 AM CDT us Cory A Vishnu MALDONADO LABORATORY Final Result Performing Organization Address City/[facility]/ZIP Co de Phone Number [facility] [address] [address], [place] * (ABNORMAL) LIPASE (12/29/2024 9:50 AM CDT) LIPASE 249(H) 16 - 77 UNITS/L 12/29/2024 11:00 AM CDT [facility] 12/29/2024 9:50 AM CDT us Cory A Vishnu MALDONADO LABORATORY Final Result Performing Organization Address [facility] Co de Phone Number [facility] [address] [address], [place] * CT LUNG SCREENING (07/09/2022 10:30 AM CONSUMER EXPERIENCE CONSULTANT) Anatomical Region Laterality Modality Chest Computed Tomogra phy 07/15/2022 2:29 PM CONSUMER EXPERIENCE CONSULTANT Impressions 07/15/2022 2:36 PM CONSUMER EXPERIENCE CONSULTANT IMPRESSION: 1. LUNG-RADS category 2: Negative. Lung [...] 07/15/2022 2:29 PM Narrative 07/15/2022 2:36 PM CONSUMER EXPERIENCE CONSULTANT EXAM: LUNG SCREENING LOW-DOSE CT THORAX WITHOUT [...] Most Recently Relevant to Health Maintenance Insurance [facility] Advance Directives Documents on File Type Date Recorded Patient Casting Tester Expl anation Advance Directives and Living Will 08/21/2019 12:00 AM ADVANCED DIRECTIVES * Full Code (Latest Code Status on File) Date Activated Date Inactivated Comments 05/18/2023 2:23 AM 05/21/2023 5:33 PM Care Teams Law Office Manager Relationship Specialty Start Date End Date Noemí Hoff MD [address] [place] [address] PCP - General FAMILY PRACTICE 12/27/20
--- OUTSIDE RECORDS SUMMARY | 2025-03-11 12:08 | XMS_ITS | Patient Health Record ---
Author Organization [facility] Address [address] [place] [address] Care Team Providers Care Executive Compensation Analyst Name Role Phone Isiah Rondon MD Primary Care Provider Unavailab Bhavna Singh Unavailable [phone] Allergies Allergen (clinical drug ingredient) Drug/Non Drug Allergy documented on EMR Reaction Allergy Type Onset Date Status codeine Codeine Unknown Drug Allergy Active Reason For Referral No Information Medications Medication SIG (Take, Route, Frequency, Duration) Notes Start Date End Date Status Carvedilol 25 MG Oral; Duration: 90 Days Active HYDROcodone-Acetaminophen 5-325 MG Oral; Duration: 3 Days Activ e Venlafaxine HCl ER 37.5 MG Oral; Duration: 30 Days Active QUEtiapine Fumarate 25 MG Oral; Duration: 30 Days Active Atorvastatin Calcium 80 MG Oral; Duration: 90 Days Active Tamsulosin HCl 0.4 MG TAKE 1 CAPSULE BY MOUTH EVERY DAY Oral; Duration: 90 Days Active HYDROmorphone HCl 4 MG Oral; Duration: 30 Days Active clonazePAM 0.5 MG TAKE 1 TABLET BY RENEA TH EVERYDAY AT BEDTIME Oral; Duration: 30 Days Active amLODIPine Besylate 10 MG Oral; Duration: 90 Days Active Clopidogrel Bisulfate 75 MG TAKE 1 TABLE T BY MOUTH EVERY DAY Oral; Duration: 90 Days Active Social History Tobacco Use: Social History Observation Description Date Details (start date - stop date) Current Smoker NA - NA Tobacco Use/Smoking Question Answer Notes Tobacco use: current smoker Problems Problem Type SNOMED Code ICD Code Onset Dates Problem Status W/U Status Risk Notes Problem Acquired hammer toe of left foot (7477358370760 103) Hammer toe of left foot (M20.42) Active confirmed Plan Of Treatment No Information Insurance Providers Payer Name Payer Address Payer Phone Subscriber Number Group Number Insured Name Patient Relationship to Insured Coverage Start Date Coverage End Date A[employer] [address] [place], [place] [id number] Chung Xiong Self - patient is the insured Medical (General) History Medical History History ICD Code low back pain depression anxiety disorder COPD hyperlipidemia hypertension actinic keratosis calculus of kidney ADHD opioid dependence Surgical History Surgery Date(Month/Year) spinal fusion
--- OUTSIDE RECORDS SUMMARY | 2025-03-11 12:08 | XMS_ITS | Patient Health Record ---
Author Organization [facility] Address [address] [place] [address] Care Team Providers Care Senior Cognos Developer Name Role Phone Alcon MALDONADO, Ciro Primary [...] Coverage End Date A[employer] Medicare [address] [place], [place] [phone] [id number] Chung Xiong Self - patient is the insured Medical (General) History Medical History History ICD Code Arthritis Anxiety Depression Hypertension Neuropathy/RLS Low back/leg pain Past heavy alcohol use chronic tobacco use Surgical History Surgery Date(Month/Year) spine surgery 2012
--- OUTSIDE RECORDS SUMMARY | 2025-03-11 12:08 | XMS_ITS | Clinical Summary ---
Author Organization [facility] Address [address] [place] [address] Care Team Providers Care Houseperson Name Role Phone Unavailable Primary Care Provider Unavailabl e Source Comments [facility],non-owned Affiliates and Associated Physician Practices is amultiple site organization consisting of ambulatory clinics and hospital sitesin [place] and [place]. This disclosure is being madepursuant to the Care Everywhere program and may not contain all information available regarding this patient. Last updated 18.[employer] [facility] Allergies No known active allergies Medications * [...] care, and heating? Not very hard 06/27/2024 [facility] [place] of Occupat ional Health - Occupational Stress [...] in the past 12 m [facility], were you homeless or living in a chcf (including now)? No 06/27/2024 Sex and Gender Information Value Date Recorded Sex Assigned at Not on file Legal Sex Male 1:20 AM FARM DEMONSTRATOR Gender Identity Not on file Sexual Orientation Not on file Last Filed Vital Signs Vital Sign Reading Time Taken Comments Blood Pressure 146/89 07/02/2024 8:01 AM FARM DEMONSTRATOR Pulse 68 07/02/2024 8:01 AM FARM DEMONSTRATOR Temperature 36.6 C (97.9 F) 07/02/2024 8:01 AM FARM DEMONSTRATOR Respiratory Rate 18 07/02/2024 8:01 AM FARM DEMONSTRATOR Oxygen Saturation 100% 07/02/2024 8:01 AM FARM DEMONSTRATOR Inhaled Oxygen Concentration - - Weight 90.7 [...] MEDICARE AWV CALENDAR YEAR 2024 INFLUENZA VACCINE (#1) 2025 05/24/2020 LIPID TESTING 06/19/2029 06/19/2024, 03/16/2024, [...] 111 <200 mg/dL 06/19/2024 6:59 AM CDT [facility] Triglycerides 45 <150 mg/dL 06/19/2024 6:59 AM CDT [facility] HDL Cholesterol 40(L) >40 mg/dL 6:59 AM CDT [facility] Chol HDL Ratio 2.8 1.0 - 6.0 06/19/2024 6:59 AM T [facility] LDL Calculated 62(L) 65 - 130 mg/dL 06/19/2024 6:59 AM T [facility] VLDL Calculated 9 <=30 mg/dL 6:59 AM T [facility] Blood BLOOD SPECIMEN / Unknown Lab Venipuncture / Unknown 06/19/2024 6:12 AM CDT 06/19/2024 6:28 AM CDT Narrative [facility] - 06/19/2024 6:59 AM CDT Lipid [...] LAB - CHEMISTRY ORDERABLES Luz l Result [facility] [address] [place], [place] [address] * HEPATITIS C ANTIBODY (01/05/2015 1:55 PM CDT) [facility] Hepatitis C Antibody Non-react [facility] Comment: Hepatitis C Antibody screen indicates [...] ORDERABLE S Final Result Performing Organization Address City/[facility]/ZIP Co de Phone Number [address] [phone] from Last 3 Months or Most Recently Relevant to Health Maintenance Insurance AETNA AETNA MEDICARE ADV Advance Directives * Full Code (Latest Code Status on File) Date Activated Date Inactivated Comments 06/27/2024 5:58 PM 07/02/2024 12:49 PM * Full Code Date Activated Date Inactivated Comments 06/16/2024 11:14 AM 06/20/2024 7:50 PM
== END 2025-03-11 12:03 | disposition home or self-care (01) ==
PROVIDERS: PCP Emergency Medicine; Visit Provider Nurse Practitioner
DX: N20.1 Calculus of ureter (principal)
CPT/HCPCS: 74018

== ENCOUNTER 2025-05-17 14:08 | Emergency (ER) | payer MEDICARE, SELFPAY ==
--- NOTE | ~2025-05-17 | US_ITS ---
EXAMINATION: US venous doppler LE RT, 05/17/2025 15:40 CDT HISTORY: calf pain/swelling Comparison: None Technique: Pandya-scale and color Doppler images were attempted of the lower saphenofemoral junction, common femoral vein,superficial femoral vein, proximal deep femoral vein, proximal deep femoral vein, popliteal vein and posterior tibial veins. Findings: Deep Venous System:Normal flow, augmentation and compressibility. No echogenic thrombus identified. The contralateral saphenofemoral junction appears unremarkable. Superficial Venous SystemNo superficial thrombophlebitis. Soft tissues: Soft tissues are unremarkable. Impression: Negative for DVT. Reviewed, dictated and finalized at location A. Impression: Negative for DVT.
[2025-05-17 14:09] VITALS: BP 152/107; PULSE 82; RESP 16; TEMP 36.6; O2SAT 100
--- OUTSIDE RECORDS SUMMARY | 2025-05-17 14:21 | XMS_ITS | Clinical Summary ---
Author Organization [facility] Address [address] [place] [address] Care Team Providers Care Business Affairs Manager Name Role Phone Unavailable Primary Care Provider Unavailabl e Source Comments [facility],non-owned Affiliates and Associated Physician Practices is amultiple site organization consisting of ambulatory clinics and hospital sitesin [place], [place], [place] and [place]. This disclosure is being madepursuant to the Care Everywhere program and may not contain all information available regarding this patient. Last updated 18.[facility] Allergies No known active allergies Medications * [...] care, and heating? Not very hard 06/27/2024 [facility] Occupat ional [facility] - Occupational Stress [...] any time in the past 12 m [facility], were you homeless or living in a jail (including now)? No 06/27/2024 Sex and Gender Information Value Date Recorded Sex Assigned at Not on file Legal Sex Male 1:20 AM [employer] Gender Identity Not on file Sexual Orientation Not on file Last Filed Vital Signs Vital Sign Reading Time Taken Comments Blood Pressure 146/89 07/02/2024 8:01 AM [employer] Pulse 68 07/02/2024 8:01 AM [employer] Temperature 36.6 C (97.9 F) 07/02/2024 8:01 AM [employer] Respiratory Rate 18 07/02/2024 8:01 AM [employer] Oxygen Saturation 100% 07/02/2024 8:01 AM [employer] Inhaled Oxygen Concentration - - Weight 90.7 [...] - Risk 60-74 years 1-dose series) 2022 DEPRESSION SCREENING 08/25/2024 MEDICARE AWV CALENDAR YEAR 2024 COVID-19 VACCINE (1 - 2023-2 5 season) 2025 INFLUENZA VACCINE (#1) 2025 05/24/2020 LIPID TESTING [...] 111 <200 mg/dL 06/19/2024 6:59 AM CDT [facility] Triglycerides 45 <150 mg/dL 06/19/2024 6:59 AM CDT [facility] HDL Cholesterol 40(L) >40 mg/dL 6:59 AM CDT [facility] Chol HDL Ratio 2.8 1.0 - 6.0 06/19/2024 6:59 AM T [facility] LDL Calculated 62(L) 65 - 130 mg/dL 06/19/2024 6:59 AM T [facility] VLDL Calculated 9 <=30 mg/dL 6:59 AM T [facility] Blood BLOOD SPECIMEN / Unknown Lab Venipuncture / Unknown 06/19/2024 6:12 AM CDT 06/19/2024 6:28 AM CDT Narrative [facility] - 06/19/2024 6:59 AM [...] LAB - CHEMISTRY ORDERABLES Luz l Result [facility] [address] [place], [place] [address] * HEPATITIS C ANTIBODY (01/05/2015 1:55 PM CDT) [facility] Hepatitis C Antibody Non-react [facility] Comment: Hepatitis C Antibody screen indicates [...] ORDERABLE S Final Result Performing Organization Address City/[facility]/ZIP Co de Phone Number [address] [phone] from Last 3 Months or Most Recently Relevant to Health Maintenance Insurance AETNA AETNA MEDICARE ADV Advance Directives * Full Code (Latest Code Status on File) Date Activated Date Inactivated Comments 06/27/2024 5:58 PM 07/02/2024 12:49 PM * Full Code Date Activated Date Inactivated Comments 06/16/2024 11:14 AM 06/20/2024 7:50 PM
--- OUTSIDE RECORDS SUMMARY | 2025-05-17 14:21 | XMS_ITS | Patient Health Record ---
Author Organization [facility] Address [address] [place] [address] Care Team Providers Care Horticulture Instructor Name Role Phone Isiah Rondon MD Primary Care Provider Unavailab Bhavna Singh Unavailable [phone] Allergies Allergen (clinical drug ingredient) Drug/Non Drug [...] Problem Acquired hammer toe of left foot ([id number]) Hammer toe of left foot (M20.42) Active confirmed Plan Of Treatment No Information Insurance Providers Payer Name Payer Address Payer Phone Subscriber Number Group Number Insured Name Patient Relationship to Insured Coverage Start Date Coverage End Date A[employer] [address] [place], [place] [id number] Chung Xoing Self - patient is the insured Medical (General) History Medical History History ICD Code low back pain depression anxiety disorder COPD hyperlipidemia hypertension actinic keratosis calculus of kidney ADHD opioid dependence Surgical History Surgery Date(Month/Year) spinal fusion
--- OUTSIDE RECORDS SUMMARY | 2025-05-17 14:21 | XMS_ITS | Patient Health Record ---
Author Organization [facility] Address [address] [place] [address] Care Team Providers Care Mink Slicer Name Role Phone Alcon MALDONADO, Ciro Primary [...] MG 1 tablet Orally 3 times a day; Duration: 30 day(s) 12/08/2020 Active Social History Tobacco Use: Social History Observation Description Date Details (start date - stop date) Current Smoker NA - NA Tobacco Use/Smoking Question Answer Notes Are you a current smoker How often do you smoke cigarettes? every day How many cigarettes a day do you smoke? 07-14 Plan Of Treatment No Information Insurance Providers Payer Name Payer Address Payer Phone Subscriber Number Group Number Insured Name Patient Relationship to Insured Coverage Start Date Coverage End Date Aetna Medicare [address] [place], [place] [id number] Chung Xiong Self - patient is the insured Medical (General) History Medical History History ICD Code Arthritis Anxiety Depression Hypertension Neuropathy/RLS Low back/leg pain Past heavy alcohol use chronic tobacco use Surgical History Surgery Date(Month/Year) spine surgery 2012
--- NOTE | 2025-05-17 15:34 | ED.EXTPRO ---
HPI - Extremity Problem General Chief complaint: Extremity Problem,Nontraumatic Stated complaint: BL leg pain, denies injury Time Seen by Provider: 05/17/25 15:26 Source: patient and family Mode of arrival: ambulatory Limitations: no limitations History of Present Illness HPI Narrative: This is a 65-year-old male with history hypertension, CVA who presents the ED for right calf pain. Patient states for the past week he has been having swelling and pain to his right calf. It has worsened to the point that he has difficulty standing on it. He does not recall any specific injury. He was seen by his PCP for this a few days ago and was sent to the [place] ED where he had blood testing that he stated was normal so that he did not need ultrasound. He continues to have symptoms prompting him to come to the ED. he has not tried any medications for this. Denies chest pain, shortness of breath, fevers, chills, skin changes. Related Data Home Medications ?Medication ?Instructions ?Recorded ?Confirmed ?Last Taken ?Type amlodipine 10 mg tablet 10 mg PO DAILY 05/21/23 02/18/25 02/18/25 History carvedilol 25 mg tablet 25 mg PO DAILY 05/21/23 02/18/25 02/18/25 History clonazepam 0.5 mg tablet 0.5 mg PO HS 05/21/23 02/18/25 02/17/25 History tamsulosin 0.4 mg capsule 0.4 mg PO DAILY 10/07/23 02/18/25 02/17/25 History atorvastatin 80 mg tablet 80 mg PO DAILY 12/30/24 02/18/25 02/17/25 History clopidogrel 75 mg tablet 75 mg PO DAILY 12/30/24 02/18/25 02/07/25 History Held on 02/18/25. Instructions: Resume on 02/20/25. hydromorphone 2 mg tablet 2 mg PO Q6H 12/30/24 02/18/25 02/17/25 History sennosides 8.6 mg-docusate sodium 1 tab PO DAILY 01/16/25 02/18/25 02/17/25 History 50 mg tablet (Senokot-S) oxycodone-acetaminophen 5 mg-325 1 tablet PO Q6H PRN pain 02/18/25 02/18/25 Unknown History mg tablet Allergies Allergy/AdvReac Type Severity Reaction Status Date / Time No Known Allergies Allergy Verified 05/17/25 14:48 Review of Systems Review of Systems: Gen.: Denies fevers or chills Eyes: Denies eye pain or visual change ENT: Denies congestion Respiratory: Denies shortness of breath or cough CV: Denies chest pain or palpitations GI: Denies abdominal pain nausea, emesis or diarrhea denies burning, urgency, frequency or hematuria Musculoskeletal: As per HPI Neuro: Denies numbness, tingling, weakness or focal weakness Skin: Denies rash Except as documented, all other systems reviewed and negative [facility] Past Medical History Medical History Ischemic stroke Residual left-sided weakness. Hyperlipidemia Hypertension Ureterolithiasis Surgical History Surgical History History of fusion of cervical spine History of urethral stent History of cystoscopy Family History Family History Mother Cerebrovascular accident Father Heart disease Social History Social History Social History: Surrogate medical decision maker: Kyra Nicholsonther, spouse. Code status: Full code. Smoking packs per day: 1 Smoking cigarettes per day: 20.0 Years smoked: 40 Smoking pack-years: 40.00 Tobacco type: cigarettes and e-cigarettes/vaping Smoking end date: 11/28/24 Additional smoking assessment comments: no longer smoking cigarettes, uses vape exclusively Alcohol intake: current Drinks per week: 1 Alcohol use details: rare alcohol use in moderation Substance use: never Substance use type: does not use Do You Feel Safe in your Home?: Yes Lack of Transportation: No Lack of Food: Never True Current Housing: I Have Housing Concerned About Future Housing: No Difficulty Paying Gas/Electric Bills: No Difficulty Paying for Meds: No Currently Unemployed: No Education: Grade School Difficulty w/ Childcare or Family Care: No Living arrangements: with family Additional living arrangements comments: Lives with spouse in [place]. 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 Spiritual care concerns: No Exam Narrative: APPEARANCE: No acute distress, nontoxic, resting in bed EYES: EOMI HEENT: Normocephalic, atraumatic, OMM RESPIRATORY: No respiratory distress Clear to auscultation bilaterally with no rhonchi wheezing or rales. CARDIOVASCULAR: Regular rate and rhythm without murmurs rubs or gallops. ABDOMINAL: Soft, nontender, nondistended, no rebound or guarding MUSCULOSKELETAl: Moves all extremities. Positive Homans sign on the right. 1+ pitting edema to the right lower extremity up to the level of the knee. NEURO: Awake and alert. Following commands, speech normal, no focal deficits SKIN:: Warm, dry. No rashes lesions or abrasions PSYCHIATRIC: Normal affect/mood, Course Vital Signs Vital signs: Vital Signs Temperature 97.9 F 05/17/25 14:09 Pulse Rate 82 05/17/25 14:09 Respiratory Rate 16 05/17/25 14:09 Blood Pressure 152/107 H 05/17/25 14:09 Pulse Oximetry 100 05/17/25 14:09 Oxygen Delivery Room Air 05/17/25 14:09 Temperature 97.9 F 05/17/25 14:09 Pulse Rate 88 05/17/25 17:45 Respiratory Rate 20 05/17/25 17:45 Blood Pressure 129/96 H 05/17/25 17:45 Pulse Oximetry 97 05/17/25 17:45 Oxygen Delivery Room Air 05/17/25 14:09 MDM - Extremity (Nontraumatic) MDM Narrative Medical decision making narrative: 65-year-old male that presented to the ED for right leg swelling and concerns for DVT. On initial evaluation, patient was in no acute distress and afebrile, hemodynamically stable. He had a fall positive Homans sign with a rate with tenderness over the right calf. There is no evidence of cellulitis. Venous Doppler of the right lower extremity showed no evidence of DVT. Suspect the patient does have a musculoskeletal strain with likely some overlying peripheral edema. He was educated on Tylenol ibuprofen use. He will be given a prescription for Flexeril. He was advised follow-up with PCP next week evaluation. Patient was agreeable to this plan. Given strict return precautions. Differential Diagnosis Differential diagnosis: Likely superficial thrombophlebitis, lower extremity edema and deep vein thrombosis of lower extremity Medical Records Attestation: I reviewed the patient's medical records. Imaging Data Attestation: I personally reviewed and interpreted this imaging study as follows: (I reviewed the radiologist's interpretations) Radiologist's impression: Impressions Venous Doppler Study 05/17/25 16:20 Impression: Negative for DVT. Discharge Plan Discharge Clinical Impression: Leg pain, right, Mild peripheral edema Patient Disposition: Home Condition: Stable Instructions: Antibiotic Form Additional Instructions: Your ultrasound showed no evidence of DVT. Suspect that you have strained muscle causing her pain. Take ibuprofen Tylenol. Your also given prescription for Flexeril, take this as prescribed. Follow-up with your PCP in the next few days for re-evaluation. Return the ED for any new or worsening symptoms. Patient Language: Emirati Prescriptions: New cyclobenzaprine 10 mg tablet 10 mg PO HS PRN (Reason: muscle spasm) Qty: 30 0RF No Action hydromorphone 2 mg tablet 2 mg PO Q6H Patient Comments: For Neuropathy atorvastatin 80 mg Tablet 80 mg PO DAILY Patient Comments: PT TAKES IN AM clopidogrel 75 mg Tablet 75 mg PO DAILY Patient Comments: TAKES IN AM oxycodone-acetaminophen 5-325 mg tablet 1 tablet PO Q6H PRN (Reason: pain) oxycodone-acetaminophen [Percocet] 5-325 mg tablet 1 - 2 tablet PO Q6H PRN (Reason: pain) Qty: 20 0RF tamsulosin 0.4 mg capsule 0.4 mg PO DAILY sennosides-docusate sodium [Senokot-S] 8.6-50 mg Tablet 1 tab PO DAILY acetaminophen [Tylenol Extra Strength] 500 mg tablet 1,000 mg PO Q6H PRN (Reason: pain) 2 Days Qty: 16 0RF oxybutynin chloride 2.5 mg tablet 2.5 mg PO BID Qty: 14 0RF carvedilol 25 mg Tablet 25 mg PO DAILY Rx Instructions: must administer with a meal/food clonazepam 0.5 mg Tablet 0.5 mg PO HS Rx Instructions: administer 30 minutes before bedtime amlodipine 10 mg Tablet 10 mg PO DAILY aspirin [Children's Aspirin] 81 mg Tablet,Chewable 81 mg PO DAILY@0800 30 Days Qty: 30 0RF Follow-up/Referrals: Alcon,Ciro Hopper MD [Primary Care Provider, Unknown]
[2025-05-17] MEDS: CYCLOBENZAPRINE HCL 10 MG TABLET PO (16:34)
[2025-05-17 17:45] VITALS: BP 129/96; PULSE 88; RESP 20; O2SAT 97
== END 2025-05-17 17:47 | disposition home or self-care (01) ==
PROVIDERS: Emergency Provider Student in an Organized Health Care Education/Training Program; PCP Emergency Medicine
DX: M79.661 Pain in right lower leg (principal); R60.0 Localized edema; I10 Essential (primary) hypertension; I69.354 Hemiplegia and hemiparesis following cerebral infarction affecting left non-dominant side; F17.290 Nicotine dependence, other tobacco product, uncomplicated
CPT/HCPCS: 93971; 99284; A9270